=== PATIENT | female | born 1940 | race Caucasian/White ===

== ENCOUNTER → 2017-08-17 11:49 | Outpatient (CLI) | payer MEDICARE, SELFPAY ==
[2017-08-17 12:02] LABS: Microscopic, Urine URINE MICROSCOPIC (MICROSCOPIC)
[2017-08-17 12:53] LABS: Creatinine,Urine Random 171 mg/dL (20-320); Total Protein,Urine Random 101.2 mg/dL (0.0-11.9)
[2017-08-17 13:02] LABS: Appearance,Urine Clear (Clear); Color,Urine Yellow (Yellow)
[2017-08-17 13:03] LABS: Bilirubin,Urine Negative (Negative); Blood, Urine Trace (Negative); Glucose,Urine (UA) Negative (Negative); Ketones,Urine Negative (Negative); Leukocyte Esterase,Urine 1+ (Negative); Nitrate,Urine Negative (Negative); Protein,Urine 3+ (Negative); RBC,Urine Occasional #/hpf (0-3); Urobilinogen,Urine 0.2 EU/dl (0.2)
[2017-08-17 13:04] LABS: Bacteria,Urine 2+ /lpf
[2017-08-17 13:14] LABS: Albumin Level 3.5 gm/dL (3.4-5.0); Anion Gap 13.7 mEq/L (5-15); Blood Urea Nitrogen 30 mg/dL (7-18); Calcium 8.7 mg/dL (8.5-10.1); Carbon Dioxide 24 mmol/L (21.0-32.0); Chloride 108 mmol/L (98-107); Creatinine,Serum 1.17 mg/dL (0.55-1.02); Estimated Glomerular Filt Rate 45 ml/min (>60); GFR (African American) 55 ML/MIN (>60); Glucose 142 mg/dL (74-106); Phosphorous 3.7 mg/dL (2.4-4.9); Potassium 4.7 mmoL/L (3.5-5.1); Sodium 141 mmol/L (136-145)
== END ==
PROVIDERS: PCP Family Medicine Geriatric Medicine; Visit Provider Internal Medicine Nephrology
DX: N18.3 Chronic kidney disease, stage 3 (moderate) (principal); R82.90 Unspecified abnormal findings in urine
CPT/HCPCS: 36415; 80069; 81001; 82570; 84155; 87086; 87088; 87186

== ENCOUNTER → 2017-12-28 08:12 | Outpatient (CLI) | payer MEDICARE, SELFPAY ==
[2017-12-28 08:19] LABS: Microscopic, Urine URINE MICROSCOPIC (MICROSCOPIC)
[2017-12-28 08:45] LABS: Basophils # 0.1 K/mm3 (0-0.2); Eosinophils # 0.3 K/mm3 (0.0-0.4); Eosinophils % 3.5 % (0.1-12.0); Hematocrit 38.3 % (37.0-47.0); Hemoglobin 11.5 g/dL (12.2-16.2); Lymphocytes # 2.2 K/mm3 (0.7-4.5); Lymphocytes % 29.3 K/mm3 (10-50); Mean Corpuscular Hemoglobin 29.3 pg (27.0-31.2); Mean Corpuscular Volume 97.8 fl (81-99); Mean Platelet Volume 8.8 fl (7.4-10.4); Monocytes # 0.6 K/mm3 (0.1-1.0); Monocytes % 8.2 % (1.7-9.3); Neutrophils # 4.3 K/mm3 (1.8-7.8); Platelet Count 188 K/mm3 (142-424); Red Blood Count 3.91 M/mm3 (4.20-5.40); Red Cell Distribution Width 16.3 % (11.5-17.5); White Blood Count 7.5 K/mm3 (4.8-10.8)
[2017-12-28 08:48] LABS: Appearance,Urine SL CLOUDY (Clear); Bilirubin,Urine Negative (Negative); Blood, Urine Negative (Negative); Color,Urine YELLOW (Yellow); Glucose,Urine (UA) Negative (Negative); Ketones,Urine Negative (Negative); Leukocyte Esterase,Urine TRACE (Negative); Nitrate,Urine Negative (Negative); PH,Urine 5.5 (5.0-8.5); Protein,Urine 2+ (Negative); Specific Gravity, Urine 1.025 (1.005-1.030); Urobilinogen,Urine 0.2 EU/dl (0.2)
[2017-12-28 09:03] LABS: Hemoglobin A1C 6.8 % (0.0-7.0)
[2017-12-28 09:07] LABS: WBC,Urine Occasional #/hpf (0-3)
[2017-12-28 09:08] LABS: Bacteria,Urine Trace /lpf
[2017-12-28 09:22] LABS: Albumin Level 3.4 gm/dL (3.4-5.0); Anion Gap 15.4 mEq/L (5-15); Blood Urea Nitrogen 38 mg/dL (7-18); Calcium 9.2 mg/dL (8.5-10.1); Carbon Dioxide 24 mmol/L (21.0-32.0); Chloride 108 mmol/L (98-107); Creatinine,Serum 1.35 mg/dL (0.55-1.02); Estimated Glomerular Filt Rate 38 ml/min (>60); GFR (African American) 46 ML/MIN (>60); Glucose 178 mg/dL (74-106); Phosphorous 4.7 mg/dL (2.4-4.9); Potassium 4.4 mmoL/L (3.5-5.1); Sodium 143 mmol/L (136-145); Uric Acid 7.6 mg/dL (2.6-7.2)
[2017-12-28 10:29] LABS: Creatinine,Urine Random 186 mg/dL (20-320); Total Protein,Urine Random 78.2 mg/dL (0.0-11.9)
[2017-12-29 09:01] LABS: Vitamin D 25 Hydroxy 31.1 ng/mL (30.0-100.0)
[2017-12-30 19:22] LABS: Parathyroid Hormone Intact 43 pg/mL (15-65)
== END ==
PROVIDERS: Visit Provider Hospitalist
DX: N18.3 Chronic kidney disease, stage 3 (moderate) (principal); E11.9 Type 2 diabetes mellitus without complications
CPT/HCPCS: 36415; 80069; 81001; 82570; 82652; 83036; 83970; 84155; 84550; 85025

== ENCOUNTER → 2018-03-14 09:17 | Outpatient (CLI) | payer MEDICARE, SELFPAY ==
--- NOTE | 2018-03-14 09:26 | MM_ITS ---
MM Dig screening mamm BI w/CAD ORDERING PHYSICIAN : Helen Hammer MD PATIENT AGE: 77 years GENDER: Female COMPARISON: December 2016, 2015, July 2014 and 2012. October 2011 INDICATION: ITS.REASON: SCREENING no complaints noncontributory family history. . TECHNIQUE: Standard CC and MLO images were obtained. R2 CAD reviewed. FINDINGS: . Lower density breast with Generalized fatty replacement. Minimal residual fibroglandular elements anterior breast bilateral.. No dominant mass nor suspicious calcifications. Benign vascular calcifications. Scattered benign punctate calcifications bilaterally again evident. Mild asymmetry. Areas of fibroglandular elements at superior left breast similar to previous studies. No significant new areas of concern IMPRESSION: Stable bilateral mammogram. Bilateral follow-up one year recommended. BI-RADS Category: 1 Negative RECOMMENDED FOLLOW-UP: 1YR 1 YEAR FOLLOW-UP (A letter has been sent to the patient regarding results of the study.)
--- NOTE | 2018-03-14 09:27 | XR_ITS ---
XR DEXA axial skeleton HISTORY: ITS.REASON: POST MENOPAUSAL ORDERING PHYSICIAN: Helen Hammer MD PATIENT AGE: 77 years COMPARISON: 01/27/2017 FINDINGS: The BMD measured at the left femoral neck is 0.817 g/cm squared with a T score of -1.6 . This is considered Osteopenic according to the World Health Organization criteria. Fracture risk is Moderate. Treatment is advised. The L1 L4 density as a T score of 0.9. The lumbar spine density is unchanged. The hip density has increased by nearly 4% from the previous study. IMPRESSION: Osteopenia with moderate fracture risk. Treatment suggested. Recommend follow-up exam March 2020
--- NOTE | 2018-03-14 09:53 | CA_ITS ---
PROCEDURE: 2-D M-mode and color Doppler study INDICATIONS FOR THE TEST: Chest pain COPD Heart Murmur Tobacco Smoking Palpitations Fatigue Syncope Edema+ Hypertension+Diabetes Mellitus+ Rheumatic Fever SOB+TODD Obesity+Hyperlipidemia+ Family History HD Additional History CLAUDICATION PATIENT INFORMATION HEIGHT: 68 WEIGHT:229 GENDER: Female B/P:140/70 2-D/M-MODE INTERPRETATION: 2-D MEASUREMENTS OBSERVED VALUES IN CMS Right Ventricular Dimension (RVDd) 2.6 Interventricular Septum (Thickness)(IVsd) 1.3 Left Ventricular Internal Dimensions(LVIDd) 5.5 Left Ventricular Posterior Wall (Thickness)(LVPWd) 0.9 Aortic Root 3.3 Aortic Cusp Separation 1.4 Left Atrial Dimensions (LAD) 4.4 2D 1. Left atrium is mildly enlarged, left ventricle is normal size, mild concentric left ventricular hypertrophy, visually estimated ejection fraction 55% with no obvious regional wall motion abnormality. 2. The right atrium and right ventricle are normal size and contractility. 3. The aortic valve is thickened and calcified, with mild restriction the leaflet mobility. 4. The mitral and tricuspid valve leaflets are minimally thickened 5. The pulmonic valve is poorly visualized. 6. No significant pericardial effusion noted. DOPPLER INTERROGATION: 1. The maximum aortic out flow velocity recorded study 2.2 m/s, resulting in a mean gradient across valve of 12 mmHg, this represents mild aortic stenosis, there is no significant aortic insufficiency present. 2. The mitral inflow velocity within normal range, there is no mitral stenosis, there is mild mitral regurgitation. Grade 1 diastolic dysfunction seen with tissue Doppler evidence of raised left atrial pressure. 3. There is mild tricuspid regurgitation noted, tricuspid and jet velocity insufficient for calculation of the right ventricular systolic pressure, CONCLUSION 1. Mildly enlarged left atrium, normal left ventricular size, mild concentric left ventricular hypertrophy, visually estimated ejection fraction 55% with no obvious regional wall motion abnormality, grade 1 diastolic dysfunction seen with tissue Doppler evidence of raised left atrial pressure. 2. Thickened and calcified aortic valve with mean gradient across valve of 12 mmHg, this represents mild aortic stenosis, there is no significant aortic insufficiency present. 3. Mild mitral and tricuspid regurgitation 4. No significant pericardial effusion noted.
--- NOTE | 2018-03-14 09:57 | US_ITS ---
US Arterial Ankle Brachial Ind History: Claudication, diabetes, wrist pain, leg pain ORDERING PHYSICIAN: Helen Hammer MD PATIENT AGE: 77 years TECHNIQUE: Segmental pressures obtained of both right and left leg. These are compared to brachial blood pressure to yield index at each level sampled including summary HALLEY. The data sheets from the procedure are available in PACS FINDINGS Rest study only performed today No prior studies available for comparison. Blood pressures reported are in millimeters mercury. RIGHT LEG HALLEY = 1.1. RIGHT LEG TBI=.8 Brachial BP: 161 Thigh BP: 172 Calf BP: 172 Ankle PT: 171 Ankle DP : 164 Digit =126 LEFT LEG HALLEY = 1.1 LEFT LEG TBI= .9 Brachial BPD: 162 Thigh BP: 175 Calf BP: 177 Ankle PT:172 Ankle DP: 170 Digit = 145 Pulses and waveforms: Normal IMPRESSION: The ABIs as reported above are within normal limits. Waveforms and pulses are also unremarkable.
== END ==
PROVIDERS: PCP Emergency Medicine; Visit Provider Emergency Medicine
DX: Z12.31 Encounter for screening mammogram for malignant neoplasm of breast (principal); Z13.820 Encounter for screening for osteoporosis; Z78.0 Asymptomatic menopausal state; I73.9 Peripheral vascular disease, unspecified; R06.02 Shortness of breath
CPT/HCPCS: 77067; 77080; 93306; 93922

== ENCOUNTER → 2018-10-10 14:38 | Outpatient (POV) | payer MEDICARE, SELFPAY | PROVIDERS: Visit Provider Dermatology | DX: Z00.00 Encounter for general adult medical examination without abnormal findings (principal) ==

== ENCOUNTER → 2018-12-15 10:15 | Outpatient (CLI) | payer MEDICARE, SELFPAY ==
--- NOTE | 2018-12-15 10:24 | US_ITS ---
US thyroid HISTORY: ITS.REASON: THYROID NODULE ORDERING PHYSICIAN: Helen Santos MD PATIENT AGE: 78 years Comparison: None FINDINGS: The isthmus is normal at 3 mm. The right lobe measures 2.5 x 1 x 1.4 cm with some heterogeneous echogenicity. No discrete nodule is not identified in both transverse and longitudinal planes. There is a question of a nodule in the upper pole however, this may likely be related to heterogeneous echogenicity and is not well-defined. Left lobe is 2.5 x 0.8 x 1.4 cm also showing heterogeneous echogenicity. There is a 7 mm slightly hypoechoic nodule in the lower pole. IMPRESSION: Heterogeneous echogenicity of the thyroid gland with a 7 mm nodule in the lower pole on the left and other areas of faint nodularity but not well-defined. Suggest 6 month follow-up to confirm stability. Suspicion of malignancy is low
== END ==
PROVIDERS: PCP Emergency Medicine; Visit Provider Emergency Medicine
DX: E04.1 Nontoxic single thyroid nodule (principal)
CPT/HCPCS: 76536

== ENCOUNTER → 2019-01-26 08:38 | Outpatient (CLI) | payer MEDICARE, SELFPAY ==
--- NOTE | 2019-01-26 08:42 | CA_ITS ---
PROCEDURE: 2-D M-mode and color Doppler study INDICATIONS FOR THE TEST: Chest pain COPD Heart Murmur+ Tobacco Smoking Palpitations Fatigue Syncope Edema Hypertension+Diabetes Mellitus+ Rheumatic Fever SOB+TODD+Obesity+Hyperlipidemia+ Family History HD Additional History nausea PATIENT INFORMATION HEIGHT: 68 WEIGHT: 215 GENDER: Female B/P: 119/74 2-D/M-MODE INTERPRETATION: 2-D MEASUREMENTS OBSERVED VALUES IN CMS Right Ventricular Dimension (RVDd) 2.6 Interventricular Septum (Thickness)(IVsd) 1.0 Left Ventricular Internal Dimensions(LVIDd) 5.1 Left Ventricular Posterior Wall (Thickness)(LVPWd) 1.0 Aortic Root 2.7 Aortic Cusp Separation 2.0 Left Atrial Dimensions (LAD) 4.5 2D 1. Left atrium is mildly enlarged, left ventricle is normal size, mild concentric left ventricular hypertrophy, visually estimated ejection fraction 55% with no regional wall motion abnormality. 2. The right atrium and right ventricle are normal size and contractility. 3. The aortic valve is thickened and calcified with restriction the leaflet mobility. 4. The mitral and tricuspid valve leaflets are minimally thickened and calcified. 5. The pulmonic valve is poorly visualized. 6. No significant pericardial effusion noted. DOPPLER INTERROGATION: 1. The maximum aortic out flow velocity recorded study 2.3 m/s, resulting in a mean gradient across valve of 12 mmHg, valve area is 1.51 sq cm represents mild aortic stenosis. There is no aortic insufficiency 2. The mitral inflow velocities within normal range, there is no mitral stenosis, there is mild mitral regurgitation. Grade 1 diastolic dysfunction seen with tissue Doppler evidence of raised left atrial pressure. 3. Mild tricuspid regurgitation noted, tricuspid regurgitation jet velocity is inadequate for calculation of the right ventricular systolic pressure. Inferior vena cava is normal size with normal inspiratory collapse. CONCLUSION: 1. Mildly enlarged left atrium, normal left ventricular size, mild concentric left ventricular hypertrophy, visually estimated ejection fraction 55% with no regional wall motion abnormality, grade 1 diastolic dysfunction seen with tissue Doppler evidence of raised left atrial pressure. 2. Thickened and calcified aortic valve, mean gradient across valve of 12 mmHg, valve area 1.51 sq cm represents mild aortic stenosis, there is no aortic insufficiency. 3. Mild mitral and tricuspid regurgitation 4. No significant pericardial effusion noted.
--- NOTE | 2019-01-26 08:43 | US_ITS ---
US Arterial Lower Ext Rest Ordering Physician: Helen Santos MD Patient Age: 78 years: Female HISTORY: Diabetic. Hyperlipidemia hypertension . Bilateral claudication. Bilateral rest pain skin color changes both lungs Previous US Arterial Ankle Brachial Ind ORDERING PHYSICIAN: Helen Hammer MD PATIENT AGE: 77 years TECHNIQUE: Segmental pressures obtained of both right and left leg. These are compared to brachial blood pressure to yield index at each level sampled including summary HALLEY. The data sheets from the procedure are available in PACS FINDINGS Rest study only performed today No prior studies available for comparison. Blood pressures reported are in millimeters mercury. RIGHT LEG HALLEY = 1.1. RIGHT LEG TBI=. 0.5 Brachial BP: 138 Thigh BP: 132 with index 0.96 Calf BP: 132 with index 0.96 Ankle PT: 132 with index 0.96 Ankle DP : 1:30 with index 0.94 Digit =BP 74 with index 0.57 LEFT LEG HALLEY = 1.0 LEFT LEG TBI= 0.7 Brachial BPD: 134 Thigh BP: BP 134 with index 0.97 Calf BP: 146 with index 1.06 Ankle PT:BP 132 with index 0.96 Ankle DP: BP 125 with index 0.91 Digit = BP 90 with index 0.65 Pulses and waveforms: Normal IMPRESSION: ... . ABIs remain normal bilateral . Suggesting Good Blood flow to the ankles bilaterally as do the. Normal waveforms and pulses bilaterally . Only note Bilateral TBI's have decreased slightly since previous study of March 2018: RIGHT LEG HALLEY = 1.1. RIGHT LEG TBI=. 0.5 LEFT LEG HALLEY = 1.0 LEFT LEG TBI= 0.7
== END ==
PROVIDERS: PCP Emergency Medicine; Visit Provider Emergency Medicine
DX: R06.02 Shortness of breath (principal); R60.9 Edema, unspecified; I87.2 Venous insufficiency (chronic) (peripheral); R09.89 Other specified symptoms and signs involving the circulatory and respiratory systems
CPT/HCPCS: 93306; 93923

== ENCOUNTER → 2019-03-20 10:46 | Outpatient (CLI) | payer MEDICARE, SELFPAY ==
--- NOTE | 2019-03-20 10:48 | MM_ITS ---
PROCEDURE: MM DIG SCREENING MAMM BI W/CAD CLINICAL INDICATION: screening Routine screening. No hormones but no new complaints. Noncontributory family history. COMPARISON: [facility] DIGITAL MAMM-SCREEN BILATERAL from 11/26/2011 [facility] DIG MAMM-SCREEN VARGAS from 07/09/2013 [facility] DIG MAMM-SCREEN VARGAS from 07/19/2014 [facility] DIG MAMM-SCREEN VARGAS from 01/29/2016 [facility] DIG MAMM-SCREEN VARGAS W/CAD from 01/27/2017 [facility] MM Dig screening mamm BI w/CAD from 03/14/2018 TECHNIQUE: Standard CC and MLO images were obtained. R2 CAD reviewed. FINDINGS: Low-density breast bilaterally with generalized fatty replacement. Only minimal residual fibroglandular elements towards the anterior breast, retroareolar region bilaterally.. Similar pattern to previous studies with no dominant or new suspicious mass. No suspicious calcifications. But there are some tiny stable calcifications bilaterally with no significant change since 2017. Minimal vascular calcifications again seen bilaterally. IMPRESSION: Stable mammogram. No new areas of concern BI-RAD Category: 1 Negative FOLLOW-UP: 1YR 1 Year Follow-up (A letter has been sent to the patient regarding results of the study.) Dictated by: Kevyn Burnham MD 03/21/2019 11:27 Signed by: <Electronically signed by Kevyn Burnham MD in [facility]> 03/21/2019 11:27
== END ==
PROVIDERS: PCP Emergency Medicine; Visit Provider Emergency Medicine
DX: Z12.31 Encounter for screening mammogram for malignant neoplasm of breast (principal)
CPT/HCPCS: 77067

== ENCOUNTER → 2019-08-21 08:49 | Outpatient (CLI) | payer MEDICARE, SELFPAY ==
[2019-08-21 08:58] LABS: Microscopic, Urine URINE MICROSCOPIC (MICROSCOPIC)
[2019-08-21 09:49] LABS: Hemoglobin A1C 5.9 % (0.0-7.0)
[2019-08-21 10:27] LABS: Appearance,Urine CLEAR (Clear); Bilirubin,Urine Negative (Negative); Blood, Urine TRACE-L (Negative); Color,Urine YELLOW (Yellow); Glucose,Urine (UA) Negative (Negative); Ketones,Urine Negative (Negative); Leukocyte Esterase,Urine Negative (Negative); Nitrate,Urine Negative (Negative); Protein,Urine 2+ (Negative); Specific Gravity, Urine >= 1.030 (1.005-1.030); Urobilinogen,Urine 0.2 EU/dl (0.2)
[2019-08-21 10:52] LABS: Bacteria,Urine 2+ /lpf; RBC,Urine Occasional #/hpf (0-3)
[2019-08-21 11:28] LABS: Alanine Aminotransferase 21 U/L (12-78); Albumin Level 3.1 gm/dL (3.4-5.0); Albumin/Globulin Ratio 0.9 (1.1-1.8); Alkaline Phosphatase 44 U/L (46-116); Anion Gap 16.3 mEq/L (5-15); Aspartate Amino Transferase 32 U/L (15-37); Bilirubin,Total 0.6 mg/dL (0.2-1.0); Blood Urea Nitrogen 36 mg/dL (7-18); Calcium 9.3 mg/dL (8.5-10.1); Carbon Dioxide 24 mmol/L (21.0-32.0); Chloride 109 mmol/L (98-107); Chol/HDL Ratio 5.1 (1-3.5); Cholesterol 139 mg/dL (140-200); Creatinine,Serum 1.49 mg/dL (0.55-1.02); Estimated Glomerular Filt Rate 34 ml/min (>60); GFR (African American) 41 ML/MIN (>60); Globulin 3.3 gm/dl (1.3-3.2); Glucose 94 mg/dL (74-106); HDL Cholesterol 27 mg/dL (29-89); LDL Cholesterol 61 mg/dL (0-130); Potassium 4.3 mmoL/L (3.5-5.1); Sodium 145 mmol/L (136-145); T4 (Thyroxine) 12.8 ug/dl (4.7-13.3); Thyroid Stimulating Hormone 1.44 uIU/ml (0.358-3.740); Total Protein,Serum 6.4 gm/dL (6.4-8.2); Triglycerides 256 mg/dL (30-200); VLDL Cholesterol 51 mg/dL (0-40)
== END ==
PROVIDERS: Visit Provider Family Medicine
DX: E11.22 Type 2 diabetes mellitus with diabetic chronic kidney disease (principal); E03.9 Hypothyroidism, unspecified; E78.5 Hyperlipidemia, unspecified; I10 Essential (primary) hypertension; R82.90 Unspecified abnormal findings in urine
CPT/HCPCS: 36415; 80053; 80061; 81001; 83036; 84436; 84443; 87086; 87088; 87186

== ENCOUNTER → 2020-03-24 09:56 | Outpatient (CLI) | payer MEDICARE, SELFPAY ==
--- NOTE | 2020-03-24 09:58 | MM_ITS ---
PROCEDURE: MM DIG SCREENING MAMM BI W/CAD Digital Breast Tomosynthesis Included CLINICAL INDICATION: SCREENING There is no personal or family history of breast cancer. COMPARISON: MG [facility] DIG MAMM-SCREEN VARGAS W/CAD from 01/27/2017 [facility] MM Dig screening mamm BI w/CAD from 03/14/2018 [facility] MM DIG SCREENING MAMM BI W/CAD from 03/20/2019 TECHNIQUE: Standard CC and MLO images and 3D Tomosynthesis was obtained. R2 CAD reviewed. FINDINGS: The breasts are composed primarily of fat with minimal glandular elements in the subareolar regions bilaterally. There is a mole marker right breast. There are few scattered benign-appearing microcalcifications in each breast and there is mild arterial calcification in each breast. There is no suspicious lesion in either breast and no suspicious microcalcifications. There is a borderline size but normal appearing node left axilla. IMPRESSION: Fatty type breast parenchyma with no suspicious lesions seen BI-RAD Category: 2 Benign Finding(s) FOLLOW-UP: 1YR 1 Year Follow-up (A letter has been sent to the patient regarding results of the study.) Dictated by: Dr. Skinny Abraham MD 03/25/2020 08:31 Dr. Skinny Abraham MD in [place] 03/25/2020 08:31
--- NOTE | 2020-03-24 09:58 | XR_ITS ---
PROCEDURE: XR DEXA AXIAL SKELETON CLINICAL HISTORY: OSTEOPENIA COMPARISON: CR DEXAAX XR DEXA axial skeleton from 03/14/2018 FINDINGS: The right hip BMD is 0.592 with a t-score of -2.3. The left hip BMD is 0.728 with a t-score of -1.1. The lumbar spine BMD is 1.098 with a t-score of 0.5. Previously the lowest bone density was in the right femoral neck and had a T-score -1.6. IMPRESSION: This patient is considered osteopenic according to the World Health Organization criteria. Bone density is between 10 and 25 percent below young normal . Fracture risk is moderate. Treatment is advised. The patient's bone mineral density decreased compared to the previous exam. Based on these results of follow-up exam is recommended in 2 years Dictated by: Hector Peterson MD 03/26/2020 06:15 Hector Peterson MD in [place] 03/26/2020 06:15
== END ==
PROVIDERS: PCP Family Medicine; Visit Provider Family Medicine
DX: Z12.31 Encounter for screening mammogram for malignant neoplasm of breast (principal); M85.89 Other specified disorders of bone density and structure, multiple sites
CPT/HCPCS: 77063; 77067; 77080

== ENCOUNTER → 2020-05-28 08:16 | Outpatient (CLI) | payer MEDICARE, SELFPAY ==
[2020-05-28 09:01] LABS: Chloride 109 mmol/L (98-107); Potassium 4.3 mmoL/L (3.5-5.1); Sodium 143 mmol/L (136-145)
[2020-05-28 09:04] LABS: Anion Gap 14.3 mEq/L (5-15); Blood Urea Nitrogen 45 mg/dl (7-17); Carbon Dioxide 24 mmol/L (22.0-30.0); Estimated Glomerular Filt Rate 29 ml/min (>60); GFR (African American) 35 ML/MIN (>60); Glucose 91 mg/dl (74-100)
[2020-05-28 10:38] LABS: Hemoglobin A1C 5.9 % (4.0-6.0)
[2020-05-28 14:19] LABS: Thyroid Stimulating Hormone 0.04 uIU/mL (0.465-4.68)
== END ==
PROVIDERS: Visit Provider Family Medicine
DX: E11.22 Type 2 diabetes mellitus with diabetic chronic kidney disease (principal); E03.9 Hypothyroidism, unspecified; I10 Essential (primary) hypertension
CPT/HCPCS: 36415; 80048; 83036; 84443

== ENCOUNTER 2020-08-21 13:05 | Emergency (ER) | payer MEDICARE, SELFPAY ==
[2020-08-21 13:05] VITALS: BP 170/82; BP 179/91; PULSE 46; PULSE 47; RESP 18; RESP 20; TEMP 37.1; O2SAT 96; BMI 35.8
[2020-08-21 13:35] VITALS: BP 169/72; PULSE 56; RESP 18; O2SAT 96
--- NOTE | 2020-08-21 13:37 | CT_ITS ---
PROCEDURE: CT HEAD/BRAIN WO CON CLINICAL INDICATION: stroke protcol Right-sided weakness COMPARISON: No exams were available for comparison TECHNIQUE: Axial images obtained. All CT scans at the facility use one or more dose reduction, viz: automated exposure control, ma/kV adjustment per patient size (including targeted exams where dose is matched to indication, i.e. head), or iterative reconstruction technique. FINDINGS: Hyperdensity is present within the left lateral ventricle at the anterior horn body and posterior horn consistent with acute intraventricular hemorrhage. Blood is also present in the temporal horn of the left lateral ventricle. Also suspect subdural hematoma along the tentorium on the left anteriorly. There is no midline shift. There is atrophy with periventricular ischemic gliotic changes. There is opacification of the left maxillary sinus. No acute calvarial fracture. IMPRESSION: 1. Acute left-sided intraventricular hemorrhage within the left lateral ventricle also with a small amount of blood within the 3rd ventricle. 2. Small subdural hematoma along the tentorium on the left. 3. No midline shift. 4. Atrophy with periventricular ischemic gliotic change. 5. Dr. Manley notified of the above findings by telephone 08/21/2020 at 1:55 p.m. Dictated by: Hector Peterson MD 08/21/2020 14:03 Hector Peterson MD in [facility] 08/21/2020 14:03
--- NOTE | 2020-08-21 13:41 | XR_ITS ---
PROCEDURE: XR PELVIS 1-2V CLINICAL INDICATION: fall Posttraumatic pain COMPARISON: No exams were available for comparison TECHNIQUE: XR Pelvis AP View FINDINGS: No fracture or dislocation is evident. Mild osteoarthritic changes are at the hips and degenerative changes are present in the lower lumbar spine. No lytic or blastic change. IMPRESSION: No acute findings. Dictated by: Hector Peterson MD 08/21/2020 14:30 Hector Peterson MD in [place] 08/21/2020 14:30
--- NOTE | 2020-08-21 13:41 | XR_ITS ---
PROCEDURE: XR CHEST AP CLINICAL HISTORY: fall Posttraumatic pain COMPARISON: No exams were available for comparison FINDINGS: Cardiomegaly without failure. Minimal atelectatic changes in the lung bases. No acute bony abnormalities. IMPRESSION: Mild bibasilar atelectasis with cardiomegaly Dictated by: Hector Peterson MD 08/21/2020 14:30 Hector Peterson MD in [facility] 08/21/2020 14:30
--- NOTE | 2020-08-21 13:41 | CT_ITS ---
PROCEDURE: CT CERVICAL SPINE WO CON CLINICAL INDICATION: fall/pain Posttraumatic pain Neck injury with pain, contusion/abrasion or hematoma, cervical sprain/strain the COMPARISON: No exams were available for comparison TECHNIQUE: Axial images obtained with sagittal and coronal reformats. All CT scans at the facility use one or more dose reduction, viz: automated exposure control, ma/kV adjustment per patient size (including targeted exams where dose is matched to indication, i.e. head), or iterative reconstruction technique. Axial spiral CT scanning performed of the cervical spine beginning at the base of the skull and continuing to the upper T-spine. 3-D multiplanar reconstruction with 3-D manipulation of volumetric data set in image rendering was completed by the radiologist and/or technologist with the supervision of the radiologist on independent workstation. FINDINGS: There is multilevel cervical spondylosis. There is 3 mm anterolisthesis of C4 on C5. Degenerative disc disease is present at C4-C5 C5-C6 C6-C7 and C7-T1. Facet arthropathy is noted at multiple levels. There is foraminal narrowing on the left at C4-C5 from facet and uncovertebral hypertrophic change. Mild bilateral foraminal narrowing C5-C6 and C6-C7. Anterior osteophytes are present at C5-C6 and C6-C7. There is reversal of the lordosis at C4-C5. IMPRESSION: Reversal lordosis with multilevel cervical spondylosis. 3 mm anterolisthesis C4 on C5 which may be degenerative in nature. No acute fracture Dictated by: Hector Peterson MD 08/21/2020 14:06 Hector Peterson MD in [facility] 08/21/2020 14:06
--- NOTE | 2020-08-21 13:42 | PC.NURSE ---
Pt to rad.
[2020-08-21 13:54] LABS: Chloride 106 mmol/L (98-107); Potassium 4.3 mmoL/L (3.5-5.1); Sodium 143 mmol/L (136-145)
[2020-08-21 13:57] LABS: Alanine Aminotransferase 29 U/L (12-78); Albumin Level 4.4 g/dl (3.5-5.0); Albumin/Globulin Ratio 1.1 (1.1-1.8); Alkaline Phosphatase 67 U/L (38-126); Anion Gap 14.3 mEq/L (5-15); Aspartate Amino Transferase 57 U/L (14-36); Bilirubin,Total 1.2 mg/dl (0.2-1.3); Blood Urea Nitrogen 51 mg/dl (7-17); Carbon Dioxide 27 mmol/L (22.0-30.0); Creatinine Clearance Estimated 32 mL/min (50-200); Estimated Glomerular Filt Rate 21 ml/min (>60); GFR (African American) 25 ML/MIN (>60); Globulin 3.9 g/dL (1.3-3.2); Glucose 173 mg/dl (74-100); Total Protein,Serum 8.3 g/dl (6.3-8.2)
[2020-08-21 13:58] LABS: Basophils # 0.1 K/mm3 (0-0.2); Basophils % 0.5 % (0.1-2.0); Eosinophils # 0.1 K/mm3 (0.0-0.4); Eosinophils % 0.6 % (0.1-12.0); Hematocrit 48.8 % (37.0-47.0); Hemoglobin 15.7 g/dL (12.2-16.2); Lymphocytes # 1.9 K/mm3 (0.7-4.5); Lymphocytes % 14.9 % (10-50); Mean Corpuscular HGB Conc 32.3 g/dL (31.8-35.4); Mean Corpuscular Hemoglobin 32.5 pg (27.0-31.2); Mean Corpuscular Volume 100.6 fl (81-99); Mean Platelet Volume 9.4 fl (7.4-10.4); Monocytes # 0.8 K/mm3 (0.1-1.0); Monocytes % 5.9 % (1.7-9.3); Neutrophils # 10.1 K/mm3 (1.8-7.8); Neutrophils % 78.2 % (37.0-80.0); Platelet Count 252 K/mm3 (142-424); Red Blood Count 4.85 M/mm3 (4.20-5.40); Red Cell Distribution Width 16.2 % (11.5-17.5); White Blood Count 12.9 K/mm3 (4.8-10.8)
[2020-08-21 13:59] LABS: Calcium 13.4 mg/dl (8.4-10.2)
--- NOTE | 2020-08-21 13:59 | PC.NURSE ---
Calcium called to jaron 13.4
--- NOTE | 2020-08-21 14:01 | PC.NURSE ---
speaking with Dr Peterson and family at this time.
[2020-08-21 14:03] LABS: Lactic Acid 1.8 mmol/L (0.7-2.1)
--- NOTE | 2020-08-21 14:03 | PC.NURSE ---
calling [facility] at this time.
[2020-08-21 14:05] VITALS: BP 190/82; PULSE 57; RESP 20; O2SAT 94
--- NOTE | 2020-08-21 14:16 | [facility].EDGENADL ---
ED Disposition Clinical Impression: Brain bleed Disposition: Xfer Short-Term Hosp Condition on Discharge: Fair Instructions: Intracerebral Hemorrhage Referrals: Evaristo Lovell MD [Primary Care Provider] - Forms: Transfer Record - ED Time of Disposition: 14:25 - Critical Care Critical Care Time: No Attestation: On 08/21/20, the high probability of a clinically significant, sudden or life threatening deterioration of the following system(s) required my full and direct attention, intervention and personal management. The time I documented below is in addition to time spent performing reported procedures but includes the following listed in this critical care notation. Medical Decision Making - Medical Records Medical records reviewed: Yes: I reviewed the patient's medical records. MR Comment: This is a pleasant 80-year-old female here brought by her and family with complaint that she was feeling weak had some hallucination and had nausea and vomiting; fell 1 week ago and had symptoms of not feeling well nausea and vomiting subsequently she fell this morning again and had an episode of nausea and vomiting she denies any heart problems have a history of diabetes and is quite stable at this time. CT of the head shows the following hyperdensities present within the left lateral ventricle at the anterior horn body and posterior horn consistent with acute intraventricular hemorrhage. Blood is also present in the temporal horn of the left lateral ventricle. Also subsequent suspected subdural hematoma along the tentorium on the left anteriorly. There is no midline shift. There is atrophy with periventricular ischemic gliotic changes . To Dr. Rodriguez at [facility] and he has accepted patient advised no medications to be given at this time patient and her has have been informed of findings is confirmed to me that they have a living well not want to be kept on life support in case of any complications. There is opacification of the left maxillary sinus no acute calvarial fracture - [facility] Inquiry Pt receiving controlled substance: No Vital Signs: 08/21/20 13:05 Temperature 98.7 F Temperature Source Oral Pulse Rate [Left Radial] 46 L Respiratory Rate 20 Blood Pressure [Right Arm] 179/91 H Blood Pressure Mean [Right Arm] 120 Blood Pressure Source [Right Arm] Automatic Cuff Blood Pressure Position [Right Arm] Sitting 02 Sat by Pulse Oximetry 96 Oxygen Delivery Method Room Air - Lab Data Lab results reviewed: Yes: I reviewed the patient's lab results. Lab Results 08/21/20 13:20: Lactate 1.8 08/21/20 13:20: WBC 12.9 H, RBC 4.85, Hgb 15.7, Hct 48.8 H, MCV 100.6 H, MCH 32.5 H, MCHC 32.3, RDW 16.2, Plt Count 252, MPV 9.4, Neut % (Auto) 78.2, Lymph % (Auto) 14.9, [place] % (Auto) 5.9, Eos % (Auto) 0.6, Baso % (Auto) 0.5, Neut # (Auto) 10.1 H, Lymph # (Auto) 1.9, [place] # (Auto) 0.8, Eos # (Auto) 0.1, Baso # (Auto) 0.1 08/21/20 13:20: Sodium 143, Potassium 4.3, Chloride 106, Carbon Dioxide 27, Anion Gap 14.3, BUN 51 H, Creatinine 2.30 H, Estimated Creat Clear 32, Estimated GFR 21 L, Est GFR ( Amer) 25 L, Glucose 173 H, Calcium 13.4 H*, Total Bilirubin 1.2, AST 57 H, ALT 29, Alkaline Phosphatase 67, Total Protein 8.3 H, Albumin 4.4, Globulin 3.9 H, Albumin/Globulin Ratio 1.1 Result diagrams: 08/21/20 13:20 08/21/20 13:20 Orders (Tests/Meds): ORDERS Category Date Time Status XR chest AP Stat Exams 08/21/20 13:41 Taken XR pelvis 1-2V Stat Exams 08/21/20 13:41 Taken Blood Culture Stat Micro 08/21/20 13:20 Received General Adult HPI - General Chief complaint: Weakness Stated complaint: ams weakness Time Seen by Provider: 08/21/20 14:00 Mode of Arrival: Wheelchair Source of Information: Patient, Spouse Limitations: No Limitations Description of Symptoms (Recalled from ER Triage Doc. by RN): c/o weakness for one week, more week on the right side than the left
--- NOTE | 2020-08-21 14:19 | PC.NURSE ---
[place] [facility] accepted flight. [facility] will call back when they have lifted off.
[2020-08-21 14:30] VITALS: BP 172/76; PULSE 59; RESP 18; O2SAT 95
--- NOTE | 2020-08-21 14:34 | PC.NURSE ---
REPORT CALLED TO MARCELO AT ER. AWAITING ER AT THIS TIME
[2020-08-21 15:00] VITALS: BP 172/76; PULSE 59; RESP 18; TEMP 37.1; O2SAT 95
== END 2020-08-21 15:10 | disposition short-term general hospital (02) ==
PROVIDERS: Emergency Provider Emergency Medicine; PCP Family Medicine
DX: I61.9 Nontraumatic intracerebral hemorrhage, unspecified (principal); E11.9 Type 2 diabetes mellitus without complications; E78.5 Hyperlipidemia, unspecified; I10 Essential (primary) hypertension; Z88.2 Allergy status to sulfonamides; Z79.899 Other long term (current) drug therapy
CPT/HCPCS: 70450; 71045; 72125; 72170; 80053; 83605; 85025; 87040; 99284

== ENCOUNTER → 2021-02-13 11:31 | Outpatient (CLI) | payer MEDICARE, SELFPAY | PROVIDERS: PCP Family Medicine; Visit Provider Family Medicine | DX: R00.1 Bradycardia, unspecified (principal); I35.8 Other nonrheumatic aortic valve disorders; R42 Dizziness and giddiness; R55 Syncope and collapse | CPT/HCPCS: 93225; 93226 ==

== ENCOUNTER → 2021-03-02 10:55 | Outpatient (CLI) | payer MEDICARE, SELFPAY ==
--- NOTE | 2021-03-02 | CA_ITS ---
APPROVED REPORT EXAM: Comprehensive 2D, Doppler, and color-flow Echocardiogram Washer Cutter: Lilian Souza RT(R) Ht: 5 ft 8 in Wt: 222lbs BSA: 2.14 BP: 133/71 mmHg Indications: murmur, HTN, hyperlipidemia, DM, obesity, anemia, thyroid disease, glaucoma, chronic kidney disease, hx of 2D Dimensions LVOT 1.92 cm (M/F) 1.5-2.5 LA Volume 53.40 mL LA Volume Index 25.07 mL/m2 (M/F) 16-34 M-Mode Dimensions RVDd 3.14 cm (0.9-2.6) LA Diam 4.43 cm (1.9-4.0) LVDd 6.29 cm (3.5-5.7) Ao Diam 3.07 cm (2.0-3.7) LVDs 5.01 cm (3.5-5.7) IVSd 0.89 cm (0.6-1.1) PWd 0.85 cm (0.6-1.1) EF (Teich) 40.70% FS 20.30% EDV (Teich) 200.50 mL ESV (Teich) 118.80 mL LV Diastology E Decel Time 227.00 (160-240 msec) E/A Ratio 0.6 MED E' 5.50 (< 7 cm/sec) E'/MED E' Ratio 13.65 (>14) LAT E' 9.80 (<10 cm/sec) E/LAT E' Ratio 7.66 (>14) Aortic Valve LVOT Max 125.00 (70-110 cm/s) LVOT VTI 28.70 cm AoV Peak Cruz. 329.00 (50-130 cm/s) AO Peak GR. 43.60 mmHg AO Mean GR. 21.30 (<5 mmHg) AO VTI 69.16 (18-25 cm) ZION (VTI) 1.20 (2.5-4.5 cm2) Mitral Valve MV E Max Cruz. 75.00 (40-130 cm/s) MV A Velocity 118.00 (40-130 cm/s) E/A Ratio 0.64 MV Decel. Time 227.00 (160-240 ms) MV PHT 66.00 ms Left Ventricle Left atrium is mildly enlarged, left ventricle is normal size, mild concentric left ventricular hypertrophy, visually estimated ejection fraction 55% with no regional wall motion abnormality, grade 1 diastolic dysfunction seen without tissue Doppler evidence of raise left atrial pressure. Right Ventricle Right atrium and right ventricle are normal size and contractility. Aortic Valve Aortic valve is thickened and calcified, mean gradient across aortic stenosis, there is no significant aortic insufficiency. Mitral Valve Mitral valve is grossly normal, there is mild mitral regurgitation. Tricuspid Valve Tricuspid valve grossly normal, there is mild tricuspid regurgitation, tricuspid regurgitation jet velocity is inadequate for calculation of the right ventricular systolic pressure. Pulmonic Valve Pulmonic valve is poorly visualized. Great Vessels Aortic root is normal size. Pericardium No significant pericardial effusion noted. Conclusion 1. Mildly enlarged left atrium, normal left ventricular size, mild concentric left ventricular hypertrophy, visually estimated ejection fraction 55% with no regional wall motion abnormality, grade 1 diastolic dysfunction seen without tissue Doppler evidence of raise left atrial pressure. 2. Thickened and calcified aortic valve with moderate aortic stenosis, valve area is 1.34 cm???, there is no aortic insufficiency. 3. Mild mitral and tricuspid regurgitation. 4. No significant pericardial effusion noted. Electronically signed by : Dustin Neely, 03/02/2021 22:06:47
== END ==
PROVIDERS: PCP Family Medicine; Visit Provider Family Medicine
DX: R42 Dizziness and giddiness (principal); R55 Syncope and collapse; I35.8 Other nonrheumatic aortic valve disorders
CPT/HCPCS: 93306

== ENCOUNTER 2021-06-21 16:46 | Emergency (ER) | payer MEDICARE, SELFPAY ==
[2021-06-21 16:48] VITALS: BP 123/52; BP 81/41; PULSE 42; RESP 18; TEMP 36.6; O2SAT 98; BMI 28.7
[2021-06-21 17:10] VITALS: BMI 28.7
--- NOTE | 2021-06-21 17:11 | XR_ITS ---
PROCEDURE INFORMATION: Exam: XR Chest Exam date and time: 06/21/2021 5:11 PM Age: 81 years old Clinical indication: Shortness of breath and other: Weakness; Additional info: Generalized weakness TECHNIQUE: Imaging protocol: XR of the chest. Views: 2 views. COMPARISON: CR XR CHEST AP 08/21/2020 2:12 PM FINDINGS: Lungs: Unremarkable. No consolidation. Pleural spaces: Unremarkable. No pleural effusion. No pneumothorax. Heart/Mediastinum: Unremarkable. No cardiomegaly. Bones/joints: Unremarkable. IMPRESSION: No acute findings.
--- NOTE | 2021-06-21 17:11 | ECG_ITS ---
APPROVED REPORT Exam: Resting ECG HR:41 bpm ECG Measurements Heart Rate 41 AXES QRSd 76 QRS 32 QT 470 T 90 QTc 387 Conclusion Atrial fibrillation with slow ventricular response T wave abnormality, consider lateral ischemia or digitalis effect Abnormal ECG Electronically signed by : Lizandro Rick MD 06/23/2021 12:19:19
--- NOTE | 2021-06-21 17:11 | CT_ITS ---
PROCEDURE INFORMATION: Exam: CT Head Without Contrast Exam date and time: 06/21/2021 5:11 PM Age: 81 years old Clinical indication: Weakness, extremity; Bilateral; Additional info: Generalized weakness// history of pervious stroke TECHNIQUE: Imaging protocol: Computed tomography of the head without contrast. Radiation optimization: All CT scans at this facility use at least one of these dose optimization techniques: automated exposure control; mA and/or kV adjustment per patient size (includes targeted exams where dose is matched to clinical indication); or iterative reconstruction. COMPARISON: CT HEAD/BRAIN WO CON 08/21/2020 1:43 PM FINDINGS: Brain: Moderate white matter hypoattenuation is again seen most compatible with chronic small vessel ischemia. Cerebral ventricles: No ventriculomegaly. Previously seen blood is resolved. Paranasal sinuses: The left maxillary sinus remains opacified. Mastoid air cells: Visualized mastoid air cells are well aerated. Bones/joints: Unremarkable. No acute fracture. Soft tissues: Unremarkable. IMPRESSION: 1. No acute intracranial pathology. 2. Persistent moderate white matter disease most likely due to chronic small vessel ischemia.
[2021-06-21 18:07] LABS: Basophils # 0.1 K/mm3 (0-0.2); Eosinophils # 0.2 K/mm3 (0.0-0.4); Eosinophils % 1.7 % (0.1-12.0); Hematocrit 34.5 % (37.0-47.0); Hemoglobin 11.1 g/dL (12.2-16.2); Lymphocytes # 1.5 K/mm3 (0.7-4.5); Lymphocytes % 14.5 % (10-50); Mean Corpuscular HGB Conc 32.2 g/dL (31.8-35.4); Mean Corpuscular Hemoglobin 31.9 pg (27.0-31.2); Mean Corpuscular Volume 98.9 fl (81-99); Mean Platelet Volume 10.2 fl (7.4-10.4); Monocytes # 0.6 K/mm3 (0.1-1.0); Monocytes % 5.7 % (1.7-9.3); Neutrophils # 8.2 K/mm3 (1.8-7.8); Neutrophils % 77.1 % (37.0-80.0); Platelet Count 219 K/mm3 (142-424); Red Blood Count 3.49 M/mm3 (4.20-5.40); Red Cell Distribution Width 16.3 % (11.5-17.5); White Blood Count 10.6 K/mm3 (4.8-10.8)
[2021-06-21 18:11] LABS: Chloride 114 mmol/L (98-107); Sodium 142 mmol/L (136-145)
[2021-06-21 18:14] LABS: Blood Urea Nitrogen 48 mg/dl (7-17); Creatinine Clearance Estimated 34 mL/min (50-200); Estimated Glomerular Filt Rate 27 ml/min (>60); GFR (African American) 33 ML/MIN (>60)
[2021-06-21 18:15] LABS: Calcium 9.7 mg/dl (8.4-10.2); Carbon Dioxide 16 mmol/L (22.0-30.0); Glucose 85 mg/dl (74-100)
[2021-06-21 18:28] LABS: Troponin I < 0.01 ng/ml (0.00-0.034)
--- NOTE | 2021-06-21 18:35 | PC.NURSE ---
notified md of critical potassium 7.0
--- NOTE | 2021-06-21 19:12 | HMH.EDGENADL ---
ED Disposition Clinical Impression: Hypotensive episode, Hyperkalemia CKD (chronic kidney disease) Qualifiers: Chronic kidney disease stage: unspecified stage Qualified Code(s): N18.9 - Chronic kidney disease, unspecified UTI (urinary tract infection) Qualifiers: Urinary tract infection type: acute cystitis Hematuria presence: without hematuria Qualified Code(s): N30.00 - Acute cystitis without hematuria Disposition: Home, Self-Care Condition on Discharge: Good Additional Instructions: Do not take atenolol or lisinopril until further instructed. Continue your other medications as prescribed. See Dr. Delgado in his office tomorrow morning at [address] Coelho's office and set up an appointment for follow-up. Return to the emergency department if symptoms worsen. Prescriptions: Cefdinir [Omnicef 300mg Capsule] 300 mg PO BID #20 cap Transmission Status: Pending to [id number] Referrals: Lizandro Coelho MD [Primary Care Provider] - - Critical Care Critical Care Time: No Attestation: On 06/21/21, the high probability of a clinically significant, sudden or life threatening deterioration of the following system(s) required my full and direct attention, intervention and personal management. The time I documented below is in addition to time spent performing reported procedures but includes the following listed in this critical care notation. Medical Decision Making - Howard Inquiry Pt receiving controlled substance: No Vital Signs: 06/21/21 16:48 06/21/21 19:25 Temperature 97.9 F Temperature Source Oral Pulse Rate [Radial] 42 L Respiratory Rate 18 Blood Pressure 134/58 L Blood Pressure [Left Arm] 81/41 L Blood Pressure [Right Arm] 123/52 L Blood Pressure Mean [Left Arm] 54 Blood Pressure Mean [Right Arm] 75 Blood Pressure Position [Right Arm] Sitting 02 Sat by Pulse Oximetry 98 Oxygen Delivery Method Room Air - Lab Data Lab Results 06/21/21 17:52: WBC 10.6, RBC 3.49 L, Hgb 11.1 L, Hct 34.5 L, MCV 98.9, MCH 31.9 H, MCHC 32.2, RDW 16.3, Plt Count 219, MPV 10.2, Neut % (Auto) 77.1, Lymph % (Auto) 14.5, Hudspeth % (Auto) 5.7, Eos % (Auto) 1.7, Baso % (Auto) 1.0, Neut # (Auto) 8.2 H, Lymph # (Auto) 1.5, Hudspeth # (Auto) 0.6, Eos # (Auto) 0.2, Baso # (Auto) 0.1 06/21/21 17:52: Sodium 142, Potassium 6.0 H, Chloride 114 H, Carbon Dioxide 16 L, Anion Gap 18.0 H, BUN 48 H, Creatinine 1.80 H, Estimated Creat Clear 34, Estimated GFR 27 L, Est GFR ( Amer) 33 L, Glucose 85, Calcium 9.7, Troponin I < 0.01 06/21/21 19:05: Urine Color Yellow, Urine Appearance Sl cloudy, Urine pH 5.5, Ur Specific Henderson 1.020, Urine Protein 2+, Urine Glucose (UA) Negative, Urine Ketones Negative, Urine Blood Negative, Urine Nitrate Negative, Urine Bilirubin Negative, Urine Urobilinogen 0.2, Ur Leukocyte Esterase Trace, Urine WBC 10-20, Ur Squamous Epith Cells 5-10, Amorphous Sediment Trace 06/21/21 19:20: Potassium 5.5 H 06/21/21 19:30: Lactate 0.9 Result diagrams: 06/21/21 17:52 06/21/21 19:20 Orders (Tests/Meds): ORDERS Category Date Time Status Troponin I Q3H Lab 06/21/21 20:15 Ordered Troponin I Q3H Lab 06/21/21 23:15 Ordered Blood Culture Stat Micro 06/21/21 19:30 Received Urine Culture Stat Micro 06/21/21 19:05 Received - Radiology Data #1 Image(s): Chest Image Reviewed: Yes I have reviewed radiologist's interpretation PROCEDURE INFORMATION: Exam: XR Chest Exam date and time: 06/21/2021 5:11 PM Age: 81 years old Clinical indication: Shortness of breath and other: Weakness; Additional info: Generalized weakness TECHNIQUE: Imaging protocol: XR of the chest. Views: 2 views. COMPARISON: CR XR CHEST AP 08/21/2020 2:12 PM FINDINGS: Lungs: Unremarkable. No consolidation. Pleural spaces: Unremarkable. No pleural effusion. No pneumothorax. Heart/Mediastinum: Unremarkable. No cardiomegaly. Bones/joints: Unremarkable. IMPRESSION: No acute fi
[2021-06-21 19:25] VITALS: BP 134/58; BP 152/60
--- NOTE | 2021-06-21 19:26 | PC.NURSE ---
pt up to bathroom with assistance of one. pt unsteady on feet
[2021-06-21 19:37] LABS: Potassium 5.5 mmoL/L (3.5-5.1)
[2021-06-21 19:44] LABS: Microscopic, Urine URINE MICROSCOPIC (MICROSCOPIC)
[2021-06-21 19:46] LABS: Lactic Acid 0.9 mmol/L (0.7-2.1)
[2021-06-21 19:48] LABS: Appearance,Urine SL CLOUDY (Clear); Bilirubin,Urine Negative (Negative); Blood, Urine Negative (Negative); Color,Urine YELLOW (Yellow); Glucose,Urine (UA) Negative (Negative); Ketones,Urine Negative (Negative); Leukocyte Esterase,Urine TRACE (Negative); Nitrate,Urine Negative (Negative); PH,Urine 5.5 (5.0-8.5); Protein,Urine 2+ (Negative); Urobilinogen,Urine 0.2 EU/dl (0.2)
[2021-06-21 19:56] LABS: Amorphous Sediment,Urine Trace /lpf
--- NOTE | 2021-06-21 20:00 | PC.NURSE ---
speaking with dr sparrow on-call for dr sho resendiz.
--- NOTE | 2021-06-21 20:05 | PC.NURSE ---
PAGED DR MALCOLM
[2021-06-21 20:55] VITALS: BP 168/74; PULSE 78; RESP 16; TEMP 36.6; O2SAT 98
== END 2021-06-21 21:03 | disposition home or self-care (01) ==
PROVIDERS: Emergency Provider Emergency Medicine; PCP Family Medicine
DX: N30.00 Acute cystitis without hematuria (principal); N18.9 Chronic kidney disease, unspecified; I95.9 Hypotension, unspecified; E87.5 Hyperkalemia; E11.9 Type 2 diabetes mellitus without complications; I10 Essential (primary) hypertension; E78.5 Hyperlipidemia, unspecified; Z79.899 Other long term (current) drug therapy
CPT/HCPCS: 70450; 71046; 80048; 81001; 83605; 84132; 84484; 85025; 87040; 87086; 87186; 93005; 96365; 96366; 96367; 99283

== ENCOUNTER → 2021-06-30 09:01 | Outpatient (CLI) | payer MEDICARE, SELFPAY ==
[2021-06-30 09:30] LABS: Basophils # 0.1 K/mm3 (0-0.2); Basophils % 0.7 % (0.1-2.0); Eosinophils # 0.3 K/mm3 (0.0-0.4); Eosinophils % 3.1 % (0.1-12.0); Hematocrit 35.7 % (37.0-47.0); Hemoglobin 11.2 g/dL (12.2-16.2); Lymphocytes # 2.4 K/mm3 (0.7-4.5); Lymphocytes % 26.4 % (10-50); Mean Corpuscular HGB Conc 31.5 g/dL (31.8-35.4); Mean Corpuscular Hemoglobin 31.1 pg (27.0-31.2); Mean Corpuscular Volume 98.7 fl (81-99); Mean Platelet Volume 9.4 fl (7.4-10.4); Monocytes # 0.6 K/mm3 (0.1-1.0); Monocytes % 6.3 % (1.7-9.3); Neutrophils # 5.9 K/mm3 (1.8-7.8); Neutrophils % 63.5 % (37.0-80.0); Platelet Count 213 K/mm3 (142-424); Red Blood Count 3.62 M/mm3 (4.20-5.40); Red Cell Distribution Width 16.3 % (11.5-17.5); White Blood Count 9.3 K/mm3 (4.8-10.8)
[2021-06-30 10:12] LABS: Anion Gap 12.2 mEq/L (5-15); Blood Urea Nitrogen 40 mg/dl (7-17); Calcium 10.8 mg/dl (8.4-10.2); Carbon Dioxide 19 mmol/L (22.0-30.0); Chloride 113 mmol/L (98-107); Estimated Glomerular Filt Rate 26 ml/min (>60); GFR (African American) 31 ML/MIN (>60); Glucose 101 mg/dl (74-100); Potassium 5.2 mmoL/L (3.5-5.1); Sodium 139 mmol/L (136-145)
== END ==
PROVIDERS: Visit Provider Urology
DX: Z01.812 Encounter for preprocedural laboratory examination; Z20.822 Contact with and (suspected) exposure to COVID-19; R06.00 Dyspnea, unspecified; R42 Dizziness and giddiness; R55 Syncope and collapse; I35.0 Nonrheumatic aortic (valve) stenosis; R00.0 Tachycardia, unspecified; R00.1 Bradycardia, unspecified; E78.5 Hyperlipidemia, unspecified; G47.33 Obstructive sleep apnea (adult) (pediatric); R53.83 Other fatigue; R94.31 Abnormal electrocardiogram [ECG] [EKG]; Z86.73 Personal history of transient ischemic attack (TIA), and cerebral infarction without residual deficits
CPT/HCPCS: 36415; 80048; 85025; C9803; U0003; U0005

== ENCOUNTER 2021-07-02 08:48 | Day surgery (SDC) | payer MEDICARE, SELFPAY ==
[2021-07-02] VITALS (17 sets, daily range): BP systolic 112–169; BP diastolic 48–76; PULSE 65–83; RESP 14–18; TEMP 36.4–36.8; O2SAT 95–99; BMI 28.8
--- NOTE | 2021-07-02 07:10 | IR_ITS ---
APPROVED REPORT Patient Location: Outpatient PROCEDURES Selective coronary angiogram Drug-eluting stent deployment to the proximal and mid LAD in a contiguous manner INDICATION Coronary artery disease, Accelerated angina pectoris Informed consent was obtained prior to the procedure. COMPLICATIONS NONE Estimated Blood Loss: LESSTHAN 10 ML TECHNIQUE One percent lidocaine used to anesthetize the right anterior aspect of the wrist. The right radial artery was accessed via the Seldinger technique. A 6 Sami sheath was placed in the right radial artery. 2.5 mg of verapamil, 800 mcg of nitroglycerin, 1mg Lidocaine and 5000 U Heparin were given through the arterial sheath. The [employer] catheter was also used to perform selective coronary angiogram. At the end of the procedure therapeutic heparin was administered giving a therapeutic ACT and the guide catheter was left in the left main artery where a Choice PT extra-support wire was placed distally. A 2.5 x 15 mm resolute [place] stent was deployed at 20 ashley reducing the stenosis to 0%. The first stent would not extend into the target area and there was difficulty retrieving the stent therefore it was decided to deploy the stent in the area rather than take the risk of dislodging the stent from the balloon.. An additional 2.5 x 15 mm resolute [place] stent was then deployed distal to the first stent yet still overlapping it at 20 ashley further reducing the distal stenosis. KHADIJAH-3 flow was present before and after the procedure. At the end of the procedure the apparatus was removed the sheath was removed and hemostasis was achieved using TR banding patient was transferred to the postoperative care in stable condition ANGIOGRAPHIC RESULTS The left main artery Normal The left anterior descending artery Is proximally normal and then has a mid vessel calcified 70% stenosis The circumflex artery Nondominant normal The right coronary artery Dominant with proximal mid vessel and distal 20% stenoses with 20% stenoses in the posterior descending artery The PICHARDO ventriculogram reveals Not performed due to renal failure and known aortic stenosis The left ventricular end-diastolic pressure Not measured IMPRESSION Severe mid LAD disease as described above Successful stenting of proximal to mid LAD severe disease reduced to 0% with 2 drug-eluting stents in a contiguous manner PLAN 1. Dual antiplatelet therapy 2. Placed loop recorder due to tachybradycardia syndrome 3. No beta-blockers or ARB's at this time given documented bradycardia and patient's creatinine of 1.9 4. Cardiac rehabilitation 5. Avoidance of tobacco products Electronically signed by : David Delgado MD 07/02/2021 13:45:39
--- NOTE | 2021-07-02 13:28 | HMH.LOOP ---
[facility] Loop Recorder Date: 07/02/21 Time: 13:28 Procedure Performed:: Implantation of loop recorder Indication:: Paroxysmal atrial fibrillation Sick sinus syndrome with tachybradycardia syndrome Technique:: Patient was brought to the cardiac Integrated Specialist. After informed consent obtained, 1% lidocaine with epinephrine was used to anesthetize the site along the left anterior aspect of the chest near the sternal border. Using the preformed scalpel, an incision was made and using the supplied preloaded apparatus, the loop recorder was placed subcutaneously without difficulty. Following the deployment of the loop recorder interrogation of the device was performed to ensure appropriate voltage was being detected (0.43 mV). Once this was verified, Steri-Strips were placed over the incision and the patient was prepped to discharge home. Patient tolerated the procedure well with minimal discomfort. Impression:: Successful implantation of loop recorder Serial Number:: [employer] Lux-DX loop recorder Model number M301 Serial #[id number] Plan:: Routine postop care
--- NOTE | 2021-07-02 13:36 | SUR.OPER ---
LOOP RECORDER PROCEDURE AT BEDSIDE PER [facility]. TIME OUT AT 1320 AT BEDSIDE W/ ALL STAFF AND PT INVOLVED IN AGREEMENT. CHEST PREPPED W/ CHOLRAPREP TO L UPPER SIDE. PROCEDURE TOLERATED WELL PER PT. SITE DRESSED W/ STERI STRIPS, SKIN AFFIX, 4X4, AND TEGADERM.
--- NOTE | 2021-07-02 13:54 | PC.NURSE ---
Received report from DRE Sewell @ this time
[2021-07-02 15:02] LABS: CATHL Activated Clotting Time > 400 SEC (74-125)
[2021-07-03] VITALS: BP 167/75; PULSE 78; RESP 16; TEMP 36.6; O2SAT 97
[2021-07-03 04:00] VITALS: BP 161/78; PULSE 77; RESP 16; TEMP 36.8; O2SAT 98
--- NOTE | 2021-07-03 04:08 | PC.NURSE ---
Pt is A/O x4, rested well t/o shift. Pt voiced no c/o of pain. X1 assist to BSC. Dressing to right radial site is C/D/I. call pierce within reach.
[2021-07-03 04:48] VITALS: BMI 28.6
[2021-07-03 06:36] LABS: Basophils # 0.1 K/mm3 (0-0.2); Basophils % 0.6 % (0.1-2.0); Eosinophils # 0.3 K/mm3 (0.0-0.4); Eosinophils % 3.4 % (0.1-12.0); Hematocrit 30.8 % (37.0-47.0); Lymphocytes # 1.5 K/mm3 (0.7-4.5); Lymphocytes % 16.5 % (10-50); Mean Corpuscular HGB Conc 32.3 g/dL (31.8-35.4); Mean Corpuscular Hemoglobin 31.7 pg (27.0-31.2); Mean Platelet Volume 8.8 fl (7.4-10.4); Monocytes # 0.7 K/mm3 (0.1-1.0); Monocytes % 7.8 % (1.7-9.3); Neutrophils # 6.4 K/mm3 (1.8-7.8); Neutrophils % 71.7 % (37.0-80.0); Platelet Count 192 K/mm3 (142-424); Red Blood Count 3.14 M/mm3 (4.20-5.40); Red Cell Distribution Width 16.4 % (11.5-17.5); White Blood Count 8.9 K/mm3 (4.8-10.8)
[2021-07-03 07:08] LABS: Chloride 116 mmol/L (98-107); Potassium 5.4 mmoL/L (3.5-5.1); Sodium 141 mmol/L (136-145)
[2021-07-03 07:11] LABS: Anion Gap 15.4 mEq/L (5-15); Blood Urea Nitrogen 36 mg/dl (7-17); Carbon Dioxide 15 mmol/L (22.0-30.0); Creatinine Clearance Estimated 36 mL/min (50-200); Estimated Glomerular Filt Rate 29 ml/min (>60); GFR (African American) 35 ML/MIN (>60)
[2021-07-03 07:12] LABS: Calcium 9.2 mg/dl (8.4-10.2); Glucose 101 mg/dl (74-100)
[2021-07-03 08:00] VITALS: BP 153/59; PULSE 70; RESP 18; TEMP 37.3
--- NOTE | 2021-07-03 08:35 | HMH.PNCARD ---
Subjective Date: 07/03/21 Time: 08:00 Principal diagnosis: cad, tachybrady syndrome Interval history: This is a 81-year-old female who came into the hospital as an outpatient yesterday and underwent left cardiac catheterization with 2 stents placed. See cath report below. During the procedure the patient did have some episodes of tachybradycardia syndrome and had a loop recorder inserted. She does complain of some soreness at the loop recorder site this morning but no severe pain. She denies any chest pain or pressure. She denies any shortness of breath or edema. She denies any fever, chills, nausea, vomiting, diarrhea, PND or orthopnea. She states that she is feeling well and ready for discharge home. Her right radial site is not painful or tender to palpation. Exam Vital signs and Labs for Last 24 Hours: Temp Pulse Resp BP Pulse Ox 99.1 F 70 18 153/59 H 98 07/03/21 08:00 07/03/21 08:00 07/03/21 08:00 07/03/21 08:00 07/03/21 04:00 Laboratory Results - last 24 hr 07/02/21 13:34: Activated Clotting Time > 400 H* 07/03/21 05:21: WBC 8.9, RBC 3.14 L, Hgb 10.0 L, Hct 30.8 L, MCV 98.0, MCH 31.7 H, MCHC 32.3, RDW 16.4, Plt Count 192, MPV 8.8, Neut % (Auto) 71.7, Lymph % (Auto) 16.5, Tre[place]len % (Auto) 7.8, Eos % (Auto) 3.4, Baso % (Auto) 0.6, Neut # (Auto) 6.4, Lymph # (Auto) 1.5, [place]len # (Auto) 0.7, Eos # (Auto) 0.3, Baso # (Auto) 0.1 07/03/21 05:21: Sodium 141, Potassium 5.4 H, Chloride 116 H, Carbon Dioxide 15 L, Anion Gap 15.4 H, BUN 36 H, Creatinine 1.70 H, Estimated Creat Clear 36, Estimated GFR 29 L, Est GFR ( Amer) 35 L, Glucose 101 H, Calcium 9.2 I & O for Last 24 hours: Intake & Output 06/30/21 07/01/21 07/02/21 07/03/21 23:59 23:59 23:59 23:59 Intake Total 120 / 120 Balance 120 / 120 Weight 190 lb 189 lb Narrative: Telemetry strip is sinus rhythm. LHC shows: The left main artery Normal The left anterior descending artery Is proximally normal and then has a mid vessel calcified 70% stenosis The circumflex artery Nondominant normal The right coronary artery Dominant with proximal mid vessel and distal 20% stenoses with 20% stenoses in the posterior descending artery The PICHARDO ventriculogram reveals Not performed due to renal failure and known aortic stenosis The left ventricular end-diastolic pressure Not measured IMPRESSION Severe mid LAD disease as described above Successful stenting of proximal to mid LAD severe disease reduced to 0% with 2 drug-eluting stents in a contiguous manner PLAN 1. Dual antiplatelet therapy 2. Placed loop recorder due to tachybradycardia syndrome 3. No beta-blockers or ARB's at this time given documented bradycardia and patient's creatinine of 1.9 4. Cardiac rehabilitation 5. Avoidance of tobacco products - Constitutional no acute distress, average body habitus - *Routine HEENT Exam Head: Present: normocephalic, atraumatic Eye: Present: EOMI, PERRL ENT: Present: mucous membranes moist - *Routine Neck Exam Present: supple, full ROM, carotid bruit (Bilateral carotid bruit), normal carotid upstroke. Absent: JVD, lymphadenopathy - *Routine Respiratory Exam Present: CTA bilaterally - *Routine Cardiovascular Exam Present: RRR, Normal S1, Normal S2, murmur - *Routine Abdominal Exam Present: soft, normoactive bowel sounds. Absent: tenderness, distended - *Routine Extremities Exam Present: full ROM, pulses intact, normal capillary refill. Absent: cyanosis, clubbing, edema - *Routine Skin Exam Present: intact, warm. Absent: erythema, rash - *Routine Neurological Exam Present: alert, oriented X3, CN II-XII intact. Absent: sensory deficit, motor deficit Progress Note: A&P Assessment and Plan for All Diagnoses:: Plan: 1. The patient came into the hospital as an outpatient underwent left cardiac catheterization. The patient had 2 stents placed to the LAD. The patient tolerated the procedure well and will be on Brilinta and aspirin for dual
--- NOTE | 2021-07-03 09:17 | HMH.PHACLD ---
Dalilamaría elena Johnson has received discharge medication counseling on the following medications: ASPIRIN 81MG BRILINTA 90MG SIMVASTATIN 40MG PATIENT IS UNABLE TO TAKE BETA TAMI/ACEI AT THIS TIME PER CARDIOLOGY. PATIENT HAD NO QUESTIONS OR CONCERNS AT THIS TIME. -SANTIAGO WHITE, PHARMD
--- NOTE | 2021-07-03 10:19 | PC.NURSE ---
seed laboratory assistant discharge instructions given to pt by this RN. Pt had no questions or concerns. PIV taken out and pt wheeled out by nursing staff.
== END 2021-07-03 09:45 | disposition home or self-care (01) ==
LOC: CATHLAB 08:50 → 2ND 13:39
PROVIDERS: PCP Family Medicine; Visit Provider Internal Medicine
DX: I49.5 Sick sinus syndrome; I48.0 Paroxysmal atrial fibrillation; I47.1 Supraventricular tachycardia; I35.0 Nonrheumatic aortic (valve) stenosis; E78.5 Hyperlipidemia, unspecified; G47.33 Obstructive sleep apnea (adult) (pediatric); R42 Dizziness and giddiness; R53.83 Other fatigue; R55 Syncope and collapse; R94.31 Abnormal electrocardiogram [ECG] [EKG]; Z86.73 Personal history of transient ischemic attack (TIA), and cerebral infarction without residual deficits; I25.118 Atherosclerotic heart disease of native coronary artery with other forms of angina pectoris; E11.9 Type 2 diabetes mellitus without complications; Z79.84 Long term (current) use of oral hypoglycemic drugs
CPT/HCPCS: 33285; 36415; 80048; 85025; 85347; 92928; 99152; 99153; C1725; C1769; C1876; C9600; J1644; Q9967

== ENCOUNTER → 2021-07-07 10:06 | Outpatient (CLI) | payer MEDICARE, SELFPAY ==
--- NOTE | 2021-07-07 | CA_ITS ---
APPROVED REPORT Medical Appointment Scheduler: CT Laterality: Bilateral Indications: DIZZINESS Doppler Spectral Velocity Analysis ECA (R) 150.50/ cm/s ECA (L) 127.20/ cm/s dICA (R) 143.30/28.90 cm/s dICA (L) 102.50/18.70 cm/s Emerald (R) 120.50/26.80 cm/s Emerald (L) 77.80/12.70 cm/s pICA (R) 178.60/33.10 cm/s pICA (L) 107.00/28.40 cm/s dCCA (R) 69.00/13.90 cm/s dCCA (L) 74.20/16.40 cm/s pCCA (R) 111.00/16.50 cm/s pCCA (L) 101.60/15.00 cm/s Vert (R) 53.00/ cm/s Vert (L) 43.10/ cm/s ICA/CCA 2.60 ICA/CCA 1.90 Findings Duplex evaluation demonstrates stenosis of the right proximal internal carotid artery in the range of 50-69% with PSV =140 cm/sec, EDV <100 cm/sec, and IC/CC Ratio <4.0. Duplex evaluation demonstrates stenosis of the left proximal internal carotid artery in the range of 20-49% with PSV <140 cm/sec, EDV <100 cm/sec, and IC/CC Ratio <4.0. Duplex evaluation demonstrates antegrade flow of the bilateral Vertebral Arteries. Conclusion Duplex evaluation demonstrates stenosis of the right proximal internal carotid artery in the range of 50-69% with PSV =140 cm/sec, EDV <100 cm/sec, and IC/CC Ratio <4.0. Duplex evaluation demonstrates stenosis of the left proximal internal carotid artery in the range of 20-49% with PSV <140 cm/sec, EDV <100 cm/sec, and IC/CC Ratio <4.0. Duplex evaluation demonstrates antegrade flow of the bilateral Vertebral Arteries. Electronically signed by : Hector Peterson MD 07/07/2021 16:39:05
== END ==
PROVIDERS: PCP Family Medicine; Visit Provider Internal Medicine
DX: R42 Dizziness and giddiness (principal)
CPT/HCPCS: 93880

== ENCOUNTER → 2021-07-08 07:51 | Outpatient (CLI) | payer MEDICARE, SELFPAY ==
[2021-07-08 08:11] LABS: Basophils # 0.1 K/mm3 (0-0.2); Basophils % 0.8 % (0.1-2.0); Eosinophils # 0.3 K/mm3 (0.0-0.4); Eosinophils % 3.6 % (0.1-12.0); Hematocrit 32.3 % (37.0-47.0); Hemoglobin 10.6 g/dL (12.2-16.2); Lymphocytes # 2.2 K/mm3 (0.7-4.5); Lymphocytes % 26.6 % (10-50); Mean Corpuscular HGB Conc 32.8 g/dL (31.8-35.4); Mean Corpuscular Hemoglobin 31.6 pg (27.0-31.2); Mean Corpuscular Volume 96.4 fl (81-99); Mean Platelet Volume 9.1 fl (7.4-10.4); Monocytes # 0.7 K/mm3 (0.1-1.0); Monocytes % 8.1 % (1.7-9.3); Neutrophils # 4.9 K/mm3 (1.8-7.8); Neutrophils % 60.9 % (37.0-80.0); Platelet Count 221 K/mm3 (142-424); Red Blood Count 3.35 M/mm3 (4.20-5.40); Red Cell Distribution Width 16.3 % (11.5-17.5); White Blood Count 8.1 K/mm3 (4.8-10.8)
[2021-07-08 08:59] LABS: Anion Gap 15.7 mEq/L (5-15); Blood Urea Nitrogen 38 mg/dl (7-17); Calcium 9.9 mg/dl (8.4-10.2); Carbon Dioxide 19 mmol/L (22.0-30.0); Chloride 109 mmol/L (98-107); Estimated Glomerular Filt Rate 24 ml/min (>60); GFR (African American) 29 ML/MIN (>60); Glucose 128 mg/dl (74-100); Potassium 4.7 mmoL/L (3.5-5.1); Sodium 139 mmol/L (136-145)
== END ==
PROVIDERS: Visit Provider Internal Medicine
DX: I10 Essential (primary) hypertension (principal)
CPT/HCPCS: 36415; 80048; 85025

== ENCOUNTER → 2021-07-22 13:52 | Outpatient (CLI) | payer MEDICARE, SELFPAY ==
[2021-07-22 15:00] LABS: Chloride 110 mmol/L (98-107); Sodium 143 mmol/L (136-145)
[2021-07-22 15:01] LABS: Potassium 4.9 mmoL/L (3.5-5.1)
[2021-07-22 15:04] LABS: Anion Gap 20.9 mEq/L (5-15); Blood Urea Nitrogen 38 mg/dl (7-17); Calcium 10.1 mg/dl (8.4-10.2); Carbon Dioxide 17 mmol/L (22.0-30.0); Estimated Glomerular Filt Rate 22 ml/min (>60); GFR (African American) 26 ML/MIN (>60); Glucose 133 mg/dl (74-100)
[2021-07-22 15:23] LABS: Triiodothryronine (T3) Uptake 26 % (23.5-40.5)
[2021-07-22 15:24] LABS: Free Thyroxine Index 3.2 ug/dL (5.93-13.13); T4 (Thyroxine) 12.2 ug/dl (5.53-11.0)
[2021-07-22 15:37] LABS: Thyroid Stimulating Hormone 3.43 uIU/mL (0.465-4.68)
== END ==
PROVIDERS: Visit Provider Internal Medicine
DX: E03.9 Hypothyroidism, unspecified (principal); N18.9 Chronic kidney disease, unspecified
CPT/HCPCS: 36415; 80048; 84436; 84443; 84479

== ENCOUNTER → 2021-08-05 12:28 | Outpatient (CLI) | payer MEDICARE, SELFPAY | PROVIDERS: Visit Provider Internal Medicine | DX: Z01.812 Encounter for preprocedural laboratory examination (principal); Z11.52 Encounter for screening for COVID-19; I49.5 Sick sinus syndrome | CPT/HCPCS: C9803; U0003; U0005 ==

== ENCOUNTER 2021-08-07 08:38 | Day surgery (SDC) | payer MEDICARE, SELFPAY ==
[2021-08-07] VITALS (10 sets, daily range): BP systolic 101–159; BP diastolic 60–91; PULSE 61–77; RESP 18; TEMP 36.3–36.7; O2SAT 96–98; BMI 28.7
--- NOTE | 2021-08-07 | IR_ITS ---
APPROVED REPORT Patient Location: Outpatient Machine Shop Repair Technician: MARGOTH Sung RT (R) PROCEDURES 1. Pocket formation for Permanent Pacemaker Placement. 2. Placement of an atrial sensing and pacing coil into the right atrial appendage. 3. Placement of a ventricular sensing and pacing coil in the right ventricular apex. 4. Permanent Pacemaker Placement. 5. Loop recorder device extraction. INDICATION Symptomatic Bradycardia Informed consent was obtained prior to the procedure. COMPLICATIONS NONE Estimated Blood Loss: LESS THAN 10 ML TECHNIQUE 1% Lidocaine with epinephrine used to anesthetized the left anterior aspect of the chest. Scalpel was used to make the initial cutaneous incision while electrocautery was used to dissect down tinto the fascia. The fascia was lifted off the pectoralis muscle and digitally manipulated creating a pocket for the pacemaker. The patient was then placed in Trendelenburg position and the subclavian vein was accessed twice via the Selinger technique, there are two wires in the vein. A 6 Macedonian sheath was placed under fluoroscopic guidance into the subclavian vein over one of the wires while keeping the other wire in place within the subclavian vein. The dilator was removed from the sheath. Using fluoroscopic guidance, the ventricular lead was placed into the right ventricular apex, screwed and secured into place. Electronic interrogation proved acceptable thresholds and voltage within the lead. Using 3-0 silk, the ventricular lead was then secured into place. Lead was secured to the facia using the 3-0 silk. Following this, the sheath was pealed away. An additional 6 Macedonian fresh sheath and dilator was placed over the existing wire. Using fluoroscopic guidance, the atrial lead was the placed into the right atrial appendage and screwed and secured in place. Electrical interrogation demonstrated acceptable thresholds and voltage number. The atrial lead was then secured into place using 3-0 silk. 1 gram of Ancef was used to flush the pocket. Following the pacemaker generator being secured to the fascia and in place, Monocryl was used to close the subcutaneous layers while jake were used to close the cutaneous layer. A pressure dressing was placed and the patient was transferred to the postop holding area in stable condition for postoperative care. INTERROGATION Generator Model number: Venus ConceptBERTHA RENE DR, L311 Generator Serial number: [id number] Atrial lead model number: INGEVITY+, 45CM, 7840 Atrial lead serial number: [id number] P-wave: 3.5mV Impedence: 1.0V@0.4ms Threshold: 712 ohms Right Ventricular lead model number: LARSEVITY+ 52CM, 7841 Right Ventricular lead serial number: [id number] R-wave: 20.0mV Impedence: 0.5V@0.4ms Threshold: 750 ohms Pacing Parameters: Mode: DDDR RYTHMIQ: AAIR with VVI Backup Base/Max Track: 60/130 ppm No diaphragmatic stimulation at 10 volts. IMPRESSION 1. Successful Pocket formation for Permanent Pacemaker Placement. 2. Successful Placement of an atrial sensing and pacing coil into the right atrial appendage. 3. Successful Placement of a ventricular sensing and pacing coil in the right ventricular apex. 4. Successful Permanent Pacemaker Placement. 5. Successful Loop recorder device extraction. PLAN 1. Post Op Wound Care. Follow up office visit. Electronically signed by : David Delgado MD 08/07/2021 14:33:01
[2021-08-07 09:26] LABS: Basophils # 0.1 K/mm3 (0-0.2); Basophils % 0.7 % (0.1-2.0); Eosinophils # 0.3 K/mm3 (0.0-0.4); Hematocrit 36.1 % (37.0-47.0); Hemoglobin 10.8 g/dL (12.2-16.2); Lymphocytes # 2.1 K/mm3 (0.7-4.5); Lymphocytes % 20.4 % (10-50); Mean Corpuscular Volume 103.5 fl (81-99); Mean Platelet Volume 8.7 fl (7.4-10.4); Monocytes # 0.7 K/mm3 (0.1-1.0); Monocytes % 6.9 % (1.7-9.3); Platelet Count 239 K/mm3 (142-424); Red Blood Count 3.48 M/mm3 (4.20-5.40); Red Cell Distribution Width 17.4 % (11.5-17.5); White Blood Count 10.1 K/mm3 (4.8-10.8)
[2021-08-07 09:34] LABS: Blood Urea Nitrogen 34 mg/dl (7-17); Calcium 9.7 mg/dl (8.4-10.2); Carbon Dioxide 17 mmol/L (22.0-30.0); Chloride 116 mmol/L (98-107); Creatinine Clearance Estimated 36 mL/min (50-200); Estimated Glomerular Filt Rate 29 ml/min (>60); GFR (African American) 35 ML/MIN (>60); Glucose 79 mg/dl (74-100); Sodium 146 mmol/L (136-145)
--- NOTE | 2021-08-07 12:10 | XR_ITS ---
FINAL REPORT CLINICAL HISTORY: . pacemaker placement FINDINGS: A portable view of the chest was obtained. There is a left-sided transvenous pacemaker present. Cardiac and mediastinal silhouettes are within normal limits. The lung volumes are low. There is bibasilar atelectasis. There is no pleural effusion or pneumothorax. IMPRESSION: Low lung volumes. Bibasilar atelectasis. Reviewed, Interpreted and Dictated by iLsa Fuentes MD Transcribed by Fannie Morgan Authenticated by Lisa Fuentes MD on 08/07/2021 12:34:[address] [facility]
--- NOTE | 2021-08-07 13:00 | P.PN_ITS ---
[facility] Anesthesia Checklist - Patient Identification Patient Identification: Arm Band, Verbal (Name & ) - Structural Data Admitted From: Home Planned Operative Procedure/s: Pacemaker placement Consent for Planned Operative Procedure(s) Verified: Yes Verified Documents: Surgical Consent - Airway Assessment C-Spine Mobility Assessed: Yes TMJ Mobility Assessed: Yes Dentition: Dentures-good fit - Neurological Assessment Level of Consciousness: Awake, Appropriate - Anesthesia Plan Anesthesia Risk discussed: Yes ASA Class: III Anesthesia Type: MAC [facility] History Medical History: Reports:: Hyperlipidemia, Hypertension Denies:: Cancer, Diabetes Mellitus Type 1, Diabetes Mellitus Type 2, Internal Pacemaker, MRSA, Seizures *Have you ever received a pneumonia vaccine?: Yes *Have you received a flu vaccine this season?: Yes Other Medical History: Reports: Anemia, Glaucoma, Thyroid Disease Anesthesia experience/problems:: none Other Surgeries: Yes: No Previous Surgery, Cardiac Catheterization, Colonoscopy, Coronary Stent. No: Pacemaker Amputation: No Fractures: No - *Social History Last grade of school completed: Advanced degree Smoking Status: Never smoker Alcohol Intake: never Substance Use Type: denies use *Occupational Status:: retired Housing: house Household Members: spouse *Travel in the last 8 weeks: None Family Hx:: Cancer
== END 2021-08-07 14:00 | disposition home or self-care (01) ==
LOC: CATHLAB 08:40
PROVIDERS: PCP Family Medicine; Visit Provider Internal Medicine
DX: I49.5 Sick sinus syndrome (principal); I25.118 Atherosclerotic heart disease of native coronary artery with other forms of angina pectoris; I65.23 Occlusion and stenosis of bilateral carotid arteries; E03.9 Hypothyroidism, unspecified; I35.0 Nonrheumatic aortic (valve) stenosis; I10 Essential (primary) hypertension; E11.9 Type 2 diabetes mellitus without complications; Z79.84 Long term (current) use of oral hypoglycemic drugs; Z79.899 Other long term (current) drug therapy
CPT/HCPCS: 33208; 71045; 80048; 85025; C1785; C1898

== ENCOUNTER → 2021-08-19 10:00 | Outpatient (CLI) | payer MEDICARE, SELFPAY ==
[2021-08-19 10:05] LABS: Microscopic, Urine URINE MICROSCOPIC (MICROSCOPIC)
[2021-08-19 10:42] LABS: Basophils # 0.1 K/mm3 (0-0.2); Basophils % 0.8 % (0.1-2.0); Eosinophils # 0.3 K/mm3 (0.0-0.4); Eosinophils % 2.9 % (0.1-12.0); Hematocrit 36.2 % (37.0-47.0); Hemoglobin 11.5 g/dL (12.2-16.2); Lymphocytes # 2.1 K/mm3 (0.7-4.5); Lymphocytes % 20.5 % (10-50); Mean Corpuscular HGB Conc 31.7 g/dL (31.8-35.4); Mean Corpuscular Hemoglobin 32.1 pg (27.0-31.2); Mean Corpuscular Volume 101.2 fl (81-99); Mean Platelet Volume 8.5 fl (7.4-10.4); Monocytes # 0.6 K/mm3 (0.1-1.0); Monocytes % 5.4 % (1.7-9.3); Neutrophils # 7.3 K/mm3 (1.8-7.8); Neutrophils % 70.4 % (37.0-80.0); Platelet Count 266 K/mm3 (142-424); Red Blood Count 3.58 M/mm3 (4.20-5.40); Red Cell Distribution Width 17.1 % (11.5-17.5); White Blood Count 10.4 K/mm3 (4.8-10.8)
[2021-08-19 10:59] LABS: Appearance,Urine CLEAR (Clear); Blood, Urine Negative (Negative); Color,Urine YELLOW (Yellow); Glucose,Urine (UA) Negative (Negative); Ketones,Urine Negative (Negative); Leukocyte Esterase,Urine TRACE (Negative); Nitrate,Urine Negative (Negative); PH,Urine 5.5 (5.0-8.5); Protein,Urine 2+ (Negative); Specific Gravity, Urine 1.025 (1.005-1.030); Urobilinogen,Urine 0.2 EU/dl (0.2)
[2021-08-19 11:08] LABS: Bilirubin,Urine 1+ (Negative)
[2021-08-19 11:19] LABS: RBC,Urine Occasional #/hpf (0-3)
[2021-08-19 11:25] LABS: Creatinine,Urine Random 156 mg/dL (Not Estab.)
[2021-08-19 12:33] LABS: Albumin Level 4.4 g/dl (3.5-5.0); Anion Gap 16.8 mEq/L (5-15); Blood Urea Nitrogen 34 mg/dl (7-17); Carbon Dioxide 16 mmol/L (22.0-30.0); Chloride 112 mmol/L (98-107); Estimated Glomerular Filt Rate 29 ml/min (>60); GFR (African American) 35 ML/MIN (>60); Glucose 145 mg/dl (74-100); Potassium 4.8 mmoL/L (3.5-5.1); Sodium 140 mmol/L (136-145); Uric Acid 4.9 mg/dl (2.5-6.2)
[2021-08-19 12:48] LABS: Intact Parathyroid Hormone 54.1 pg/mL (7.5-53.5)
[2021-08-19 14:49] LABS: Microalbumin/Creatinine Ratio 1618.3
[2021-08-19 15:02] LABS: 25-OH Vitamin D, Total 56.6 ng/mL (30-100)
== END ==
PROVIDERS: PCP Family Medicine; Visit Provider Internal Medicine Nephrology
DX: I12.9 Hypertensive chronic kidney disease with stage 1 through stage 4 chronic kidney disease, or unspecified chronic kidney disease (principal); N18.4 Chronic kidney disease, stage 4 (severe); E55.9 Vitamin D deficiency, unspecified; E11.9 Type 2 diabetes mellitus without complications; E78.5 Hyperlipidemia, unspecified; E87.5 Hyperkalemia; M10.9 Gout, unspecified; R80.9 Proteinuria, unspecified; Z79.84 Long term (current) use of oral hypoglycemic drugs
CPT/HCPCS: 36415; 80069; 81001; 82043; 82306; 82570; 83970; 84550; 85025

== ENCOUNTER → 2021-09-21 10:42 | Outpatient (CLI) | payer MEDICARE, SELFPAY ==
[2021-09-21 12:06] LABS: Anion Gap 18.1 mEq/L (5-15); Blood Urea Nitrogen 42 mg/dl (7-17); Calcium 9.2 mg/dl (8.4-10.2); Carbon Dioxide 18 mmol/L (22.0-30.0); Chloride 109 mmol/L (98-107); Estimated Glomerular Filt Rate 27 ml/min (>60); GFR (African American) 33 ML/MIN (>60); Glucose 80 mg/dl (74-100); Potassium 4.1 mmoL/L (3.5-5.1); Sodium 141 mmol/L (136-145)
[2021-09-21 13:27] LABS: Basophils # 0.1 K/mm3 (0-0.2); Basophils % 0.6 % (0.1-2.0); Eosinophils # 0.1 K/mm3 (0.0-0.4); Eosinophils % 1.1 % (0.1-12.0); Hematocrit 34.3 % (37.0-47.0); Hemoglobin 10.9 g/dL (12.2-16.2); Lymphocytes # 1.1 K/mm3 (0.7-4.5); Mean Corpuscular HGB Conc 31.6 g/dL (31.8-35.4); Mean Corpuscular Hemoglobin 31.1 pg (27.0-31.2); Mean Corpuscular Volume 98.2 fl (81-99); Mean Platelet Volume 8.7 fl (7.4-10.4); Monocytes # 0.6 K/mm3 (0.1-1.0); Monocytes % 6.9 % (1.7-9.3); Neutrophils # 7.2 K/mm3 (1.8-7.8); Neutrophils % 79.4 % (37.0-80.0); Platelet Count 266 K/mm3 (142-424); Red Blood Count 3.49 M/mm3 (4.20-5.40); Red Cell Distribution Width 15.7 % (11.5-17.5)
== END ==
PROVIDERS: PCP Internal Medicine; Visit Provider Internal Medicine Nephrology
DX: E78.2 Mixed hyperlipidemia (principal); I35.0 Nonrheumatic aortic (valve) stenosis; I65.23 Occlusion and stenosis of bilateral carotid arteries; R06.00 Dyspnea, unspecified; R42 Dizziness and giddiness; Z95.818 Presence of other cardiac implants and grafts; Z01.812 Encounter for preprocedural laboratory examination; Z11.52 Encounter for screening for COVID-19; I15.0 Renovascular hypertension
CPT/HCPCS: 36415; 80048; 85025; C9803; U0003; U0005

== ENCOUNTER → 2021-11-24 10:49 | Outpatient (CLI) | payer MEDICARE, SELFPAY ==
--- NOTE | 2021-11-24 | CA_ITS ---
FINAL REPORT CLINICAL HISTORY: Aortic stenosis, New HTN post pacemaker. FINDINGS: Aorta velocity: 119 cm/sec Right kidney: 11.0 cm. No evidence of hydronephrosis or mass. Right intrarenal RI: 0.75 Right renal artery velocity: 193 cm/sec. Right RAR (Renal artery-Aortic Ratio): 1.6 Left Kidney: 12.0 cm. No evidence of hydronephrosis or mass. Left intrarenal RI: 0.83 Left renal artery velocity: 245 cm/sec. Left RAR (Renal Artery-Aortic Ratio): 2.1 IMPRESSION: There is likely stenosis of less than 60%, left greater than right. CTA could better quantify. Reviewed, Interpreted and Dictated by Shaquille Tian MD Transcribed by Bony Scott Authenticated by Shaquille Tian MD on 11/24/2021 04:44:[address] [facility]
== END ==
PROVIDERS: PCP Internal Medicine Adolescent Medicine; Visit Provider Internal Medicine Adolescent Medicine
DX: I10 Essential (primary) hypertension (principal)
CPT/HCPCS: 93976

== ENCOUNTER → 2022-03-02 15:16 | Outpatient (CLI) | payer MEDICARE, SELFPAY ==
[2022-03-02 17:37] LABS: Hemoglobin A1C 5.9 % (4.0-6.0)
== END ==
PROVIDERS: PCP Internal Medicine Adolescent Medicine; Visit Provider Internal Medicine Adolescent Medicine
DX: E11.22 Type 2 diabetes mellitus with diabetic chronic kidney disease (principal); N18.9 Chronic kidney disease, unspecified
CPT/HCPCS: 36415; 83036

== ENCOUNTER → 2022-04-12 10:20 | Outpatient (CLI) | payer MEDICARE, SELFPAY ==
[2022-04-12 10:49] LABS: Microscopic, Urine URINE MICROSCOPIC (MICROSCOPIC)
[2022-04-12 11:02] LABS: Appearance,Urine SL CLOUDY (Clear); Bilirubin,Urine Negative (Negative); Blood, Urine TRACE-I (Negative); Color,Urine YELLOW (Yellow); Glucose,Urine (UA) Negative (Negative); Ketones,Urine Negative (Negative); Leukocyte Esterase,Urine 3+ (Negative); Nitrate,Urine Negative (Negative); PH,Urine 5.5 (5.0-8.5); Protein,Urine 2+ (Negative); Urobilinogen,Urine 0.2 EU/dl (0.2)
[2022-04-12 11:05] LABS: Basophils # 0.1 K/mm3 (0-0.2); Basophils % 0.7 % (0.1-2.0); Eosinophils # 0.4 K/mm3 (0.0-0.4); Eosinophils % 2.9 % (0.1-12.0); Hematocrit 37.6 % (37.0-47.0); Hemoglobin 11.9 g/dL (12.2-16.2); Lymphocytes # 2.1 K/mm3 (0.7-4.5); Lymphocytes % 16.3 % (10-50); Mean Corpuscular HGB Conc 31.7 g/dL (31.8-35.4); Mean Corpuscular Hemoglobin 29.4 pg (27.0-31.2); Mean Corpuscular Volume 92.7 fl (81-99); Mean Platelet Volume 9.5 fl (7.4-10.4); Monocytes % 7.5 % (1.7-9.3); Neutrophils # 9.2 K/mm3 (1.8-7.8); Neutrophils % 72.6 % (37.0-80.0); Platelet Count 281 K/mm3 (142-424); Red Blood Count 4.05 M/mm3 (4.20-5.40); Red Cell Distribution Width 14.7 % (11.5-17.5); White Blood Count 12.7 K/mm3 (4.8-10.8)
[2022-04-12 11:09] LABS: Creatinine,Urine Random 117 mg/dL (Not Estab.)
[2022-04-12 11:13] LABS: Bacteria,Urine 2+ /lpf
[2022-04-12 11:31] LABS: Chloride 105 mmol/L (98-107); Potassium 4.3 mmoL/L (3.5-5.1); Sodium 141 mmol/L (136-145)
[2022-04-12 11:32] LABS: Albumin Level 4.5 g/dl (3.5-5.0)
[2022-04-12 11:32] LABS: Alanine Aminotransferase 16 U/L (12-78); Albumin Level 4.5 g/dl (3.5-5.0); Alkaline Phosphatase 107 U/L (38-126); Aspartate Amino Transferase 27 U/L (14-36); Bilirubin,Indirect 0.3 mg/dL (0.0-0.9); Bilirubin,Total 0.3 mg/dl (0.2-1.3); Bilirubin,Unconjugated 0.3 mg/dL (0.0-1.1); Chol/HDL Ratio 4.3 (1-3.5); Cholesterol 155 mg/dl (140-200); HDL Cholesterol 36 mg/dl (40-60); Total Protein,Serum 7.7 g/dl (6.3-8.2); Triglycerides 312 mg/dl (30-150); VLDL Cholesterol 62 mg/dL (0-40)
[2022-04-12 11:34] LABS: Anion Gap 20.3 mEq/L (5-15); Carbon Dioxide 20 mmol/L (22.0-30.0); Estimated Glomerular Filt Rate 20 ml/min (>60); GFR (African American) 25 ML/MIN (>60); Phosphorous 4.7 mg/dl (2.5-4.5)
[2022-04-12 11:35] LABS: Calcium 9.3 mg/dl (8.4-10.2); Glucose 144 mg/dl (74-100)
[2022-04-12 11:44] LABS: Direct LDL Cholesterol 35.71 mg/dL (100-129)
[2022-04-12 11:49] LABS: Triiodothryronine (T3) Uptake 31 % (23.5-40.5)
[2022-04-12 11:50] LABS: Free Thyroxine Index 3.8 ug/dL (5.93-13.13); T4 (Thyroxine) 12.3 ug/dl (5.53-11.0)
[2022-04-12 12:04] LABS: Thyroid Stimulating Hormone 1.76 uIU/mL (0.465-4.68)
[2022-04-12 13:35] LABS: Blood Urea Nitrogen 83 mg/dl (7-17)
== END ==
PROVIDERS: PCP Internal Medicine Nephrology; Visit Provider Physician Assistant
DX: I10 Essential (primary) hypertension (principal); I61.9 Nontraumatic intracerebral hemorrhage, unspecified; E78.5 Hyperlipidemia, unspecified; N28.9 Disorder of kidney and ureter, unspecified
CPT/HCPCS: 36415; 80061; 80069; 80076; 81001; 82570; 84155; 84436; 84443; 84479; 85025; 87086; 87088; 87186

== ENCOUNTER → 2022-04-27 12:58 | Outpatient (CLI) | payer MEDICARE, SELFPAY ==
--- NOTE | 2022-04-27 13:00 | CA_ITS ---
FINAL REPORT TECHNIQUE: Color Doppler, duplex Doppler and mcmahon scale sonography of the bilateral neck arterial vasculature was performed. Velocities were measured in the carotid arteries. Stenosis evaluation based on the validated velocity criteria. CLINICAL HISTORY: bilateral carotid bruits,JAMEEL,CVA,HTN FINDINGS: The peak systolic velocity of the right common carotid artery is 96 cm/s. The peak systolic velocity of the right internal carotid artery is 151 cm/s and end diastolic velocity 29 cm/s. The ICA/CCA ratio is 2.0. A mild amount of plaque is present. The right external carotid artery is patent. The right vertebral artery is patent with antegrade flow. The peak systolic velocity of the left common carotid artery is 79 cm/s. The peak systolic velocity of the left internal carotid artery is 85 cm/s and end diastolic velocity 19 cm/s. The ICA/CCA ratio is 1.2. A mild amount of plaque is present. The left external carotid artery is patent.The left vertebral artery is patent with antegrade flow. IMPRESSION: Less than 50% bilateral carotid stenosis. Bilateral patent vertebral arteries with antegrade flow. If indicated, CTA or MRA could further evaluate. Reviewed, Interpreted and Dictated by Kary Berry MD Transcribed by Fannie Morgan Authenticated and [facility]
--- NOTE | 2022-04-27 13:00 | CA_ITS ---
APPROVED REPORT EXAM: Comprehensive 2D, Doppler, and color-flow Echocardiogram Claims Clerk: Ale Woods, JOSE MANUEL, RVS Ht: 5 ft 8 in Wt: 175lbs BSA: 1.93 BP: 137/54 mmHg Indications: , CAD, HTN, TODD, Fatigue, Bradycardia 2D Dimensions IVSd 1.33 cm LVEF (Visual) 74.40 % PWd 1.05 cm LA Volume 82.40 mL LVDd 4.63 cm LA Volume Index 42.70 mL/m2 (M/F) 16-34 LVDs 2.63 cm Aortic Root 3.24 cm Left Atrium 3.49 cm LVOT 2.04 cm (M/F) 1.5-2.5 M-Mode Dimensions RVDd 2.54 cm (0.9-2.6) LA Diam 4.10 cm (1.9-4.0) LVDd 5.24 cm (3.5-5.7) Ao Diam 3.41 cm (2.0-3.7) LVDs 3.00 cm (3.5-5.7) IVSd 1.25 cm (0.6-1.1) PWd 1.02 cm (0.6-1.1) EF (Teich) 73.40% EPSs 0.53 cm FS 42.70% EDV (Teich) 131.80 mL TAPSE 2.04 (<1.7) ESV (Teich) 35.00 mL LV Diastology E Decel Time 323.00 (160-240 msec) E/A Ratio 0.71 MED E' 5.70 (< 7 cm/sec) MED A' 9.50 cm/s E'/MED E' Ratio 14.07 (>14) LAT E' 7.00 (<10 cm/sec) LAT A' 11.80 cm/s E/LAT E' Ratio 11.46 (>14) Aortic Valve LVOT Max 108.00 (70-110 cm/s) LVOT VTI 28.70 cm AoV Peak Cruz. 317.00 (50-130 cm/s) AI PHT 518.00 ms AO Peak GR. 40.20 mmHg AO Mean GR. 26.00 (<5 mmHg) AO VTI 86.90 (18-25 cm) ZION (VTI) 1.08 (2.5-4.5 cm2) Mitral Valve MV A Velocity 113.00 (40-130 cm/s) E/A Ratio 0.71 MV Decel. Time 323.00 (160-240 ms) MV Mean Gr. 1.80 (<2mmHg) MV PHT 97.00 ms Pulmonary Valve PV Peak Velocity 102.00 (50-150 cm/s) VT End VMAX 164.00 cm/s Tricuspid Valve TR P. Velocity 260.00 cm/s RAP Estimate 10.00 mmHg RVSP 37.00 mmHg Left Ventricle Left atrium is mildly enlarged, left ventricle is normal size mild concentric left ventricular hypertrophy, estimated ejection fraction 55% with no regional wall motion abnormality, grade 1 diastolic dysfunction seen without tissue Doppler evidence of raise left atrial pressure. Right Ventricle Right atrium and right ventricle are normal size and contractility. Aortic Valve The aortic valve is thickened and calcified with restriction in the leaflet mobility, the mean gradient across aortic valve is 27 mmHg, valve area is 1.2 cm represents moderate aortic stenosis, there is mild aortic insufficiency. Mitral Valve Mitral inflow velocities within normal range, there is no mitral stenosis, there is mild mitral regurgitation. Tricuspid Valve Tricuspid valve grossly normal, there is mild tricuspid regurgitation, calculated right ventricular systolic pressure is 37 mmHg. Pulmonic Valve Pulmonic valve is poorly visualized. Great Vessels Aortic root is normal size. Inferior vena cava is normal size with normal inspiratory collapse. Pericardium No significant pericardial effusion noted. Conclusion 1. Mildly enlarged left atrium, normal left ventricular size, mild concentric left ventricular hypertrophy, estimated ejection fraction 55% with no regional wall motion abnormality, grade 1 diastolic dysfunction seen without tissue Doppler evidence of reduced left atrial pressure. 2. Thickened and calcified aortic valve mean gradient across aortic valve is 27 mmHg, valve area is 1.2 cm??? represents moderate aortic stenosis, there is mild aortic insufficiency. 3. Mild mitral and tricuspid regurgitation, calculated right ventricular systolic pressure is 37 mmHg. 4. No significant pericardial effusion noted. 5. Inferio
== END ==
PROVIDERS: PCP Internal Medicine Nephrology; Visit Provider Physician Assistant
DX: I35.0 Nonrheumatic aortic (valve) stenosis; I65.23 Occlusion and stenosis of bilateral carotid arteries
CPT/HCPCS: 93306; 93880

== ENCOUNTER → 2022-06-14 08:52 | Outpatient (CLI) | payer MEDICARE, SELFPAY ==
[2022-06-14 09:01] LABS: Microscopic, Urine URINE MICROSCOPIC (MICROSCOPIC)
[2022-06-14 09:57] LABS: Appearance,Urine CLOUDY (Clear); Bilirubin,Urine Negative (Negative); Blood, Urine Negative (Negative); Color,Urine YELLOW (Yellow); Glucose,Urine (UA) Negative (Negative); Ketones,Urine Negative (Negative); Leukocyte Esterase,Urine 2+ (Negative); Nitrate,Urine Negative (Negative); PH,Urine 5.5 (5.0-8.5); Protein,Urine 2+ (Negative); Specific Gravity, Urine 1.025 (1.005-1.030); Urobilinogen,Urine 0.2 EU/dl (0.2)
[2022-06-14 10:10] LABS: Creatinine,Urine Random 119 mg/dL (Not Estab.); Hemoglobin A1C 5.7 % (4.0-6.0)
[2022-06-14 10:11] LABS: Bacteria,Urine 2+ /lpf; RBC,Urine Occasional #/hpf (0-3); WBC,Urine 20-50 #/hpf (0-3)
[2022-06-14 10:41] LABS: Albumin Level 4.4 g/dl (3.5-5.0); Anion Gap 20.1 mEq/L (5-15); Blood Urea Nitrogen 68 mg/dl (7-17); Calcium 10.2 mg/dl (8.4-10.2); Carbon Dioxide 21 mmol/L (22.0-30.0); Chloride 105 mmol/L (98-107); Creatine Kinase 47 U/L (30-135); Estimated Glomerular Filt Rate 20 ml/min (>60); GFR (African American) 25 ML/MIN (>60); Glucose 108 mg/dl (74-100); Phosphorous 5.8 mg/dl (2.5-4.5); Potassium 4.1 mmoL/L (3.5-5.1); Sodium 142 mmol/L (136-145)
[2022-06-14 10:52] LABS: Intact Parathyroid Hormone 119.9 pg/mL (7.5-53.5)
[2022-06-21 10:10] LABS: 1,25 Dihydroxy Vitamin D <10 pg/mL (.); 1,25-Dihydroxy, Vitamin D-2 <10 pg/mL (.); 1,25-Dihydroxy, Vitamin D-3 <10 pg/mL (.)
[2022-07-03 23:46] LABS: Antinuclear Antibodies, IFA Positive
== END ==
PROVIDERS: PCP Nurse Practitioner Family; Visit Provider Internal Medicine Nephrology
DX: E11.9 Type 2 diabetes mellitus without complications (principal); N17.9 Acute kidney failure, unspecified; N18.9 Chronic kidney disease, unspecified; Z79.84 Long term (current) use of oral hypoglycemic drugs; E55.9 Vitamin D deficiency, unspecified
CPT/HCPCS: 36415; 80069; 81001; 82550; 82570; 82652; 83036; 83970; 84155; 86038; 87086

== ENCOUNTER → 2022-09-01 09:25 | Outpatient (CLI) | payer MEDICARE, SELFPAY ==
[2022-09-01 09:38] LABS: Microscopic, Urine URINE MICROSCOPIC (MICROSCOPIC)
[2022-09-01 10:08] LABS: Appearance,Urine CLEAR (Clear); Bilirubin,Urine Negative (Negative); Blood, Urine Negative (Negative); Color,Urine YELLOW (Yellow); Glucose,Urine (UA) Negative (Negative); Ketones,Urine Negative (Negative); Leukocyte Esterase,Urine 2+ (Negative); Nitrate,Urine Negative (Negative); Protein,Urine 2+ (Negative); Urobilinogen,Urine 0.2 EU/dl (0.2)
[2022-09-01 10:25] LABS: Creatinine,Urine Random 115 mg/dL (Not Estab.)
[2022-09-01 10:41] LABS: Albumin Level 4.3 g/dl (3.5-5.0); Anion Gap 12.2 mEq/L (5-15); Blood Urea Nitrogen 58 mg/dl (7-17); Calcium 9.4 mg/dl (8.4-10.2); Carbon Dioxide 23 mmol/L (22.0-30.0); Chloride 110 mmol/L (98-107); Creatine Kinase 37 U/L (30-135); Estimated Glomerular Filt Rate 24 ml/min (>60); GFR (African American) 29 ML/MIN (>60); Glucose 126 mg/dl (74-100); Phosphorous 4.5 mg/dl (2.5-4.5); Potassium 4.2 mmoL/L (3.5-5.1); Sodium 141 mmol/L (136-145)
[2022-09-01 10:42] LABS: Bacteria,Urine Trace /lpf; Squamous Epithelial Cell,Urine Occasional #/hpf (0-5)
[2022-09-01 10:57] LABS: 25-OH Vitamin D, Total 38.6 ng/mL (30-100)
== END ==
PROVIDERS: Visit Provider Internal Medicine Nephrology
DX: N17.9 Acute kidney failure, unspecified (principal); N18.9 Chronic kidney disease, unspecified; E55.9 Vitamin D deficiency, unspecified; B96.89 Other specified bacterial agents as the cause of diseases classified elsewhere; R82.90 Unspecified abnormal findings in urine
CPT/HCPCS: 36415; 80069; 81001; 82306; 82550; 82570; 83970; 84155; 87086; 87088; 87186

== ENCOUNTER → 2022-11-22 09:21 | Outpatient (CLI) | payer MEDICARE, SELFPAY ==
[2022-11-22 09:42] LABS: Microscopic, Urine URINE MICROSCOPIC (MICROSCOPIC)
[2022-11-22 10:35] LABS: Appearance,Urine CLEAR (Clear); Bilirubin,Urine Negative (Negative); Blood, Urine TRACE-I (Negative); Color,Urine YELLOW (Yellow); Glucose,Urine (UA) Negative (Negative); Ketones,Urine Negative (Negative); Leukocyte Esterase,Urine 2+ (Negative); Nitrate,Urine Negative (Negative); Protein,Urine 2+ (Negative); Urobilinogen,Urine 0.2 EU/dl (0.2)
[2022-11-22 10:40] LABS: Bacteria,Urine Trace /lpf; RBC,Urine Occasional #/hpf (0-3)
[2022-11-22 11:11] LABS: Chloride 109 mmol/L (98-107); Potassium 4.4 mmoL/L (3.5-5.1); Sodium 142 mmol/L (136-145)
[2022-11-22 11:14] LABS: Anion Gap 13.4 mEq/L (5-15); Blood Urea Nitrogen 60 mg/dl (7-17); Carbon Dioxide 24 mmol/L (22.0-30.0); Estimated Glomerular Filt Rate 20 ml/min (>60); GFR (African American) 25 ML/MIN (>60); Phosphorous 4.4 mg/dl (2.5-4.5)
[2022-11-22 11:15] LABS: Calcium 9.7 mg/dl (8.4-10.2); Glucose 137 mg/dl (74-100)
== END ==
PROVIDERS: Visit Provider Internal Medicine Nephrology
DX: N17.9 Acute kidney failure, unspecified (principal); N18.9 Chronic kidney disease, unspecified; R82.90 Unspecified abnormal findings in urine
CPT/HCPCS: 36415; 80069; 81001; 84155; 87086

== ENCOUNTER → 2023-01-11 13:15 | Outpatient (CLI) | payer MEDICARE, SELFPAY | PROVIDERS: PCP Family Medicine; Visit Provider Internal Medicine | DX: E78.2 Mixed hyperlipidemia (principal); G47.33 Obstructive sleep apnea (adult) (pediatric); I10 Essential (primary) hypertension; I25.118 Atherosclerotic heart disease of native coronary artery with other forms of angina pectoris; I35.0 Nonrheumatic aortic (valve) stenosis; I49.5 Sick sinus syndrome; I65.23 Occlusion and stenosis of bilateral carotid arteries; R06.00 Dyspnea, unspecified; R53.83 Other fatigue; R60.9 Edema, unspecified; Z95.0 Presence of cardiac pacemaker | CPT/HCPCS: 93306 ==

== ENCOUNTER → 2023-02-09 09:12 | Outpatient (CLI) | payer MEDICARE, SELFPAY ==
[2023-02-09 09:25] LABS: Microscopic, Urine URINE MICROSCOPIC (MICROSCOPIC)
[2023-02-09 09:51] LABS: Basophils # 0.1 K/mm3 (0-0.2); Basophils % 0.6 % (0.1-2.0); Eosinophils # 0.4 K/mm3 (0.0-0.4); Eosinophils % 3.5 % (0.1-12.0); Hematocrit 34.4 % (37.0-47.0); Hemoglobin 10.9 g/dL (12.2-16.2); Lymphocytes # 2.3 K/mm3 (0.7-4.5); Lymphocytes % 22.9 % (10-50); Mean Corpuscular HGB Conc 31.6 g/dL (31.8-35.4); Mean Corpuscular Hemoglobin 26.7 pg (27.0-31.2); Mean Corpuscular Volume 84.3 fl (81-99); Mean Platelet Volume 8.3 fl (7.4-10.4); Monocytes # 0.8 K/mm3 (0.1-1.0); Monocytes % 7.7 % (1.7-9.3); Neutrophils # 6.7 K/mm3 (1.8-7.8); Neutrophils % 65.3 % (37.0-80.0); Platelet Count 234 K/mm3 (142-424); Red Blood Count 4.08 M/mm3 (4.20-5.40); Red Cell Distribution Width 14.8 % (11.5-17.5); White Blood Count 10.2 K/mm3 (4.8-10.8)
[2023-02-09 09:55] LABS: Appearance,Urine SL CLOUDY (Clear); Bilirubin,Urine Negative (Negative); Blood, Urine Negative (Negative); Color,Urine YELLOW (Yellow); Glucose,Urine (UA) Negative (Negative); Ketones,Urine Negative (Negative); Leukocyte Esterase,Urine 2+ (Negative); Nitrate,Urine Negative (Negative); PH,Urine 5.5 (5.0-8.5); Protein,Urine 1+ (Negative); Urobilinogen,Urine 0.2 EU/dl (0.2)
[2023-02-09 09:59] LABS: Alanine Aminotransferase 19 U/L (12-78); Albumin Level 4.2 g/dl (3.5-5.0); Alkaline Phosphatase 114 U/L (38-126); Anion Gap 15.4 mEq/L (5-15); Aspartate Amino Transferase 27 U/L (14-36); Bilirubin,Indirect 0.3 mg/dL (0.0-0.9); Bilirubin,Total 0.3 mg/dl (0.2-1.3); Bilirubin,Unconjugated 0.4 mg/dL (0.0-1.1); Blood Urea Nitrogen 62 mg/dl (7-17); Calcium 9.6 mg/dl (8.4-10.2); Carbon Dioxide 20 mmol/L (22.0-30.0); Chloride 111 mmol/L (98-107); Chol/HDL Ratio 3.3 (1-3.5); Cholesterol 133 mg/dl (140-200); Estimated Glomerular Filt Rate 24 ml/min (>60); GFR (African American) 29 ML/MIN (>60); Glucose 153 mg/dl (74-100); HDL Cholesterol 40 mg/dl (40-60); Potassium 4.4 mmoL/L (3.5-5.1); Sodium 142 mmol/L (136-145); Total Protein,Serum 7.1 g/dl (6.3-8.2); Triglycerides 305 mg/dl (30-150); VLDL Cholesterol 61 mg/dL (0-40)
[2023-02-09 10:01] LABS: Albumin Level 4.3 g/dl (3.5-5.0); Anion Gap 14.3 mEq/L (5-15); Blood Urea Nitrogen 62 mg/dl (7-17); Calcium 9.6 mg/dl (8.4-10.2); Carbon Dioxide 21 mmol/L (22.0-30.0); Chloride 111 mmol/L (98-107); Estimated Glomerular Filt Rate 24 ml/min (>60); GFR (African American) 29 ML/MIN (>60); Glucose 150 mg/dl (74-100); Phosphorous 4.6 mg/dl (2.5-4.5); Potassium 4.3 mmoL/L (3.5-5.1); Sodium 142 mmol/L (136-145); Uric Acid 9.8 mg/dl (2.5-6.2)
[2023-02-09 10:03] LABS: Hemoglobin A1C 6.2 % (4.0-6.0)
[2023-02-09 10:04] LABS: Creatinine,Urine Random 125 mg/dL (Not Estab.)
[2023-02-09 10:05] LABS: Bacteria,Urine 1+ /lpf
[2023-02-09 10:10] LABS: Direct LDL Cholesterol 41.26 mg/dL (100-129)
[2023-02-09 10:17] LABS: Free T4 (Free Thyroxine) 1.32 ng/dl (0.78-2.19)
[2023-02-09 10:30] LABS: Thyroid Stimulating Hormone 1.52 uIU/mL (0.465-4.68)
[2023-02-09 11:05] LABS: Vitamin B12 974 pg/mL (239-931)
[2023-02-09 11:11] LABS: Folate > 20.00 ng/mL
[2023-02-17 22:22] LABS: 1,25 Dihydroxy Vitamin D <10 pg/mL (.); 1,25-Dihydroxy, Vitamin D-2 <10 pg/mL (.); 1,25-Dihydroxy, Vitamin D-3 <10 pg/mL (.)
== END ==
PROVIDERS: Hospitalist; Nurse Practitioner; PCP Family Medicine; Visit Provider Family Medicine
DX: R06.00 Dyspnea, unspecified; I25.118 Atherosclerotic heart disease of native coronary artery with other forms of angina pectoris; I35.0 Nonrheumatic aortic (valve) stenosis; I49.5 Sick sinus syndrome; I10 Essential (primary) hypertension; E78.2 Mixed hyperlipidemia; E55.9 Vitamin D deficiency, unspecified; E11.22 Type 2 diabetes mellitus with diabetic chronic kidney disease; N18.4 Chronic kidney disease, stage 4 (severe); M10.9 Gout, unspecified; R60.9 Edema, unspecified; Z79.84 Long term (current) use of oral hypoglycemic drugs
CPT/HCPCS: 36415; 80048; 80061; 80069; 80076; 81001; 82570; 82607; 82652; 82746; 83036; 84155; 84439; 84443; 84550; 85025; 87086

== ENCOUNTER 2023-12-09 09:07 | Outpatient (CLI) | payer MEDICARE, SELFPAY ==
[2023-12-09 09:43] LABS: Basophils # 0.1 K/mm3 (0-0.2); Eosinophils # 0.4 K/mm3 (0.0-0.4); Hematocrit 33.2 % (37.0-47.0); Hemoglobin 10.1 g/dL (12.2-16.2); Lymphocytes # 2.6 K/mm3 (0.7-4.5); Lymphocytes % 26.8 % (10-50); Mean Corpuscular HGB Conc 30.3 g/dL (31.8-35.4); Mean Corpuscular Hemoglobin 28.5 pg (27.0-31.2); Mean Platelet Volume 8.4 fl (7.4-10.4); Monocytes # 0.7 K/mm3 (0.1-1.0); Monocytes % 6.9 % (1.7-9.3); Neutrophils # 5.9 K/mm3 (1.8-7.8); Neutrophils % 61.3 % (37.0-80.0); Platelet Count 265 K/mm3 (142-424); Red Blood Count 3.53 M/mm3 (4.20-5.40); Red Cell Distribution Width 18.9 % (11.5-17.5); White Blood Count 9.6 K/mm3 (4.8-10.8)
[2023-12-09 10:29] LABS: Creatinine,Urine Random 132 mg/dL (Not Estab.)
[2023-12-09 10:50] LABS: Hemoglobin A1C 6.8 % (4.0-6.0)
[2023-12-09 11:04] LABS: Alanine Aminotransferase 17 U/L (12-78); Albumin Level 4.1 g/dl (3.5-5.0); Albumin/Globulin Ratio 1.4 (1.1-1.8); Alkaline Phosphatase 139 U/L (38-126); Aspartate Amino Transferase 29 U/L (14-36); Bilirubin,Total 0.4 mg/dl (0.2-1.3); Blood Urea Nitrogen 71 mg/dl (7-17); Calcium 9.7 mg/dl (8.4-10.2); Carbon Dioxide 21 mmol/L (22.0-30.0); Chloride 108 mmol/L (98-107); Chol/HDL Ratio 3.1 (1-3.5); Cholesterol 127 mg/dl (140-200); Estimated Glomerular Filt Rate 18 ml/min (>60); GFR (African American) 22 ML/MIN (>60); Glucose 157 mg/dl (74-100); HDL Cholesterol 41 mg/dl (40-60); Sodium 142 mmol/L (136-145); Total Protein,Serum 7.1 g/dl (6.3-8.2); Triglycerides 235 mg/dl (30-150); Uric Acid 5.2 mg/dl (2.5-6.2); VLDL Cholesterol 47 mg/dL (0-40)
[2023-12-09 11:17] LABS: Anion Gap 17.2 mEq/L (5-15)
[2023-12-09 11:33] LABS: Thyroid Stimulating Hormone 4.29 uIU/mL (0.465-4.68)
[2023-12-09 12:22] LABS: Direct LDL Cholesterol 43.66 mg/dL (100-129)
[2023-12-09 12:23] LABS: Potassium 4.2 mmoL/L (3.5-5.1)
[2023-12-09 12:44] LABS: Microalbumin/Creatinine Ratio 367.2
== END 2023-12-09 23:59 | disposition home or self-care (01) ==
LOC: LAB 09:09
PROVIDERS: PCP Family Medicine; Visit Provider Family Medicine
DX: E11.22 Type 2 diabetes mellitus with diabetic chronic kidney disease (principal); N18.4 Chronic kidney disease, stage 4 (severe); E78.5 Hyperlipidemia, unspecified; I10 Essential (primary) hypertension; E79.0 Hyperuricemia without signs of inflammatory arthritis and tophaceous disease; E03.9 Hypothyroidism, unspecified
CPT/HCPCS: 36415; 80053; 80061; 82043; 82570; 83036; 84443; 84550; 85025

== ENCOUNTER 2024-04-18 09:31 | Outpatient (CLI) | payer MEDICARE, SELFPAY ==
--- NOTE | 2024-04-18 | CA_ITS ---
APPROVED REPORT Exam: Pharmacologic Technologist: Martha Oliver, Ht: 5 ft 8 in Wt: 191 lbs BSA: 2.00 m2 HR: 60 bpm BP: 192/73 mmHg Rhythm: NSR Indications: Dyspnea, CAD Medical History Medications: Levothyroxine,,,,, Aspirin,,,,, Losartan,,,,, Allopurinol,,,,, Atorvastatin,,,,, Farxiga,,,,, Vit D3,,,,, Januvia,,,,, BisOPROLOL,,,,, Vit B12,,,,, INdapamide,,,,, Furosemide,,,,, Cardiac Risk Factors: HTN, Hyperlipidemia, Diabetes (non-insulin) Stress Test Details Test: LEXISCAN HR Resting HR: 61 bpm Max Heart Rate (APMHR): 139 bpm Max HR Achieved: 82 bpm Target HR (85% APMHR): 118 bpm % of APMHR: 59 Recovery HR: 68 bpm BP Resting BP: 192.0/73.0 mmHg Max BP: 192.0/73.0 mmHg Recovery BP: 184.0/73.0 mmHg ECG Resting ECG: NSR Stress ECG: No significant ST changes Arrhythmia: None Clinical Exercise duration: 04:00 min Highest Stage Achieved: Exercise capacity: 1.0 METs Stress ECG Conclusion Pt did not take BP meds today. Clonidine .5mg PO given. Pt stated will take medicine tonight and monitor her BP. During lexiscan pt experinced SOA and nausea. No CP noted. No arrhythmias noted. No significant ST changes. Conclusion: Unremarkable lexiscan stress. Myoview images reported separately. Test Summary REST . . . . . . . Sitting REST . . . . . . . Sitting REST 06:01 . . 61 . 192/ 73 . . Stage 1 01:00 . . 80 . . . . Stage 2 01:00 . . 71 . 173/ 69 . . Stage 3 01:00 . . 67 . . . . Stage 4 01:00 . . 66 . 174/ 70 . Stop exercise at 04:00 RECOVERY 01:00 . . 69 . . . . RECOVERY 02:00 . . 65 . 184/ 73 . . RECOVERY 03:00 . . 67 . 184/ 73 . . RECOVERY 04:00 . . 68 . . . RECOVERY 05:00 . . 66 . . . RECOVERY 05:20 . . 77 . . . Electronically signed by : Christianne Vargas MD 04/19/2024 13:29:00
--- NOTE | 2024-04-18 09:52 | CA_ITS ---
FINAL REPORT TECHNIQUE: Ultrasound images of the deep venous system were obtained from the left groin to the calf veins. CLINICAL HISTORY: edema, CAD, HTN, HLD, SOB. FINDINGS: The deep venous system is normally compressible. Normal flow is identified. IMPRESSION: No evidence of left lower extremity DVT. Reviewed, Interpreted and Dictated by Shaquille Tian MD Transcribed by Clover James Authenticated and [facility]
--- NOTE | 2024-04-18 09:52 | CA_ITS ---
APPROVED REPORT EXAM: Comprehensive 2D, Doppler, and color-flow Echocardiogram Decorator Consultant: Ale Woods, JOSE MANUEL, RVS Ht: 5 ft 8 in Wt: 190lbs BSA: 2.00 BP: 164/62 mmHg Indications: , II, SOB, CAD, Pacer, CVA, FADI, HTN, Edema, HLD 2D Dimensions IVSd 1.07 cm F: 0.6-1.0 LVEF (Visual) 50.20 % PWd 0.99 cm F: 0.6 - 1.0 LA Volume 103.90 mL LVDd 5.58 cm F: 3.9 - 5.3 LA Volume Index 51.95 mL/m2 (M/F) 16-34 LVDs 4.14 cm F: 2.2 - 3.5 Left Atrium 4.04 cm F: 2.7 - 3.8 M-Mode Dimensions RVDd 1.86 cm (0.9-2.6) LA Diam 4.61 cm (1.9-4.0) LVDd 5.57 cm (3.5-5.7) LVDs 3.83 cm (3.5-5.7) IVSd 1.18 cm (0.6-1.1) PWd 1.25 cm (0.6-1.1) EF (Teich) 58.40% EPSs 0.65 cm FS 31.20% EDV (Teich) 151.80 mL TAPSE 2.29 (<1.7) ESV (Teich) 63.10 mL LV Diastology E Decel Time 257 (160-240 msec) E/A Ratio 0.59 MED A' 10.40 cm/s LAT A' 10.90 cm/s Aortic Valve ZION Index 0.44 cm2/m2 AoV Peak Cruz. 300.0 (50-130 cm/s) AI PHT 644.00 ms AO Peak GR. 36.00 mmHg AO Mean GR. 21.30 (<5 mmHg) AO VTI 78.3 (18-25 cm) ZION (VTI) 0.91 (2.5-4.5 cm2) Mitral Valve MV A Velocity 111.0 (40-130 cm/s) E/A Ratio 0.59 MV Mean Gr. 1.60 (<2mmHg) Pulmonary Valve PV Peak Velocity 132.0 (50-150 cm/s) NH End VMAX 149.0 cm/s Tricuspid Valve TR P. Velocity 278.00 cm/s RAP Estimate 10.00 mmHg RVSP 40.80 mmHg Left Ventricle The left ventricle is normal size. The left ventricular systolic function is normal. The left ventricular ejection fraction is within the normal range. There is increased LV wall thickness. There is normal LV segmental wall motion. Diastolic function is indeterminate. LVEF is 55%. Right Ventricle The right ventricle is normal size. The right ventricular systolic function is normal. Atria Left atrium is moderately dilated. The right atrium size is normal. There is no Doppler evidence of interatrial shunt. Aortic Valve Aortic valve is mildly thickened. Moderate aortic stenosis is present. ZION by continuity equation and 2D planimetry is 1.1 cm2.. Mean AV gradient 23 mmHg. Max AV gradient 35 mmHg. Peak velocity 3.0 m/s. DI=0.28. Mild aortic regurgitation. Mitral Valve The mitral valve is mildly thickened. No evidence of mitral valve stenosis. Mild mitral regurgitation. Tricuspid Valve The tricuspid valve leaflets are thin and pliable. Moderate tricuspid regurgitation. RVSP is 30-35 mmHg. Pulmonic Valve The pulmonary valve is normal in structure. Trace pulmonic regurgitation. Great Vessels The aortic root is normal in size. The ascending aorta is normal in size. IVC is normal in size and collapses >50% with inspiration. Pericardium There is no pericardial effusion. Other Information Study Quality: Fair Conclusion Normal biventricular systolic function. Moderate LA dilation. Moderate (ZION by continuity equation and 2D planimetry is 1.1 cm2.. Mean AV gradient 23 mmHg. Max AV gradient 35 mmHg. Peak velocity 3.0 m/s. DI=0.28). Moderate TR. Mild MR, mild AI. RVSP is 30-35 mmHg. In the setting of moderate that is approaching severe severity, serial TTE evaluations are recommended. Clinical correlation is suggested. Electronically signed by : Christianne Vargas MD 04/21/2024 00:15:58
[2024-04-18 10:10] LABS: Basophils % 0.3 % (0.1-2.0); Eosinophils # 0.4 K/mm3 (0.0-0.4); Eosinophils % 3.6 % (0.1-12.0); Hematocrit 32.4 % (37.0-47.0); Hemoglobin 9.7 g/dL (12.2-16.2); Lymphocytes # 2.2 K/mm3 (0.7-4.5); Lymphocytes % 22.7 % (10-50); Mean Corpuscular Hemoglobin 28.4 pg (27.0-31.2); Mean Corpuscular Volume 94.6 fl (81-99); Mean Platelet Volume 8.1 fl (7.4-10.4); Monocytes # 0.7 K/mm3 (0.1-1.0); Neutrophils # 6.5 K/mm3 (1.8-7.8); Neutrophils % 66.3 % (37.0-80.0); Platelet Count 225 K/mm3 (142-424); Red Blood Count 3.43 M/mm3 (4.20-5.40); Red Cell Distribution Width 18.4 % (11.5-17.5); White Blood Count 9.9 K/mm3 (4.8-10.8)
[2024-04-18 10:29] LABS: Albumin Level 4.2 g/dl (3.5-5.0); Chloride 110 mmol/L (98-107); Potassium 3.9 mmoL/L (3.5-5.1); Sodium 140 mmol/L (136-145)
[2024-04-18 10:31] LABS: Alanine Aminotransferase 15 U/L (12-78); Anion Gap 12.9 mEq/L (5-15); Aspartate Amino Transferase 23 U/L (14-36); Bilirubin,Unconjugated 0.2 mg/dL (0.0-1.1); Blood Urea Nitrogen 64 mg/dl (7-17); Carbon Dioxide 21 mmol/L (22.0-30.0); Estimated Glomerular Filt Rate 16 ml/min (>60); GFR (African American) 20 ML/MIN (>60); Total Protein,Serum 6.9 g/dl (6.3-8.2)
[2024-04-18 10:32] LABS: Alkaline Phosphatase 123 U/L (38-126); Bilirubin,Direct 0.3 mg/dl (0.0-0.4); Bilirubin,Indirect 0.3 mg/dL (0.0-0.9); Bilirubin,Total 0.6 mg/dl (0.2-1.3); Calcium 9.4 mg/dl (8.4-10.2); Chol/HDL Ratio 4.3 (1-3.5); Cholesterol 145 mg/dl (140-200); Glucose 126 mg/dl (74-100); HDL Cholesterol 34 mg/dl (40-60); Magnesium 1.8 mg/dl (1.6-2.3); Triglycerides 271 mg/dl (30-150); VLDL Cholesterol 54 mg/dL (0-40)
[2024-04-18 10:40] LABS: NT Pro Brain Natriuretic Pep. 797 pg/mL (0-450)
[2024-04-18 10:48] LABS: Free T4 (Free Thyroxine) 1.23 ng/dl (0.78-2.19)
[2024-04-18 11:02] LABS: Thyroid Stimulating Hormone 3.08 uIU/mL (0.465-4.68)
--- NOTE | 2024-04-18 11:02 | NM_ITS ---
APPROVED REPORT Exam: Nuclear Stress Test Indication: SOB, Syncope, Fatigue, HTN, DM, High cholesterol, Family history Patient Location: Outpatient Stress Tech: Martha AYERS Tech:Rose Brown, ARRT, RT (R)(N) Ht: 5 ft 8 in Wt: 190 lbs Bra Size: C HR: 61 bpm BP: 192/73 mmHg BSA: 2.00 m2 Rhythm: NSR TID: 1.11 BMI: 28.8 History: SOB, Syncope, Fatigue, HTN, DM, High cholesterol, Family history Procedure: Patient received 0.4 mg of intravenous Lexiscan, resting heart rate 61 bpm, resting blood pressure 192/73 mmHg, with Lexiscan maximum heart rate achieved was 82 bpm which is % of the maximum predicted heart rate and blood pressure was 192/73 mmHg. With Lexiscan, patient denied any complaint of chest pain. Cardiac Stress and Resting SPECT Images: Cardiac Stress and Resting SPECT images were obtained using technetium 99m Myoview 31.8 mCi stress and 10.68 mCi at rest. Resting and stress imaging in supine and prone positions demonstrate no evidence of fixed or reversible perfusion defects. Gated imaging demonstrates normal global and regional LV systolic function. LVEF is calculated at 64%. Conclusion: No evidence of fixed or reversible perfusion defects. Gated imaging demonstrates normal global and regional LV systolic function. LVEF is calculated at 64%. Electronically signed by : Christianne Vargas MD 04/19/2024 13:38:06
[2024-04-18 11:27] LABS: Hemoglobin A1C 6.3 % (4.0-6.0)
[2024-04-18] MEDS: SODIUM CHLORIDE 0.9% 10ML SYR (RAD ONLY) 10 ML IV ×2 (13:04)
[2024-04-18] MEDS: ISOTOPE MYOVIEW (PER STUDY) 1 DOSE IV (13:04)
[2024-04-18] MEDS: REGADENOSON 0.4MG/5ML SYRINGE 0.4 MG IV (13:04)
== END 2024-04-18 23:59 | disposition home or self-care (01) ==
LOC: RT 09:33
PROVIDERS: PCP Family Medicine; Visit Provider Internal Medicine
DX: Z95.0 Presence of cardiac pacemaker (principal); N18.9 Chronic kidney disease, unspecified; I13.0 Hypertensive heart and chronic kidney disease with heart failure and stage 1 through stage 4 chronic kidney disease, or unspecified chronic kidney disease; I65.23 Occlusion and stenosis of bilateral carotid arteries; R06.00 Dyspnea, unspecified; E78.2 Mixed hyperlipidemia; G47.33 Obstructive sleep apnea (adult) (pediatric); I25.118 Atherosclerotic heart disease of native coronary artery with other forms of angina pectoris; R53.83 Other fatigue; R42 Dizziness and giddiness; R60.0 Localized edema; E11.22 Type 2 diabetes mellitus with diabetic chronic kidney disease; I50.9 Heart failure, unspecified; I34.0 Nonrheumatic mitral (valve) insufficiency; I07.1 Rheumatic tricuspid insufficiency
CPT/HCPCS: 36415; 78452; 80048; 80061; 80076; 83036; 83735; 83880; 84439; 84443; 85025; 93017; 93018; 93306; 93971; A9502; J2785

== ENCOUNTER 2024-05-08 14:25 | Outpatient (CLI) | payer MEDICARE, SELFPAY ==
[2024-05-08 15:26] LABS: Chloride 105 mmol/L (98-107); Potassium 3.6 mmoL/L (3.5-5.1); Sodium 140 mmol/L (136-145)
[2024-05-08 15:29] LABS: Anion Gap 18.6 mEq/L (5-15); Calcium 9.9 mg/dl (8.4-10.2); Carbon Dioxide 20 mmol/L (22.0-30.0); Estimated Glomerular Filt Rate 12 ml/min (>60); GFR (African American) 15 ML/MIN (>60); Glucose 165 mg/dl (74-100); Iron 40 ug/dL (37-170)
[2024-05-08 15:32] LABS: Blood Urea Nitrogen 91 mg/dl (7-17)
[2024-05-08 15:39] LABS: Total Iron Binding Capacity 376 ug/dL (265-497)
== END 2024-05-08 23:59 | disposition home or self-care (01) ==
LOC: LAB 14:26
PROVIDERS: PCP Family Medicine; Visit Provider Internal Medicine
DX: E13.9 Other specified diabetes mellitus without complications (principal); Z95.0 Presence of cardiac pacemaker; R60.9 Edema, unspecified; I35.0 Nonrheumatic aortic (valve) stenosis; N18.9 Chronic kidney disease, unspecified; I10 Essential (primary) hypertension; I65.23 Occlusion and stenosis of bilateral carotid arteries; I25.118 Atherosclerotic heart disease of native coronary artery with other forms of angina pectoris; R06.00 Dyspnea, unspecified; E78.2 Mixed hyperlipidemia; G47.33 Obstructive sleep apnea (adult) (pediatric); R53.83 Other fatigue; R42 Dizziness and giddiness; K21.9 Gastro-esophageal reflux disease without esophagitis
CPT/HCPCS: 36415; 80048; 83540; 83550

== ENCOUNTER 2024-05-29 14:15 | Outpatient (CLI) | payer MEDICARE, SELFPAY ==
[2024-05-29 15:21] LABS: Anion Gap 21.6 mEq/L (5-15); Blood Urea Nitrogen 49 mg/dl (7-17); Calcium 9.7 mg/dl (8.4-10.2); Carbon Dioxide 19 mmol/L (22.0-30.0); Chloride 108 mmol/L (98-107); Estimated Glomerular Filt Rate 17 ml/min (>60); GFR (African American) 20 ML/MIN (>60); Glucose 106 mg/dl (74-100); Potassium 4.6 mmoL/L (3.5-5.1); Sodium 144 mmol/L (136-145)
[2024-05-29 16:07] LABS: Creatinine,Urine Random 113 mg/dL (Not Estab.)
[2024-05-29 16:46] LABS: Hemoglobin A1C 5.8 % (4.0-6.0)
[2024-05-29 17:05] LABS: Microalbumin > 1140.000 mg/L (0-16.7); Microalbumin/Creatinine Ratio 1008.8
[2024-05-29 17:14] LABS: Ferritin 8.47 ng/ml (11.1-264)
== END 2024-05-29 23:59 | disposition home or self-care (01) ==
LOC: LAB 14:16
PROVIDERS: PCP Family Medicine; Visit Provider Internal Medicine
DX: E13.9 Other specified diabetes mellitus without complications (principal); Z95.0 Presence of cardiac pacemaker; R60.9 Edema, unspecified; I35.0 Nonrheumatic aortic (valve) stenosis; K21.9 Gastro-esophageal reflux disease without esophagitis
CPT/HCPCS: 36415; 80048; 82043; 82570; 82728; 83036; 84156

== ENCOUNTER 2024-10-03 08:36 | Outpatient (CLI) | payer MEDICARE, SELFPAY ==
[2024-10-03 09:48] LABS: Alanine Aminotransferase 17 U/L (12-78); Albumin Level 3.7 g/dl (3.5-5.0); Albumin/Globulin Ratio 1.4 (1.1-1.8); Alkaline Phosphatase 108 U/L (38-126); Anion Gap 14.5 mEq/L (5-15); Aspartate Amino Transferase 25 U/L (14-36); Bilirubin,Total 0.3 mg/dl (0.2-1.3); Blood Urea Nitrogen 35 mg/dl (7-17); Calcium 9.4 mg/dl (8.4-10.2); Carbon Dioxide 17 mmol/L (22.0-30.0); Chloride 113 mmol/L (98-107); Cholesterol 122 mg/dl (140-200); Estimated Glomerular Filt Rate 18 ml/min (>60); GFR (African American) 21 ML/MIN (>60); Globulin 2.6 g/dL (1.3-3.2); Glucose 148 mg/dl (74-100); HDL Cholesterol 41 mg/dl (40-60); Potassium 4.5 mmoL/L (3.5-5.1); Sodium 140 mmol/L (136-145); Total Protein,Serum 6.3 g/dl (6.3-8.2); Triglycerides 219 mg/dl (30-150); Uric Acid 4.9 mg/dl (2.5-6.2); VLDL Cholesterol 44 mg/dL (0-40)
[2024-10-03 11:25] LABS: Hemoglobin A1C 5.3 % (4.0-6.0)
[2024-10-12 18:10] LABS: 1,25 Dihydroxy Vitamin D 19 pg/mL (.); 1,25-Dihydroxy, Vitamin D-2 <10 pg/mL (.); 1,25-Dihydroxy, Vitamin D-3 15 pg/mL (.)
== END 2024-10-03 23:59 | disposition home or self-care (01) ==
LOC: LAB 08:38
PROVIDERS: PCP Family Medicine; Visit Provider Family Medicine
DX: E78.5 Hyperlipidemia, unspecified (principal); I10 Essential (primary) hypertension; E55.9 Vitamin D deficiency, unspecified; E79.0 Hyperuricemia without signs of inflammatory arthritis and tophaceous disease; E11.22 Type 2 diabetes mellitus with diabetic chronic kidney disease; E03.9 Hypothyroidism, unspecified; Z87.891 Personal history of nicotine dependence; N18.9 Chronic kidney disease, unspecified
CPT/HCPCS: 36415; 80053; 80061; 82652; 83036; 84443; 84550

== ENCOUNTER 2024-10-13 11:29 | Emergency (ER) | payer MEDICARE, SELFPAY ==
[2024-10-13] VITALS (13 sets, daily range): BP systolic 130–213; BP diastolic 74–110; PULSE 75–92; RESP 11–22; TEMP 36.7–36.9; O2SAT 96–100; BMI 25.1
--- NOTE | 2024-10-13 12:18 | CT_ITS ---
PROCEDURE INFORMATION: Exam: CT Head Without Contrast Exam date and time: 10/13/2024 1:50 PM Age: 84 years old Clinical indication: Other: Expressive aphasia, R weakness TECHNIQUE: Imaging protocol: Computed tomography of the head without contrast. Radiation optimization: All CT scans at this facility use at least one of these dose optimization techniques: automated exposure control; mA and/or kV adjustment per patient size (includes targeted exams where dose is matched to clinical indication); or iterative reconstruction. COMPARISON: CT HEAD/BRAIN WO CON 06/21/2021 5:20 PM FINDINGS: Brain: There is a heterogeneous left holo hemispheric subdural hematoma measuring 3.1 cm. Hypodense appearance is most consistent with subacute age with scattered foci of recent hemorrhage. Locoregional mass effect flattens the adjacent sulci. There is a 1.7 cm [id number] midline structure shift. There is medial ization of the left ankle structures without chip herniation. Cerebral ventricles: The lateral ventricular body is partially effaced. Paranasal sinuses: Visualized sinuses are unremarkable. No fluid levels. Mastoid air cells: Visualized mastoid air cells are well aerated. Bones: No calvarial fracture. Soft tissues: Unremarkable. IMPRESSION: Subacute and acute left holohemispheric subdural hematoma. There is 1.7 cm rightward subfalcine herniation and medialization of the left ankle structures. THIS REPORT CONTAINS FINDINGS THAT MAY BE CRITICAL TO PATIENT CARE. The findings were verbally communicated via telephone conference at 2:59 PM EDT on 10/13/2024 with Jolly Bradley The findings were acknowledged and understood.
--- NOTE | 2024-10-13 12:18 | CT_ITS ---
PROCEDURE INFORMATION: Exam: CTA Head With Contrast, Arteriography Exam date and time: 10/13/2024 2:04 PM Age: 84 years old Clinical indication: Other: Expressive aphasia, R weakness TECHNIQUE: Imaging protocol: Computed tomographic angiography of the head with contrast. Exam focused on the arteries. 3D rendering (Not supervised by radiologist): MIP and/or 3D reconstructed images were created by the technologist. Radiation optimization: All CT scans at this facility use at least one of these dose optimization techniques: automated exposure control; mA and/or kV adjustment per patient size (includes targeted exams where dose is matched to clinical indication); or iterative reconstruction. Contrast material: ISO 370; Contrast volume: 80 ml; Contrast route: INTRAVENOUS (IV); COMPARISON: CT HEAD/BRAIN WO CON 10/13/2024 1:50 PM FINDINGS: ANTERIOR CIRCULATION: Right internal carotid artery: Intracranial segment is patent with no significant stenosis. No aneurysm. Right middle cerebral artery: No occlusion or significant stenosis. No aneurysm. Right anterior cerebral artery: No occlusion or significant stenosis. No aneurysm. Left internal carotid artery: Intracranial segment is patent with no significant stenosis. No aneurysm. Left middle cerebral artery: No occlusion or significant stenosis. No aneurysm. Left anterior cerebral artery: No occlusion or significant stenosis. No aneurysm. POSTERIOR CIRCULATION: Right vertebral artery: No occlusion or significant stenosis. No aneurysm. Left vertebral artery: No occlusion or significant stenosis. No aneurysm. Basilar artery: No occlusion or significant stenosis. No aneurysm. Right posterior cerebral artery: No occlusion or significant stenosis. No aneurysm. Left posterior cerebral artery: No occlusion or significant stenosis. No aneurysm. Brain: There is a heterogeneous left holo hemispheric subdural hematoma measuring 3.1 cm. Hypodense appearance is most consistent with subacute age with scattered foci of recent hemorrhage. Locoregional mass effect flattens the adjacent sulci. There is a 1.7 cm awuy-fz-ajpig midline structure shift. There is medial ization of the left ankle structures without chip herniation. Cerebral ventricles: The lateral ventricular body is partially effaced. Bones/joints: See Brain finding. Soft tissues: Unremarkable. IMPRESSION: 1. There is a acute/subacute left holo hemispheric subdural hematoma. 2. There is a 1.7 cm ytmy-pf-filtt midline structure shift. There is medialization of the left ankle structures without chip herniation. 3. No large vessel occlusion
--- NOTE | 2024-10-13 12:18 | CT_ITS ---
PROCEDURE INFORMATION: Exam: CT Lumbar Spine Without Contrast Exam date and time: 10/13/2024 2:01 PM Age: 84 years old Clinical indication: Other: Expressive aphasia, R weakness, frequent falls TECHNIQUE: Imaging protocol: Computed tomography of the lumbar spine without contrast. Radiation optimization: All CT scans at this facility use at least one of these dose optimization techniques: automated exposure control; mA and/or kV adjustment per patient size (includes targeted exams where dose is matched to clinical indication); or iterative reconstruction. COMPARISON: CT ABDOMEN PELVIS WO CON 10/13/2024 1:58 PM FINDINGS: Bones/joints: There are 5 [id number] lumbar type vertebral bodies. Dextroscoliosis in the lumbar spine with apex at L3 and reactive degenerative disc disease and bulky disc osteophytes on the right at L1-L2 and on the left at L3-L4. There is also grade 1 left lateral listhesis at L1-L2, also likely degenerative. No evidence of acute fracture or malalignment. Soft tissues: Unremarkable. IMPRESSION: 1. No evidence of acute osseous abnormality in the lumbar spine. 2. Dextroscoliosis and multi-level degenerative changes, as above.
--- NOTE | 2024-10-13 12:18 | CT_ITS ---
PROCEDURE INFORMATION: Exam: CT Cervical Spine Without Contrast Exam date and time: 10/13/2024 1:52 PM Age: 84 years old Clinical indication: Other: Expressive aphasia, R weakness; Additional info: Expressive aphasia, R weakness, frequent falls TECHNIQUE: Imaging protocol: Computed tomography of the cervical spine without contrast. Radiation optimization: All CT scans at this facility use at least one of these dose optimization techniques: automated exposure control; mA and/or kV adjustment per patient size (includes targeted exams where dose is matched to clinical indication); or iterative reconstruction. COMPARISON: CT CERVICAL SPINE WO CON 08/21/2020 1:43 PM FINDINGS: Bones: Congenital non-fusion of the posterior arch of C1. Grade 1 anterolisthesis of C4 without associated fracture and presumably degenerative related. Vertebral alignment is otherwise maintained. There is preservation of vertebral body heights. Facet joints are aligned. Odontoid process is intact. Atlantoaxial interval maintained. No acute fracture. Uncovertebral and facet arthropathy result in varying degrees of neural foraminal narrowing at multiple levels. Paranasal sinuses: Scattered mucosal thickening throughout the paranasal sinuses. Lungs: Lung apices are normal. Soft tissues: Prevertebral and paravertebral soft tissues are maintained IMPRESSION: 1. No acute fracture. No traumatic subluxation. 2. Degenerative anterolisthesis of C4 over C5
--- NOTE | 2024-10-13 12:18 | CT_ITS ---
PROCEDURE INFORMATION: Exam: CTA Neck With Contrast Exam date and time: 10/13/2024 2:04 PM Age: 84 years old Clinical indication: Other: Expressive aphasia, R weakness TECHNIQUE: Imaging protocol: Computed tomographic angiography of the neck with contrast. Exam focused on the cervical segments of the vasculature. 3D rendering (Not supervised by radiologist): MIP and/or 3D reconstructed images were created by the technologist. Radiation optimization: All CT scans at this facility use at least one of these dose optimization techniques: automated exposure control; mA and/or kV adjustment per patient size (includes targeted exams where dose is matched to clinical indication); or iterative reconstruction. Contrast material: ISO 370; Contrast volume: 80 ml; Contrast route: INTRAVENOUS (IV); COMPARISON: CT CERVICAL SPINE WO CON 10/13/2024 1:52 PM FINDINGS: Right common carotid artery: No stenosis. No dissection or occlusion. Right internal carotid artery: Moderate atherosclerotic changes contribute to 50-69% stenosis per NASCET criteria at the origin of right internal carotid artery. Right external carotid artery: No occlusion or stenosis of the origin. Left common carotid artery: No stenosis. No dissection or occlusion. Left internal carotid artery: Advanced atherosclerotic changes contribute to 80 % stenosis per NASCET criteria at the origin of left internal carotid artery. Left external carotid artery: No occlusion or stenosis of the origin. Right vertebral artery: No stenosis. No dissection or occlusion. Left vertebral artery: No stenosis. No dissection or occlusion. Soft tissues: Normal. No significant soft tissue swelling. Bones/joints: No acute fracture. IMPRESSION: 1. Moderate atherosclerotic changes contribute to 50-69% stenosis per NASCET criteria at the origin of right internal carotid artery. 2. Advanced atherosclerotic changes contribute to 80 % stenosis per NASCET criteria at the origin of left internal carotid artery. REFERENCES: NASCET CRITERIA. The degree of stenosis in the cervical segment of the internal carotid artery is based on NASCET criteria. Normal is no stenosis. Mild is less than 50% stenosis. Moderate is 50-69% stenosis. Severe is 70% to 99% stenosis. Total occlusion is no detectable patent lumen.
--- NOTE | 2024-10-13 12:18 | CT_ITS ---
PROCEDURE INFORMATION: Exam: CT Chest Without Contrast; Diagnostic Exam date and time: 10/13/2024 1:58 PM Age: 84 years old Clinical indication: Other: Frequent falls, L chest ttp TECHNIQUE: Imaging protocol: Diagnostic computed tomography of the chest without contrast. Radiation optimization: All CT scans at this facility use at least one of these dose optimization techniques: automated exposure control; mA and/or kV adjustment per patient size (includes targeted exams where dose is matched to clinical indication); or iterative reconstruction. COMPARISON: CT CHEST WO CON 10/13/2024 1:58 PM FINDINGS: Tubes, catheters and devices: AICD in place with leads in appropriate position. Lungs: No evidence of pulmonary contusion. No pulmonary edema. Pleural spaces: No pleural effusion. No pneumothorax. Heart: Heart is upper limits of normal in size. No pericardial effusion. Aortic valve leaflet calcifications. Coronary arteries: Three-vessel calcific coronary artery disease. Lymph nodes: Unremarkable. Vasculature: Unremarkable as visualized. Bones/joints: No evidence of acute osseous abnormality. Soft tissues: Unremarkable. IMPRESSION: 1. No acute findings in the chest. 2. Aortic valve leaflet calcifications. 3. Three-vessel calcific coronary artery disease.
--- NOTE | 2024-10-13 12:18 | CT_ITS ---
PROCEDURE INFORMATION: Exam: CT Thoracic Spine Without Contrast Exam date and time: 10/13/2024 1:55 PM Age: 84 years old Clinical indication: Other: Expressive aphasia, R weakness, frequent falls TECHNIQUE: Imaging protocol: Computed tomography of the thoracic spine without contrast. Radiation optimization: All CT scans at this facility use at least one of these dose optimization techniques: automated exposure control; mA and/or kV adjustment per patient size (includes targeted exams where dose is matched to clinical indication); or iterative reconstruction. COMPARISON: CT CERVICAL SPINE WO CON 10/13/2024 1:52 PM FINDINGS: Bones/joints: No evidence of acute fracture or malalignment. Soft tissues: Unremarkable. Kidneys and ureters: A 1.8 cm lesion is seen in the upper pole of the right kidney that is inconsistent with a simple renal cyst. IMPRESSION: 1. No evidence of acute osseous abnormality in the thoracic spine. 2. Incompletely characterized1.8 cm right renal lesion, indeterminate for malignancy. Please see comments below for current guidelines. COMMENTS: Current ACR guidelines recommend non-emergent MRI or CT tailored to renal mass protocol without and with contrast. MRI is preferred for masses under 1.5 cm. (Reference: Sebastien) REFERENCES: Sebastien VIZCAINO, Management of the Incidental Renal Mass on CT: A White Paper of the ACR Incidental Findings Committee, JACR 2018.
--- NOTE | 2024-10-13 12:21 | CT_ITS ---
PROCEDURE INFORMATION: Exam: CT Abdomen And Pelvis Without Contrast Exam date and time: 10/13/2024 1:58 PM Age: 84 years old Clinical indication: Other: Frequent falls, [place] on ckd TECHNIQUE: Imaging protocol: Computed tomography of the abdomen and pelvis without contrast. Radiation optimization: All CT scans at this facility use at least one of these dose optimization techniques: automated exposure control; mA and/or kV adjustment per patient size (includes targeted exams where dose is matched to clinical indication); or iterative reconstruction. COMPARISON: CT THORACIC SPINE WO CON 10/13/2024 1:55 PM FINDINGS: Limitations: Lack of intravenous contrast material limits sensitivity in detection and/or characterization of intra-abdominal pathology. Liver: Nodular cirrhotic liver. Punctate calcific body at the harmeet hepatis in the region of the cystic duct, indeterminate whether representing a stone in the cystic duct or an atherosclerotic calcification in the hepatic artery. Gallbladder and biliary ducts: Gallbladder contains gallstones. No gallbladder wall thickening or pericholecystic fluid. No intra- or extra-hepatic biliary ductal dilatation. Pancreas: Unremarkable. Spleen: Unremarkable. Adrenal glands: Unremarkable. Kidneys and ureters: Severely atrophic right kidney with a 1.8 cm lesion in the upper pole inconsistent with a simple renal cyst. No hydronephrosis. Stomach and bowel: Colonic diverticulosis without evidence of acute diverticulitis. Appendix: No evidence of appendicitis. Intraperitoneal space: No free fluid. No pneumoperitoneum. Vasculature: Moderate amount of calcific arterial atherosclerosis throughout the aorta. No abdominal aortic aneurysm. Lymph nodes: Unremarkable. Urinary bladder: Unremarkable. Reproductive: Unremarkable. Bones/joints: No evidence of acute osseous abnormality. Soft tissues: Unremarkable. IMPRESSION: 1. No acute findings in the abdomen or pelvis. No hydronephrosis. 2. Cirrhosis. 3. Cholelithiasis without evidence of acute cholecystitis. 4. Punctate calcific body at the harmeet hepatis in the region of the cystic duct, indeterminate whether representing a stone in the cystic duct or an atherosclerotic calcification in the hepatic artery. Please correlate with patient's symptoms and/or physical exam. 5. Colonic diverticulosis without evidence of acute diverticulitis. 6. Incompletely characterized1.8 cm right renal lesion, indeterminate for malignancy. Please see comments below for current guidelines. COMMENTS: Current ACR guidelines recommend non-emergent MRI or CT tailored to renal mass protocol without and with contrast. MRI is preferred for masses under 1.5 cm. (Reference: [place]) REFERENCES: Sebastien VIZCAINO, Management of the Incidental Renal Mass on CT: A White Paper of the ACR Incidental Findings Committee, JACR 2018.
[2024-10-13 12:25] LABS: Microscopic, Urine URINE MICROSCOPIC (MICROSCOPIC)
--- NOTE | 2024-10-13 12:29 | ECG_ITS ---
APPROVED REPORT Exam: Resting ECG HR:78 bpm ECG Measurements Heart Rate 78 AXES QRSd 88 QRS 13 QT 388 T 30 QTc 422 Conclusion Sinus rhythm with a ventricular rate of 78 bpm. Some motion artifact in V5. No STEMI. Electronically signed by : DILIA SCHERER, 10/13/2024 15:48:47
[2024-10-13 12:34] LABS: Basophils # 0.1 K/mm3 (0-0.2); Basophils % 0.9 % (0.1-2.0); Eosinophils # 0.8 K/mm3 (0.0-0.4); Hematocrit 31.7 % (37.0-47.0); Hemoglobin 9.9 g/dL (12.2-16.2); Lymphocytes # 2.2 K/mm3 (0.7-4.5); Lymphocytes % 22.4 % (10-50); Mean Corpuscular HGB Conc 31.2 g/dL (31.8-35.4); Mean Corpuscular Hemoglobin 27.3 pg (27.0-31.2); Mean Corpuscular Volume 87.6 fl (81-99); Mean Platelet Volume 10.5 fl (7.4-10.4); Monocytes # 0.7 K/mm3 (0.1-1.0); Monocytes % 7.5 % (1.7-9.3); Neutrophils # 5.9 K/mm3 (1.8-7.8); Neutrophils % 60.7 % (37.0-80.0); Platelet Count 292 K/mm3 (142-424); Red Blood Count 3.62 M/mm3 (4.20-5.40); Red Cell Distribution Width 19.1 % (11.5-17.5); White Blood Count 9.6 K/mm3 (4.8-10.8)
[2024-10-13 12:51] LABS: Appearance,Urine Clear (Clear); Color,Urine Yellow (Yellow); Specific Gravity, Urine >= 1.030 (1.005-1.030)
[2024-10-13 12:52] LABS: Bilirubin,Urine Negative (Negative); Blood, Urine 1+ (Negative); Glucose,Urine (UA) Trace (Negative); Ketones,Urine Negative (Negative); Leukocyte Esterase,Urine Negative (Negative); Nitrate,Urine Negative (Negative); Protein,Urine 3+ (Negative); RBC,Urine Occasional #/hpf (0-3); Urobilinogen,Urine 0.2 EU/dl (0.2)
[2024-10-13 12:53] LABS: Amorphous Sediment,Urine Trace /lpf; Bacteria,Urine 1+ /lpf
[2024-10-13 13:00] LABS: Albumin Level 4.4 g/dl (3.5-5.0); Chloride 114 mmol/L (98-107); Potassium 3.5 mmoL/L (3.5-5.1); Sodium 141 mmol/L (136-145)
[2024-10-13 13:03] LABS: Alanine Aminotransferase 18 U/L (12-78); Albumin/Globulin Ratio 1.3 (1.1-1.8); Alkaline Phosphatase 105 U/L (38-126); Anion Gap 13.5 mEq/L (5-15); Aspartate Amino Transferase 31 U/L (14-36); Bilirubin,Total 0.6 mg/dl (0.2-1.3); Blood Urea Nitrogen 33 mg/dl (7-17); Carbon Dioxide 17 mmol/L (22.0-30.0); Creatinine Clearance Estimated 23 mL/min (50-200); Estimated Glomerular Filt Rate 20 ml/min (>60); GFR (African American) 25 ML/MIN (>60); Globulin 3.3 g/dL (1.3-3.2); HIV Combo NEGATIVE (Negative); Phosphorous 3.8 mg/dl (2.5-4.5); Total Protein,Serum 7.7 g/dl (6.3-8.2)
--- NOTE | 2024-10-13 13:09 | ED_ITS ---
Discharge Plan Disposition Patient Disposition: Xfer Short-Term Hosp Condition: Fair Prescriptions Prescriptions: No Action levothyroxine 75 mcg tablet 75 mcg PO DAILY Januvia 50 mg tablet 50 mg PO DAILY bisoprolol fumarate 5 mg tablet 5 mg PO DAILY Qty: 30 5RF (DME) OneTouch Ultra Test Strip See Rx Instructions .ROUTE .MEDSUPPLY Qty: 10 Patient Comments: USE 1 STRIP TO CHECK GLUCOSE THREE TIMES DAILY Rx Instructions: As directed nifedipine 60 mg tablet extended release 90 mg PO BID cyanocobalamin (vitamin B-12) 1,000 mcg capsule 1,000 mcg PO DAILY allopurinol 100 mg tablet 100 mg PO DAILY Farxiga 10 mg tablet 10 mg PO DAILY cholecalciferol (vitamin D3) 25 mcg (1,000 unit) capsule 2,000 unit PO DAILY furosemide 40 mg tablet 60 mg PO .M, Th Qty: 45 5RF losartan 50 mg tablet 75 mg PO DAILY 90 Days Qty: 135 3RF atorvastatin 40 MG tablet 40 mg PO DAILY aspirin 81 MG tablet,delayed release (DR/EC) 81 mg PO DAILY Referrals Follow up/Referrals: Evaristo Lovell MD [Primary Care Provider] - See instructions Clinical Impressions Clinical Impression: Acute subdural hematoma, CKD (chronic kidney disease), Brain herniation, Expressive aphasia, Right sided weakness, Frequent falls Print Language Print Language: Lithuanian Discharge ED Provider: Jolly Bradley General Adult HPI General Chief complaint: Neuro Symptoms/Deficit Stated complaint: ao 3, cognitive decline, headache Time Seen by Provider: 10/13/24 11:45 Mode of Arrival: Wheelchair Source of Information: Relative Description of Symptoms (Recalled from ER Triage Doc. by RN): pt presents to ED with family for general decline in health. daughters at bedside report pt has been having decline for the past month. pt has had 6 fall in the past week but did not get checked out for those. pt takes 81mg ASA. pt slow to respond with questions but does answer appropriately. at bedside report that pt has become total care. History of Present Illness HPI narrative: This patient is an 84-year-old female with a history of type 2 diabetes, prior CVA, CKD, hypertension, hyperlipidemia, FADI, aortic stenosis, and SVT status post pacemaker placement presenting to the emergency department for evaluation with concern for decline. According to the patient's family, 1 month ago she was previously functional, able to cook on her own, and able to get around the house on her own, however she has had a progressive decline since then. They state that a month ago it initially started out with them thinking that she had the flu/upper respiratory infection. She was treated at home with [id number] medications, but she has continued to decline. She was having trouble getting around, then had a fall about a week ago and has been able to get around at all since then. She has had multiple falls since then. She denies any significant injury from the fall, but she is continue to complain of headache. Her at home has been taking total care of her. For the last several days, she is also had new word finding difficulty, and she notes that she is having more trouble than usual using her right side. She also has complained of headache for 1 month. Family is concerned because she has a history of brain bleed in the past. Patient corroborates history and denies any physical concerns or complaints aside from headache. Related Data Home Medications ?Medication ?Instructions ?Recorded ?Confirmed levothyroxine 75 mcg tablet 75 mcg PO DAILY THYROID 07/10/20 05/29/24 aspirin 81 mg tablet,delayed 81 mg PO DAILY DAPT 07/02/21 05/29/24 release atorvastatin 40 mg tablet 40 mg PO DAILY Cholesterol 08/07/21 05/29/24 cyanocobalamin (vitamin B-12) 1,000 mcg PO DAILY 04/12/22 05/29/24 1,000 mcg capsule nifedipine 60 mg tablet,extended 90 mg PO BID BLOOD PRESSURE 04/12/22 05/29/24 release allopurinol 100 mg tablet 100 mg PO DAILY 04/18/23 05/29/24 cholecalciferol (vitamin D3) 25 2,000 unit PO DAILY 04/18/23 05/29/24 mcg (1,000 unit) capsule dapagliflozin propanediol 10 mg 10 mg PO DAILY 04/18/23 05/29/24 tablet (Farxiga) sitagliptin phosphate 50 mg tablet 50 mg PO DAILY 04/09/24 05/29/24 (Januvia) blood sugar diagnostic (OneTouch #10 ea 05/08/24 05/29/24 Ultra Test strips) Previous Rx's ?Medication ?Instructions ?Recorded bisoprolol fumarate 5 mg tablet 5 mg PO DAILY #30 tabs 04/09/24 furosemide 40 mg tablet 60 mg (1.5 x 40 mg) PO .M, Th #45 05/29/24 tabs losartan 50 mg tablet 75 mg (1.5 x 50 mg) PO DAILY 90 05/29/24 days #135 tabs Allergies Allergy/AdvReac Type Severity Reaction Status Date / Time Sulfa (Sulfonamide Allergy Mild Verified 05/29/24 13:06 Antibiotics) [facility] Disclaimer: The information contained in this section may have been updated after the patient was seen, as this information can be updated by other users. Medical History HTN (hypertension) CAD (coronary artery disease) Near syncope Dyspnea HLD (hyperlipidemia) FADI (obstructive sleep apnea) Fatigue Dizziness Recent cerebrovascular accident (CVA) Moderate aortic stenosis SVT (supraventricular tachycardia) Tachycardia Bradycardia Abnormal Holter monitor finding Surgical History Presence of cardiac pacemaker Social History Smoking Status: Former smoker second hand exposure: No alcohol intake: never substance use type: denies use current occupational status: retired Travel in the last 8 weeks: Inside the [place] household members: spouse housing: house current occupational exposures/hazards: No caffeine: Yes Have you lived/traveled outside [place] in past 30 days?: No Contact w/someone who lives/traveled outside US past 30 days?: No Exposure to someone with infectious disease in past 14 days?: No Do you have a fever (greater than 100.4 F or 38 C)?: No Have you tested positive for COVID-19: No Exposed to someone with COVID-19 in past 14 days?: No Do you have a sore throat?: No Do you have a cough?: No Do you have any weakness?: No Do you have any diarrhea?: No Are you experiencing any unusual bleeding?: No Do you have any muscle aches/pain?: No Do you have any abdominal pain?: No Are you experiencing loss of taste or smell?: No Other Medical History Have you received the Flu Vaccine for this season: Yes Have you received the Pneumonia Vaccine: Yes ROS Obtained: Yes All systems reviewed & no additional complaints except as documented Physical Exam General General appearance: alert and in no apparent distress Head Head exam: atraumatic and normocephalic Eye Eye exam: Present normal appearance, PERRL and EOMI ENT ENT exam: Present normal exam, normal oropharynx, mucous membranes moist and normal external ear exam Neck Neck exam: Present normal inspection, full ROM and trachea midline; Absent tenderness Chest Chest inspection: Present normal inspection and symmetric chest wall rise; Absent tenderness Respiratory Respiratory exam: Present normal lung sounds bilaterally; Absent respiratory distress, wheezes, stridor or accessory muscle use Cardiovascular Cardiovascular exam: Present regular rate and normal rhythm Abdominal Exam Abdominal exam: Present soft; Absent distention, tenderness or guarding Extremities Exam Extremities exam: Present full ROM, normal capillary refill and edema (R lower leg edema (prior ankle surgery)); Absent tenderness Back Exam Back exam: Present normal inspection and full ROM; Absent tenderness Neurological Exam Neurological exam: Present alert, oriented X3 and other (Generally weak, right side is worse than the left. Word finding difficulty. NIHSS 3) Psychiatric Psychiatric exam: Present normal affect and normal mood Skin Skin exam: Present warm and dry Medical Decision Making Medical Records Medical records reviewed: Yes I reviewed the patient's medical records. Screening: Per USPSTF and CDC recommendations, given the prevalence of disease in our region, it is our hospital?s policy to screen for HIV and viral Hepatitis for all patients aged 18 and over and those with ongoing risk factors. [place] Inquiry Pt receiving controlled substance: No Vital Signs: 10/13/24 11:51 10/13/24 12:59 10/13/24 13:00 Temperature 98.4 F Temperature Source Oral Pulse Rate 80 75 Pulse Rate [Left Radial] 81 Respiratory Rate 19 13 Blood Pressure 180/82 H 190/86 H Blood Pressure [Right Arm] 130/110 H Blood Pressure Mean [Right Arm] 116 02 Sat by Pulse Oximetry 99 96 98 Oxygen Delivery Method Room Air Room Air 10/13/24 14:31 Temperature Temperature Source Pulse Rate 77 Pulse Rate [Left Radial] Respiratory Rate 16 Blood Pressure 199/74 H Blood Pressure [Right Arm] Blood Pressure Mean [Right Arm] 02 Sat by Pulse Oximetry 97 Oxygen Delivery Method Room Air Lab Data Lab results reviewed: Yes I reviewed the patient's lab results. Lab Results 10/13/24 11:43: WBC 9.6, RBC 3.62 L, Hgb 9.9 L, Hct 31.7 L, MCV 87.6, MCH 27.3, MCHC 31.2 L, RDW 19.1 H, Plt Count 292, MPV 10.5 H, Neut % (Auto) 60.7, Lymph % (Auto) 22.4, [place] % (Auto) 7.5, Eos % (Auto) 8.0, Baso % (Auto) 0.9, Neut # (Auto) 5.9, Lymph # (Auto) 2.2, [place] # (Auto) 0.7, Eos # (Auto) 0.8 H, Baso # (Auto) 0.1, Sodium 141, Potassium 3.5, Chloride 114 H, Carbon Dioxide 17 L, Anion Gap 13.5, BUN 33 H, Creatinine 2.30 H, Estimated Creat Clear 23, Estimated GFR 20 L, Est GFR ( Amer) 25 L, Glucose 132 H, Calcium 10.1, Phosphorus 3.8, Magnesium 1.9, Total Bilirubin 0.6, AST 31, ALT 18, Alkaline Phosphatase 105, Total Creatine Kinase 48, Troponin I 0.03, NT-Pro-B Natriuret Pep 2750 H, Total Protein 7.7, Albumin 4.4, Globulin 3.3 H, Albumin/Globulin Ratio 1.3, TSH 3.59, Thyroxine (T4) 13.6 H, HCV Ab KASI w/Rflx PCR Qn Negative, HIV Ag/Ab Combo Qual Negative 10/13/24 11:53: Urine Color Yellow, Urine Appearance Clear, Urine pH 5.0, Ur Specific [place] >= 1.030, Urine Protein 3+ A, Urine Glucose (UA) Trace, Urine Ketones Negative, Urine Blood 1+ A, Urine Nitrate Negative, Urine Bilirubin Negative, Urine Urobilinogen 0.2, Ur Leukocyte Esterase Negative, Urine RBC Occasional, Urine WBC 3-5, Ur Squamous Epith Cells 3-5, Amorphous Sediment Trace, Urine Bacteria 1+ 10/13/24 11:43 10/13/24 11:43 Orders (Tests/Meds): ED MEDICATIONS Discontinued Medications Generic Name Dose Route Start Last Admin Trade Name Freq PRN Reason Stop Dose Admin Hydralazine HCl 20 mg 10/13/24 15:03 10/13/24 15:07 Hydralazine 20mg/Ml Vial IV 10/13/24 15:04 20 mg ONCE ONE Administration Iopamidol 80 ml 10/13/24 13:55 10/13/24 13:56 Iopamidol-370 (76%);100ml Bottle IV 10/13/24 13:56 80 ml ONCE ONE Administration Sodium Chloride 500 ml 10/13/24 13:09 10/13/24 13:11 Sodium Chloride 0.9% 500ml Bag IV 10/13/24 13:10 500 ml ONCE ONE Administration Sodium Chloride 50 ml 10/13/24 13:55 10/13/24 13:56 0.9 % Sodium Chloride 50 Ml Vial IV 10/13/24 13:56 50 ml ONCE ONE Administration Sodium Chloride 10 ml 10/13/24 13:55 10/13/24 13:56 Sodium Chloride 0.9% 10ml Syr (Rad Only) IV 10/13/24 13:56 10 ml ONCE ONE Administration ORDERS Category Date Time Status CT abdomen pelvis wo con Stat Cat Scan 10/13/24 12:[address] angio head Stat Cat Scan 10/13/24 12:[address] angio neck Stat Cat Scan 10/13/24 12:[address] cervical spine wo con Stat Cat Scan 10/13/24 12:[address] chest wo con Stat Cat Scan 10/13/24 12:[address] head/brain wo con Stat Cat Scan 10/13/24 12:[address] lumbar spine wo con Stat Cat Scan 10/13/24 12:[address] thoracic spine wo con Stat Cat Scan 10/13/24 12:18 Completed BNP [NT Pro Brain Natriuretic Pep.] Stat Lab 10/13/24 11:43 Completed CK [Creatine Kinase] Stat Lab 10/13/24 11:43 Completed Complete Blood Count Auto Diff Stat Lab 10/13/24 11:43 Completed Comprehensive Metabolic Panel Stat Lab 10/13/24 11:43 Completed HIV Combo Stat Lab 10/13/24 11:43 Completed Hepatitis C Ab Qual. W/ RFX Stat Lab 10/13/24 11:43 Completed MAG [Magnesium] Stat Lab 10/13/24 11:43 Completed PHOS [Phosphorous] Stat Lab 10/13/24 11:43 Completed T4 (Thyroxine) Stat Lab 10/13/24 11:43 Completed TSH [Thyroid Stimulating Hormone] Stat Lab 10/13/24 11:43 Completed Trop I [Troponin I] Stat Lab 10/13/24 11:43 Completed Troponin I Q3H Lab 10/13/24 15:30 Ordered Troponin I Q3H Lab 10/13/24 18:30 Ordered UA [Urinalysis and Microscopic] Stat Lab 10/13/24 11:53 Completed ECG Data Tracing #1: I reviewed this ECG and interpreted as documented below: Sinus rhythm with a ventricular rate of [address] changes concerning for STEMI. Motion artifact in V5 degrades study. Normal intervals. ECG initial impression date: 10/13/24 ECG initial impression time: 12:30 Medical Decision Narrative: In summary, this patient is a 84-year-old female presenting to the Emergency Department for evaluation of headaches, word finding difficulty, general weakness with right side being worse than the left, frequent falls, and functional decline over the last month. Differential diagnoses considered include but are not limited to CVA, intracranial hemorrhage, intracranial mass, traumatic injury from fall, CAIT, rhabdomyolysis, electrolyte derangements. Ruling out the most morbid conditions drove assessment. It should be noted patient's history includes CAD, prior CVA, hypertension, hyperlipidemia, diabetes, CAD which likely are not at goal therapy. This complicates all aspects of care by increasing patient's risk for morbidity. I reviewed patient's past medical records and noted prior cardiology evaluations, last 1 being May 2024. On exam, the patient has word finding difficulty, which is new over the last several days to weeks, right-sided weakness with right lower extremity edema that has developed as well. She has a prior surgery to the right ankle and family attributes some of the swelling to that. She has some left chest tenderness in the setting of frequent falls. Workup included broad lab evaluation to evaluate for infectious, metabolic, cardiac issues as well as CT head, CT angiogram head and neck for stroke eval, CT C/T/L/chest/abdomen/pelvis without contrast for trauma workup. Family was agreeable for IV contrast for angiograms of the head and neck given her history of stroke as well as headaches. They did not want contrast for the rest of the scans given her baseline CKD. Patient was given a 500 cc bolus of IV fluids for the purpose of IV contrast in the setting of CKD. I independently interpreted CT scan of the head without contrast prior to the radiologist read and noted very large subdural hematoma with midline shift. Please see their read for final interpretation. Labs were obtained that demonstrated stable chronic anemia with a hemoglobin of 9.9, otherwise CBC is reassuring. Chemistry demonstrates kidney function is around her baseline with a creatinine of 2.3. BNP is elevated at 2750 without recent for comparison. Urine demonstrates some hematuria but is not overtly concerning for infection. On reassessment, the patient is lying in bed in no acute distress. She has had gradual increasing blood pressure in the setting of presumed traumatic subdural hematoma with subfalcine herniation. Once I knew of the brain bleed, I then ordered IV hydralazine for improvement of blood pressure with goal less than 180 given presumed traumatic nature of the subdural hematoma. Patient took her aspirin yesterday, has not yet had her home medications today. I considered reversal of the aspirin, however it would take a while before I could get blood products here so I determined that it would be best to not delay transport to facility with higher level of care with neurosurgery. I did call and discussed the case with Dr. Gutierrez of the transfer center at [facility] excepted the patient to transfer to their ER for subdural hematoma. Reason for transfer is neurosurgery, because we do not have the specialty here. Family was updated with regards to plan of care. The remainder of her trauma CT scans, which are without contrast, are pending. EMS transport was arranged, as flight crew declined given weather. Patient was transferred as soon as possible for higher level of care. Critical Care Critical Care Time Critical Care Time: Yes Attestation: On 10/13/24, the high probability of a clinically significant, sudden or life threatening deterioration of the following system(s) required my full and direct attention, intervention and personal management. The time I documented below is in addition to time spent performing reported procedures but includes the following listed in this critical care notation. Total Time Total Critical Care Time: 40
[2024-10-13 13:10] LABS: Hepatitis C Ab Qual. W/ RFX NEGATIVE (Negative)
[2024-10-13] MEDS: SODIUM CHLORIDE 0.9% 500ML BAG 500 ML IV (13:11)
[2024-10-13 13:12] LABS: NT Pro Brain Natriuretic Pep. 2750 pg/mL (0-450)
[2024-10-13 13:14] LABS: Troponin I 0.03 ng/ml (0.00-0.034)
[2024-10-13 13:19] LABS: T4 (Thyroxine) 13.6 ug/dl (5.53-11.0)
--- NOTE | 2024-10-13 13:25 | HMH.ITSTN ---
per Dr. Bradley we are okay to proceed with contrast with a low GFR. Family expressed concern for possible contrast allergy & Dr. Bradley spoke with them & everyone has agreed to proceed with contrast.
[2024-10-13 13:33] LABS: Thyroid Stimulating Hormone 3.59 uIU/mL (0.465-4.68)
[2024-10-13 13:47] LABS: Calcium 10.1 mg/dl (8.4-10.2); Glucose 132 mg/dl (74-100); Magnesium 1.9 mg/dl (1.6-2.3)
[2024-10-13 13:48] LABS: Creatine Kinase 48 U/L (30-135)
[2024-10-13] MEDS: IOPAMIDOL-370 (76%);100ML BOTTLE 80 ML IV (13:56)
[2024-10-13] MEDS: SODIUM CHLORIDE 0.9% 10ML SYR (RAD ONLY) 10 ML IV (13:56)
[2024-10-13] MEDS: 0.9 % SODIUM CHLORIDE 50 ML VIAL IV (13:56)
--- NOTE | 2024-10-13 14:13 | PC.NURSE ---
pt arrived back to room from ct
--- NOTE | 2024-10-13 14:57 | PC.NURSE ---
jasmyn calling to speak to at this time
--- NOTE | 2024-10-13 15:01 | PC.NURSE ---
CALLING [facility] TO TRANFER PT PER FOR SUBDURAL HEMATOMA WAITING JUVENILE COUNSELOR BACK FROM [facility]
--- NOTE | 2024-10-13 15:01 | PC.NURSE ---
I spoke with [facility] about possible transfer for the pt. [facility] that [facility] a 22 min. ETA if they accept. They will check status and get back with us.
[2024-10-13] MEDS: HYDRALAZINE 20MG/ML VIAL 20 MG IV (15:07)
--- NOTE | 2024-10-13 15:13 | PC.NURSE ---
[facility] declined flight
[2024-10-13] MEDS: NICARDIPINE HCL 25 MG in 0.9 % SODIUM CHLORIDE 240 ML 50 MG IV (15:23)
== END 2024-10-13 16:02 | disposition short-term general hospital (02) ==
PROVIDERS: Emergency Provider Emergency Medicine; PCP Family Medicine
DX: S06.5XAA Traumatic subdural hemorrhage with loss of consciousness status unknown, initial encounter (principal); G93.5 Compression of brain; R47.01 Aphasia; N18.9 Chronic kidney disease, unspecified; R51.9 Headache, unspecified; R41.81 Age-related cognitive decline; G81.91 Hemiplegia, unspecified affecting right dominant side; R29.6 Repeated falls; R53.1 Weakness
CPT/HCPCS: 70450; 70496; 70498; 71250; 72125; 72128; 72131; 74176; 80053; 81001; 82550; 83735; 83880; 84100; 84436; 84443; 84484; 85025; 86803; 87389; 93005; 96365; 96366; 96374; 99291; J0360; J2404; Q9967

== ENCOUNTER 2024-12-10 15:46 | Inpatient (IN) | payer MEDICARE, SELFPAY ==
--- NOTE | 2024-12-10 16:13 | P.HP_ITS ---
History of Present Illness *Admission Date: 12/10/24 *Reason for visit:: chest congestion and mental status changes *History of present illness: Ms. Johnson is an 84-year-old female with a history of hypertension, type 2 diabetes mellitus, chronic kidney disease stage IV, sleep apnea on CPAP, gout, edema, valvular heart disease, history of intracranial hemorrhage on 08/2020. And status post PPM for sick sinus syndrome, CVA, and hypertension. Who presented to [facility] for a visit after experiencing 1 and 1/2 weeks of decline with congestive cough despite using DuoNebs and inhalers, and altered mental status, and leg edema,. Also to note she suffered a subdural hematoma on 10/14/2024 and had a mini craniotomy with evacuation of the hematoma at and then was at [place] for several weeks. At this time she also had a pneumonia. Cognitive function improved and she was doing well at home until a week and a half ago. Cognitive function again declined. She presented with her and daughter who provide/assist with all of her care. Her daughter keeps a chart. Blood sugars, blood pressure and heart rate and noted to be good. With physical exam during this office visit she was noted to have a very congested cough with a noisy chest consisting of wheezing and crackles. Blood pressure was 130/70 with a heart rate of 78 and O2 sats of 98%. CBC showed a white blood cell count of 7700 with a hemoglobin of 9.2 and hematocrit of 29.2. Heart sounds revealed a prominent high-pitched aortic murmur. Also noted was 3+ leg edema. Thus she was admitted with diastolic congestive heart failure, pneumonia, for further evaluation and treatment. Currently patient is taking Bumex 2 mg daily, valsartan 160 mg nightly, Januvia 25 mg nightly, nifedipine 60 mg twice daily, hydralazine 50 mg 2 times a day, Farxiga 10 mg daily, clonidine 0.3 mg 2 times daily, divalproex 500 mg twice daily for seizures, allopurinol 100 mg daily, thyroid medicine 100 mg micrograms daily, carvedilol 12.5 mg twice daily and atorvastatin 40 mg nightly. This is from the recent list brought in by her daughter today. [facility] Disclaimer: The information contained in this section may have been updated after the patient was seen, as this information can be updated by other users. Medical History CKD (chronic kidney disease) HTN (hypertension) CAD (coronary artery disease) Near syncope Dyspnea HLD (hyperlipidemia) FADI (obstructive sleep apnea) Fatigue Dizziness Recent cerebrovascular accident (CVA) Moderate aortic stenosis SVT (supraventricular tachycardia) Tachycardia Bradycardia Abnormal Holter monitor finding Surgical History History of craniotomy H/O shoulder surgery H/O heart artery stent Presence of cardiac pacemaker Family History Brother Cancer Father No problems noted. Brother Cancer Social History (Updated 12/10/24 @ 17:37 by Rossy Fitzpatrick RN) Smoking Status: Former smoker second hand exposure: No alcohol intake: never substance use type: denies use current occupational status: retired Travel in the last 8 weeks?: Inside the [place] household members: spouse housing: house current occupational exposures/hazards: No caffeine: Yes Have you lived/traveled outside US in past 30 days?: No Contact w/someone who lives/traveled outside US past 30 days?: No Exposure to someone with infectious disease in past 14 days?: No Do you have a fever (greater than 100.4 F or 38 C)?: No Have you tested positive for COVID-19?: No Exposed to someone with COVID-19 in past 14 days?: No Do you have a sore throat?: No Do you have a cough?: No Do you have any weakness?: No Do you have any diarrhea?: No Are you experiencing any unusual bleeding?: No Do you have any muscle aches/pain?: No Do you have any abdominal pain?: No Are you experiencing loss of taste or smell?: No Other Medical History Have you received the Flu Vaccine for this season: Yes Have you received the Pneumonia Vaccine: Yes Review of Systems Constitutional Constitutional: Reports difficulty sleeping (Due to cough), Reports fatigue, Denies fever(s) and Reports weakness Eyes Eyes: Denies change in vision ENT Ears, Nose, Mouth, and Throat: Denies otalgia, Reports nasal congestion and Denies sore throat *Cardiovascular Cardiovascular: Reports dyspnea, Reports irregular heart rhythm, Reports leg edema and Reports rapid heart rate *Respiratory Respiratory: Reports chest congestion, Reports cough, Reports dyspnea, Reports excessive phlegm production, Denies hemoptysis, Reports pain on inspiration, Reports pain with cough and Reports wheezing *Gastrointestinal Gastrointestinal: Denies change in stool character, Reports dyspepsia, Denies melena, Denies nausea and Denies vomiting Comments: No appetite *Genitourinary Genitourinary: Denies difficulty voiding *Musculoskeletal Musculoskeletal: Reports abnormal gait (Unsteady gait) and Reports muscle weakness (Has had difficulty with walking in the last 1 and half weeks) *Neurologic Neurologic: Reports abnormal gait (Unsteady gait) and Reports weakness Endocrine Endocrine: Reports fatigue Allergic/Immunologic Allergic/Immunologic: Reports wheezing Meds Home Medications and Allergies Home Medications ?Medication ?Instructions ?Recorded ?Confirmed ?Type levothyroxine 75 mcg tablet 75 mcg PO DAILY THYROID 07/10/20 12/10/24 History atorvastatin 40 mg tablet 40 mg PO DAILY Cholesterol 08/07/21 12/10/24 History nifedipine 60 mg tablet,extended 90 mg PO BID BLOOD PRESSURE 04/12/22 05/29/24 History release allopurinol 100 mg tablet 100 mg PO DAILY 04/18/23 12/10/24 History cholecalciferol (vitamin D3) 25 2,000 unit PO DAILY 04/18/23 12/10/24 History mcg (1,000 unit) capsule dapagliflozin propanediol 10 mg 10 mg PO DAILY 04/18/23 12/10/24 History tablet (Farxiga) sitagliptin phosphate 50 mg tablet 50 mg PO DAILY 04/09/24 05/29/24 History (Beatrice) [facility]/08/24 05/29/24 History Ultra Test strips) losartan 50 mg tablet 75 mg (1.5 x 50 mg) PO DAILY 90 05/29/24 05/29/24 Rx days #135 tabs bumetanide 2 mg tablet 2 mg PO DAILY 12/10/24 12/10/24 History hydralazine 50 mg tablet 50 mg PO BID 12/10/24 12/10/24 History valsartan 160 mg tablet 160 mg PO DAILY 12/10/24 12/10/24 History New Prescriptions to Start Prescriptions: Allergies Allergy/AdvReac Type Severity Reaction Status Date / Time Sulfa (Sulfonamide Allergy Mild Verified 05/29/24 13:06 Antibiotics) Exam Constitutional Constitutional: mild distress *Routine HEENT Exam Head: Present normocephalic and atraumatic Eye: Present PERRL; Absent conjunctival icterus, scleral injection or conjunctivae pink ENT: Present mucous membranes moist, oropharynx clear and TM's clear bilaterally *Routine Neck Exam Neck: Present supple; Absent carotid bruit, lymphadenopathy or thyromegaly *Routine Respiratory Exam Respiratory: Present rhonchi, wheezes and crackles *Routine Cardiovascular Exam Cardiovascular: Present RRR and Normal S2 *Routine Abdominal Exam Abdominal: Present soft and normoactive bowel sounds; Absent tenderness or distended *Routine Rectal Exam Rectal:: deferred *Routine Genitalia Exam Genitalia:: deferred *Routine Extremities Exam Extremities: Present edema (Has support stockings on); Absent calf tenderness *Routine Neurological Exam Neurological: Present alert and oriented X3 Assessment and Plan *Assessment and plan (1) Pneumonia: Status: Acute Category: Medical Code(s): J18.9 - Pneumonia, unspecified organism (2) Diastolic congestive heart failure: Status: Acute Category: Medical Code(s): I50.30 - Unspecified diastolic (congestive) heart failure (3) Valvular heart disease: Status: Acute Category: Medical Code(s): I38 - Endocarditis, valve unspecified (4) CKD (chronic kidney disease): Status: Acute Category: Medical Code(s): N18.9 - Chronic kidney disease, unspecified (5) Diabetes mellitus: Status: Acute Qualifiers: Diabetes mellitus complication status: without complication 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: 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 insulin use status Diabetes mellitus type: other specified (including JOSY) Qualified Code(s): E13.9 - Other specified diabetes mellitus without complications Category: Medical Code(s): E11.9 - Type 2 diabetes mellitus without complications (6) Presence of cardiac pacemaker: Status: Acute Category: Surgical Code(s): Z95.0 - Presence of cardiac pacemaker (7) Moderate aortic stenosis: Status: Acute Category: Medical Code(s): I35.0 - Nonrheumatic aortic (valve) stenosis (8) HLD (hyperlipidemia): Status: Chronic Qualifiers: Hyperlipidemia type: mixed hyperlipidemia Qualified Code(s): E78.2 - Mixed hyperlipidemia Category: Medical Code(s): E78.5 - Hyperlipidemia, unspecified (9) FADI (obstructive sleep apnea): Status: Chronic Category: Medical Code(s): G47.33 - Obstructive sleep apnea (adult) (pediatric) Plan Echocardiogram, CTA of the lungs, pulmonary and cardiology consults, diuresis and will start with 40 of Lasix tonight IV and continue with Bumex 2 mg daily, pneumonia care with DuoNebs, Rocephin, and Zithromax. Some of home meds ordered as per orders.
[2024-12-10 16:19] VITALS: BMI 25.7
--- NOTE | 2024-12-10 16:45 | XR_ITS ---
PROCEDURE INFORMATION: Exam: XR Chest Exam date and time: 12/10/2024 6:53 PM Age: 84 years old Clinical indication: Cough and shortness of breath; Additional info: Pneumonia; Chf TECHNIQUE: Imaging protocol: Radiologic exam of the chest. Views: 2 views. COMPARISON: CT CHEST WO CON 10/13/2024 1:58 PM FINDINGS: Tubes, catheters and devices: A 2 lead internal cardiac device implanted at the left chest with leads extending to the right heart. Lungs: Right middle lobe and right lung base airspace opacities favoring pneumonia in the setting of infection. Pleural spaces: Unremarkable. No pleural effusion. No pneumothorax. Heart/Mediastinum: Unremarkable. No cardiomegaly. Bones/joints: Unremarkable. IMPRESSION: Right middle lobe and right lung base airspace opacities favoring pneumonia in the setting of infection. Recommend continued follow-up imaging to document resolution after treatment.
--- NOTE | 2024-12-10 16:49 | ECG_ITS ---
APPROVED REPORT Exam: Resting ECG HR:68 bpm ECG Measurements Heart Rate 68 AXES QRSd 85 QRS 6 QT 394 T -12 QTc 411 Conclusion ATRIAL FIBRILLATION NONSPECIFIC ST & T-WAVE ABNORMALITY ABNORMAL RHYTHM ECG UNCONFIRMED REPORT Electronically signed by : Lizandro Rick MD 12/12/2024 07:32:39
--- NOTE | 2024-12-10 16:52 | CA_ITS ---
APPROVED REPORT EXAM: Comprehensive 2D, Doppler, and color-flow Echocardiogram Stone Gluer: Lilian Souza RT(R) Ht: 5 ft 8 in Wt: 169lbs BSA: 1.90 BP: 134/76 mmHg Indications: CHF, edema, HTN, SOB, hyperlipidemia, mod , pacemaker, hx CVA, FADI 2D Dimensions IVSd 1.20 cm F: 0.6-1.0 LVEF (Umaña's) 48.50 % F: 54 - 74 PWd 0.98 cm F: 0.6 - 1.0 LV Volume 136.80 mL F: 46 - 106 LVDd 4.23 cm F: 3.9 - 5.3 LV Volume Index 72.0 mL/m2 F: 29 - 61 LA Volume 31.30 mL LA Volume Index 16.47 mL/m2 (M/F) 16-34 EF AP4 56.90 % EF AP2 42.0 % EF BP 48.5 % GL Strain -15.0 % M-Mode Dimensions RVDd 2.83 cm (0.9-2.6) LA Diam 4.90 cm (1.9-4.0) LVDd 3.98 cm (3.5-5.7) LVDs 3.40 cm (3.5-5.7) IVSd 0.91 cm (0.6-1.1) PWd 0.96 cm (0.6-1.1) EF (Teich) 31.50% FS 14.60% EDV (Teich) 69.20 mL TAPSE 2.21 (<1.7) ESV (Teich) 47.40 mL LV Diastology E Decel Time 180 (160-240 msec) E/A Ratio 0.6 Aortic Valve ZION Index 0.56 cm2/m2 AoV Peak Cruz. 346.0 (50-130 cm/s) AI PHT 534.00 ms AO Peak GR. 47.80 mmHg AO Mean GR. 23.60 (<5 mmHg) AO VTI 83.8 (18-25 cm) ZION (VTI) 1.10 (2.5-4.5 cm2) Mitral Valve MV E Max Cruz. 89.0 (40-130 cm/s) MV A Velocity 140.0 (40-130 cm/s) E/A Ratio 0.63 MV PHT 53.0 ms Tricuspid Valve TR P. Velocity 341.00 cm/s Left Ventricle The left ventricle is normal size. The left ventricular systolic function is normal. The left ventricular ejection fraction is within the normal range. There is increased overall thickness. There is normal LV segmental wall motion. Grade 2 diastolic dysfunction is present. LVEF is 55%. Right Ventricle The right ventricle is mildly dilated. The right ventricular systolic function is normal. Atria Left atrium is moderately dilated. Right atrium is mildly dilated. There is no Doppler evidence of interatrial shunt. Aortic Valve Aortic valve is moderately thickened. Moderate aortic stenosis is present. ZION by continuity equation is 1.1 cm2. Peak velocity is 3.4 m/s. Mean AV gradient is 23 mmHg. Max AV gradient is 47 mmHg. Mild aortic regurgitation. Mitral Valve The mitral valve is mildly thickened. Mild mitral regurgitation. Tricuspid Valve Tricuspid valve is grossly normal in structure and function. Moderate tricuspid regurgitation. RVSP is 35-40 mmHg. Pulmonic Valve The pulmonary valve is normal in structure. Trace pulmonic regurgitation. Great Vessels The aortic root is normal in size. IVC is normal in size and collapses >50% with inspiration. Pericardium There is no pericardial effusion. Other Information Study Quality: Fair Conclusion Normal biventricular systolic function. Grade 2 diastolic dysfunction (ZION by continuity equation is 1.1 cm2. Peak velocity is 3.4 m/s. Mean AV gradient is 23 mmHg. Max AV gradient is 47 mmHg). Biatrial dilation. Moderate . Mild AI. Moderate TR. Mild MR. Elevated RVSP 35-40 mmHg. Compared to prior study from 04/18/2024, the aortic valve area (ZION) and overall severity is unchanged. Electronically signed by : Christianne Vargas MD 12/11/2024 23:18:43
--- NOTE | 2024-12-10 17:27 | PC.NURSE ---
Pt is a poor historian on home medications. Pt states that most of her medications were recently changed and she doesn't know which ones were. She states that her daught er has a list of her meds.
--- NOTE | 2024-12-10 17:32 | HMH.ITSTN ---
Spoke to DRE Casiano about patients labs for CT. Waiting for labs at this time.
[2024-12-10 17:34] LABS: Basophils # 0.1 K/mm3 (0-0.2); Basophils % 0.9 % (0.1-2.0); Eosinophils # 0.8 Kmm3 (0.0-0.4); Eosinophils % 11.6 % (0.1-12.0); Hematocrit 30.1 % (37.0-47.0); Hemoglobin 9.3 g/dL (12.2-16.2); Immature Granulocytes # 0.03 10^3uL; Immature Granulocytes % 0.5 %; Lymphocytes # 2.5 K/mm3 (0.7-4.5); Lymphocytes % 37.1 % (10-50); Mean Corpuscular HGB Conc 30.9 g/dL (31.8-35.4); Mean Corpuscular Hemoglobin 29.6 pg (27.0-31.2); Mean Corpuscular Volume 95.9 fl (81-99); Mean Platelet Volume 10.1 fl (7.4-10.4); Monocytes # 0.6 K/mm3 (0.1-1.0); Monocytes % 9.2 % (1.7-9.3); Neutrophils # 2.7 K/mm3 (1.8-7.8); Neutrophils % 40.7 % (37.0-80.0); Nucleated Red Blood Cells # 0 10^3/uL; Nucleated Red Blood Cells % 0 %; Platelet Count 141 K/mm3 (142-424); Red Blood Count 3.14 M/mm3 (4.20-5.40); Red Cell Distribution Width-SD 67.5 fL; White Blood Count 6.7 K/mm3 (4.8-10.8)
[2024-12-10 17:43] LABS: Albumin Level 3.2 g/dl (3.5-5.0); Chloride 115 mmol/L (98-107); Potassium 3.5 mmoL/L (3.5-5.1); Sodium 143 mmol/L (136-145)
[2024-12-10] MEDS: FUROSEMIDE 40MG/4ML VIAL 40 MG IV (17:44)
[2024-12-10] MEDS: IRBESARTAN 150MG TAB 150 MG PO (17:44)
[2024-12-10 17:46] LABS: Alanine Aminotransferase 11 U/L (12-78); Albumin/Globulin Ratio 0.9 (1.1-1.8); Alkaline Phosphatase 73 U/L (38-126); Anion Gap 8.5 mEq/L (5-15); Aspartate Amino Transferase 27 U/L (14-36); Bilirubin,Total 0.2 mg/dl (0.2-1.3); Blood Urea Nitrogen 26 mg/dl (7-17); Calcium 9.2 mg/dl (8.4-10.2); Carbon Dioxide 23 mmol/L (22.0-30.0); Creatinine Clearance Estimated 24 mL/min (50-200); Estimated Glomerular Filt Rate 21 ml/min (>60); GFR (African American) 26 ML/MIN (>60); Globulin 3.4 g/dL (1.3-3.2); Glucose 95 mg/dl (74-100); Total Protein,Serum 6.6 g/dl (6.3-8.2)
[2024-12-10] MEDS: AZITHROMYCIN 500 MG in 0.9 % SODIUM CHLORIDE 250 ML 250 MG IV (17:46)
[2024-12-10 17:47] LABS: Lactic Acid 0.7 mmol/L (0.7-2.1)
[2024-12-10 17:50] LABS: MANUAL DIFFERENTIAL MANUAL DIFFERENTIAL (MANUAL DIFF)
[2024-12-10] MEDS: CEFTRIAXONE 1 GM 1 GM in 0.9 % SODIUM CHLORIDE 50 ML IV (17:54)
[2024-12-10 17:58] LABS: Troponin I 0.02 ng/ml (0.00-0.034)
[2024-12-10] MEDS: IPRATROPIUM/ALBUTEROL 3 ML NEB IH ×2 (18:38→23:25)
[2024-12-10] MEDS: SODIUM CHLORIDE 3% 15ML NEB 3 ML IH (18:38)
[2024-12-10 18:39] VITALS: PULSE 74; PULSE 76; RESP 20
[2024-12-10 18:47] LABS: Coronavirus 19, PCR Not Detected (NotDetected); Influenza A, PCR Not Detected (NotDetected); Influenza B, PCR Not Detected (NotDetected)
--- NOTE | 2024-12-10 18:50 | PC.NURSE ---
dr bhatt v/o to re-time CT scan (PE protocol) r/t GFR
[2024-12-10 20:00] VITALS: BP 168/68; PULSE 68; RESP 16; TEMP 37; O2SAT 95
[2024-12-10 20:09] LABS: Total Cells Counted 100
[2024-12-10 20:10] LABS: Anisocytosis 2+; Eosinophils % 6 % (0-3); Hypochromasia 1+; Lymphocytes % 50 % (10-50); Monocytes % 6 % (2-9); Neutrophils % 38 % (42-76); Platelet Estimate Normal
[2024-12-10] MEDS: cloNIDine 0.1MG TABLET 0.3 MG PO (21:18)
[2024-12-10] MEDS: PANTOPRAZOLE 40MG TABLET 40 MG PO (21:18)
[2024-12-10] MEDS: HYDRALAZINE HCL 25MG TABLET 25 MG PO (21:18)
[2024-12-10] MEDS: CARVEDILOL 12.5MG TABLET 12.5 MG PO (21:19)
[2024-12-10] MEDS: DIVALPROEX 500MG (Delayed-Release) TABLET 500 MG PO (21:22)
[2024-12-10 23:25] VITALS: PULSE 76; PULSE 79
[2024-12-11] VITALS (10 sets, daily range): BP systolic 179–204; BP diastolic 60–77; PULSE 60–75; RESP 16–22; TEMP 36.7–37.1; O2SAT 91–95; BMI 25.2
--- NOTE | 2024-12-11 04:05 | PC.NURSE ---
Pt. admitted 12/[address] Dietz for pneumonia. Pt. is alert and orientated x 4. Pt. is on room air. wears CPAP at night. Pt. has her home machine here,. Pt resting in bed, no c/o's IV antibiotics given. Pt. up to bathroom with use of a walker and assist x 1. Pt. does get more SOB with exertion. Pt. congested and has a cough. Pt. states that she is having a hard time trying to cough up secretions. Lung sounds with crackles. Pt. sleeping well. Personal items and call pierce in reach.
[2024-12-11] MEDS: IPRATROPIUM/ALBUTEROL 3 ML NEB IH ×3 (06:10→20:03)
[2024-12-11 06:22] LABS: POC Glucose,Bedside 87 (70-110)
--- NOTE | 2024-12-11 07:42 | CT_ITS ---
PROCEDURE INFORMATION: Exam: CT Chest Without Contrast; Diagnostic Exam date and time: 12/11/2024 9:03 AM Age: 84 years old Clinical indication: Cardiovascular condition or disease; Congestive heart failure (chf); Cause unknown; Type unknown; Additional info: Chf, respiratory failure TECHNIQUE: Imaging protocol: Diagnostic computed tomography of the chest without contrast. Radiation optimization: All CT scans at this facility use at least one of these dose optimization techniques: automated exposure control; mA and/or kV adjustment per patient size (includes targeted exams where dose is matched to clinical indication); or iterative reconstruction. COMPARISON: CT CHEST WO CON 10/13/2024 1:58 PM FINDINGS: Lungs: Calcification of the tracheobronchial tree. Dense consolidation in the right lung base. Fluid in the right lower bronchus Pleural spaces: Unremarkable. No pneumothorax. No pleural effusion. Heart: Cardiomegaly. Coronary arteries: Coronary artery calcification. Lymph nodes: Unremarkable. No enlarged lymph nodes. Vasculature: Unremarkable. No aortic aneurysm. Bones/joints: Unremarkable. No acute fracture. Soft tissues: Unremarkable. IMPRESSION: Fluid in the right lower lobe bronchus. Dense consolidation in the right lower lobe.
--- NOTE | 2024-12-11 08:01 | HMH.PHAINT1 ---
Pharmacy Intervention Comments: HOME MEDICATION LIST VERIFIED USING LIST FROM OUTPATIENT PHARMACY AND MD OFFICE
--- NOTE | 2024-12-11 08:29 | PC.NURSE ---
TECH NOTE; NURSE NOTIFIED OF BLOOD PRESSURE FOR 0800 VITAL SIGNS Rickey AMAYA, SRNA
--- NOTE | 2024-12-11 08:30 | EXP.PN ---
Subjective *Date: 12/11/24 *Time: 09:11 Interval history: Patient states she slept very little last night. She has felt short of breath. She denies chest pain. She continues with frequent mostly nonproductive cough. She did diurese well according to patient. Unable to do CT scan due to elevated GFR; blood pressure has been elevated. Exam Data for Last 24 hours Vital signs and Labs for Last 24 Hours: Temp Pulse Resp BP Pulse Ox O2 Del Method O2 Flow Rate 98.3 F 74 18 187/74 H 94 L Nasal Cannula 1 12/11/24 08:00 12/11/24 08:00 12/11/24 08:00 12/11/24 08:00 12/11/24 08:00 12/11/24 08:03 12/11/24 08:03 Laboratory Results - last 24 hr 12/10/24 17:22: WBC 6.7, RBC 3.14 L, Hgb 9.3 L, Hct 30.1 L, MCV 95.9, MCH 29.6, MCHC 30.9 L, RDW 19.0 H, Plt Count 141 L, MPV 10.1, Neut % (Auto) 40.7, Lymph % (Auto) 37.1, Prentiss % (Auto) 9.2, Eos % (Auto) 11.6, Baso % (Auto) 0.9, Neut # (Auto) 2.7, Lymph # (Auto) 2.5, Prentiss # (Auto) 0.6, Eos # (Auto) 0.8 H, Baso # (Auto) 0.1, Total Counted 100, Neutrophils % (Manual) 38 L, Lymphocytes % (Manual) 50, Monocytes % (Manual) 6, Eosinophils % (Manual) 6 H, Platelet Estimate Normal, RBC Morphology Not Reportable, Hypochromasia 1+, Anisocytosis 2+, Sodium 143, Potassium 3.5, Chloride 115 H, Carbon Dioxide 23, Anion Gap 8.5, BUN 26 H, Creatinine 2.20 H, Estimated Creat Clear 24, Estimated GFR 21 L, Est GFR ( Amer) 26 L, Glucose 95, Lactate 0.7, Calcium 9.2, Total Bilirubin 0.2, AST 27, ALT 11 L, Alkaline Phosphatase 73, Troponin I 0.02, Total Protein 6.6, Albumin 3.2 L, Globulin 3.4 H, Albumin/Globulin Ratio 0.9 L 12/10/24 18:19: SARS-CoV-2 (PCR) Not detected, Influenza A Untype (PCR) Not detected, Influenza Type B (PCR) Not detected 12/11/24 06:13: POC Glucose 87 I & O for Last 24 hours: Intake & Output 12/08/24 12/09/24 12/10/24 12/11/24 11:59 11:59 11:59 11:59 Intake Total 740 / 740 Output Total Balance 739 / 739 Weight 166 lb 2 oz Constitutional Constitutional: mild distress Comments: Shortness of breath noted with speaking. *Routine Respiratory Exam Respiratory: Present rhonchi, wheezes and crackles Comments: Noisy chest with some wheezing but better than previously in the office *Routine Cardiovascular Exam Cardiovascular: Present RRR *Routine Abdominal Exam Abdominal: Present soft and normoactive bowel sounds *Routine Extremities Exam Extremities: Present edema *Routine Neurological Exam Neurological: Present alert and oriented X3 Routine Psychiatric Exam Psychiatric: Present anxious Assessment and Plan *Assessment and plan (1) Pneumonia: Status: Acute Category: Medical Code(s): J18.9 - Pneumonia, unspecified organism (2) Diastolic congestive heart failure: Status: Acute Category: Medical Code(s): I50.30 - Unspecified diastolic (congestive) heart failure (3) Valvular heart disease: Status: Acute Category: Medical Code(s): I38 - Endocarditis, valve unspecified (4) CKD (chronic kidney disease): Status: Acute Category: Medical Code(s): N18.9 - Chronic kidney disease, unspecified (5) Diabetes mellitus: Status: Acute Qualifiers: Diabetes mellitus complication status: without complication 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: 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 insulin use status Diabetes mellitus type: other specified (including JOSY) Qualified Code(s): E13.9 - Other specified diabetes mellitus without complications Category: Medical Code(s): E11.9 - Type 2 diabetes mellitus without complications (6) Presence of cardiac pacemaker: Status: Acute Category: Surgical Code(s): Z95.0 - Presence of cardiac pacemaker (7) Moderate aortic stenosis: Status: Acute Category: Medical Code(s): I35.0 - Nonrheumatic aortic (valve) stenosis (8) HLD (hyperlipidemia): Status: Chronic Qualifiers: Hyperlipidemia type: mixed hyperlipidemia Qualified Code(s): E78.2 - Mixed hyperlipidemia Category: Medical Code(s): E78.5 - Hyperlipidemia, unspecified (9) FADI (obstructive sleep apnea): Status: Chronic Category: Medical Code(s): G47.33 - Obstructive sleep apnea (adult) (pediatric) Plan Echocardiogram results pending; noncontrast CTA of the lungs, pulmonary and cardiology consults today, pneumonia care with DuoNebs, Rocephin, and Zithromax.
[2024-12-11] MEDS: DIVALPROEX 500MG (Delayed-Release) TABLET 500 MG PO ×2 (08:31→21:33)
[2024-12-11] MEDS: LEVOTHYROXINE 100MCG (0.1MG) TAB 100 MCG PO (08:31)
[2024-12-11] MEDS: cloNIDine 0.1MG TABLET 0.3 MG PO ×2 (08:31→17:13)
[2024-12-11] MEDS: IRBESARTAN 150MG TAB 150 MG PO (08:32)
[2024-12-11] MEDS: BUMETANIDE 1 MG TABLET 2 MG PO ×2 (08:32→15:18)
[2024-12-11] MEDS: CARVEDILOL 12.5MG TABLET 12.5 MG PO ×2 (08:32→17:14)
[2024-12-11] MEDS: ENOXAPARIN 30MG/0.3ML SYRINGE 30 MG SUBCUT (08:32)
[2024-12-11] MEDS: HYDRALAZINE HCL 25MG TABLET 50 MG PO ×2 (08:32→17:13)
[2024-12-11] MEDS: FERROUS SULFATE 325MG TABLET 325 MG PO (10:18)
[2024-12-11] MEDS: guaiFENesin 600 MG TAB.ER.12H PO ×2 (10:18→21:33)
--- NOTE | 2024-12-11 11:14 | HMH.PTEV ---
Physical Therapy Evaluation Rehab PT IP Evaluation Start: 12/11/24 08:34 Freq: ONCE Status: Active Protocol: Document 12/11/24 09:30 PHOJOSEPHINE (Rec: 12/11/24 11:14 PHORNE [id number]) Subjective/History History History Ms. Johnson is an 84-year-old female with a history of hypertension, type 2 diabetes mellitus, chronic kidney disease stage IV, sleep apnea on CPAP, gout, edema, valvular heart disease, history of intracranial hemorrhage on 2020. And status post PPM for sick sinus syndrome, CVA, and hypertension. Pt was admitted with diastolic congestive heart failure, pneumonia, for further evaluation and treatment. Patient currently lives at home with her and is independent with ADLs and mobility using a RW. Pt states that she has a ramp to enter her home and sees PT/OT home health. Subjective Subjective Patient presents in bed, and is alert and oriented x4. Pt is willing to participate in therapy with PT/OT this morning. She states that she is strong enough for sit/stand transfers and ambulation, but her breathing and endurance is her main concern. Pt returned to bed with call light in reach. [facility] How much help from another person do you currently need... Turning from your back to your side None while in a flat bed without using bedrails? Moving from lying on back to sitting on None the side of a flat bed without using bedrails? Moving to and from a bed to a chair ( None including a wheelchair)? Standing up from a chair using your arms None ? (e.g., wheelchair, bedside chair) Walking in hospital room? None Climbing 3-5 steps with a railing? None Mobility Score 24 Mobility Level [facility] Mobility Calculator Mobility 8 Walk 250 feet or more Rehab PT IP Eval Objective Appearance Patient Behavior Appropriate,Cooperative Patient Orientation Person,Place,Time Difficulty following instructions none Speech Pattern Clear,Appropriate Ambulation Patient Able to Ambulate Yes Ambulation Observation IP General Gait Pattern Observation Wide Based Gait Ambulation Distance (feet) 20 Ambulation Assistive Device Rolling Walker Ambulation Ability Contact Guard/Hand Hold Balance Ability to Arise Able, uses arms to help Sitting Balance Steady, safe Standing Balance Steady, wide stance Dynamic Sitting Balance Ability Normal Dynamic Standing Balance Ability Normal Transfers Bed Transfer Ability Independent Sit to Stand Bed Transfer Ability Supervision/Stand by Rehab PT IP prob,goals,plan Problems Date of Evaluation: 12/11/24 PT IP Problems Bed Mobility,Transfers,Gait, Balance,Safety Rehab Potential Rehab Potential Good Equipment Needs Assistive Devices Rolling / Wheeled Walker Plan PT Intervention Plan Bed Mobility,Transfers,Gait, Balance,Therapeutic Exercise PT Plan Frequency Daily Duration LOS Discharge Goals Bed Transfer Ability Independent Sit to Stand Chair Transfer Ability Independent Ambulation Assistive Device Rolling Walker Ambulation Distance (feet) 50 Discharge Plan PT Discharge Plan Patient is currently most appropriate to return home once medically stable for d/c. Recommend home health therapy to further increase cardiovascular endurance and strength. Skilled acute therapy is currently indicated to improve cardiovascular endurance and LE strength to return to OF with all ADLs, transfers, and mobility. Eval Complexity Eval Charge Codes 55960 - High Complexity PHYSICIAN CERTIFICATION: I certify the specified therapy services for Dalila Johnson are required, authorized, and reviewed every 30 days.
--- NOTE | 2024-12-11 11:20 | HMH.OTEV ---
OT Inpatient Evaluation Rehab OT IP Evaluation Start: 12/11/24 08:34 Freq: ONCE Status: Active Protocol: Document 12/11/24 11:14 [facility] (Rec: 12/11/24 11:20 [facility] [id number]) Rehab OT IP Assessment Subjective History Pt oriented x 3 on arrival. Pt agreeable to engage in therapy evaluation. Pt admitted on 12/10/24 due to CHF and chest congestion. History and physical: Ms. Johnson is an 84-year-old female with a history of hypertension, type 2 diabetes mellitus, chronic kidney disease stage IV, sleep apnea on CPAP, gout, edema, valvular heart disease, history of intracranial hemorrhage on 2020. And status post PPM for sick sinus syndrome, CVA, and hypertension. Who presented to [facility] for a visit after experiencing 1 and 1/2 weeks of decline with congestive cough despite using DuoNebs and inhalers, and altered mental status, and leg edema,. Also to note she suffered a subdural hematoma on 10/14/2024 and had a mini craniotomy with evacuation of the hematoma at and then was at [place] for several weeks. At this time she also had a pneumonia. Cognitive function improved and she was doing well at home until a week and a half ago. Cognitive function again declined. She presented with her and daughter who provide/assist with all of her care. Her daughter keeps a chart. Blood sugars, blood pressure and heart rate and noted to be good. Subjective Prior to being in the hospital , pt lived with her . Pt claims she is normally independent with all ADLs ( feeding, bathing, dressing). Family and friends did assist with heavier house hold tasks. Pt claims she was able to cook small meals independently . Pt did use a rolling walker during functional transfers. She has o2 at home, but does not wear it all the time. Objective Patient Orientation Person,Place,Birthday Right Upper Extremity Gross ROM WFL Left Upper Extremity Gross ROM WFL Bed Mobility bed mobility-scooting,bed mobility - supine/sit Assist Level Contact Guard/Hand Hold Transfer Training Sit/Stand Transfer Assist Level Contact Guard/Hand Hold Lower Body Dressing Ability Moderate Assistance Rehab OT IP prob,goals,plan Problems Date of Evaluation: 12/11/24 OT IP Problems Bed Mobility,Transfers,Balance ,Self care,Safety Rehab Potential Rehab Potential Good Equipment Needs Assistive Devices Rolling / Wheeled Walker Plan OT intervention Plan Bed Mobility,Transfers,Balance ,Self care,Safety,Therapeutic Exercise OT Plan Frequency Daily Duration LOS Discharge Goals Bed Mobility Ability Standby Assistance Sit to Stand Chair Transfer Ability Supervision/Stand by Chair Transfer Ability Supervision/Stand by Chair Transfer Technique Sit to/from Ambulatory Chair Transfer Assistive Devices Rolling Walker Feeding Ability Assist with Tray Set Up Lower Body Dressing Ability Minimal Assistance Upper Body Dressing Ability Standby Assistance Bathing Ability Minimal Assistance Performing Toilet Hygiene Ability Minimal Assistance Overall Commode/Toilet Transfer Ability Standby Assistance Commode/Toilet Transfer Technique Sit to/from Ambulatory Discharge Plan OT Discharge Plan Pt will continue to be seen for OT services while at [facility]. Pt can return home with her once she is medically stable per physician. Therapist does recommend OT HH evaluation once she returns home for continued skilled therapy services in order to return to [facility]. Eval Complexity Eval Charge Codes 25072 - Moderate Complexity PHYSICIAN CERTIFICATION: I certify the specified therapy services for Dalila Johnson are required, authorized, and reviewed every 30 days.
[2024-12-11 11:45] LABS: POC Glucose,Bedside 114 (70-110)
--- NOTE | 2024-12-11 11:58 | PC.NURSE ---
TECH NOTE; NOTIFIED NURSE OF BLOOD PRESSURE FOR 1200 VITAL SIGNS Rickey AMAYA, SRNA
[2024-12-11] MEDS: ACETYLCYSTEINE 20% 4ML VIAL 2 ML IH ×2 (12:01→20:02)
[2024-12-11] MEDS: SODIUM CHLORIDE 3% 15ML NEB 3 ML IH ×2 (12:01→20:02)
--- NOTE | 2024-12-11 12:35 | P.CONCA_ITS ---
History of Present Illness History of Present Illness Consult date: 12/11/24 Requesting physician: Clover Licea Chief complaint: SOA, edmea, ams History of present illness: 84-year-old white female established patient of our office who has not been seen since May 2020 for. She has a history of drug-eluting stents 2020, CVA 2020 which was an intracranial hemorrhage. She also has history of permanent pacemaker implant for sick sinus syndrome, moderate to severe aortic stenosis and mild MR as well as CKD 4, diabetes, hypothyroidism. Patient had subdural hematoma on October 14 with craniotomy evacuation. Upon discharge from she went to [place] and developed pneumonia. Patient presented to her PCP complaining of 1-1/2 weeks of weakness congestion cough altered mental status edema. She had a loud murmur and crackles on exam so she was admitted to the hospital with presumed HFpEF and pneumonia. Home medication list includes valsartan, Farxiga, Coreg, Bumex. Workup here shows right middle lobe and right lower lobe opacities consistent with pneumonia, creatinine 2.2, troponin normal, proBNP 5290. She does have a pronounced holosystolic murmur loudest in aortic region with radiation to bilateral carotids. Repeat 2D echo here is pending. CT chest here is pending. Patient states she feels she never fully recovered from pneumonia in September and that her symptoms have been lingering until the past couple of weeks when they have worsened. She is afebrile, normal white blood cell count, she is on O2 at 1 L/min [facility] Disclaimer: The information contained in this section may have been updated after the patient was seen, as this information can be updated by other users. Medical History CKD (chronic kidney disease) HTN (hypertension) CAD (coronary artery disease) Near syncope Dyspnea HLD (hyperlipidemia) FADI (obstructive sleep apnea) Fatigue Dizziness Recent cerebrovascular accident (CVA) Moderate aortic stenosis SVT (supraventricular tachycardia) Tachycardia Bradycardia Abnormal Holter monitor finding Surgical History History of craniotomy H/O shoulder surgery H/O heart artery stent Presence of cardiac pacemaker Family History Brother Cancer Father No problems noted. Brother Cancer Social History Smoking Status: Former smoker second hand exposure: No alcohol intake: never substance use type: denies use current occupational status: retired Travel in the last 8 weeks?: Inside the [place] household members: spouse housing: house current occupational exposures/hazards: No caffeine: Yes Have you lived/traveled outside [place] in past 30 days?: No Contact w/someone who lives/traveled outside [place] past 30 days?: No Exposure to someone with infectious disease in past 14 days?: No Do you have a fever (greater than 100.4 F or 38 C)?: No Have you tested positive for COVID-19?: No Exposed to someone with COVID-19 in past 14 days?: No Do you have a sore throat?: No Do you have a cough?: No Do you have any weakness?: No Do you have any diarrhea?: No Are you experiencing any unusual bleeding?: No Do you have any muscle aches/pain?: No Do you have any abdominal pain?: No Are you experiencing loss of taste or smell?: No Review of Systems Constitutional Constitutional: Reports fatigue and Reports weakness Eyes Eyes: Denies loss of vision ENT Ears, Nose, Mouth, and Throat: Denies hearing loss *Cardiovascular Cardiovascular: Denies chest pain and Reports dyspnea *Respiratory Respiratory: Reports cough and Reports dyspnea *Gastrointestinal Gastrointestinal: Denies change in stool character, Denies nausea and Denies vomiting *Musculoskeletal Musculoskeletal: Reports abnormal gait (Unsteady gait) Integumentary/Breasts Skin/Breast: Denies changing lesions *Neurologic Neurologic: Reports abnormal gait (Unsteady gait), Denies loss of vision and Reports weakness Endocrine Endocrine: Reports fatigue Exam Data for Last 24 hours Vital signs and Labs for Last 24 Hours: Temp Pulse Resp BP Pulse Ox O2 Del Method O2 Flow Rate 98.1 F 70 22 188/72 H 94 L Nasal Cannula 1 12/11/24 11:57 12/11/24 11:57 12/11/24 11:57 12/11/24 11:57 12/11/24 11:57 12/11/24 11:57 12/11/24 11:57 Laboratory Results - last 24 hr 12/10/24 17:22: WBC 6.7, RBC 3.14 L, Hgb 9.3 L, Hct 30.1 L, MCV 95.9, MCH 29.6, MCHC 30.9 L, RDW 19.0 H, Plt Count 141 L, MPV 10.1, Neut % (Auto) 40.7, Lymph % (Auto) 37.1, Caroline % (Auto) 9.2, Eos % (Auto) 11.6, Baso % (Auto) 0.9, Neut # (Auto) 2.7, Lymph # (Auto) 2.5, Caroline # (Auto) 0.6, Eos # (Auto) 0.8 H, Baso # (Auto) 0.1, Total Counted 100, Neutrophils % (Manual) 38 L, Lymphocytes % (Manual) 50, Monocytes % (Manual) 6, Eosinophils % (Manual) 6 H, Platelet Estimate Normal, RBC Morphology Not Reportable, Hypochromasia 1+, Anisocytosis 2+, Sodium 143, Potassium 3.5, Chloride 115 H, Carbon Dioxide 23, Anion Gap 8.5, BUN 26 H, Creatinine 2.20 H, Estimated Creat Clear 24, Estimated GFR 21 L, Est GFR ( Amer) 26 L, Glucose 95, Lactate 0.7, Calcium 9.2, Total Bilirubin 0.2, AST 27, ALT 11 L, Alkaline Phosphatase 73, Troponin I 0.02, Total Protein 6.6, Albumin 3.2 L, Globulin 3.4 H, Albumin/Globulin Ratio 0.9 L 12/10/24 18:19: SARS-CoV-2 (PCR) Not detected, Influenza A Untype (PCR) Not detected, Influenza Type B (PCR) Not detected 12/11/24 06:13: POC Glucose 87 12/11/24 11:38: POC Glucose 114 H I & O for Last 24 hours: Intake & Output 12/08/24 12/09/24 12/10/24 12/11/24 23:59 23:59 23:59 23:59 Intake Total 200 / 500 540 / 540 Output Total 0 / 0 Balance 200 / 500 539 / 539 Weight 169 lb 4 oz 166 lb 2 oz Constitutional Constitutional: no acute distress and cooperative *Routine HEENT Exam Eye: Present PERRL *Routine Respiratory Exam Respiratory: Present wheezes, crackles and diminished air movement; Absent accessory muscle use *Routine Cardiovascular Exam Cardiovascular: Present RRR, Normal S1, Normal S2 and murmur (4/6 holosystolic murmur in aortic region with radiation to bilateral carotids); Absent gallop or rubs *Routine Abdominal Exam Abdominal: Present soft; Absent tenderness *Routine Extremities Exam Extremities: Present pulses intact; Absent cyanosis or edema *Routine Skin Exam Skin: Present intact; Absent erythema or wounds *Routine Neurological Exam Neurological: Present alert and oriented X3 Routine Psychiatric Exam Psychiatric: Present cooperative Meds Home Medications and Allergies Home Medications ?Medication ?Instructions ?Recorded ?Confirmed ?Type atorvastatin 40 mg tablet 40 mg PO DAILY 08/07/21 12/10/24 History nifedipine 60 mg tablet,extended 60 mg PO BID 04/12/22 12/10/24 History release allopurinol 100 mg tablet 100 mg PO HS 04/18/23 12/10/24 History cholecalciferol (vitamin D3) 25 2,000 unit PO HS 04/18/23 12/10/24 History mcg (1,000 unit) capsule dapagliflozin propanediol 10 mg 10 mg PO DAILY 04/18/23 12/10/24 History tablet (Farxiga) blood sugar diagnostic (OneTouch #10 ea 05/08/24 12/10/24 History Ultra Test strips) bumetanide 2 mg tablet 2 mg PO DAILY 12/10/24 12/10/24 History carvedilol 12.5 mg tablet 12.5 mg PO BID 12/10/24 12/10/24 History clonidine HCl 0.3 mg tablet 0.3 mg PO TID 12/10/24 12/11/24 History divalproex 500 mg tablet,delayed 500 mg PO BID 12/10/24 12/10/24 History release hydralazine 50 mg tablet 50 mg PO BID 12/10/24 12/10/24 History valsartan 160 mg tablet 160 mg PO HS 12/10/24 12/10/24 History levothyroxine 100 mcg tablet 100 mcg PO DAILY 12/11/24 12/11/24 History (Synthroid) potassium chloride 20 mEq 20 meq PO DAILY 12/11/24 12/11/24 History tablet,extended release(part/cryst) (Klor-Con M) sitagliptin phosphate 25 mg tablet 25 mg PO HS 12/11/24 12/11/24 History (Januvia) New Prescriptions to Start Prescriptions: Allergies Allergy/AdvReac Type Severity Reaction Status Date / Time Sulfa (Sulfonamide Allergy Mild Verified 05/29/24 13:06 Antibiotics) Assessment and Plan *Assessment and plan (1) Pneumonia: Status: Acute Category: Medical Code(s): J18.9 - Pneumonia, unspecified organism (2) Valvular heart disease: Status: Acute Category: Medical Code(s): I38 - Endocarditis, valve unspecified (3) (HFpEF) heart failure with preserved ejection fraction: Status: Acute Category: Medical Code(s): I50.30 - Unspecified diastolic (congestive) heart failure Plan Acute on Chronic HFpEF - TODD, ProBNP 5k and known mod-severe - increase Bumex 2mg from qd to bid - repeat ECHO to eval Healthcare Acquired PNA, RML/RLL - developed PNA following craniotomy while in SNF in September and has not recovered fully per pt history - defer management to primary provider CAD s/p BHASKAR 2020 - pt has hx of intracranial hemorrhage 2020, subdural hemorrhage with craniotomy 09/2024 - presumed traumatic due to multiple falls, will repeat head CT before consider initiation of ASA - CCS = 0 - ECHO pending Htn, Accelerated - 180s here - Cont home dose Coreg 12.5, Irbesartan 125, Clonidine 0.3 TID, Hydralazine 50mg BID - Add Nifedipine 60 and Aldactone 25mg daily Hx Intracranial Bleed 2020 - details unknown at this time Hx of Traumatic Subdural Hematoma s/p Craniotomy 09/2024 - pt had AMS at PCP this week - repeat head CT here for comparison
--- NOTE | 2024-12-11 12:48 | CT_ITS ---
PROCEDURE INFORMATION: Exam: CT Head Without Contrast Exam date and time: 12/11/2024 1:52 PM Age: 84 years old Clinical indication: Altered mental status/memory loss; Prior surgery; Surgery date: 1-6 months; Surgery type: Craniotomy; Additional info: Weakness, AMS, recent subdural hemaomta w/cranioto TECHNIQUE: Imaging protocol: Computed tomography of the head without contrast. Radiation optimization: All CT scans at this facility use at least one of these dose optimization techniques: automated exposure control; mA and/or kV adjustment per patient size (includes targeted exams where dose is matched to clinical indication); or iterative reconstruction. COMPARISON: CT CERVICAL SPINE WO CON 10/13/2024 1:52 PM FINDINGS: Brain: Moderate chronic microvascular ischemic changes are noted in the periventricular areas. Moderate diffuse cerebral atrophy is seen. Cerebral ventricles: No ventriculomegaly. Paranasal sinuses: Complete opacification of the maxillary sinuses on both sides. Mild mucosal thickening in sphenoid and ethmoid air cells. Mastoid air cells: No acute findings. Bones: Postsurgical changes of craniotomy in the left parietal bone. Soft tissues: Unremarkable. Vasculature: Vertebral artery calcifications are seen. IMPRESSION: 1. No acute findings. 2. Moderate chronic microvascular ischemic changes with moderate diffuse cerebral atrophy. 3. Complete opacification of the maxillary sinuses on both sides. Mild mucosal thickening in sphenoid and ethmoid air cells. 4. Postsurgical changes of craniotomy in the left parietal bone.
[2024-12-11] MEDS: SPIRONOLACTONE 25MG TABLET 25 MG PO (13:46)
[2024-12-11] MEDS: NIFEdipine XL 30MG TABLET 60 MG PO (13:46)
--- NOTE | 2024-12-11 13:49 | SW/DCPLANNER ---
[facility] Vicky Isaacs
--- NOTE | 2024-12-11 13:49 | EXP.PULM.CON ---
History of Present Illness History of present illness: Ms. Johnson is a 84-year-old female around [id number] smoking last month greater than 40 years ago, hypertension, CKD, diabetes mellitus, pace maker for sick sinus syndrome, sleep apnea presented to the ER with worsening respiratory distress and pulmonary was called for further evaluation and management. She also had a prior history of intracranial hemorrhage in 2020 and subdural hematoma in 2024. Patient admits continued nonresolving cough with scant productive phlegm for the last [address] [facility] Disclaimer: The information contained in this section may have been updated after the patient was seen, as this information can be updated by other users. Medical History (Updated 12/11/24 @ 13:54 by Sergio Crocker MD) Acute respiratory failure with hypoxemia Lesion of bronchus CKD (chronic kidney disease) HTN (hypertension) CAD (coronary artery disease) Near syncope Dyspnea HLD (hyperlipidemia) FADI (obstructive sleep apnea) Fatigue Dizziness Recent cerebrovascular accident (CVA) Moderate aortic stenosis SVT (supraventricular tachycardia) Tachycardia Bradycardia Abnormal Holter monitor finding Surgical History History of craniotomy H/O shoulder surgery H/O heart artery stent Presence of cardiac pacemaker Family History Brother Cancer Father No problems noted. Brother Cancer Social History Smoking Status: Former smoker second hand exposure: No alcohol intake: never substance use type: denies use current occupational status: retired Travel in the last 8 weeks?: Inside the [place] household members: spouse housing: house current occupational exposures/hazards: No caffeine: Yes Have you lived/traveled outside US in past 30 days?: No Contact w/someone who lives/traveled outside US past 30 days?: No Exposure to someone with infectious disease in past 14 days?: No Do you have a fever (greater than 100.4 F or 38 C)?: No Have you tested positive for COVID-19?: No Exposed to someone with COVID-19 in past 14 days?: No Do you have a sore throat?: No Do you have a cough?: No Do you have any weakness?: No Do you have any diarrhea?: No Are you experiencing any unusual bleeding?: No Do you have any muscle aches/pain?: No Do you have any abdominal pain?: No Are you experiencing loss of taste or smell?: No Review of Systems Constitutional Constitutional: Reports fatigue and Reports weakness Eyes Eyes: Denies itchy eyes and Denies loss of vision ENT Ears, Nose, Mouth, and Throat: Denies epistaxis, Denies facial pain, Denies lip swelling and Denies throat swelling *Cardiovascular Cardiovascular: Reports dyspnea and Reports dyspnea on exertion *Respiratory Respiratory: Reports change in phlegm color, Reports chest congestion, Reports cough, Reports dyspnea, Reports dyspnea on exertion, Reports excessive phlegm production, Denies hemoptysis, Denies pain on inspiration and Denies pain with cough *Gastrointestinal Gastrointestinal: Denies abdominal pain, Denies belching and Denies cramping *Musculoskeletal Musculoskeletal: Reports abnormal gait (Unsteady gait) *Neurologic Neurologic: Reports abnormal gait (Unsteady gait), Denies loss of vision and Reports weakness Psychiatric Psychiatric: Denies homicidal ideation and Denies suicidal ideation Endocrine Endocrine: Reports fatigue and Denies heat intolerance Hematologic/Lymphatic Hematologic/Lymphatic: Denies easy bleeding and Denies lymphadenopathy Allergic/Immunologic Allergic/Immunologic: Denies itchy eyes, Denies lip swelling and Denies throat swelling Pulmonology Exam Inpatient Vital signs and Labs for Last 24 Hours: Temp Pulse Resp BP Pulse Ox O2 Del Method O2 Flow Rate 98.1 F 70 22 188/72 H 94 L Nasal Cannula 1 12/11/24 11:57 12/11/24 11:57 12/11/24 11:57 12/11/24 11:57 12/11/24 11:57 12/11/24 11:57 12/11/24 11:57 Laboratory Results - last 24 hr 12/10/24 17:22: WBC 6.7, RBC 3.14 L, Hgb 9.3 L, Hct 30.1 L, MCV 95.9, MCH 29.6, MCHC 30.9 L, RDW 19.0 H, Plt Count 141 L, MPV 10.1, Neut % (Auto) 40.7, Lymph % (Auto) 37.1, [place] % (Auto) 9.2, Eos % (Auto) 11.6, Baso % (Auto) 0.9, Neut # (Auto) 2.7, Lymph # (Auto) 2.5, [place] # (Auto) 0.6, Eos # (Auto) 0.8 H, Baso # (Auto) 0.1, Total Counted 100, Neutrophils % (Manual) 38 L, Lymphocytes % (Manual) 50, Monocytes % (Manual) 6, Eosinophils % (Manual) 6 H, Platelet Estimate Normal, RBC Morphology Not Reportable, Hypochromasia 1+, Anisocytosis 2+, Sodium 143, Potassium 3.5, Chloride 115 H, Carbon Dioxide 23, Anion Gap 8.5, BUN 26 H, Creatinine 2.20 H, Estimated Creat Clear 24, Estimated GFR 21 L, Est GFR ( Amer) 26 L, Glucose 95, Lactate 0.7, Calcium 9.2, Total Bilirubin 0.2, AST 27, ALT 11 L, Alkaline Phosphatase 73, Troponin I 0.02, Total Protein 6.6, Albumin 3.2 L, Globulin 3.4 H, Albumin/Globulin Ratio 0.9 L 12/10/24 18:19: SARS-CoV-2 (PCR) Not detected, Influenza A Untype (PCR) Not detected, Influenza Type B (PCR) Not detected 12/11/24 06:13: POC Glucose 87 12/11/24 11:38: POC Glucose 114 H I & O for Labs for Last 24 Hours: Intake & Output 12/08/24 12/09/24 12/10/24 12/11/24 23:59 23:59 23:59 23:59 Intake Total 200 / 500 540 / 540 Output Total 0 / 0 1 / 1 Balance 200 / 500 539 / 539 Weight 169 lb 4 oz 166 lb 2 oz Constitutional: Present moderate distress Head: Present normocephalic and atraumatic ENT: Present normal exam, normal oropharynx and mucous membranes moist Neck: Present normal inspection and full ROM Respiratory: Present rhonchi, diminished air movement and able to speak in complete sentences Cardiac: Present S1/S2, Tachycardia and radial pulses present GI: Present soft and distention; Absent tenderness or guarding Rectal (female): Present deferred (female): Present deferred Skin: Present intact; Absent cyanosis or jaundice Neuro: Present alert, awake and oriented x 3 Extremities: Present normal inspection; Absent clubbing or cyanosis Psychiatric: Present normal affect and cooperative Meds Home Medications and Allergies Home Medications ?Medication ?Instructions ?Recorded ?Confirmed ?Type atorvastatin 40 mg tablet 40 mg PO DAILY 08/07/21 12/10/24 History nifedipine 60 mg tablet,extended 60 mg PO BID 04/12/22 12/10/24 History release allopurinol 100 mg tablet 100 mg PO HS 04/18/23 12/10/24 History cholecalciferol (vitamin D3) 25 2,000 unit PO HS 04/18/23 12/10/24 History mcg (1,000 unit) capsule dapagliflozin propanediol 10 mg 10 mg PO DAILY 04/18/23 12/10/24 History tablet (Farxiga) blood sugar diagnostic (OneTouch #10 ea 05/08/24 12/10/24 History Ultra Test strips) bumetanide 2 mg tablet 2 mg PO DAILY 12/10/24 12/10/24 History carvedilol 12.5 mg tablet 12.5 mg PO BID 12/10/24 12/10/24 History clonidine HCl 0.3 mg tablet 0.3 mg PO TID 12/10/24 12/11/24 History divalproex 500 mg tablet,delayed 500 mg PO BID 12/10/24 12/10/24 History release hydralazine 50 mg tablet 50 mg PO BID 12/10/24 12/10/24 History valsartan 160 mg tablet 160 mg PO HS 12/10/24 12/10/24 History levothyroxine 100 mcg tablet 100 mcg PO DAILY 12/11/24 12/11/24 History (Synthroid) potassium chloride 20 mEq 20 meq PO DAILY 12/11/24 12/11/24 History tablet,extended release(part/cryst) (Klor-Con M) sitagliptin phosphate 25 mg tablet 25 mg PO HS 12/11/24 12/11/24 History (Januvia) New Prescriptions to Start Prescriptions: Allergies Allergy/AdvReac Type Severity Reaction Status Date / Time Sulfa (Sulfonamide Allergy Mild Verified 05/29/24 13:06 Antibiotics) Results Laboratory Findings 12/10/24 17:22 12/10/24 17:22 Abnormal lab findings: Abnormal Labs 12/10/24 12/11/24 17:22 11:38 RBC 3.14 L Hgb 9.3 L Hct 30.1 L MCHC 30.9 L RDW 19.0 H Plt Count 141 L Eos # (Auto) 0.8 H Neutrophils % (Manual) 38 L Eosinophils % (Manual) 6 H Chloride 115 H BUN 26 H Creatinine 2.20 H Estimated GFR 21 L Est GFR ( Amer) 26 L POC Glucose 114 H ALT 11 L Albumin 3.2 L Globulin 3.4 H Albumin/Globulin Ratio 0.9 L Assessment and Plan *Assessment and plan (1) Pneumonia: Status: Acute Category: Medical Code(s): J18.9 - Pneumonia, unspecified organism (2) Lesion of bronchus: Status: Acute Category: Medical Code(s): J98.09 - Other diseases of bronchus, not elsewhere classified (3) Acute respiratory failure with hypoxemia: Status: Acute Category: Medical Code(s): J96.01 - Acute respiratory failure with hypoxia Plan Ms. Johnson is a 84-year-old female around [id number] smoking last month greater than 40 years ago, hypertension, CKD, diabetes mellitus, pace maker for sick sinus syndrome, sleep apnea presented to the ER with worsening respiratory distress and pulmonary was called for further evaluation and management. She also had a prior history of intracranial hemorrhage in 2020 and subdural hematoma in 2024. Patient admits continued nonresolving cough with scant productive phlegm for the last [address] scan on this admission concerning right lower lobe endobronchial lesion with pinhole opening at the concerning for endobronchial mass/mucous plugging. Her CT scan from September did not show any such lesions which makes it mucous plugging more likely than endobronchial mass however cannot completely ruled out. This is less likely to be fluid in the right lower lobe bronchus. She also had left lower lobe consolidative changes likely concerning for postobstructive pneumonia. Plan: Continue oxygen supplementation to maintain O2 saturation goal of 90% and above Continue ceftriaxone and azithromycin pending blood and sputum culture results DuoNebs, normal saline and Mucomyst 3 times daily scheduled along with chest percussion therapy 3 times daily Scheduled for bronchoscopy airway examination transbronchial biopsy N.p.o. midnight Anesthesia consult next
[2024-12-11] MEDS: CEFTRIAXONE 1 GM 1 GM in 0.9 % SODIUM CHLORIDE 50 ML IV (16:35)
--- NOTE | 2024-12-11 16:42 | PC.NURSE ---
Pt currently resting in bed. Has slept intermittently this shift. Has ambulated from bed to BR with walker. Has tolerated well. She has c/o soa and cough at times this shift. She is on 1L O2 NC for comfort. Has CPAP for HS. IV ABX infusing at this time. Family at bedside. Call light within reach.
--- NOTE | 2024-12-11 16:59 | PC.NURSE ---
TECH NOTE; NOTIFIED NURSE OF BLOOD PRESSURE FOR 1600 VITAL SIGNS Rickey AMAYA, SRNA
[2024-12-11] MEDS: AZITHROMYCIN 500 MG in 0.9 % SODIUM CHLORIDE 250 ML 250 MG IV (17:05)
--- NOTE | 2024-12-11 17:15 | PC.NURSE ---
Vianney Licea notified that BP was elevated. Per Gina Licea, give HS dose of Carvedilol, Hydralazine and clonidine early.
[2024-12-11 17:38] LABS: POC Glucose,Bedside 110 (70-110)
[2024-12-11] MEDS: PANTOPRAZOLE 40MG TABLET 40 MG PO (21:33)
[2024-12-11] MEDS: ATORVASTATIN 40MG TABLET 40 MG PO (21:33)
[2024-12-11] MEDS: ALLOPURINOL 100MG TABLET 100 MG PO (21:33)
[2024-12-11 22:16] LABS: POC Glucose,Bedside 113 (70-110)
[2024-12-12] VITALS (23 sets, daily range): BP systolic 130–192; BP diastolic 51–88; PULSE 60–90; RESP 16–20; TEMP 36.4–36.9; O2SAT 88–98; BMI 25.2
[2024-12-12] MEDS: IPRATROPIUM/ALBUTEROL 3 ML NEB IH ×3 (06:11→20:44)
[2024-12-12] MEDS: ACETYLCYSTEINE 20% 4ML VIAL 2 ML IH ×2 (06:11→20:44)
[2024-12-12] MEDS: SODIUM CHLORIDE 3% 15ML NEB 3 ML IH ×2 (06:12→20:44)
--- NOTE | 2024-12-12 06:43 | PC.NURSE ---
Pt. is alert and orientated x 4. Pt. is on 1 liter oxygen per NC during the day and has her home CPAP machine for night time use. Pt. hs slept off and on this shift. She has been up to the bathroom to void 4-5 times. She uses her walker and is assist x 1 to bathroom. Pt. very short of breath with exertion. Pt. has Pneumonia. Lung sounds coarse , has had inspiatory/expiratory wheezes. Pt. getting IV antibiotics and Neb TX's. Pt. getting an Bronch this AM. Pt. NPO after midnight. Personal items and call pierce in reach.
[2024-12-12 06:44] LABS: POC Glucose,Bedside 90 (70-110)
--- NOTE | 2024-12-12 08:15 | EXP.ACUTE.PN ---
Subjective *Date: 12/12/24 *Time: 08:23 Interval history: Patient is feeling a little better this am. She is able to cough up sputum. She denies any pain. She slept off and on last night. Medical Exam Vital signs and Labs for Last 24 Hours: Vital Signs Temp Pulse Pulse Resp BP Pulse Ox O2 Del Method 12/12/24 08:00 97.6 F 73 18 170/82 H 95 Nasal Cannula 12/12/24 06:48 Nasal Cannula 12/12/24 06:16 77 12/12/24 06:11 95 Nasal Cannula 12/12/24 06:11 76 12/12/24 06:11 73 12/12/24 05:00 Room Air 12/12/24 04:00 98.5 F 75 18 168/69 H 90 L Nasal Cannula 12/12/24 04:00 60 12/12/24 03:00 CPAP 12/12/24 01:00 CPAP 12/12/24 00:00 70 12/12/24 00:00 98.0 F 69 18 156/69 H 93 L CPAP 12/11/24 23:00 CPAP 12/11/24 20:06 73 12/11/24 20:06 75 12/11/24 20:06 92 L Nasal Cannula 12/11/24 20:00 70 12/11/24 20:00 Nasal Cannula 12/11/24 20:00 98.1 F 70 16 179/76 H 93 L Nasal Cannula 12/11/24 18:46 Nasal Cannula 12/11/24 16:42 Nasal Cannula 12/11/24 16:00 70 12/11/24 16:00 98.7 F 70 18 204/77 H 95 Nasal Cannula 12/11/24 15:00 Nasal Cannula 12/11/24 13:00 Nasal Cannula 12/11/24 12:00 70 12/11/24 11:57 98.1 F 70 22 188/72 H 94 L Nasal Cannula 12/11/24 10:47 Nasal Cannula 12/11/24 09:00 Nasal Cannula O2 Flow Rate 12/12/24 08:00 1 12/12/24 06:48 1 12/12/24 06:16 12/12/24 06:11 2 12/12/24 06:11 12/12/24 06:11 12/12/24 05:00 12/12/24 04:00 1 12/12/24 04:00 12/12/24 03:00 12/12/24 01:00 12/12/24 00:00 12/12/24 00:00 12/11/24 23:00 12/11/24 20:06 12/11/24 20:06 12/11/24 20:06 1 12/11/24 20:00 12/11/24 20:00 1 12/11/24 20:00 1 12/11/24 18:46 1 12/11/24 16:42 1 12/11/24 16:00 12/11/24 16:00 0.5 12/11/24 15:00 2 12/11/24 13:00 2 12/11/24 12:00 12/11/24 11:57 1 12/11/24 10:47 2 12/11/24 09:00 1 Intake and Output 12/11/24 12/12/24 12/12/24 19:59 03:59 11:59 Intake Total 480 / 720 240 / 720 Output Total 0 / 0 0 / 0 0 / 0 Balance 480 / 720 240 / 720 0 / 720 Intake: Intake, Oral Amount 480 / 720 240 / 720 Output: Output, Urine Amount 0 / 0 0 / 0 0 / 0 Other: Number of Unmeasured Voids 1 1 1 Number of Bowel Movements 1 Laboratory Results - last 24 hr 12/11/24 11:38: POC Glucose 114 H 12/11/24 16:41: POC Glucose 110 12/11/24 22:08: POC Glucose 113 H 12/12/24 06:37: POC Glucose 90 I & O for Labs for Last 24 Hours: Intake & Output 12/09/24 12/10/24 12/11/24 12/12/24 11:59 11:59 11:59 11:59 Intake Total 740 / 740 720 / 720 Output Total 1 / 1 0 / 0 Balance 739 / 739 720 / 720 Weight 166 lb 2 oz Constitutional: Present no acute distress Respiratory: Present rales and wheezes Cardiac: Present Reg Rate and Rhythm GI: Present soft; Absent distention or tenderness Extremities: Absent edema Skin: Present intact Neuro: Present alert, awake and oriented x 3 Assessment and Plan *Assessment and plan (1) Pneumonia: Status: Acute Category: Medical Code(s): J18.9 - Pneumonia, unspecified organism (2) Diastolic congestive heart failure: Status: Acute Category: Medical Code(s): I50.30 - Unspecified diastolic (congestive) heart failure (3) Valvular heart disease: Status: Acute Category: Medical Code(s): I38 - Endocarditis, valve unspecified (4) CKD (chronic kidney disease): Status: Acute Category: Medical Code(s): N18.9 - Chronic kidney disease, unspecified (5) Diabetes mellitus: Status: Acute Qualifiers: Diabetes mellitus complication status: without complication Diabetes mellitus fci 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 Diabetes mellitus type: other specified (including JOSY) Qualified Code(s): E13.9 - Other specified diabetes mellitus without complications Category: Medical Code(s): E11.9 - Type 2 diabetes mellitus without complications (6) Presence of cardiac pacemaker: Status: Acute Category: Surgical Code(s): Z95.0 - Presence of cardiac pacemaker (7) Moderate aortic stenosis: Status: Acute Category: Medical Code(s): I35.0 - Nonrheumatic aortic (valve) stenosis (8) HLD (hyperlipidemia): Status: Chronic Qualifiers: Hyperlipidemia type: mixed hyperlipidemia Qualified Code(s): E78.2 - Mixed hyperlipidemia Category: Medical Code(s): E78.5 - Hyperlipidemia, unspecified (9) FADI (obstructive sleep apnea): Status: Chronic Category: Medical Code(s): G47.33 - Obstructive sleep apnea (adult) (pediatric) (10) Lesion of bronchus: Status: Acute Category: Medical Code(s): J98.09 - Other diseases of bronchus, not elsewhere classified (11) Acute respiratory failure with hypoxemia: Status: Acute Category: Medical Code(s): J96.01 - Acute respiratory failure with hypoxia Plan Will continue antibiotics and nebs. Scheduled for bronchoscopy this am. Cardiology and pulmonology to follow.
[2024-12-12] MEDS: IRBESARTAN 150MG TAB 150 MG PO (08:49)
[2024-12-12] MEDS: DIVALPROEX 500MG (Delayed-Release) TABLET 500 MG PO ×2 (08:50→20:17)
[2024-12-12] MEDS: FERROUS SULFATE 325MG TABLET 325 MG PO (08:50)
[2024-12-12] MEDS: HYDRALAZINE HCL 25MG TABLET 50 MG PO ×2 (08:50→20:16)
[2024-12-12] MEDS: SPIRONOLACTONE 25MG TABLET 25 MG PO (08:50)
[2024-12-12] MEDS: BUMETANIDE 1 MG TABLET 2 MG PO ×2 (08:50→15:38)
[2024-12-12] MEDS: LEVOTHYROXINE 100MCG (0.1MG) TAB 100 MCG PO (08:50)
[2024-12-12] MEDS: NIFEdipine XL 30MG TABLET 60 MG PO (08:51)
[2024-12-12] MEDS: cloNIDine 0.1MG TABLET 0.3 MG PO ×2 (08:51→20:17)
[2024-12-12] MEDS: CARVEDILOL 12.5MG TABLET 12.5 MG PO ×2 (08:51→20:17)
[2024-12-12] MEDS: guaiFENesin 600 MG TAB.ER.12H PO ×2 (08:51→20:17)
--- NOTE | 2024-12-12 09:43 | EXP.ANES.CKL ---
[facility] Disclaimer: The information contained in this section may have been updated after the patient was seen, as this information can be updated by other users. Medical History (Updated 12/11/24 @ 13:54 by Sergio Crocker MD) Acute respiratory failure with hypoxemia Lesion of bronchus CKD (chronic kidney disease) HTN (hypertension) CAD (coronary artery disease) Near syncope Dyspnea HLD (hyperlipidemia) FADI (obstructive sleep apnea) Fatigue Dizziness Recent cerebrovascular accident (CVA) Moderate aortic stenosis SVT (supraventricular tachycardia) Tachycardia Bradycardia Abnormal Holter monitor finding Surgical History History of craniotomy H/O shoulder surgery H/O heart artery stent Presence of cardiac pacemaker Family History Brother Cancer Father No problems noted. Brother Cancer Social History Smoking Status: Former smoker second hand exposure: No alcohol intake: never substance use type: denies use current occupational status: retired Travel in the last 8 weeks?: Inside the [place] household members: spouse housing: house current occupational exposures/hazards: No caffeine: Yes Have you lived/traveled outside [place] in past 30 days?: No Contact w/someone who lives/traveled outside [place] past 30 days?: No Exposure to someone with infectious disease in past 14 days?: No Do you have a fever (greater than 100.4 F or 38 C)?: No Have you tested positive for COVID-19?: No Exposed to someone with COVID-19 in past 14 days?: No Do you have a sore throat?: No Do you have a cough?: No Do you have any weakness?: No Do you have any diarrhea?: No Are you experiencing any unusual bleeding?: No Do you have any muscle aches/pain?: No Do you have any abdominal pain?: No Are you experiencing loss of taste or smell?: No [facility] Anesthesia Checklist Patient Identification Patient Identification: Verbal (Name & ) Structural Data Admitted From: Inpatient Planned Operative Procedure/s: bronchoscopy NPO Status Verified Time NPO: 00:00 Airway Assessment Mallampati Score:: Class II C-Spine Mobility Assessed: Yes TMJ Mobility Assessed: Yes Dentition: Good Dentition Neurological Assessment Level of Consciousness: Awake, Alert and Appropriate Anesthesia Plan Anesthesia Risk discussed: Yes Anesthesia Plan: Verified ASA Class: III Anesthesia Type: General
--- NOTE | 2024-12-12 09:49 | P.PN_ITS ---
Subjective *Date: 12/12/24 *Time: 14:39 Interval history: No acute respiratory vents overnight. Pulmonology Exam Inpatient Vital signs and Labs for Last 24 Hours: Temp Pulse Resp BP Pulse Ox O2 Del Method O2 Flow Rate 97.6 F 73 18 170/82 H 95 Nasal Cannula 1 12/12/24 09:02 12/12/24 09:02 12/12/24 09:02 12/12/24 09:02 12/12/24 09:02 12/12/24 09:02 12/12/24 09:02 Laboratory Results - last 24 hr 12/11/24 11:38: POC Glucose 114 H 12/11/24 16:41: POC Glucose 110 12/11/24 22:08: POC Glucose 113 H 12/12/24 06:37: POC Glucose 90 Temp Pulse Resp BP Pulse Ox O2 Del Method O2 Flow Rate 98.1 F 70 22 188/72 H 94 L Nasal Cannula 1 12/11/24 11:57 12/11/24 11:57 12/11/24 11:57 12/11/24 11:57 12/11/24 11:57 12/11/24 11:57 12/11/24 11:57 Laboratory Results - last 24 hr 12/10/24 17:22: WBC 6.7, RBC 3.14 L, Hgb 9.3 L, Hct 30.1 L, MCV 95.9, MCH 29.6, MCHC 30.9 L, RDW 19.0 H, Plt Count 141 L, MPV 10.1, Neut % (Auto) 40.7, Lymph % (Auto) 37.1, [place] % (Auto) 9.2, Eos % (Auto) 11.6, Baso % (Auto) 0.9, Neut # (Auto) 2.7, Lymph # (Auto) 2.5, [place] # (Auto) 0.6, Eos # (Auto) 0.8 H, Baso # (Auto) 0.1, Total Counted 100, Neutrophils % (Manual) 38 L, Lymphocytes % (Manual) 50, Monocytes % (Manual) 6, Eosinophils % (Manual) 6 H, Platelet Estimate Normal, RBC Morphology Not Reportable, Hypochromasia 1+, Anisocytosis 2+, Sodium 143, Potassium 3.5, Chloride 115 H, Carbon Dioxide 23, Anion Gap 8.5, BUN 26 H, Creatinine 2.20 H, Estimated Creat Clear 24, Estimated GFR 21 L, Est GFR ( Amer) 26 L, Glucose 95, Lactate 0.7, Calcium 9.2, Total Bilirubin 0.2, AST 27, ALT 11 L, Alkaline Phosphatase 73, Troponin I 0.02, Total Protein 6.6, Albumin 3.2 L, Globulin 3.4 H, Albumin/Globulin Ratio 0.9 L 12/10/24 18:19: SARS-CoV-2 (PCR) Not detected, Influenza A Untype (PCR) Not detected, Influenza Type B (PCR) Not detected 12/11/24 06:13: POC Glucose 87 12/11/24 11:38: POC Glucose 114 H I & O for Labs for Last 24 Hours: Intake & Output 12/09/24 12/10/24 12/11/24 12/12/24 23:59 23:59 23:59 23:59 Intake Total 200 / 500 1020 / 1260 240 / 240 Output Total 0 / 0 1 / 1 0 / 0 Balance 200 / 500 1019 / 1259 240 / 240 Weight 169 lb 4 oz 166 lb 2 oz Intake & Output 12/08/24 12/09/24 12/10/24 12/11/24 23:59 23:59 23:59 23:59 Intake Total 200 / 500 540 / 540 Output Total 0 / 0 1 / 1 Balance 200 / 500 539 / 539 Weight 169 lb 4 oz 166 lb 2 oz Constitutional: Present moderate distress Head: Present normocephalic and atraumatic ENT: Present normal exam, normal oropharynx and mucous membranes moist Neck: Present normal inspection and full ROM Respiratory: Present rhonchi, diminished air movement and able to speak in complete sentences Cardiac: Present S1/S2, Tachycardia and radial pulses present GI: Present soft and distention; Absent tenderness or guarding Rectal (female): Present deferred (female): Present deferred Skin: Present intact; Absent cyanosis or jaundice Neuro: Present alert, awake and oriented x 3 Extremities: Present normal inspection; Absent clubbing or cyanosis Psychiatric: Present normal affect and cooperative Assessment and Plan *Assessment and plan (1) Pneumonia: Status: Acute Category: Medical Code(s): J18.9 - Pneumonia, unspecified organism (2) Lesion of bronchus: Status: Acute Category: Medical Code(s): J98.09 - Other diseases of bronchus, not elsewhere classified (3) Acute respiratory failure with hypoxemia: Status: Acute Category: Medical Code(s): J96.01 - Acute respiratory failure with hypoxia Plan Ms. Johnson is a 84-year-old female around [id number] smoking last month greater than 40 years ago, hypertension, CKD, diabetes mellitus, pace maker for sick sinus syndrome, sleep apnea presented to the ER with worsening respiratory distress and pulmonary was called for further evaluation and management. She also had a prior history of intracranial hemorrhage in 2020 and subdural hematoma in 2024. Patient admits continued nonresolving cough with scant productive phlegm for the last [address] scan on this admission concerning right lower lobe endobronchial lesion with pinhole opening at the concerning for endobronchial mass/mucous plugging. Her CT scan from September did not show any such lesions which makes it mucous plugging more likely than endobronchial mass however cannot completely ruled out. This is less likely to be fluid in the right lower lobe bronchus. She also had left lower lobe consolidative changes likely concerning for postobstructive pneumonia. Interval update: No acute respiratory events overnight. CT head no acute findings. Complete opacification of maxillary sinuses concerning for chronic sinusitis. Continue to receive antibiotics. Plan: Continue oxygen supplementation to maintain O2 saturation goal of 90% and above Continue ceftriaxone and azithromycin pending blood and sputum culture results DuoNebs, normal saline and Mucomyst 3 times daily scheduled along with chest percussion therapy 3 times daily Scheduled for bronchoscopy airway examination transbronchial biopsy
[2024-12-12 11:33] LABS: POC Glucose,Bedside 92 (70-110)
--- NOTE | 2024-12-12 13:08 | XR_ITS ---
FINAL REPORT CLINICAL HISTORY: bronch in OR 0.7 fl 8.52 mGy FINDINGS: FLUOROSCOPY LESS THAN 1 HOUR HISTORY: Fluoroscopy guidance. FINDINGS: Fluoroscopic guidance was provided for bronchoscopy in the OR. A single spot film was obtained. A total of 0.7 minutes of fluoroscopy time were used. DAP: 8.52 mGy IMPRESSION: As above. Reviewed, Interpreted and Dictated by Shaquille Tian MD Transcribed by Kylah Mcfarland Authenticated and [facility]
--- NOTE | 2024-12-12 13:19 | EXP.ANES.I ---
[facility] Anesthesia Record Part I Anesthesia Record I Intake, IV Amount: 800 Hydration: Adequate Estimated blood loss (mL): 0 Urine output (mL): 0 Blood Products used (#): none Blood Pressure: 184/72 SaO2: 90 Pulse Rate: 73 Airway Patency: Patent Respiratory Rate: 16 Temperature: 98 F Patient is:: Drowsy, Nasal O2 and Stable Stable to PACU at:: 13:15
--- NOTE | 2024-12-12 13:20 | XR_ITS ---
FINAL REPORT CLINICAL HISTORY: Post Bronchoscopy COMPARISON: 08/07/2021 FINDINGS: The heart size is mildly enlarged. A pacemaker is present. The lungs are underinflated. The mediastinum is normal. Atelectasis in the right perihilar region is new from the previous exam. There are no pleural effusions. There is no pneumothorax. There is no osseous abnormality. IMPRESSION: No pneumothorax post bronchoscopy. Reviewed, Interpreted and Dictated by Shaquille Tian MD Transcribed by Kylah Mcfarland Authenticated and [facility][1]
--- NOTE | 2024-12-12 14:01 | SUR.PHASEI ---
1345- detailed report called to iraj birmingham on med surg floor. 1348- pt left in room in the care of iraj birmingham. Vss, bed in lowest position and locked. Family at bs.
--- NOTE | 2024-12-12 14:02 | SUR.PHASEI ---
1318- RT at bs for duoneb treatment. 1320- Rad at bs for chest xray
[2024-12-12] MEDS: AZITHROMYCIN 250MG TABLET 500 MG PO (14:09)
--- NOTE | 2024-12-12 15:49 | EXP.BRONCH.N ---
Procedure: Date: 12/12/24 Patient Date of :: 1940 Procedure Performed:: Bronchoscopy with airway examination, bronchoalveolar lavage, transbronchial and endobronchial lung biopsy: Indications:: Recurrent pneumonia Performing Provider:: Sergio Crocker MD Referring Provider:: Dr. Dietz Sedation:: General anesthesia Procedure:: Bronchoscopy with airway examination, bronchoalveolar lavage, transbronchial and endobronchial lung biopsy: A clean therapeutic bronchoscopy was advanced through the ET tube and airways were examined up to subsegmental bronchi. Copious amounts of thick mucoid secretions were noted in the right lower lobe and left lower lobe bronchi which were suctioned. No evidence of active bleeding/old blood clots noted. Diffuse airway inflammation noted. Bronchoalveolar lavage was performed in the RIGHT LOWER LOBE with instillation of 60 cc normal saline with return of 20 cc back. BAL fluid was sent for cell count and differential along with bacterial fungal and AFB stain and cultures. Transbronchial biopsy was performed in the RIGHT LOWER LOBE with a total of 7 biopsies performed, 5 biopsy specimens were sent in formalin for cytopathologic examination. The other 2 biopsy samples, were sent one each in two separate normal saline specimen cups for bacterial fungal and AFB stain cultures. Special request was also made for the pathologist to evaluate for AFB and fungal organisms on the cytopathologic examination. Endobronchial biopsies were also performed of the right lower lobe bronchi given diffuse airway edema, 3 endobronchial biopsies were performed and sent in formalin for cytopathologic examination. Patient tolerated the procedure with no immediate acute complications. We will follow the patient in pulmonary clinic in 7 to 10 days. Findings:: Please see the procedure note Recommendations:: Postoperative bronchoscopy instructions Please see the progress note from today for further recommendation Complications:: No acute immediate complications Estimated blood obtained (mL): 5
[2024-12-12] MEDS: CEFTRIAXONE 1 GM 1 GM in 0.9 % SODIUM CHLORIDE 50 ML IV (16:20)
--- NOTE | 2024-12-12 18:21 | PC.NURSE ---
Pt is A&Ox4. Vitals signs have remained at baseline. Pt tolerating 1L NC at this time. Pt uses a CPAP at night. NSR on tele. IV abx infused per SEP. Pt is s/p bronchoscopy today. No complaints of SOA or pain voiced at this time. Up with assistance to the bathroom with walker. No further needs voiced at this time. Family at bedside. Call light within reach.
[2024-12-12] MEDS: ATORVASTATIN 40MG TABLET 40 MG PO (20:17)
[2024-12-12] MEDS: ALLOPURINOL 100MG TABLET 100 MG PO (20:17)
[2024-12-12] MEDS: PANTOPRAZOLE 40MG TABLET 40 MG PO (20:17)
[2024-12-12 20:57] LABS: POC Glucose,Bedside 305 (70-110)
[2024-12-12 20:57] LABS: POC Glucose,Bedside 179 (70-110)
[2024-12-13] VITALS (8 sets, daily range): BP systolic 151–182; BP diastolic 58–87; PULSE 60–79; RESP 16–25; TEMP 36.6–36.7; O2SAT 88–98; BMI 25.2; BMI 24.0
--- NOTE | 2024-12-13 05:37 | PC.NURSE ---
v/s, ox4. No acute events to report. Plan of care ongoing.
[2024-12-13] MEDS: ACETYLCYSTEINE 20% 4ML VIAL 2 ML IH (06:23)
[2024-12-13] MEDS: IPRATROPIUM/ALBUTEROL 3 ML NEB IH (06:23)
[2024-12-13] MEDS: SODIUM CHLORIDE 3% 15ML NEB 3 ML IH (06:24)
[2024-12-13] MEDS: LEVOTHYROXINE 100MCG (0.1MG) TAB 100 MCG PO (06:47)
--- NOTE | 2024-12-13 08:18 | EXP.ACUTE.PN ---
Subjective *Date: 12/13/24 *Time: 08:18 Interval history: Patient is feeling better today. She had a bronchoscopy with airway examination, bronchoalveolar lavage, and transbronchial and endobronchial lung biopsy. She tolerated this well and states her SOA has improved today. She was able to eat and she slept better. She has some pain in the right side of her chest when she takes a breath. Medical Exam Vital signs and Labs for Last 24 Hours: Vital Signs Temp Pulse Pulse Resp BP BP Pulse Ox 12/13/24 07:42 97.8 F 64 16 151/64 H 90 L 12/13/24 06:37 75 12/13/24 06:37 75 25 H 12/13/24 06:37 78 12/13/24 06:09 12/13/24 05:00 12/13/24 04:00 60 12/13/24 04:00 98.1 F 65 16 159/62 H 93 L 12/13/24 03:00 12/13/24 01:00 12/13/24 00:00 60 12/12/24 23:57 97.6 F 61 16 130/51 L 96 12/12/24 23:00 12/12/24 21:00 12/12/24 20:46 84 12/12/24 20:46 83 12/12/24 20:46 91 L 12/12/24 20:46 85 20 12/12/24 20:00 12/12/24 20:00 90 12/12/24 19:58 98.3 F 80 17 147/65 H 92 L 12/12/24 18:47 12/12/24 17:00 12/12/24 16:00 70 12/12/24 15:30 66 16 187/76 H 98 12/12/24 15:00 69 16 172/73 H 94 L 12/12/24 15:00 12/12/24 14:30 70 16 178/71 H 94 L 12/12/24 14:15 71 16 178/66 H 93 L 12/12/24 14:00 73 18 177/76 H 94 L 12/12/24 13:45 77 16 183/71 H 91 L 12/12/24 13:45 98.0 F 79 16 182/87 H 98 12/12/24 13:35 98.0 F 77 16 192/88 H 98 12/12/24 13:25 98.0 F 78 16 188/87 H 95 12/12/24 13:22 75 12/12/24 13:22 75 12/12/24 13:21 98 F 73 16 184/72 H 12/12/24 13:15 98.0 F 73 16 184/72 H 88 L 12/12/24 11:52 98.2 F 73 16 176/72 H 92 L 12/12/24 11:00 12/12/24 09:02 97.6 F 73 18 170/82 H 95 12/12/24 09:00 O2 Del Method O2 Flow Rate 12/13/24 07:42 Nasal Cannula 1 12/13/24 06:37 12/13/24 06:37 12/13/24 06:37 12/13/24 06:09 Room Air 12/13/24 05:00 Room Air 12/13/24 04:00 12/13/24 04:00 Room Air 12/13/24 03:00 Nasal Cannula 1 12/13/24 01:00 Nasal Cannula 1 12/13/24 00:00 12/12/24 23:57 Room Air 12/12/24 23:00 Nasal Cannula 1 12/12/24 21:00 Nasal Cannula 12/12/24 20:46 12/12/24 20:46 12/12/24 20:46 Nasal Cannula 1 12/12/24 20:46 12/12/24 20:00 Nasal Cannula 1 12/12/24 20:00 12/12/24 19:58 Nasal Cannula 1 12/12/24 18:47 Nasal Cannula 1 12/12/24 17:00 Nasal Cannula 2 12/12/24 16:00 12/12/24 15:30 Nasal Cannula 2 12/12/24 15:00 Nasal Cannula 3 12/12/24 15:00 Nasal Cannula 3 12/12/24 14:30 Nasal Cannula 3 12/12/24 14:15 Nasal Cannula 3 12/12/24 14:00 Nasal Cannula 3 12/12/24 13:45 Nasal Cannula 3 12/12/24 13:45 Nasal Cannula 5 12/12/24 13:35 Nasal Cannula 5 12/12/24 13:25 Nasal Cannula 5 12/12/24 13:22 12/12/24 13:22 12/12/24 13:21 12/12/24 13:15 Nasal Cannula 5 12/12/24 11:52 Nasal Cannula 1 12/12/24 11:00 Nasal Cannula 1 12/12/24 09:02 Nasal Cannula 1 12/12/24 09:00 Nasal Cannula 1 Intake and Output 12/12/24 12/13/24 12/13/24 19:59 03:59 11:59 Intake Total 800 / 920 120 / 920 Output Total 0 / 0 0 / 0 0 / 0 Balance 800 / 920 120 / 920 0 / 920 Intake: Intake, Oral Amount 120 / 120 Intake, Total IV Amount 800 / 800 Output: Output, Urine Amount 0 / 0 0 / 0 0 / 0 Other: Number of Unmeasured Voids 1 1 1 Number of Bowel Movements 1 Weight 166 lb 1.893 oz 167 lb Patient Weight 12/13/24 11:59 Weight 167 lb Laboratory Results - last 24 hr 12/12/24 11:25: POC Glucose 92 12/12/24 20:44: POC Glucose 305 H* 12/12/24 20:46: POC Glucose 179 H I & O for Labs for Last 24 Hours: Intake & Output 12/10/24 12/11/24 12/12/24 12/13/24 11:59 11:59 11:59 11:59 Intake Total 740 / 740 720 / 720 920 / 920 Output Total 1 / 1 0 / 0 0 / 0 Balance 739 / 739 720 / 720 920 / 920 Weight 166 lb 2 oz 167 lb Microbiology Reports for the Last 24 Hours: Microbiology 12/12/24 12:45 Transbronchial Biopsy - Biopsy Gram Stain - Final 12/12/24 12:45 Bronchial Washings - Bronchial Gram Stain - Final 12/12/24 12:45 Transbronchial Biopsy - Biopsy - Final Not Reportable 12/12/24 12:45 Transbronchial Biopsy - Biopsy - Final Not Reportable 12/12/24 12:45 Transbronchial Biopsy - Biopsy - Final Not Reportable 12/12/24 12:45 Transbronchial Biopsy - Biopsy - Final Not Reportable 12/12/24 12:45 Transbronchial Biopsy - Biopsy - Final Not Reportable 12/12/24 12:45 Transbronchial Biopsy - Biopsy - Final Not Reportable 12/12/24 12:45 Transbronchial Biopsy - Biopsy - Final Not Reportable 12/12/24 12:45 Transbronchial Biopsy - Biopsy AFB Susceptibility Moxifloxacin - Final Not Reportable 12/12/24 12:45 Transbronchial Biopsy - Biopsy - Final Not Reportable 12/12/24 12:45 Transbronchial Biopsy - Biopsy - Final Not Reportable 12/12/24 12:45 Transbronchial Biopsy - Biopsy - Final Not Reportable 12/12/24 12:45 Transbronchial Biopsy - Biopsy Microbiology Comment - Final Not Reportable Constitutional: Present no acute distress Respiratory: Present rales and wheezes Cardiac: Present Reg Rate and Rhythm GI: Present soft; Absent distention or tenderness Extremities: Absent edema Skin: Present intact Neuro: Present alert, awake and oriented x 3 Assessment and Plan *Assessment and plan (1) Pneumonia: Status: Acute Category: Medical Code(s): J18.9 - Pneumonia, unspecified organism (2) Diastolic congestive heart failure: Status: Acute Category: Medical Code(s): I50.30 - Unspecified diastolic (congestive) heart failure (3) Valvular heart disease: Status: Acute Category: Medical Code(s): I38 - Endocarditis, valve unspecified (4) CKD (chronic kidney disease): Status: Acute Category: Medical Code(s): N18.9 - Chronic kidney disease, unspecified (5) Diabetes mellitus: Status: Acute Qualifiers: Diabetes mellitus type: other specified (including JOSY) Diabetes mellitus long chain quiller tender insulin use: unspecified long chain quiller tender insulin use status Diabetes mellitus complication status: without complication Qualified Code(s): E13.9 - Other specified diabetes mellitus without complications Category: Medical Code(s): E11.9 - Type 2 diabetes mellitus without complications (6) Presence of cardiac pacemaker: Status: Acute Category: Surgical Code(s): Z95.0 - Presence of cardiac pacemaker (7) Moderate aortic stenosis: Status: Acute Category: Medical Code(s): I35.0 - Nonrheumatic aortic (valve) stenosis (8) HLD (hyperlipidemia): Status: Chronic Qualifiers: Hyperlipidemia type: mixed hyperlipidemia Qualified Code(s): E78.2 - Mixed hyperlipidemia Category: Medical Code(s): E78.5 - Hyperlipidemia, unspecified (9) FADI (obstructive sleep apnea): Status: Chronic Category: Medical Code(s): G47.33 - Obstructive sleep apnea (adult) (pediatric) (10) Lesion of bronchus: Status: Acute Category: Medical Code(s): J98.09 - Other diseases of bronchus, not elsewhere classified (11) Acute respiratory failure with hypoxemia: Status: Acute Category: Medical Code(s): J96.01 - Acute respiratory failure with hypoxia Plan Will continue antibiotics and nebs. Patient is improving. Pulomonology to follow and will discuss further care with Dr. Dietz.
--- NOTE | 2024-12-13 08:54 | EXP.PHA.PN ---
Subjective *Date: 12/13/24 *Time: 08:54 Medical Exam Vital signs and Labs for Last 24 Hours: Vital Signs Temp Pulse Pulse Resp BP BP Pulse Ox 12/13/24 07:42 97.8 F 64 16 151/64 H 90 L 12/13/24 06:37 75 12/13/24 06:37 75 25 H 12/13/24 06:37 78 12/13/24 06:09 12/13/24 05:00 12/13/24 04:00 60 12/13/24 04:00 98.1 F 65 16 159/62 H 93 L 12/13/24 03:00 12/13/24 01:00 12/13/24 00:00 60 12/12/24 23:57 97.6 F 61 16 130/51 L 96 12/12/24 23:00 12/12/24 21:00 12/12/24 20:46 84 12/12/24 20:46 83 12/12/24 20:46 91 L 12/12/24 20:46 85 20 12/12/24 20:00 12/12/24 20:00 90 12/12/24 19:58 98.3 F 80 17 147/65 H 92 L 12/12/24 18:47 12/12/24 17:00 12/12/24 16:00 70 12/12/24 15:30 66 16 187/76 H 98 12/12/24 15:00 69 16 172/73 H 94 L 12/12/24 15:00 12/12/24 14:30 70 16 178/71 H 94 L 12/12/24 14:15 71 16 178/66 H 93 L 12/12/24 14:00 73 18 177/76 H 94 L 12/12/24 13:45 77 16 183/71 H 91 L 12/12/24 13:45 98.0 F 79 16 182/87 H 98 12/12/24 13:35 98.0 F 77 16 192/88 H 98 12/12/24 13:25 98.0 F 78 16 188/87 H 95 12/12/24 13:22 75 12/12/24 13:22 75 12/12/24 13:21 98 F 73 16 184/72 H 12/12/24 13:15 98.0 F 73 16 184/72 H 88 L 12/12/24 11:52 98.2 F 73 16 176/72 H 92 L 12/12/24 11:00 12/12/24 09:02 97.6 F 73 18 170/82 H 95 12/12/24 09:00 O2 Del Method O2 Flow Rate 12/13/24 07:42 Nasal Cannula 1 12/13/24 06:37 12/13/24 06:37 12/13/24 06:37 12/13/24 06:09 Room Air 12/13/24 05:00 Room Air 12/13/24 04:00 12/13/24 04:00 Room Air 12/13/24 03:00 Nasal Cannula 1 12/13/24 01:00 Nasal Cannula 1 12/13/24 00:00 12/12/24 23:57 Room Air 12/12/24 23:00 Nasal Cannula 1 12/12/24 21:00 Nasal Cannula 12/12/24 20:46 12/12/24 20:46 12/12/24 20:46 Nasal Cannula 1 12/12/24 20:46 12/12/24 20:00 Nasal Cannula 1 12/12/24 20:00 12/12/24 19:58 Nasal Cannula 1 12/12/24 18:47 Nasal Cannula 1 12/12/24 17:00 Nasal Cannula 2 12/12/24 16:00 12/12/24 15:30 Nasal Cannula 2 12/12/24 15:00 Nasal Cannula 3 12/12/24 15:00 Nasal Cannula 3 12/12/24 14:30 Nasal Cannula 3 12/12/24 14:15 Nasal Cannula 3 12/12/24 14:00 Nasal Cannula 3 12/12/24 13:45 Nasal Cannula 3 12/12/24 13:45 Nasal Cannula 5 12/12/24 13:35 Nasal Cannula 5 12/12/24 13:25 Nasal Cannula 5 12/12/24 13:22 12/12/24 13:22 12/12/24 13:21 12/12/24 13:15 Nasal Cannula 5 12/12/24 11:52 Nasal Cannula 1 12/12/24 11:00 Nasal Cannula 1 12/12/24 09:02 Nasal Cannula 1 12/12/24 09:00 Nasal Cannula 1 Intake and Output 12/12/24 12/13/24 12/13/24 23:59 07:59 15:59 Intake Total 120 / 120 Output Total 0 / 0 0 / 0 Balance 0 / 1160 120 / 120 Intake: Intake, Oral Amount 120 / 120 Output: Output, Urine Amount 0 / 0 0 / 0 Other: Number of Unmeasured Voids 1 1 Number of Bowel Movements 1 Weight 75.75 kg Patient Weight 12/13/24 23:59 Weight 75.75 kg Laboratory Results - last 24 hr 12/12/24 11:25: POC Glucose 92 12/12/24 20:44: POC Glucose 305 H* 12/12/24 20:46: POC Glucose 179 H I & O for Labs for Last 24 Hours: Intake & Output 12/10/24 12/11/24 12/12/24 12/13/24 23:59 23:59 23:59 23:59 Intake Total 200 / 500 1020 / 1260 1040 / 1160 120 / 120 Output Total 0 / 0 1 / 1 0 / 0 0 / 0 Balance 200 / 500 1019 / 1259 1040 / 1160 120 / 120 Weight 76.771 kg 75.353 kg 75.35 kg 75.75 kg Microbiology Reports for the Last 24 Hours: Microbiology 12/12/24 12:45 Transbronchial Biopsy - Biopsy Gram Stain - Final 12/12/24 12:45 Bronchial Washings - Bronchial Gram Stain - Final 12/12/24 12:45 Transbronchial Biopsy - Biopsy - Final Not Reportable 12/12/24 12:45 Transbronchial Biopsy - Biopsy - Final Not Reportable 12/12/24 12:45 Transbronchial Biopsy - Biopsy - Final Not Reportable 12/12/24 12:45 Transbronchial Biopsy - Biopsy - Final Not Reportable 12/12/24 12:45 Transbronchial Biopsy - Biopsy - Final Not Reportable 12/12/24 12:45 Transbronchial Biopsy - Biopsy - Final Not Reportable 12/12/24 12:45 Transbronchial Biopsy - Biopsy - Final Not Reportable 12/12/24 12:45 Transbronchial Biopsy - Biopsy AFB Susceptibility Moxifloxacin - Final Not Reportable 12/12/24 12:45 Transbronchial Biopsy - Biopsy - Final Not Reportable 12/12/24 12:45 Transbronchial Biopsy - Biopsy - Final Not Reportable 12/12/24 12:45 Transbronchial Biopsy - Biopsy - Final Not Reportable 12/12/24 12:45 Transbronchial Biopsy - Biopsy Microbiology Comment - Final Not Reportable The patient's infection will respond to the chosen ABx?: Yes (BRONCHIAL WASHINGS/BIOPSY PENDING) Is the patient receiving the right drug, dose, and route?: Yes Could a more targeted ABx be ordered?: No How long ABx needed (days)?: 7
[2024-12-13] MEDS: guaiFENesin 600 MG TAB.ER.12H PO (09:20)
[2024-12-13] MEDS: IRBESARTAN 150MG TAB 150 MG PO (09:20)
[2024-12-13] MEDS: DIVALPROEX 500MG (Delayed-Release) TABLET 500 MG PO (09:21)
[2024-12-13] MEDS: FERROUS SULFATE 325MG TABLET 325 MG PO (09:21)
[2024-12-13] MEDS: ENOXAPARIN 30MG/0.3ML SYRINGE 30 MG SUBCUT (09:21)
[2024-12-13] MEDS: BUMETANIDE 1 MG TABLET 2 MG PO (09:21)
[2024-12-13] MEDS: SPIRONOLACTONE 25MG TABLET 25 MG PO (09:21)
[2024-12-13] MEDS: NIFEdipine XL 30MG TABLET 60 MG PO (09:22)
[2024-12-13] MEDS: cloNIDine 0.1MG TABLET 0.3 MG PO (09:22)
[2024-12-13] MEDS: HYDRALAZINE HCL 25MG TABLET 50 MG PO (09:22)
[2024-12-13] MEDS: CARVEDILOL 12.5MG TABLET 12.5 MG PO (09:23)
--- NOTE | 2024-12-13 09:36 | P.PN_ITS ---
Subjective *Date: 12/13/24 *Time: 11:32 Interval history: No acute respiratory vents overnight. Patient admits improving respiratory symptoms Pulmonology Exam Inpatient Vital signs and Labs for Last 24 Hours: Temp Pulse Resp BP Pulse Ox O2 Del Method O2 Flow Rate 97.8 F 70 16 151/64 H 90 L Nasal Cannula 1 12/13/24 07:42 12/13/24 08:00 12/13/24 07:42 12/13/24 07:42 12/13/24 07:42 12/13/24 07:42 12/13/24 07:42 Laboratory Results - last 24 hr 12/12/24 11:25: POC Glucose 92 12/12/24 20:44: POC Glucose 305 H* 12/12/24 20:46: POC Glucose 179 H Temp Pulse Resp BP Pulse Ox O2 Del Method O2 Flow Rate 98.1 F 70 22 188/72 H 94 L Nasal Cannula 1 12/11/24 11:57 12/11/24 11:57 12/11/24 11:57 12/11/24 11:57 12/11/24 11:57 12/11/24 11:57 12/11/24 11:57 Laboratory Results - last 24 hr 12/10/24 17:22: WBC 6.7, RBC 3.14 L, Hgb 9.3 L, Hct 30.1 L, MCV 95.9, MCH 29.6, MCHC 30.9 L, RDW 19.0 H, Plt Count 141 L, MPV 10.1, Neut % (Auto) 40.7, Lymph % (Auto) 37.1, [place] % (Auto) 9.2, Eos % (Auto) 11.6, Baso % (Auto) 0.9, Neut # (Auto) 2.7, Lymph # (Auto) 2.5, [place] # (Auto) 0.6, Eos # (Auto) 0.8 H, Baso # (Auto) 0.1, Total Counted 100, Neutrophils % (Manual) 38 L, Lymphocytes % (Manual) 50, Monocytes % (Manual) 6, Eosinophils % (Manual) 6 H, Platelet Estimate Normal, RBC Morphology Not Reportable, Hypochromasia 1+, Anisocytosis 2+, Sodium 143, Potassium 3.5, Chloride 115 H, Carbon Dioxide 23, Anion Gap 8.5, BUN 26 H, Creatinine 2.20 H, Estimated Creat Clear 24, Estimated GFR 21 L, Est GFR ( Amer) 26 L, Glucose 95, Lactate 0.7, Calcium 9.2, Total Bilirubin 0.2, AST 27, ALT 11 L, Alkaline Phosphatase 73, Troponin I 0.02, Total Protein 6.6, Albumin 3.2 L, Globulin 3.4 H, Albumin/Globulin Ratio 0.9 L 12/10/24 18:19: SARS-CoV-2 (PCR) Not detected, Influenza A Untype (PCR) Not detected, Influenza Type B (PCR) Not detected 12/11/24 06:13: POC Glucose 87 12/11/24 11:38: POC Glucose 114 H I & O for Labs for Last 24 Hours: Intake & Output 12/10/24 12/11/24 12/12/24 12/13/24 23:59 23:59 23:59 23:59 Intake Total 200 / 500 1020 / 1260 1040 / 1160 390 / 390 Output Total 0 / 0 1 / 1 0 / 0 0 / 0 Balance 200 / 500 1019 / 1259 1040 / 1160 390 / 390 Weight 169 lb 4 oz 166 lb 2 oz 166 lb 1.893 oz 167 lb Intake & Output 12/08/24 12/09/24 12/10/24 12/11/24 23:59 23:59 23:59 23:59 Intake Total 200 / 500 540 / 540 Output Total 0 / 0 1 / 1 Balance 200 / 500 539 / 539 Weight 169 lb 4 oz 166 lb 2 oz Microbiology Reports for the Last 24 Hours: Microbiology 12/12/24 12:45 Transbronchial Biopsy - Biopsy Gram Stain - Final 12/12/24 12:45 Bronchial Washings - Bronchial Gram Stain - Final 12/12/24 12:45 Transbronchial Biopsy - Biopsy - Final Not Reportable 12/12/24 12:45 Transbronchial Biopsy - Biopsy - Final Not Reportable 12/12/24 12:45 Transbronchial Biopsy - Biopsy - Final Not Reportable 12/12/24 12:45 Transbronchial Biopsy - Biopsy - Final Not Reportable 12/12/24 12:45 Transbronchial Biopsy - Biopsy - Final Not Reportable 12/12/24 12:45 Transbronchial Biopsy - Biopsy - Final Not Reportable 12/12/24 12:45 Transbronchial Biopsy - Biopsy - Final Not Reportable 12/12/24 12:45 Transbronchial Biopsy - Biopsy AFB Susceptibility Moxifloxacin - Final Not Reportable 12/12/24 12:45 Transbronchial Biopsy - Biopsy - Final Not Reportable 12/12/24 12:45 Transbronchial Biopsy - Biopsy - Final Not Reportable 12/12/24 12:45 Transbronchial Biopsy - Biopsy - Final Not Reportable 12/12/24 12:45 Transbronchial Biopsy - Biopsy Microbiology Comment - Final Not Reportable Constitutional: Present moderate distress Head: Present normocephalic and atraumatic ENT: Present normal exam, normal oropharynx and mucous membranes moist Neck: Present normal inspection and full ROM Respiratory: Present rhonchi, diminished air movement and able to speak in complete sentences Cardiac: Present S1/S2, Tachycardia and radial pulses present GI: Present soft and distention; Absent tenderness or guarding Rectal (female): Present deferred (female): Present deferred Skin: Present intact; Absent cyanosis or jaundice Neuro: Present alert, awake and oriented x 3 Extremities: Present normal inspection; Absent clubbing or cyanosis Psychiatric: Present normal affect and cooperative Assessment and Plan *Assessment and plan (1) Pneumonia: Status: Acute Category: Medical Code(s): J18.9 - Pneumonia, unspecified organism (2) Lesion of bronchus: Status: Acute Category: Medical Code(s): J98.09 - Other diseases of bronchus, not elsewhere classified (3) Acute respiratory failure with hypoxemia: Status: Acute Category: Medical Code(s): J96.01 - Acute respiratory failure with hypoxia Plan Ms. Johnson is a 84-year-old female around [id number] smoking last month greater than 40 years ago, hypertension, CKD, diabetes mellitus, pace maker for sick sinus syndrome, sleep apnea presented to the ER with worsening respiratory distress and pulmonary was called for further evaluation and management. She also had a prior history of intracranial hemorrhage in 2020 and subdural hematoma in 2024. Patient admits continued nonresolving cough with scant productive phlegm for the last [address] scan on this admission concerning right lower lobe endobronchial lesion with pinhole opening at the concerning for endobronchial mass/mucous plugging. Her CT scan from September did not show any such lesions which makes it mucous plugging more likely than endobronchial mass however cannot completely ruled out. This is less likely to be fluid in the right lower lobe bronchus. She also had left lower lobe consolidative changes likely concerning for postobstructive pneumonia. Interval update: No acute respiratory events overnight. Status post bronchoscopy. Continue to receive ceftriaxone azithromycin. Improving oxygen requirements. Patient admits improving respiratory symptoms. Plan: Continue oxygen supplementation as needed to maintain O2 saturation goal of 90% and above Continue ceftriaxone and azithromycin pending BAL and TB BX culture result, antibiotics can be weaned to cefdinir upon discharge at 300 mg twice daily to complete a total of 7-day course Continue DuoNebs 3 times daily along with flutter valve 3 times a day upon discharge Will follow the patient in pulmonary clinic 1 to 2 weeks post discharge Thank you for involving pulmonary in this patient care. Patient can be discharged from pulmonary standpoint with above recommendations. Will follow in pulmonary clinic 1 to 2 weeks post discharge
[2024-12-13 10:21] LABS: POC Glucose,Bedside 95 (70-110)
[2024-12-13 11:27] LABS: POC Glucose,Bedside 142 (70-110)
[2024-12-13 12:16] LABS: Basophils # 0.1 K/mm3 (0-0.2); Basophils % 0.6 % (0.1-2.0); Eosinophils # 0.2 Kmm3 (0.0-0.4); Eosinophils % 2.2 % (0.1-12.0); Hematocrit 28.6 % (37.0-47.0); Hemoglobin 8.8 g/dL (12.2-16.2); Immature Granulocytes # 0.03 10^3uL; Immature Granulocytes % 0.4 %; Lymphocytes # 2.5 K/mm3 (0.7-4.5); Lymphocytes % 32.2 % (10-50); Mean Corpuscular HGB Conc 30.8 g/dL (31.8-35.4); Mean Corpuscular Volume 97.6 fl (81-99); Mean Platelet Volume 10.4 fl (7.4-10.4); Monocytes # 0.7 K/mm3 (0.1-1.0); Monocytes % 8.5 % (1.7-9.3); Neutrophils # 4.4 K/mm3 (1.8-7.8); Neutrophils % 56.1 % (37.0-80.0); Nucleated Red Blood Cells # 0 10^3/uL; Nucleated Red Blood Cells % 0 %; Platelet Count 157 K/mm3 (142-424); Red Blood Count 2.93 M/mm3 (4.20-5.40); Red Cell Distribution Width 18.6 % (11.5-17.5); Red Cell Distribution Width-SD 66.6 fL; White Blood Count 7.9 K/mm3 (4.8-10.8)
[2024-12-13 12:21] LABS: Chloride 113 mmol/L (98-107); Sodium 141 mmol/L (136-145)
[2024-12-13 12:22] LABS: Potassium 3.5 mmoL/L (3.5-5.1)
[2024-12-13 12:24] LABS: Blood Urea Nitrogen 29 mg/dl (7-17); Creatinine Clearance Estimated 20 mL/min (50-200); Estimated Glomerular Filt Rate 18 ml/min (>60); GFR (African American) 22 ML/MIN (>60)
[2024-12-13 12:25] LABS: Anion Gap 5.5 mEq/L (5-15); Calcium 8.6 mg/dl (8.4-10.2); Carbon Dioxide 26 mmol/L (22.0-30.0); Glucose 112 mg/dl (74-100)
--- NOTE | 2024-12-13 13:40 | P.PNANES_ITS ---
[facility] Anesthesia Record Part II Anesthesia Record Part II Discharge Time: 13:45 Destination: Medical Surgical Department PACU nurse assessment reviewed?: Yes Patient Condition:: Good Anesthesia Complications:: None Swallowing reflex intact?: Yes Airway Patency: Patent Cyanosis?: No Blood Pressure: 182/87 SaO2: 98 Respiratory Rate: 16 Pulse Rate: 79 Temperature: 98 F Mental Status: Alert & Oriented Pain level:: 0 Nausea and/or vomitting:: None Intake, IV Amount: 0 Hydration: Adequate
[2024-12-13] MEDS: AZITHROMYCIN 250MG TABLET 500 MG PO (14:41)
--- NOTE | 2024-12-14 10:38 | SW/DCPLANNER ---
Spoke with patient's on the phone. Patient's stated that she is doing okay. Patient's stated that he is aware of her upcoming appointments and that he called the ice house supervisor and they are going to call him back with a time. Patient's stated that he has no concerns or questions at this time. Vicky Isaacs
--- NOTE | 2024-12-16 23:45 | EXP.DC.SUM ---
General Admission date:: 12/10/24 Discharge date: 12/13/24 HPI HPI HPI: Ms. Johnson is an 84-year-old female with a history of hypertension, type 2 diabetes mellitus, chronic kidney disease stage IV, sleep apnea on CPAP, gout, edema, valvular heart disease, history of intracranial hemorrhage on 08/2020. And status post PPM for sick sinus syndrome, CVA, and hypertension. Who presented to [facility] for a visit after experiencing 1 and 1/2 weeks of decline with congestive cough despite using DuoNebs and inhalers, and altered mental status, and leg edema,. Also to note she suffered a subdural hematoma on 10/14/2024 and had a mini craniotomy with evacuation of the hematoma at and then was at [place] for several weeks. At this time she also had a pneumonia. Cognitive function improved and she was doing well at home until a week and a half ago. Cognitive function again declined. She presented with her and daughter who provide/assist with all of her care. Her daughter keeps a chart. Blood sugars, blood pressure and heart rate and noted to be good. With physical exam during this office visit she was noted to have a very congested cough with a noisy chest consisting of wheezing and crackles. Blood pressure was 130/70 with a heart rate of 78 and O2 sats of 98%. CBC showed a white blood cell count of 7700 with a hemoglobin of 9.2 and hematocrit of 29.2. Heart sounds revealed a prominent high-pitched aortic murmur. Also noted was 3+ leg edema. Thus she was admitted with diastolic congestive heart failure, pneumonia, for further evaluation and treatment. Currently patient is taking Bumex 2 mg daily, valsartan 160 mg nightly, Januvia 25 mg nightly, nifedipine 60 mg twice daily, hydralazine 50 mg 2 times a day, Farxiga 10 mg daily, clonidine 0.3 mg 2 times daily, divalproex 500 mg twice daily for seizures, allopurinol 100 mg daily, thyroid medicine 100 mg micrograms daily, carvedilol 12.5 mg twice daily and atorvastatin 40 mg nightly. This is from the recent list brought in by her daughter today. Hospital Course Hospital Course Hospital Course: The patient was admitted and an echo, CTA of the chest, and pulmonary and cardiology consults were all ordered. She was started on 40 mg of IV Lasix for diuresis and continued on Bumex 2 mg daily. Pneumonia protocol was ordered with DuoNebs, Rocephin, and Zithromax. Her chest x-ray showed a small right pleural effusion and a right middle lobe infiltrate. She was started on chest physiotherapy and guaifenesin. She was seen by cardiology and they increased her Bumex from 2 mg daily to twice a day and added nifedipine 60 mg and spironolactone 25 mg daily. She was seen by pulmonology who felt her CT scan was concerning for a right lower lobe endobronchial lesion with pinhole opening concerning for endobronchial mass/mucous plugging. He wanted her continued on oxygen as well as antibiotics. He wanted her to have DuoNebs and Mucomyst 3 times daily along with chest percussion therapy. He scheduled her for a bronchoscopy with transbronchial biopsy. The patient was feeling a little bit better by 12/12/2024. She was finally able to cough up some sputum. She was taken to the OR on 12/12/2024 and had a bronchoscopy with airway examination, bronchialveolar lavage, and a transbronchial and endobronchial lung biopsy. Copious amounts of thick mucoid secretions were noted in the right lower lobe and left lower lobe bronchi which were suctioned. By 12/13/2024, the patient was feeling better and had less shortness of breath. She did have some pain in the right side of her chest post procedure. She was seen by pulmonology again and it was felt she was stable to be discharged home with DuoNebs, a flutter valve 3 times daily, and home oxygen. She will also be continued on cefdinir 300 mg twice daily for 1 week and will follow-up with Dr. Lovell and pulmonology. Exam Data for Last 24 hours Vital signs and Labs for Last 24 Hours: Temp Pulse Resp BP Pulse Ox O2 Del Method O2 Flow Rate 97.9 F 64 16 156/58 H 88 L Nasal Cannula 1 12/13/24 11:39 12/13/24 11:39 12/13/24 13:41 12/13/24 11:39 12/13/24 12:34 12/13/24 13:00 12/13/24 13:00 I & O for Last 24 hours: Intake & Output 12/14/24 12/15/24 12/16/2425 11:59 11:59 11:59 11:59 Intake Total 240 / 240 Balance 240 / 240 Microbiology Reports for the Last 24 Hours: Microbiology 12/12/24 12:45 Transbronchial Biopsy - Biopsy Gram Stain - Final 12/12/24 12:45 Transbronchial Biopsy - Biopsy Surgical Biopsy Culture - Preliminary NO GROWTH AFTER 4 DAYS Narrative: Exam Constitutional Constitutional: mild distress *Routine HEENT Exam Head: Present normocephalic and atraumatic Eye: Present PERRL; Absent conjunctival icterus, scleral injection or conjunctivae pink ENT: Present mucous membranes moist, oropharynx clear and TM's clear bilaterally *Routine Neck Exam Neck: Present supple; Absent carotid bruit, lymphadenopathy or thyromegaly *Routine Respiratory Exam Respiratory: Present rhonchi, wheezes and crackles *Routine Cardiovascular Exam Cardiovascular: Present RRR and Normal S2 *Routine Abdominal Exam Abdominal: Present soft and normoactive bowel sounds; Absent tenderness or distended *Routine Rectal Exam Rectal:: deferred *Routine Genitalia Exam Genitalia:: deferred *Routine Extremities Exam Extremities: Present edema (Has support stockings on); Absent calf tenderness *Routine Neurological Exam Neurological: Present alert and oriented X3 Results Data Completed and Pending Labs on day of discharge: Preliminary micro results at discharge 12/12/24 12:45 Surgical Biopsy Culture - Preliminary Transbronchial Biopsy - Biopsy NO GROWTH AFTER 4 DAYS DS: Diagnosis Discharge Diagnosis (1) Pneumonia: Status: Acute Code(s): J18.9 - Pneumonia, unspecified organism (2) Lesion of bronchus: Status: Acute Code(s): J98.09 - Other diseases of bronchus, not elsewhere classified (3) Acute respiratory failure with hypoxemia: Status: Acute Code(s): J96.01 - Acute respiratory failure with hypoxia Meds Home Medications and Allergies Home Medications ?Medication ?Instructions ?Recorded ?Confirmed ?Type atorvastatin 40 mg tablet 40 mg PO DAILY 08/07/21 12/10/24 History nifedipine 60 mg tablet,extended 60 mg PO BID 04/12/22 12/10/24 History release allopurinol 100 mg tablet 100 mg PO HS 04/18/23 12/10/24 History cholecalciferol (vitamin D3) 25 2,000 unit PO HS 04/18/23 12/10/24 History mcg (1,000 unit) capsule dapagliflozin propanediol 10 mg 10 mg PO DAILY 04/18/23 12/10/24 History tablet (Farxiga) blood sugar diagnostic (OneTouch #10 ea 05/08/24 12/10/24 History Ultra Test strips) carvedilol 12.5 mg tablet 12.5 mg PO BID 12/10/24 12/10/24 History clonidine HCl 0.3 mg tablet 0.3 mg PO TID 12/10/24 12/11/24 History divalproex 500 mg tablet,delayed 500 mg PO BID 12/10/24 12/10/24 History release hydralazine 50 mg tablet 50 mg PO BID 12/10/24 12/10/24 History valsartan 160 mg tablet 160 mg PO HS 12/10/24 12/10/24 History levothyroxine 100 mcg tablet 100 mcg PO DAILY 12/11/24 12/11/24 History (Synthroid) potassium chloride 20 mEq 20 meq PO DAILY 12/11/24 12/11/24 History tablet,extended release(part/cryst) (Klor-Con M) sitagliptin phosphate 25 mg tablet 25 mg PO HS 12/11/24 12/11/24 History (Januvia) bumetanide 2 mg tablet 2 mg PO BID #60 tabs 12/13/24 12/10/24 Rx cefdinir 300 mg capsule 300 mg PO BID #14 caps 12/13/24 Rx ferrous sulfate 325 mg (65 mg 325 mg PO DAILY #90 tabs 12/13/24 Rx iron) tablet guaifenesin 600 mg tablet, 600 mg PO BID #60 tabs 12/13/24 Rx extended release 12 hr (Mucinex) ipratropium 0.5 mg-albuterol 3 mg 3 ml inhalation TIDRT #90 mL 12/13/24 Rx (2.5 mg base)/3 mL nebulization soln spironolactone 25 mg tablet 25 mg PO DAILY #30 tabs 12/13/24 Rx New Prescriptions to Start Prescriptions: cefdinir Kary Dietz ferrous sulfate Kary Dietz guaifenesin [Mucinex] Kary Dietz ipratropium-albuterol Kary Dietz spironolactone Kary Dietz Allergies Allergy/AdvReac Type Severity Reaction Status Date / Time Sulfa (Sulfonamide Allergy Mild Verified 05/29/24 13:06 Antibiotics) Discharge Plan Disposition Patient Disposition: Home Health Service Condition: Fair Discharge Order Discharge Orders: Discharge Order (Routine); Ordered 12/13/24 Ordered By: Kary Dietz Follow up Plan Follow up with: Robby Figueroa MD [Staff Physician] - 12/25/24 10:30 am Sergio Crocker MD [Physician] - 12/24/24 (Please call office for appointment) Prescriptions/Medication Reconciliation: New guaifenesin [Mucinex] 600 mg Tablet Extended Release 12hr 600 mg PO BID Qty: 60 2RF ferrous sulfate 325 mg (65 mg iron) Tablet 325 mg PO DAILY Qty: 90 2RF ipratropium-albuterol 0.5 mg-3 mg(2.5 mg base)/3 mL Solution For Nebulization 3 ml inhalation TIDRT Qty: 90 2RF spironolactone 25 mg Tablet 25 mg PO DAILY Qty: 30 2RF cefdinir 300 mg capsule 300 mg PO BID Qty: 14 1RF Continued nifedipine 60 mg tablet extended release 60 mg PO BID allopurinol 100 mg tablet 100 mg PO HS Farxiga 10 mg tablet 10 mg PO DAILY cholecalciferol (vitamin D3) 25 mcg (1,000 unit) capsule 2,000 unit PO HS atorvastatin 40 MG tablet 40 mg PO DAILY hydralazine 50 mg tablet 50 mg PO BID valsartan 160 mg tablet 160 mg PO HS carvedilol 12.5 mg tablet 12.5 mg PO BID clonidine HCl 0.3 mg tablet 0.3 mg PO TID divalproex 500 mg tablet,delayed release (DR/EC) 500 mg PO BID levothyroxine [Synthroid] 100 mcg tablet 100 mcg PO DAILY potassium chloride [Klor-Con M20] 20 mEq tablet,ER particles/crystals 20 meq PO DAILY Januvia 25 mg tablet 25 mg PO HS Changed bumetanide 2 mg tablet 2 mg PO BID Qty: 60 2RF No Action (DME) OneTouch Ultra Test Strip See Rx Instructions .ROUTE .MEDSUPPLY Qty: 10 Patient Comments: USE 1 STRIP TO CHECK GLUCOSE THREE TIMES DAILY Rx Instructions: As directed Problem Reconciliation Problems Reviewed?: Yes Patient Discharge Instructions ACTIVITY: Limited activity Patient Instructions: DI for Pneumonia -- Adult, DI for Respiratory Failure, Stop Light Pneumonia, Tips for Adding Protein - Diet, Stop Light Heart Failure Print Language: Slovak Providers Primary Care Provider: Kary Dietz Admit Provider: Kary Dietz Attending Provider: Kary Dietz
== END 2024-12-13 14:58 | disposition home health service (06) | DRG 166 ==
PROVIDERS: Internal Medicine Pulmonary Disease; Nurse Practitioner Family; Admitting Provider Family Medicine; PCP Family Medicine; Visit Provider Family Medicine
PROC: 0B9F8ZX Drainage of Right Lower Lung Lobe, Via Natural or Artificial Opening Endoscopic, Diagnostic (ICD-10-PCS; principal; 2024-12-12 12:00)
DX: J18.9 Pneumonia, unspecified organism (principal); I50.33 Acute on chronic diastolic (congestive) heart failure; J96.01 Acute respiratory failure with hypoxia; I13.0 Hypertensive heart and chronic kidney disease with heart failure and stage 1 through stage 4 chronic kidney disease, or unspecified chronic kidney disease; N18.4 Chronic kidney disease, stage 4 (severe); J90 Pleural effusion, not elsewhere classified; E11.22 Type 2 diabetes mellitus with diabetic chronic kidney disease; I25.10 Atherosclerotic heart disease of native coronary artery without angina pectoris; I35.0 Nonrheumatic aortic (valve) stenosis; K30 Functional dyspepsia; G47.33 Obstructive sleep apnea (adult) (pediatric); Z95.0 Presence of cardiac pacemaker; Z87.891 Personal history of nicotine dependence; Z88.2 Allergy status to sulfonamides; Z86.79 Personal history of other diseases of the circulatory system; Z95.5 Presence of coronary angioplasty implant and graft; Z87.39 Personal history of other diseases of the musculoskeletal system and connective tissue; Z80.9 Family history of malignant neoplasm, unspecified; Z79.890 Hormone replacement therapy; Z79.899 Other long term (current) drug therapy
CPT/HCPCS: 36415; 70450; 71045; 71046; 71250; 80048; 80053; 82962; 83605; 84484; 85007; 85025; 87070; 87102; 87116; 87186; 87205; 87206; 87636; 88112; 88305; 88312; 89051; 93005; 93306; 94640; 94668; 94761; 97116; 97163; 97166; 97530; 97535; J0456; J0696; J1100; J1650; J1938; J2405; J3010; J7050

== ENCOUNTER 2024-12-20 12:34 | Outpatient (CLI) | payer MEDICARE, SELFPAY ==
--- NOTE | 2024-12-20 12:37 | XR_ITS ---
FINAL REPORT CLINICAL HISTORY: SOB COMPARISON: 12/12/2024 FINDINGS: No acute pulmonary density is evident. There is a small right pleural effusion. The mediastinum has a normal appearance. The cardiac silhouette is unremarkable. Left-sided pacemaker is identified. IMPRESSION: Small right pleural effusion. Reviewed, Interpreted and Dictated by Kary Berry MD Transcribed by Clover James Authenticated and [facility]
== END 2024-12-20 23:59 | disposition home or self-care (01) ==
LOC: RAD 12:35
PROVIDERS: PCP Family Medicine; Visit Provider Internal Medicine Pulmonary Disease
DX: J90 Pleural effusion, not elsewhere classified (principal)
CPT/HCPCS: 71046

== ENCOUNTER 2024-12-28 13:58 | Outpatient (CLI) | payer MEDICARE, SELFPAY ==
--- OUTSIDE RECORDS SUMMARY | 2024-12-24 05:44 | XMS_ITS | Continuity of Care Document ---
Author Organization [facility] Phone Care Team Providers Care Reed [employer]airer Name Role Phone JONEL BROWN Unavailable JONEL BROWN Primary Attending [phone] DECLINED, PCP Primary Care Unavailable JONEL BROWN Admitting [phone] RESULTS Patient: NEL HARDY Date of : 1940 7 LABORATORY RESULTS ORDER 100: CBC AUTO W DIFF ( LOINC: 27125-9) ORDER DATE: December 20, 2024 2:23:00 PM UTC Specimen Source: Whole Blood Specimen Type: Whole blood s ample PERFORMING LAB: [address] [id number] Result Comment: Final Result Date: December 20, 2024 2:36:00 PM UTC (TECH: MRB) LOINC TEST FLAG RESULT REFERENCE RANGE UPDA VENU BY 6690-2 Leukocytes [#/volume] in Blood by Automated count N 8.4 10^3/uL 4.5 10^3/uL - 11.5 10^3/uL December 20, 2024 2:36:00 PM UTC (TECH: MRB) 789-8 Erythrocytes [#/volume] in Blood by Automated count L 3.06 10^6/uL 4.25 10^6/uL - 5.57 10^6/uL December 20, 2024 2:36:00 PM UTC (TECH: MRB) 718-7 Hemoglobin [Mass/volume] in Blood L 9.3 g/dL 12.0 g/dL - 15.7 g/dL December 20, 2024 2:36:00 PM UTC (TECH: MRB) 49525-5 Hematocrit [Volume Fraction] of Blood L 29.2 % 36.0 % - 47.0 % December 20, 2024 2:36:00 PM UTC (TECH: MRB) 787-2 Erythrocyte mean corpuscular volume [Entitic volume] by Automated count H 95.4 fl 80 fl - 95 fl December 20, 2024 2:36:00 PM UTC (TECH: MRB) 16578-5 Erythrocyte mean corpuscular hemoglobin [Entitic mass] in Blood from [place] by Automated count N 30.4 pg 27.0 pg - 34.0 pg December 20, 2024 2:36:00 PM UTC (TECH: MRB) 86063-2 Erythrocyte mean corpuscular hemoglobin concentration [Mass/volume] in Blood from [place] by Automated count L 31.8 g/dL 32.0 g/dL - 36.0 g/dL December 20, 2024 2:36:00 PM UTC (TECH: MRB) 51637-6 Platelets [#/volume] in Blood N 170 10^3/uL 150 10^3/uL - 450 10^3/uL December 20, 2024 2:36:00 PM UTC (TECH: MRB) 99832-1 Erythrocyte distribution width [Ratio] H 18.0 % 12.3 % - 15.1 % December 20, 2024 2:36:00 PM UTC (TECH: MRB) 62097-6 Platelet mean volume [Entitic volume] in Blood by Automated count H 11.0 fl 7.4 fl - 10.4 fl December 20, 2024 2:36:00 PM UTC (TECH: MRB) 76733-6 Granulocytes/100 leukocytes in Blood by Automated count N 56.3 % 40 % - 75 % December 20, 2024 2:36:00 PM UTC (TECH: MRB) 736-9 Lymphocytes/100 leukocytes in Blood by Automated count N 22.8 % 15 % - 57 % December 20, 2024 2:36:00 PM UTC (TECH: MRB) 5905-5 Monocytes/100 leukocytes in Blood by Automated count N 9.2 % 4.0 % - 12.0 % December 20, 2024 2:36:00 PM UTC (TECH: MRB) 713-8 Eosinophils/100 leukocytes in Blood by Automated count H 11.0 % 0.0 % - 4.0 % December 20, 2024 2:36:00 PM UTC (TECH: MRB) 706-2 Basophils/100 leukocytes in Blood by Automated count N 0.6 % 0.0 % - 1.0 % December 20, 2024 2:36:00 PM UTC (TECH: MRB) 21961-5 Immature granulocytes [#/volume] in Blood N 0.1 % 0.0 % - 0.8 % December 20, 2024 2:36:00 PM UTC (TECH: MRB) 31396-6 Granulocytes [#/volume] in Blood by Automated count N 4.70 10^3/uL December 20, 2024 2:36:00 PM UTC (TECH: MRB) 731-0 Lymphocytes [#/volume] in Blood by Automated count N 1.91 10^3/uL December 20, 2024 2:36:00 PM UTC (TECH: MRB) 742-7 Monocytes [#/volume] in Blood by Automated count N 0.77 10^3/uL December 20, 2024 2:36:00 PM UTC (TECH: MRB) 711-2 Eosinophils [#/volume] in Blood by Automated count N 0.92 10^3/uL December 20, 2024 2:36:00 PM UTC (TECH: MRB) 704-7 Basophils [#/volume] in Blood by Automated count N 0.05 10^3/uL December 20, 2024 2:36:00 PM UTC (TECH: MRB) 89641-1 Immature granulocytes [#/volume] in Blood N 0.01 10^3/uL December 20, 2024 2:36:00 PM UTC (TECH: MRB) 19989-6 Manual differential performed [Presence] in Blood N NO December 20, 2024 2:36:00 PM UTC (TECH: MRB) ORDER 200: COMP METABOLIC PA IVY (LOINC: 87843-0) ORDER DATE: December 20, 2024 2:23:00 PM UTC Specimen Source: Serum/Plasm a Specimen Type: Acellular blo od (serum or plasma) specimen PERFORMING LAB: [address] [id number] Result Comment: Final Result Date: December 20, 2024 2:54:00 PM UTC (TECH: LT) LOINC TEST FLAG RESULT REFERENCE RANGE UPDA VENU BY 2951-2 Sodium [Moles/volume ] in Serum or Plasma N 141 mmol/L 136 mmol/L - 145 mmol/L December 20, 2024 2:54:00 PM UTC (TECH: LT) 2823-3 Potassium [Moles/vol ume] in Serum or Plasma L 3.3 mmol/L 3.5 mmol/L - 5.1 mmol/L December 20, 2024 2:54:00 PM UTC (TECH: LT) 2075-0 Chloride [Moles/volu me] in Serum or Plasma H 108 mmol/L 98 mmol/L - 107 mmol/L December 20, 2024 2:54:00 PM UTC (TECH: LT) 2027-9 Carbon dioxide, tota l [Moles/volume] in Serum or Plasma N 26 mmol/L 21 mmol/L - 32 mmol/L December 20, 2024 2:54:00 PM UTC (TECH: LT) 55313-0 Anion gap 3 in Serum or Plasma N 7.0 December 20, 2024 2:54:00 PM UTC (TECH: LT) 2345-7 Glucose [Mass/volume ] in Serum or Plasma N 97 mg/dL 70 mg/dL - 110 mg/dL December 20, 2024 2:54:00 PM UTC (TECH: LT) 3094-0 Urea nitrogen [Mass/volume] in Serum or Plasma H 37 mg/dL 7 mg/dL - 18 mg/dL December 20, 2024 2:54:00 PM UTC (TECH: LT) 2160-0 Creatinine [Mass/vol ume] in Serum or Plasma H 2.3 mg/dL 0.6 mg/dL - 1.0 mg/dL December 20, 2024 2:54:00 PM UTC (TECH: LT) 3097-3 Urea nitrogen/Creati nine [Mass Ratio] in Serum or Plasma N 16.1 9 - December 20, 2024 2:54:00 PM UTC (TECH: LT) 85230-8 Glomerular filtratio n rate/1.73 sq M.predicted by Creatinine-based formula (MDRD) L 21 mL/min >60 December 20, 2024 2:54:00 PM UTC (TECH: LT) 97595-6 Osmolality of Serum or Plasma by calculated by sum of electrolytes H 302 mosm/kg 275 mosm/kg - 301 mosm/kg December 20, 2024 2:54:00 PM [place] (TECH: LT) 2885-2 Protein [Mass/volume ] in Serum or Plasma N 6.7 g/dL 6.4 g/dL - 8.2 g/dL December 20, 2024 2:54:[address] [facility] (TECH: LT) 1751-7 Albumin [Mass/volume ] in Serum or Plasma L 2.2 g/dL 3.4 g/dL - 5.0 g/dL December 20, 2024 2:54:[address] [facility] (TECH: LT) 49543-6 Calcium [Mass/volume ] in Serum or Plasma N 9.3 mg/dL 8.5 mg/dL - 10.1 mg/dL December 20, 2024 2:54:[address] [facility] (TECH: LT) 04475-7 Calcium [Mass/volume ] corrected for total protein in Serum or Plasma H 10.7 mg/dL 8.5 mg/dL - 1 0.1 mg/dL December 20, 2024 2:54:[address] [facility] (TECH: LT) 1975-2 Bilirubin.total [Mass/volume] in Serum or Plasma L 0.3 mg/dL 0.4 mg/dL - 1.5 mg/dL December 20, 2024 2:54:[address] [facility] (TECH: LT) 1920-8 Aspartate aminotrans ferase [Enzymatic activity/volume] in Serum or Plasma N 27 U/L 15 U/L - 37 U/L December 20, 2024 2:54:[address] [facility] (TECH: LT) 1742-6 Alanine aminotransfe rase [Enzymatic activity/volume] in Serum or Plasma L 8 U/L 12 U/L - 78 U/L December 20, 2024 2:54:[address] [facility] (TECH: LT) 6768-6 Alkaline phosphatase [Enzymatic activity/volume] in Serum or Plasma N 69 U/L 53 U/L - 141 U/L December 20, 2024 2:54:[address] [facility] (TECH: LT) LABORATORY NARRATIVE RESULTS Information is not available RADIOLOGY RESULTS Information is not available PATHOLOGY NARRATIVE RESULTS Information is not available MICROBIOLOGY RESULTS No Micro Labs/Results Exist for Patient BLOOD ADMIN RESULTS Information is not available MEDICATIONS HOME MEDICATIONS Status RXNORM NDC Medication Dose Route Frequency Dates Comments Reported By Updated By Drug Treatment Unknown DISCHARGE MEDICATIONS Status RXNORM NDC Medication Dose Route Frequency Dates Comments Physician Updated By No Discharge Medication Info rmation Available INPATIENT MEDICATIONS Status RXNORM NDC Medication Dose Route Frequency Rat e Quantity Dates Comments Physician Updated By No Inpatient Medication Info rmation Available SOCIAL HISTORY SOCIAL HISTORY SNOMED-CT Social History Element Description Effective Dates Offered Cessation Comment UpdatedBy [id number] Smoking Status Unknown If Ever Smoked SOCIAL HISTORY - Gender Sex: Female SOCIAL HISTORY - Status : status i nformation is not available Intention in Next Year: intention information is not available SOCIAL HISTORY - Sexual Behavior Sexual Orientation Gender Identity SNOMED-CT Description SNO MED -CT Description Activity Level No of Partners Partner Type UpdatedBy Information is not available HEALTH CONCERNS Problems Concern Status Health Concern problem infor mation not available. Smoking Status Status Years Used Consumed packs p er day Health Concern smoking histo ry information not available. Family History Concern Status Health Concern family histor y information not available. ENCOUNTERS ENCOUNTER INFORMATION Reason for Visit I12.9 Admission December 20, 2024 2:22:[address] [id number] Discharge December 20, 2024 5:38:[address] [facility] DISC HARGED TO HOME OR SELF CARE ENCOUNTER DIAGNOSES Notes information is not dalia ilable. Code System Diagnosis Onset Date Diagnosis information is not available. ABSTRACT DIAGNOSES Code System Diagnosis Updated By I12.9 ICD10 HYPERTENSIVE CHR ONIC KIDNEY DISEASE WITH STAGE 1 THROUGH STAGE 4 CHRONIC KIDNEY DISEASE, OR UNSPECIFIED CHRONIC KIDNEY DISEASE [id number] on December 24, 2024 9:43:[address] [facility] N18.9 ICD10 CHRONIC KIDNEY DISEASE, UNSP ECIFIED [id number] on December 24, 2024 9:43:[address] [facility] I12.9 ICD10 HYPERTENSIVE CHR ONIC KIDNEY DISEASE WITH STAGE 1 THROUGH STAGE 4 CHRONIC KIDNEY DISEASE, OR UNSPECIFIED CHRONIC KIDNEY DISEASE [id number] on December 24, 2024 9:43:[address] [facility] N18.9 ICD10 CHRONIC KIDNEY DISEASE, UNSP ECIFIED [id number] on December 24, 2024 9:43:[address] [facility] CARE TEAM Care [employer] Repairer Role JONEL BROWN Referring JONEL BROWN Primary Attending PCP DECLINED Primary Care JONEL BROWN Admitting CARE TEAM CARE media center specialist Role on Team Status Start Date End Date Update d By DECLINED PCP PCP normal December 20, 2024 5:20:24 PM UTC December 20, 2024 5:38:00 PM UTC [id number] on December 20, 2024 5:20:24 PM UTC STEPHANIE NEELY Referring normal December 20, 2024 5:20:24 PM UTC December 20, 2024 5:38:00 PM UTC [id number] on December 20, 2024 5:20:24 PM UTC STEPHANIE NEELY Attending normal December 20, 2024 5:20:24 PM UTC December 20, 2024 5:38:00 PM UTC [id number] on December 20, 2024 5:20:24 PM UTC STEPHANIE NEELY Admitting normal December 20, 2024 5:20:24 PM UTC December 20, 2024 5:38:00 PM UTC [id number] on December 20, 2024 5:20:24 PM UTC STEPHANIE CAICEDO MD PCP normal December 20, 2024 2:22:26 PM UTC December 20, 2024 5:20:24 PM UTC [id number] on December 20, 2024 5:20:24 PM UTC
[2024-12-28 14:50] LABS: Chloride 107 mmol/L (98-107); Potassium 4.8 mmoL/L (3.5-5.1); Sodium 139 mmol/L (136-145)
[2024-12-28 14:53] LABS: Anion Gap 9.8 mEq/L (5-15); Blood Urea Nitrogen 41 mg/dl (7-17); Calcium 9.7 mg/dl (8.4-10.2); Carbon Dioxide 27 mmol/L (22.0-30.0); Estimated Glomerular Filt Rate 19 ml/min (>60); GFR (African American) 23 ML/MIN (>60); Glucose 119 mg/dl (74-100)
[2024-12-28 17:21] LABS: Basophils # 0.1 K/mm3 (0-0.2); Basophils % 0.7 % (0.1-2.0); Eosinophils # 0.7 Kmm3 (0.0-0.4); Hemoglobin 9.6 g/dL (12.2-16.2); Immature Granulocytes # 0.03 10^3uL; Immature Granulocytes % 0.4 %; Lymphocytes # 2.8 K/mm3 (0.7-4.5); Lymphocytes % 34.3 % (10-50); Mean Corpuscular Hemoglobin 30.7 pg (27.0-31.2); Mean Corpuscular Volume 95.8 fl (81-99); Mean Platelet Volume 11.4 fl (7.4-10.4); Monocytes # 0.7 K/mm3 (0.1-1.0); Monocytes % 8.3 % (1.7-9.3); Neutrophils # 3.9 K/mm3 (1.8-7.8); Neutrophils % 47.3 % (37.0-80.0); Nucleated Red Blood Cells # 0 10^3/uL; Nucleated Red Blood Cells % 0 %; Platelet Count 171 K/mm3 (142-424); Red Blood Count 3.13 M/mm3 (4.20-5.40); Red Cell Distribution Width 17.3 % (11.5-17.5); Red Cell Distribution Width-SD 61.4 fL; White Blood Count 8.2 K/mm3 (4.8-10.8)
[2024-12-28 17:47] LABS: Chloride 108 mmol/L (98-107)
[2024-12-28 17:48] LABS: Albumin Level 3.1 g/dl (3.5-5.0); Potassium 4.8 mmoL/L (3.5-5.1); Sodium 138 mmol/L (136-145)
[2024-12-28 17:50] LABS: Blood Urea Nitrogen 39 mg/dl (7-17); Estimated Glomerular Filt Rate 18 ml/min (>60); GFR (African American) 22 ML/MIN (>60)
[2024-12-28 17:51] LABS: Anion Gap 6.8 mEq/L (5-15); Calcium 9.7 mg/dl (8.4-10.2); Carbon Dioxide 28 mmol/L (22.0-30.0); Glucose 118 mg/dl (74-100); Iron 77 ug/dL (37-170); Phosphorous 3.8 mg/dl (2.5-4.5)
[2024-12-28 18:00] LABS: Total Iron Binding Capacity 251 ug/dL (265-497)
[2024-12-28 18:26] LABS: Ferritin 42.1 ng/ml (11.1-264)
== END 2024-12-28 23:59 | disposition home or self-care (01) ==
LOC: LAB 13:59
PROVIDERS: Student in an Organized Health Care Education/Training Program; PCP Family Medicine; Visit Provider Family Medicine
DX: I12.9 Hypertensive chronic kidney disease with stage 1 through stage 4 chronic kidney disease, or unspecified chronic kidney disease (principal); N18.4 Chronic kidney disease, stage 4 (severe); D63.1 Anemia in chronic kidney disease; E78.5 Hyperlipidemia, unspecified
CPT/HCPCS: 36415; 80048; 80069; 82728; 83540; 83550; 85025

== ENCOUNTER 2025-01-04 07:50 | Outpatient (CLI) | payer MEDICARE, SELFPAY ==
[2025-01-04 08:40] VITALS: PULSE 60
[2025-01-04] MEDS: ALBUTEROL 0.083% 2.5 MG/3 ML NEB IH (08:40)
--- NOTE | 2025-01-04 09:00 | FL_ITS ---
FINAL REPORT CLINICAL HISTORY: diaphragmatic weakness ft 15sec ft 10.77 mgy FINDINGS: SNIFF TEST HISTORY: Shortness of breath. FINDINGS: A sniff test was performed. No paradoxical movement was noted with either diaphragm. There was symmetric excursion of each diaphragm. IMPRESSION: Unremarkable sniff test Fluoroscopy time: 15 seconds Radiation exposure in Reference air Kerma: 110.77 mGy Films reviewed , interpreted and dictated by Dr. Lisa Fuentes. Transcribed by Rolando Villegas PA-C. Reviewed, Interpreted and Dictated by Lisa Fuentes MD Transcribed by KE Vazquez Authenticated and [facility]
== END 2025-01-04 23:59 | disposition home or self-care (01) ==
PROVIDERS: PCP Family Medicine; Visit Provider Internal Medicine Pulmonary Disease
DX: J44.9 Chronic obstructive pulmonary disease, unspecified (principal); J98.6 Disorders of diaphragm
CPT/HCPCS: 76000; 94010; 94640

== ENCOUNTER 2025-01-23 10:37 | Outpatient (CLI) | payer MEDICARE, SELFPAY ==
--- OUTSIDE RECORDS SUMMARY | 2024-11-28 14:00 | XMS_ITS | Encounter Summary ---
Author Organization [facility] Address 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, [address] [place] [address] Phone: tel: fax: Referral ID Status Reason Start Date Expiration Date V isits Requested Visits Authorized [id number] Closed Specialty Services Required 11/02/2024 05/04/2026 1 1 Encounter Details Date Type Department Care Team (Latest Contact Info) Description 11/28/2024 2:00 PM EDT Office Visit [facility] Nephrology, Bone & Mineral Metabolism [address], [address] [place] [address] Vasquez Beal MD [address] [place] [address] Hypertensive chronic kidney disease with stage 1 through stage 4 chronic kidney disease, or unspecified chronic kidney disease (Primary Dx); Bilateral renal artery stenosis (CMS/HCC); Resistant hypertension; 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 disease; Chronic kidney disease-mineral and bone disorder (CKD-MBD); Vitamin D deficiency; Other hyperlipidemia Social History Tobacco Use Types Packs/Day Years Used Date Smoking Tobacco: Former Passive Smoke Exposure: Past Smokeless Tobacco: Never Tobacco Cessation:Counseling Given: Not Answered Humiliation, Afraid, Rape, and Kick questionnair e Answer Date Recorded Within the last year, have y ou been afraid of your partner or ex-partner? No 10/17/2024 Within the last year, have y ou been humiliated or emotionally abused in other ways by your partner or ex-partner? No Within the last year, have y ou been kicked, hit, slapped, or otherwise physically hurt by your partner or ex-partner? No 10/17/2024 Within the last year, have y ou been raped or forced to have any kind of sexual activity by your partner or ex-partner? No 10/17/2024 Hunger Vital Sign Answer Date Recorded Within the past 12 months, y ou worried that your food would run out before you got the money to buy more. Never true 10/18/19 25 Within the past 12 months, t he food you bought just didn't last and you didn't have money to get more. Never true 10/17/2024 PRAPARE - Transportation Answer Date Re corded In the past 12 months, has l ack of transportation kept you from medical appointments or from getting medications? No 09/29 In the past 12 months, has l ack of transportation kept you from meetings, work, or from getting things needed for daily living? No 10/17/2024 Housing Stability Vital Sign Answer Julien e Recorded In the last 12 months, was t here a time when you were not able to pay the mortgage or rent on time? No 10/17/2024 Number of Times Moved in the Last Year Not on fi le 10/17/2024 At any time in the past 12 m [facility], were you homeless or living in a correction (including now)? No 10/17/2024 Utilities Answer Date Recorded In the past 12 months has th e electric, gas, oil, or water company threatened to shut off services in your home? No 10/17/2024 Comments No Sex and Gender Information Value Date Recorded Sex Assigned at Not on file Legal Sex Female 8:29 PM EDT Gender Identity Not on file Sexual Orientation Not on file documented as of this encounter Last Filed Vital Signs Vital Sign Reading Time Taken Comments Blood Pressure 119/76 11/28/2024 2:03 PM EDT Pulse 59 11/28/2024 2:03 PM EDT Temperature 36.5 C (97.7 F) 11/28/2024 2:03 PM EDT Respiratory Rate - - Oxygen Saturation 96% 11/28/2024 2:0 3 PM EDT Inhaled Oxygen Concentration - - Weight 78 kg (172 lb) 11/28/2024 2:03 PM EDT pt had already sat down and it is difficult for her to get up and down Height 172.7 cm (5' 8 ) 11/28/2024 2:03 PM EDT Body Mass Index 26.15 11/28/2024 2:03 PM EDT documented in this encounter Miscellaneous Notes * Patient Instructions - Vasquez Beal MD - 11/28/2024 2:00 PM EDT Medication changes today: Stop Valsartan 80mg 3 tablets daily and replace with Valsartan 160mg 1 tablet daily Change allopurinol to 100mg daily 1 tablet daily STOP Furosemide Start Bumetanide 2mg daily Continue Farxiga 10mg daily * Progress Notes - Vasquez Beal MD - 11/28/2024 2:00 PM EDT Nephrology Outpatient Clinic New Consult Visit Patient: Dalila Johnson Primary Care Provider: Evaristo Lovell MD Referring Provider: Evaristo Lovell MD Reason for consult: Discharge follow up CAIT on CKD 4 HPI/Subjective Dalila Johnson is a 84 y.o. female with a PMH of HTN, CKD4, Renal Artery Stenosis, SAH, Vit D deficiency, Gout, who presents for follow up after hospitalization in October 2024. She presented to through the ER on 10/13/2024 for 1 month of functional decline. She was found tohave right sided weakness and a CT head showed subdural hematoma with midline shift. She was started on Keppra and had a left minicraniotomy for evacuation of the subdural hematoma. After surgery, patient had slurred speech and EEG showed continuous seizure activity so she was started on Valproic acid. During hospitalization her blood pressure regimen was changed and nephrology was consulted for CAIT on ckd. She presents today to establish with Nephrology for CKD care. She has no urinary symptoms, but does have significant lower extremity swelling despite taking 60mg furosemide daily. She wears compression stockings. Her blood pressure is up and down, but better controlled at home on current regimen. No headaches, no dizziness today. She does have some mild shortness of breath that has slowly improved since hospital discharge. Daughter and accompanied her to today's visit. They are from [place] and would like to follow up at [facility]. ROS Review of Systems Constitutional: Negative. HENT: Negative. Eyes: Negative. Respiratory: Positive for shortness of breath. Cardiovascular: Positive for leg swelling. Gastrointestinal: Negative. Endocrine: Negative. Genitourinary: Negative. Musculoskeletal: Negative. Skin: Negative. Allergic/Immunologic: Negative. Neurological: Negative. Hematological: Negative. Psychiatric/Behavioral: Negative. History: Medical History[1] Problem List[2] Surgical History[3] Family History[4] Social History Socioeconomic History Marital status: Spouse name: Not on file Number of children: Not on file Years of education: Not on file Highest education level: Not on file Occupational History Not on file Tobacco Use Smoking status: Former Passive exposure: Past Smokeless tobacco: Never Substance and Sexual Activity Alcohol use: Not on file Drug use: Not on file Sexual activity: Not on file Other Topics Concern Not on file Social History Narrative Not on file Social Drivers of Health Financial Resource Strain: Not on file Food Insecurity: No Food Insecurity (10/17/2024) Hunger Vital Sign Worried About Running Out of Food in the Last Year: Never true Ran Out of Food in the Last Year: Never true Transportation Needs: No Transportation Needs (10/17/2024) PRAPARE - Transportation Lack of Transportation (Medical): No Lack of Transportation (Non-Medical): No Physical Activity: Not on file Stress: Not on file Social Connections: Unknown (05/09/2023) Received from [facility] Family and Community Support Help with Day-to-Day Activities: Not on file Lonely or Isolated: Not on file Intimate Partner Violence: Not At Risk (10/17/2024) Humiliation, Afraid, Rape, and Kick questionnaire Fear of Current or Ex-Partner: No Emotionally Abused: No Physically Abused: No Sexually Abused: No Housing Stability: Unknown (10/17/2024) Housing Stability Vital Sign Unable to Pay for Housing in the Last Year: No Number of Times Moved in the Last Year: Not on file Homeless in the Last Year: No Allergies[5] Medications: Current Medications: Current Outpatient Medications Medication Instructions allopurinol (ZYLOPRIM) 200 mg, Daily atorvastatin (LIPITOR) 40 mg, Daily carvedilol (COREG) 12.5 mg, Oral, 2 times daily cholecalciferol (VITAMIN D-3) 1,000 Units, Daily cloNIDine (CATAPRES) 0.3 mg, Oral, Every 8 hours Cyanocobalamin 5,000 mcg, Daily dapagliflozin (FARXIGA) 10 mg, Daily divalproex (DEPAKOTE) 500 mg, Oral, 2 times daily, Do not crush, chew, or split. folic acid (FOLVITE) 0.4 mg, Oral, Daily furosemide (LASIX) 60 mg, Daily hydrALAZINE (APRESOLINE) 50 mg, Oral, 3 times daily ipratropium-albuterol (Duo-Neb) 0.5-2.5 mg/3 mL nebulizer solution 3 mL, Nebulization, Every 6 hours RT multivitamin (Theragran-M) tablet 1 tablet, Oral, Daily NIFEdipine CC (ADALAT CC) 60 mg, Oral, 2 times daily, Do not crush, chew, or split. phosphorus (K Phos Neutral) tablet 1 tablet, Oral, Daily SITagliptin (JANUVIA) 25 mg, Daily Synthroid 88 mcg, Daily before breakfast thiamine (VITAMIN B-1) 50 mg, Oral, Daily valsartan (DIOVAN) 240 mg, Oral, Daily Objective Visit Vitals BP 119/76 (BP Location: Left arm, Patient Position: Sitting, BP Cuff Size: Adult) Pulse 59 Temp 36.5 ??C (97.7 ??F) (Oral) Ht 1.727 m (5' 8 ) Wt 78 kg (172 lb) Comment: pt had already sat down and it is difficult for her to get up and down SpO2 96% BMI 26.15 kg/m?? OB Status Postmenopausal Smoking Status Former BSA 1.93 m?? Temp: [36.5 ??C (97.7 ??F)] 36.5 ??C (97.7 ??F) Heart Rate: [59] 59 BP: (119)/(76) 119/76 Physical Exam: Physical Exam Constitutional: Appearance: Normal appearance. She is normal weight. HENT: Head: Normocephalic. Nose: Nose normal. Mouth/Throat: Mouth: Mucous membranes are moist. Pharynx: Oropharynx is clear. Eyes: Conjunctiva/sclera: Conjunctivae normal. Pupils: Pupils are equal, round, and reactive to light. Cardiovascular: Rate and Rhythm: Normal rate. Pulses: Normal pulses. Pulmonary: Effort: Pulmonary effort is normal. Abdominal: General: Abdomen is flat. Bowel sounds are normal. Musculoskeletal: Cervical back: Normal range of motion. Right lower leg: Edema present. Left lower leg: Edema present. Skin: General: Skin is warm and dry. Capillary Refill: Capillary refill takes less than 2 seconds. Neurological: General: No focal deficit present. Mental Status: She is alert and oriented to person, place, and time. Mental status is at baseline. Psychiatric: Mood and Affect: Mood normal. Behavior: Behavior normal. Thought Content: Thought content normal. Judgment: Judgment normal. Laboratory: LAB RESULTS Renal Panel: Lab Results Component Value Date NA 141 11/01/2024 K 4.2 11/01/2024 CL 112 (H) 11/01/2024 CO2 17 (L) 11/01/2024 BUN 29 (H) 11/01/2024 CREATININE 1.69 (H) 11/01/2024 EGFR 30.0 11/01/2024 CA 10.1 08/26/2020 PHOS 3.1 11/01/2024 ALBUMIN 3.0 (L) 10/22/2024 CBC: Lab Results Component Value Date WBC 10.39 (H) 10/29/2024 RBC 2.83 (L) 10/29/2024 HGB 8.2 (L) 10/29/2024 HCT 26.5 (L) 10/29/2024 PLT 186 10/29/2024 MCV 94 10/29/2024 MCH 29.0 10/29/2024 MCHC 30.9 10/29/2024 RDW 19.4 (H) 10/29/2024 NRBC 0.0 10/29/2024 Iron studies: No results found for: FERRITIN , IRON , IRONSAT , TIBC Urine studies: No results found for: CAR , CAUR , CALCIUMUR , PHOSUR , [id number] , [id number] , CREATUR MBD: Lab Results Component Value Date CA 10.1 08/26/2020 CALCIUM 8.7 (L) 11/01/2024 PHOS 3.1 11/01/2024 MG 1.8 (L) 11/01/2024 VITAMIN D 25 No results found for: VITD25 VITAMIN D 1,25 No results found for: VITD32 Paraproteinemia Labs: No results found for: SPEP , KAPPALAMBDA Nutritional: No results found for: PREALBUMIN , VITD25 Endocrine profile: Lab Results Component Value Date TSH 2.47 10/13/2024 FREET4 1.5 10/13/2024 Imaging: Renal imaging from 10/30/2024 personally reviewed by me. Radiology reports below CLINICAL INDICATION: Malignant/ Resistant HTN TECHNIQUE: Non-invasive, real time duplex exam of the renal arterial circulation with Doppler ultrasonic waveform and spectral analysis was performed. COMPARISON: None. FINDINGS: Technically difficult and limited exam due to patient coughing and movement. Right: The kidney length measures approximately 8.45 cm, difficult to measure due to bowel gas. Thepeak renal artery velocities are 290 cm/s with a Renal/Aorta ratio of 2.6. Parenchymal blood flow pattern is abnormal with a resistive index range of 0.60-0.76. Venous spectral analysis demonstrates a spontaneous flow signal. Left: The kidney length measures 11.7 cm. The peak renal artery velocities are 282 cm/s with a Renal/Aorta ratio of 2.6. Parenchymal blood flow pattern is abnormal with a resistive index range of 0.88-0.93. Venous spectral analysis demonstrates a spontaneous flow signal. IMPRESSION: Right: Limited, abnormal study, renal artery stenosis identified but is not hemodynamically significant at the origin which is less than 60%. Unable to accurately measure the kidney. Left: Abnormal study, renal artery stenosis identified but is not hemodynamically significant at the origin which is less than 60%. Kidney size is within normal limits. Impression & Plan: Dalila Ditto is a 84 y.o. female with bilateral renal artery stenosis, CKD 4, HTN, HLD, CVA, Subdural hematoma s/p evacuation September 2024 who follows for CKD 4 #CKD Stage 4 Etiology: Renovascular hypertension Baseline serum creatinine: 1.6-2 Most recent Scr: 2.2 eGFR 21 mL/min Electrolytes, acid/base, volume status wnl Urine: +proteinuria, no blood Anatomy: Bialteral >60% renal artery stenosis on renal vascular ultrasound 10/30/24 Risk factor reduction to slow progression of kidney disease: -BP Control goal BP <130/80 -Lifestyle management: ---Maintain healthy weight: Body mass index is 26.15 kg/m??. Is acceptable ---Diet recommendations: Heart healthy and Low sodium <2g/day ---Daily exercise 20-30 minutes as tolerated -Avoid NSAIDs -TUNDE blockade: Valsartan 160 mg daily -SGLT2 inhibitor: Farxiga 10 mg daily #HTN in CKD #Bilateral renal artery stenosis -VAS imaging on 10/30/2024 -On ARB - valsartan 160 mg #Anemia in CKD -Noted hgb around 8, going to check iron studies before next visit and replace if TSAT <30% or Ferritin <200 #CKD Bone and Mineral Disease #Vitamin D deficiency -on cholecalciferol 1k daily #Hyperlipidemia in CKD #Hx of CVA -on atorvastatin #Gouty arthritis of right big toe -Currently asymptomatic on allopurinol 200 mg daily Recommendations and plan: -I personally reviewed Ms. Johnson's laboratory studies and notes from her hospital stay October 13-November 02 2024 and discussed the results with her and her family members. She has chronic kidney disease stage 4 likely due to longstanding renovascular hypertension. To slow progression of her CKD, I will maximize her ACEi/ARB and SGLT 2 inhibitor use. She is on Valsartan 160 mg daily and Farxiga 10 mg daily - I refilled these medications today -Anemia - will check iron studies before next visit. Ok to stop B12, folate, and thiamine when prescriptions run out to reduce pill burden. -Gout - decrease to allopurinol 100 mg daily to avoid adverse effects -Stop K-phos supplement -I refilled her antihypertensives nifedipine, carvedilol, clonidine, and hydralazine as well -Stop Furosemide, Start Bumetanide 2 mg daily RTC in 2 months at [facility] subspecialty clinic Vasquez Beal MD Division of Nephrology [facility] Counseling Documentation: The patient was counseled regarding COUNSELING TOPICS: diagnostic results, prognosis, risks and benefit of treatment options, risk factor reductions, instructions for management, patient and family education, medication changes, diagnostic impressions, Heart healthy diet, regular physical activity and weight control, Avoidance of NSAIDs and other nephrotoxins, 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 Education provided was verbal counseling.Additional time was spent in care coordination including medical record review. ENCOUNTER TIMING: I personally spent a total of 60 minutes on this encounter. This time includes face to face with patient, counseling and discussion, lab/result interpretation, coordination of follow-up care, document review. The total time of encounter was 60 minutes and greater than 50% of the visit was spent in c ounseling/coordination of care. . MDM: - was based on the following: History obtained from family Labs reviewed Urine studies: UA or urine lytes and urine creatinine, Metabolic profile: renal panelor CBC, and Imaging: renal ultrasound or duplex Dopplers of renal arteries Past imaging reviewed Old chart reviewed ORDERS PLACED THIS ENCOUNTER Orders Placed This Encounter Procedures Renal Function Panel, Plasma Standing Status: Future Expected Date: 01/27/2025 Expiration Date: 05/30/2026 Release to patient in [facility]: Immediate [1] CBC Standing Status: Future Expected Date: 01/27/2025 Expiration Date: 05/30/2026 [facility] [1] Iron & Total Iron Binding Capacity, Plasma (Includes Transferrin) Standing Status: Future Expected Date: 01/27/2025 Expiration Date: 05/30/2026 [facility] [1] Ferritin Standing Status: Future Expected Date: 01/27/2025 Expiration Date: 05/30/2026 [facility] [1] Urinalysis with reflex microscopic (Culture NOT Included) Standing Status: Future Expected Date: 01/27/2025 Expiration Date: 05/30/2026 Indicate type of workup:: Non-infectious Workup Release to patient in [facility]: Immediate [1] Protein, Random, Urine with Creatinine Standing Status: Future Expected Date: 01/27/2025 Expiration Date: 05/30/2026 [facility] [1] Problem List Items Addressed This Visit Resistant hypertension Relevant Medications valsartan (Diovan) 160 MG tablet bumetanide (Bumex) 2 MG tablet dapagliflozin (Farxiga) 10 MG tablet cholecalciferol (Vitamin D-3) 50 MCG (1999 UT) capsule allopurinol (Zyloprim) 100 MG tablet hydrALAZINE (Apresoline) 50 MG tablet carvedilol (Coreg) 12.5 MG tablet cloNIDine (Catapres) 0.3 MG tablet NIFEdipine CC (Adalat CC) 60 MG 24 hr tablet Chronic kidney disease-mineral and bone disorder (CKD-MBD) Relevant Medications valsartan (Diovan) 160 MG tablet bumetanide (Bumex) 2 MG tablet Hyperlipidemia 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 disease Relevant Medications valsartan (Diovan) 160 MG tablet bumetanide (Bumex) 2 MG tablet Other Relevant Orders Renal Function Panel, Plasma CBC Iron & Total Iron Binding Capacity, Plasma (Includes Transferrin) Ferritin Urinalysis with reflex microscopic (Culture NOT Included) Protein, Random, Urine with Creatinine Bilateral renal artery stenosis (CMS/HCC) Relevant Medications valsartan (Diovan) 160 MG tablet bumetanide (Bumex) 2 MG tablet dapagliflozin (Farxiga) 10 MG tablet cholecalciferol (Vitamin D-3) 50 MCG (1999 UT) capsule allopurinol (Zyloprim) 100 MG tablet hydrALAZINE (Apresoline) 50 MG tablet Hypertensive chronic kidney disease with stage 1 through stage 4 chronic kidney disease, or unspecified chronic kidney disease - Primary Relevant Medications valsartan (Diovan) 160 MG tablet bumetanide (Bumex) 2 MG tablet dapagliflozin (Farxiga) 10 MG tablet cholecalciferol (Vitamin D-3) 50 MCG (1999 UT) capsule allopurinol (Zyloprim) 100 MG tablet hydrALAZINE (Apresoline) 50 MG tablet cloNIDine (Catapres) 0.3 MG tablet NIFEdipine CC (Adalat CC) 60 MG 24 hr tablet Other Relevant Orders Renal Function Panel, Plasma CBC Iron & Total Iron Binding Capacity, Plasma (Includes Transferrin) Ferritin Urinalysis with reflex microscopic (Culture NOT Included) Protein, Random, Urine with Creatinine Vitamin D deficiency I confirm that I have addressed the patient's longitudinal multifaceted and complex health related active and chronic conditions that will require ongoing care with myself or someone on my team. [1] Past Medical History: Diagnosis Date Obstructive sleep apnea (adult) (pediatric) Obstructive sleep apnea Personal history of other diseases of the musculoskeletal system and connective tissue History of gout Personal history of other endocrine, nutritional and metabolic disease History of hyperlipidemia Personal history of other endocrine, nutritional and metabolic disease History of hypothyroidism Personal history of other endocrine, nutritional and metabolic disease History of type 2 diabetes mellitus [2] Patient Active Problem List Diagnosis Chronic kidney disease, stage III (moderate) (CMS/HCC) Resistant hypertension Renal osteodystrophy Subdural hematoma (CMS/HCC) Type 2 diabetes mellitus, without long-term current use of insulin (CMS/HCC) Hypothyroidism Hyperlipidemia Obstructive sleep apnea Hyperkalemia Constipation Expressive aphasia Acute kidney injury superimposed on CKD (CMS/HCC) Blood loss anemia Encephalopathy Cough Ileus (CMS/HCC) Nausea and vomiting Electrolyte disturbance Bilateral renal artery stenosis (CMS/HCC) [3] Past Surgical History: Procedure Laterality Date BRAIN SURGERY Subdural hematoma extraction pt reported [4] Family History Problem Relation Name Age of Onset Diabetes Son Kidney disease Son Kidney disease Other [5] Allergies Allergen Reactions Mika Inhibitors Unknown - Patient states they do not know rxn details Sulfa Drugs Unknown - Patient states they do not know rxn details Sulfacetamide Unknown - Patient states they do not know rxn details documented in this encounter Plan of Treatment Scheduled Orders Name Type Priority Associated Diagnoses Orde r Schedule Renal Function Panel, Plasma Lab Routine Hypertensive chronic kidney disease with stage 1 through stage 4 chronic kidney disease, or unspecified chronic kidney disease 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 disease Expected: 01/27/2025 (Approximate), Expires: 05/30/2026 CBC Lab Routine Hypertensive chronic kidney disease with stage 1 through stage 4 chronic kidney disease, or unspecified chronic kidney disease 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 disease Expected: 01/27/2025 (Approximate), Expires: 05/30/2026 Iron & Total Iron Binding Capacity, Plasma (Includes Transferrin) Lab Routine Hypertensive chronic kidney disease with stage 1 through stage 4 chronic kidney disease, or unspecified chronic kidney disease 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 disease Expected: 01/27/2025 (Approximate), Expires: 05/30/2026 Ferritin Lab Routine Hypertensive chronic kidney disease with stage 1 through stage 4 chronic kidney disease, or unspecified chronic kidney disease 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 disease Expected: 01/27/2025 (Approximate), Expires: 05/30/2026 Urinalysis with reflex microscopic (Culture NOT Included) Lab Routine Hypertensive chronic kidney disease with stage 1 through stage 4 chronic kidney disease, or unspecified chronic kidney disease 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 disease Expected: 01/27/2025 (Approximate), Expires: 05/30/2026 Protein, Random, Urine with Creatinine Lab Routine Hypertensive chronic kidney disease with stage 1 through stage 4 chronic kidney disease, or unspecified chronic kidney disease 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 disease Expected: 01/27/2025 (Approximate), Expires: 05/30/2026 documented as of this encounter Goals Goal Patient Goal Type Associated Problems Recent Progress Patient-Stated? Author Autogenerat ed Goal Care Plan Autogenerated Problem No Jermaine Alvarado documented as of this encounter Visit Diagnoses Diagnosis Hypertensive chronic kidney disease with stage 1 through stage 4 chronic kidney disease, or unspecified chronic kidney disease- Primary Bilateral renal artery stenosis (CMS/HCC) Atherosclerosis of renal artery Resistant hypertension 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 disease Chronic kidney disease-mineral and bone disorder (CKD-MBD) Vitamin D deficiency Other hyperlipidemia documented in this encounter Additional Health Concerns Active Problems Noted Date Diagnosed Date Autogenerated Problem 10/15/2024 Assessment Noted Time A fall risk assessment has been complete d for the patient 11/28/2024 2:02 PM EDT A Body Mass Index follow-up plan has been documented for the patient 11/28/2024 2:40 PM EDT documented as of this encounter 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
--- OUTSIDE RECORDS SUMMARY | 2024-12-25 06:30 | XMS_ITS ---
Author Organization [facility] Address [address] [facility] [address] [place] [id number] Care Team Providers Care Glassware Maker Demonstrator Name Role Phone Gabbi Lovell Primary Care Provider Robby Figueroa Unavailable [phone] Allergies Allergen (clinical drug ingredient) Drug/Non Drug [...] 22 Performing Lab: Notes/Report: Test performed by [facility], [facility] [address] [place] [address] , [address], [place] [address] Joel Morillo MD, Senior Bioinformatics Scientist CLIA: [id number] Sodium 134 135-145 mmol/L Potassium 9.1 3.5-5.3 mmol/L ALERT VALUE Results were repeated and confirmed. No visual hemolysis present. Chloride 105 97-108 mmol/L CO2 25 22-32 mmol/L Glucose 123 65-99 mg/dL BUN 38 8-23 mg/dL Creatinine 2.14 0.50-1.00 mg/dL Calcium 9.3 8.6-10.4 mg/dL eGFR by Creatinine 22 >59 mL/min/1.73m2 P-Phosphorus Reviewed date:12/27/2024 08:22:17 AM Interpretation:Normal Performing Lab: Notes/Report: Test performed by [facility] [address] [place] [address] , [address], [place] [address] Joel Morillo MD, Senior Bioinformatics Scientist CLIA: [id number] Phosphorus 3.6 2.5-4.5 mg/dL REASON FOR VISIT [facility] F/U Medications Medication SIG (Take, Route, Frequency, Duration) Notes Start Date End Date Status S-Qkqk-Yguakxh 155-852-130 MG 1 tablet Orally once daily for 90 days Active Synthroid 100 MCG 1 tablet in the morning on an empty stomach Orally Once a day for 90 days Active MiraLax 17 GM/SCOOP 1 [...] 500 MG 1 tablet Orally Twice a day for 90 days Active Ipratropium-Albuterol 0.5-2.5 (3) MG/3ML 3 ml Inhalation qid for 90 days Active Folic Acid 400 MCG 1 tablet Orally Once a day for 90 days Active hydrALAZINE HCl 50 MG 1 tablet with food Orally Two times a day Active Atorvastatin Calcium 40 MG 1 tablet Orally Once a day Active Mucinex DM 30-600 MG 1 tablet as needed Orally every 12 hrs 11/15/2024 Active Allopurinol 100 MG 2 tablet Orally Once a day for 90 days Active cloNIDine HCl 0.3 MG [...] 12/25/2024 Encounters Encounter Location Date Provider Diagnosis [facility] [address] [facility] [address] [place] [address], [place] [id number] 12/25/2024 Robby Figueroa Community acquired pneumonia, unspecified laterality J18.9 ; [...] Clinically improved Debility Patient needs to res [facility] PT/OT Other Discharge summary [facility] available lab/diagnostic imaging results obtained and reviewed. Discharge medication list reconciled. Appropriate counseling provided. Moderate Complexity Next Appt Details Follow Up: [address] Pierce, Reason: Provider Name:Gabbi Hernandez, 03/21/2025 01:30:00 PM, [address] [facility] [address] [facility], [address], [place], [place], [id number], Progress Notes * Dalila JOHNSONDOB:1940 (84 yo F)Acc No.[id number]:12/25/2024 Progress Notes Patient: Dalila HAWK Provider: Angi Figueroa M.D. :1940 A ge:84 Y S ex:Female Date:12/25/2024 Address:[address] [place], [place] [phone] Pcp:Gabbi Lovell Subjective: * Chief Complaints: * 1 . [facility] F/U. * HPI: H PI: 84 year old female presents with c/o Here for follow up on:?12/10- [facility] h ospitalization. Pt admitted for pneumonia. Pt [...] Care Visit. Discharge from the following Facility: [facility] ,Discharge date: 12/13/2024 ,Date of phone contact [...] Hx of intracranial hemorrage 08/2020 - / [facility], SSS - s/p PPM - followed by [...] stic Procedure: [facility] 08[facility], Stroke - [facility] ER 08/21/2020, Low Blood Pressure - [facility] ER 06/21/2021, HEALTHCARE: CKD STAGE III; resistent [...] Vitro Three times a day , Taking D-Deed-Sdtgomu 155-852-130 MG Tablet 1 tablet Orally once [...] in a wheelchair, supplemental oxygen in use. Heart: R SR. Lungs: g ood air entry bilaterally, few coarse [...] add on, 1111F DSCHR MED/CURENT MED MERGE, 76747 CBC WITH AUTO DIFF, 04740 VENIPUNCT, ROUTINE*, G8950 PREHTN/HTN BP DOC INDCD F/U DOC, G8752 MOST RECENT SYSTOLIC BP < 140MM HG, G8754 MOST RECENT DIASTOLIC BP < 90MM HG * Follow Up: [address] Stan Tate Billing Information: * Visit Code: 79996 Office Visit, Est Pt., Level 4. * Procedure Codes: 11965 TRANS CARE MGMT 14 DAY DISCH. G2211 Complex e/m visit add on. 1111F DSCHR MED/CURENT MED MERGE. 88690 CBC WITH AUTO DIFF. 79977 VENIPUNCT, ROUTINE*. G8950 PREHTN/HTN BP DOC INDCD F/U DOC. G8752 MOST RECENT SYSTOLIC BP < 140MM HG. G8754 MOST RECENT DIASTOLIC BP < 90MM HG. * Electronic signature of Citlaly Figueroa MD on 01/23/2025 at 10:59 AM EDT Sign off status: Pending * Provider: Angi Figueroa M.D. Date: 0 12/25/2024 Generated for Kristy lima/Malachi/eTransmitting on: 0 01/23/2025 10:59 AM EDT History and Physical Notes * HPI (History of Present Illness) Category Sub-Category Detail Notes Category Not es HPI Here for follow up on: 12/10-2024 [facility] hospitalization. Pt admitted for pneumonia. Pt states [...] Care Visit. Discharge from the following Facility: [facility] ,Discharge date: 12/13/2024 ,Date of phone contact following discharge: 12/14/2024 Examination Category Sub-Category Detail Notes Category Not es General Examination Heart: RSR Lungs: good air entry bilat erally, few coarse breath sounds General Appearance: NAD, sitting in a wh eelchair, supplemental oxygen in use
--- OUTSIDE RECORDS SUMMARY | 2024-12-28 09:54 | XMS_ITS ---
Author Organization [facility] Address [address] [facility] [address] [place] [id number] Care Team Providers Care Medical Associate Name Role Phone Gabbi Lovell Primary Care Provider Robby Figueroa Unavailable [phone] Results Component Value Reference Range Notes H-BMP Reviewed date:12/28/2024 03:23:52 PM Interpretation: Performing Lab: Notes/Report: NA 139 136-145 mmol/L K 4.8 3.5-5.1 mmoL/L CL 107 98-107 mmol/L CO2 27 22.0-30.0 mmol/L GAP 9.8 5-15 mEq/L BUN 41 7-17 mg/dl CREATT 2.40 0.52-1.04 mg/dl GFRAA 23 >60 ML/MIN EGFR 19 >60 ml/min GLU 119 74-100 mg/dl CA 9.7 8.4-10.2 mg/dl Encounters Encounter Location Date Provider Diagnosis [facility] [address] [place] [id number] 12/28/2024 Robby Figueroa Hyperkalemia E87.5 Assessments Encounter Date Diagnosis (ICD Code) Assessment Notes Treatment Notes Treatment Clinical Notes Section Notes 12/28/2024 Hyperkalemia (ICD-10 - E87.5) Plan Of Treatment Next Appt Details Provider Name:Gabbi Hernandez, 03/21/2025 01:30:00 PM, [address], [address], [place], [id number], Progress Notes * Dalila JOHNSONDOB:1940 (84 yo F)Acc No.[id number]:12/28/2024 Patient: Dalila Gallo :1940 A ge:84 Y S ex:Female Address:[address] [place] [address] Subjective: * Chief Complaints: * * Medical History: * Surgical History: * Hospitalization/Major Diagno stic Procedure: * Medications: Objective: Assessment: * Assessment: 1. H yperkalemia - E87.5 (Primary) Plan: * Treatment: * Procedure Codes: * true * Date: Generated for Kristy lima/Malachi/Hazelitting on: 0 01/23/2025 11:00 AM EDT
--- OUTSIDE RECORDS SUMMARY | 2025-01-04 09:20 | XMS_ITS | Encounter Summary ---
Author Organization [facility] Address [address] [id number] Care Team Providers Care Licensed Physical Therapist Name Role Phone Evaristo Lovell MD Primary Care Provider [phone] Reason for Referral * Consultation (Routine) - Authorized Specialty Diagnoses / Procedures Referred By Fabian curiel Referred To Contact Diagnoses Bilateral renal artery stenosis (CMS/HCC) Palomo Marie MD [address] [place] [address] Phone: tel: fax: Referral ID Status Reason Start Date Expiration Date V isits Requested Visits Authorized [id number] Authorized 01/04/2025 07/06/2026 1 1 * Consultation (Routine) - Authorized Specialty Diagnoses / Procedures Referred By Fabian curiel Referred To Contact Diagnoses Bilateral renal artery stenosis (CMS/HCC) Palomo Marie MD [address] [place] [address] Phone: tel: fax: Referral ID Status Reason Start Date Expiration Date V isits Requested Visits Authorized [id number] Authorized 01/04/2025 07/06/2026 1 1 Reason for Visit * Reason Comments Follow-up Pt is a 84 year old female that presents to the clinic on this date for a follow up. Encounter Details Date Type Department Care Team (Latest Contact Info) Description 01/04/2025 9:20 AM EDT Office Visit [facility] [address] [place] [address] Palomo Marie MD [address] [place] [address] Bilateral renal artery stenosis (CMS/HCC) (Primary Dx); Resistant hypertension; Hypertensive chronic kidney disease with stage 1 through stage 4 chronic kidney disease, or unspecified chronic kidney disease; 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 disease; Vitamin D deficiency; Chronic kidney disease-mineral and bone disorder (CKD-MBD); Other hyperlipidemia Social History Tobacco Use Types [...] any time in the past 12 m ont, were you homeless or living in a half-way (including now)? No 10/17/2024 Utilities Answer Date Recorded In the past 12 months has e electric, gas, oil, or water company [...] Sign Reading Time Taken Comments Blood Pressure 132/58 01/04/2025 9:39 AM EDT Pulse 59 01/04/2025 9:39 AM EDT Temperature - - Respiratory Rate 22 01/04/2025 9:39 AM EDT Oxygen Saturation 90% 01/04/2025 9:39 AM EDT 2 liters Inhaled Oxygen Concentration - - Weight 74.8 kg (164 lb 12.8 oz) 01/04/2025 9:39 AM EDT Height 170.2 cm (5' 7 ) 01/04/2025 9:39 AM EDT Body Mass Index 25.81 01/04/2025 9:39 AM EDT documented in this encounter Miscellaneous Notes * Addendum Note - Palomo Marie MD - 01/04/2025 9:20 AM EDTAddended by: PALOMO MARIE on: 01/04/2025 02:12 PM Modules accepted: Orders * Progress Notes - Palomo Marie MD - 01/04/2025 9:20 AM EDT Nephrology Outpatient Clinic New Consult Visit 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 female with a PMH of HTN, CKD4, Renal Artery Stenosis, SAH, Vit D deficiency, Gout, who presents for follow up after hospitalization in October 2024. She had a brain bleed since last visit. She was hospitalized then sent to [facility]. After returning home developed a pneumonia. She is now on oxygen. Her creatinine was as low as 1.7 in September 2024, but in November is now at 2.5. She had her bumex reduced to 1mg daily from BID in November due to CAIT. Creatinine remained stable. She has swelling in BLE up to mid bermudez. She gets short of breath with exertion is on 2L O2 via NC to maintain O2 sat >90% Daughter has been with her for past 3 weeks. ROS Review of Systems Constitutional: Negative. HENT: Negative. Eyes: Negative. Respiratory: Positive for shortness of breath. Cardiovascular: Positive for leg swelling. Gastrointestinal: Negative. Endocrine: Negative. Genitourinary: Negative. Musculoskeletal: Negative. Skin: Negative. Allergic/Immunologic: Negative. Neurological: Negative. Hematological: Negative. Psychiatric/Behavioral: Negative. History: Past Medical History[1] Problem List[2] Surgical History[3] Family [...] Connections: Unknown (05/09/2023) Received from [facility] Help with Day-to-Day [...] Current Outpatient Medications Medication Instructions allopurinol (ZYLOPRIM) 100 mg, Oral, Daily atorvastatin (LIPITOR) 40 mg, Daily bumetanide (BUMEX) 2 mg, Oral, Daily carvedilol (COREG) 12.5 mg, Oral, 2 times daily cholecalciferol (VITAMIN D-3) 2,000 Units, Oral, Daily cloNIDine (CATAPRES) 0.3 mg, Oral, Every 8 hours Cyanocobalamin 5,000 mcg, Daily dapagliflozin (FARXIGA) 10 mg, Oral, Daily divalproex (DEPAKOTE) 500 mg, Oral, 2 times daily, Do not crush, chew, or split. ferrous sulfate 325 mg, 3 times daily with meals guaiFENesin (MUCINEX) 1,200 mg, 2 times daily hydrALAZINE (APRESOLINE) 50 mg, Oral, 2 times daily ipratropium-albuterol (Duo-Neb) 0.5-2.5 mg/3 mL nebulizer solution 3 mL, Nebulization, Every 6 hours RT multivitamin (Theragran-M) tablet 1 tablet, Oral, Daily NIFEdipine CC (ADALAT CC) 60 mg, Oral, 2 times daily, Do not crush, chew, or split. SITagliptin (JANUVIA) 25 mg, Daily Synthroid 88 mcg, Daily before breakfast valsartan (DIOVAN) 160 mg, Oral, Daily Objective Visit Vitals BP 132/58 (BP Location: Right arm, Patient Position: Sitting, BP Cuff Size: Large adult) Pulse 59 Resp 22 Ht 1.702 m (5' 7 ) Wt 74.8 kg (164 lb 12.8 oz) SpO2 90% Comment: 2 liters BMI 25.81 kg/m?? OB Status Postmenopausal Smoking Status Former BSA 1.88 m?? Heart Rate: [59] 59 Resp: [22] 22 BP: (132)/(58) 132/58 Physical Exam: Physical Exam Constitutional: Appearance: Normal [...] , CAUR , CALCIUMUR , PHOSUR , [id number] , [id number] , CREATUR MBD: Lab Results Component Value [...] within normal limits. Impression & Plan: Dalila Johnson is a 84 y.o. 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 Is acceptable ---Diet recommendations: Heart healthy and Low sodium <2g/day ---Daily exercise 20-30 minutes as tolerated -Avoid NSAIDs -TUNDE blockade: Valsartan 160 mg daily -SGLT2 inhibitor: Farxiga 10 mg daily #HTN in CKD #Bilateral renal artery stenosis -VAS imaging on 10/30/2024 -On ARB - valsartan 160 mg #Anemia in CKD -Hgb improved form 8 to 9.6 -Tsat 30%, Ferritin in the 40s on oral iron - having constipation from oral iron so reducing dose from daily to M-W-F and take with water + lemon juice #CKD Bone and Mineral Disease #Vitamin D deficiency -on cholecalciferol 1k daily #Hyperlipidemia in CKD #Hx of CVA -on atorvastatin #Gouty arthritis of right big toe -Currently asymptomatic on allopurinol 200 mg daily #Constipation - 2/2 oral iron Recommendations and plan: - CAIT may be cardiorenal or over diuresis leading to ATN. Difficult to kno for certain, but today patient appears volume overloaded and is requiring O2 so she should continue her diuretics for now - Patient with dip in GFR from 30 to now 18-19 in November. She is stable for 2 weeks with repeat labs in November. I think the benefit of staying on Farxiga and Valsartan outweigh this drop in gfr so I will recommend she continue these for now. -She has developed significant constipation on Oral iron, so I recommended she change to 3x weekly iron MWF and to take mid-day with a glass of water + lemon juice. Her iron levels are too high to order IV iron, but I will repeat them at next visit and if TSAT <20% I will recommend IV iron -Hgb is 9.6, Will hold off on CHAPITO for now due to recent stroke and close to goal >10 Hgb -Avoid NSAIDs -Continue bumex 2mg daily - okay to take extra dose PRN for weight gain, worsening edema, or worsening SOA at home RTC in 3-4 months Palomo Marie MD Division of Nephrology [facility] Counseling Documentation: The patient was counseled regarding COUNSELING TOPICS: diagnostic results, prognosis, risks and benefit of treatment options, risk factor reductions, instructions for management, patient and family education, medication changes, diagnostic impressions, Heart healthy diet, regular physical activity and weight control, Avoidance of NSAIDs and other nephrotoxins, and system administration advisor nature of condition. Education provided was verbal counseling. Additional time was spent in care coordination including medical record review. MDM: - was based on the following: History obtained from family Labs reviewed Urine studies: UA or urine lytes and urine creatinine, Metabolic profile: renal panelor CBC, and Imaging: renal ultrasound or duplex Dopplers of renal arteries Past imaging reviewed Old chart reviewed ORDERS PLACED THIS ENCOUNTER Orders Placed This Encounter Procedures Albumin-creatinine ratio, urine, random Standing Status: Future Expected Date: 04/04/2025 Expiration Date: 07/08/2026 Release to patient in [facility]: Immediate Renal Function Panel, Plasma Standing Status: Future Expected Date: 04/04/2025 Expiration Date: 07/08/2026 [facility] CBC W/O Differential Standing Status: Future Expected Date: 04/04/2025 Expiration Date: 07/08/2026 [facility] Protein, Random, Urine with Creatinine Standing Status: Future Expected Date: 04/04/2025 Expiration Date: 07/08/2026 [facility]mediate Urinalysis with reflex microscopic (Culture NOT Included) Standing Status: Future Expected Date: 04/04/2025 Expiration Date: 07/08/2026 [facility]mediate Transferrin, Plasma Standing Status: Future Expected Date: 04/04/2025 Expiration Date: 07/08/2026 [facility] Immediate Ferritin, Serum Standing Status: Future Expected Date: 04/04/2025 Expiration Date: 07/08/2026 [facility]: Immediate Iron & Total Iron Binding Capacity, Plasma (Includes Transferrin) Standing Status: Future Expected Date: 04/04/2025 Expiration Date: 07/08/2026 Release to patient in [facility]: Immediate Follow Up Nephrology [facility] Standing Status: Future Expected Date: 04/06/2025 Expiration Date: 02/03/2026 Referral Priority: Routine Referral Type: Consultation Number of Visits Requested: 1 Problem List Items Addressed This Visit Resistant hypertension Relevant Orders Albumin-creatinine ratio, urine, random Renal Function Panel, Plasma CBC W/O Differential Protein, Random, Urine with Creatinine Urinalysis with reflex microscopic (Culture NOT Included) Transferrin, Plasma Ferritin, Serum Iron & Total Iron Binding Capacity, Plasma (Includes Transferrin) Chronic kidney disease-mineral and bone disorder (CKD-MBD) Relevant Medications ferrous sulfate 325 (65 Fe) MG EC tablet Hyperlipidemia 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 disease Relevant Medications ferrous sulfate 325 (65 Fe) MG EC tablet Other Relevant Orders Albumin-creatinine ratio, urine, random Renal Function Panel, Plasma CBC W/O Differential Protein, Random, Urine with Creatinine Urinalysis with reflex microscopic (Culture NOT Included) Transferrin, Plasma Ferritin, Serum Iron & Total Iron Binding Capacity, Plasma (Includes Transferrin) Bilateral renal artery stenosis (CMS/HCC) - Primary Relevant Orders Albumin-creatinine ratio, urine, random Renal Function Panel, Plasma CBC W/O Differential Protein, Random, Urine with Creatinine Urinalysis with reflex microscopic (Culture NOT Included) Transferrin, Plasma Ferritin, Serum Iron & Total Iron Binding Capacity, Plasma (Includes Transferrin) Follow Up Nephrology Hypertensive chronic kidney disease with stage 1 through stage 4 chronic kidney disease, or unspecified chronic kidney disease Relevant Medications ferrous sulfate 325 (65 Fe) MG EC tablet Other Relevant Orders Albumin-creatinine ratio, urine, random Renal Function Panel, Plasma CBC W/O Differential Protein, Random, Urine with Creatinine Urinalysis with reflex microscopic (Culture NOT Included) Transferrin, Plasma Ferritin, Serum Iron & Total Iron Binding Capacity, Plasma (Includes Transferrin) Vitamin D deficiency I confirm that I [...] disease, stage III (moderate) (CMS/HCC) 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) Subdural hematoma (CMS/HCC) Type 2 diabetes mellitus, without long-term current use of insulin (CMS/HCC) Hypothyroidism Hyperlipidemia Obstructive sleep apnea Hyperkalemia Constipation Expressive aphasia Acute kidney injury superimposed on CKD (CMS/HCC) 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 disease Encephalopathy Cough Ileus (CMS/HCC) Nausea and vomiting Electrolyte disturbance Bilateral renal artery stenosis (CMS/HCC) Hypertensive chronic kidney disease with stage 1 through stage 4 chronic kidney disease, or unspecified chronic kidney disease Vitamin D deficiency [3] Past Surgical History: Procedure Laterality Date [...] Type Priority Associated Diagnoses Orde r Schedule Albumin-creatinine ratio, urine, random Lab Routine Bilateral renal artery stenosis (CMS/HCC) Resistant hypertension Hypertensive chronic kidney disease with stage 1 through stage 4 chronic kidney disease, or unspecified chronic kidney disease 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 disease Expected: 04/04/2025 (Approximate), Expires: 07/08/2026 Renal Function Panel, Plasma Lab Routine Bilateral renal artery stenosis (CMS/HCC) Resistant hypertension Hypertensive chronic kidney disease with stage 1 through stage 4 chronic kidney disease, or unspecified chronic kidney disease 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 disease Expected: 04/04/2025 (Approximate), Expires: 07/08/2026 CBC W/O Differential Lab Routine Bilateral renal artery stenosis (CMS/HCC) Resistant hypertension Hypertensive chronic kidney disease with stage 1 through stage 4 chronic kidney disease, or unspecified chronic kidney disease 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 disease Expected: 04/04/2025 (Approximate), Expires: 07/08/2026 Protein, Random, Urine with Creatinine Lab Routine Bilateral renal artery stenosis (CMS/HCC) Resistant hypertension Hypertensive chronic kidney disease with stage 1 through stage 4 chronic kidney disease, or unspecified chronic kidney disease 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 disease Expected: 04/04/2025 (Approximate), Expires: 07/08/2026 Urinalysis with reflex microscopic (Culture NOT Included) Lab Routine Bilateral renal artery stenosis (CMS/HCC) Resistant hypertension Hypertensive chronic kidney disease with stage 1 through stage 4 chronic kidney disease, or unspecified chronic kidney disease 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 disease Expected: 04/04/2025 (Approximate), Expires: 07/08/2026 Transferrin, Plasma Lab Routine Bilateral renal artery stenosis (CMS/HCC) Resistant hypertension Hypertensive chronic kidney disease with stage 1 through stage 4 chronic kidney disease, or unspecified chronic kidney disease 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 disease Expected: 04/04/2025 (Approximate), Expires: 07/08/2026 Ferritin, Serum Lab Routine Bilateral renal artery stenosis (CMS/HCC) Resistant hypertension Hypertensive chronic kidney disease with stage 1 through stage 4 chronic kidney disease, or unspecified chronic kidney disease 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 disease Expected: 04/04/2025 (Approximate), Expires: 07/08/2026 Iron & Total Iron Binding Capacity, Plasma (Includes Transferrin) Lab Routine Bilateral renal artery stenosis (CMS/HCC) Resistant hypertension Hypertensive chronic kidney disease with stage 1 through stage 4 chronic kidney disease, or unspecified chronic kidney disease 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 disease Vitamin D deficiency Chronic kidney disease-mineral and bone disorder (CKD-MBD) Other hyperlipidemia documented in this encounter Additional Health Concerns Active Problems Noted Date Diagnosed Date Autogenerated Problem 10/15/2024 Assessment Noted Time A fall risk assessment has been complete d for the patient 11/28/2024 2:02 PM EDT A Body Mass Index follow-up plan has been documented for the patient 01/04/2025 12:41 PM EDT documented as of this encounter Care Teams Licensed Physical Therapist Relationship Specialty Start Date End Date Evaristo Lovell MD [address] [place] [id number] PCP - General 10/13/24 documented as of this encounter
--- OUTSIDE RECORDS SUMMARY | 2025-01-15 09:30 | XMS_ITS ---
Author Organization [facility] Address [address] [facility] [address] [place] [id number] Care Team Providers Care Securities Consultant Name Role Phone Gabbi Lovell Primary Care Provider Allergies Allergen (clinical drug ingredient) Drug/Non Drug Allergy documented on EMR Reaction Allergy Type Onset Date Status Substance with sulfonamide structure and antibacterial mechanism of action (substance) Sulfa Antibiotics rash Drug Allergy Active REASON FOR VISIT 3 week f/u Medications Medication SIG (Take, Route, Frequency, Duration) Notes Start Date End Date Status Y-Pszw-Jkewbhh 155-852-130 MG 1 tablet Orally once daily for 90 days Active Atorvastatin Calcium 40 MG 1 tablet Orally Once a day for 90 days Active Synthroid 100 MCG 1 tablet in the morning on an empty stomach Orally Once a day for 90 days Active Benefiber - as directed Orally once daily 12/25/2024 Active MiraLax 17 GM/SCOOP 1 scoop mixed with 8 ounces of fluid Orally Once a day 12/25/2024 Active Januvia 25 MG 1 tablet Orally Once a day Active Ipratropium-Albutero l 0.5-2.5 (3) MG/3ML 3 ml Inhalation qid for 90 days Active OneTouch Ultra - as directed In Vitro Three times a day Active Folic Acid 400 MCG 1 tablet Orally Once a day for 90 days Active Wheel Chair as directed CVA with impaire d mobility 10/11/2024 Active Vitamin D3 25 MCG (1000 UT) 1 capsule Orally Once a day Active Allopurinol 100 MG 2 tablet Orally Once a day for 90 days Active Divalproex Sodium 500 MG 1 tablet Orally Twice a day for 90 days Active Vitamin B-12 5000 MCG [...] 01/15/2025 Encounters Encounter Location Date Provider Diagnosis [facility] [address] [facility] [address] [place], [place] [id number] 01/15/2025 R Douglas Lovell Community acquired pneumonia, unspecified laterality J18.9 ; Chronic kidney disease (CKD), stage 4 N18.4 ; Debility R53.81 and Essential hypertension I10 Assessments Encounter Date [...] health 01/15/2025 Essential hypertension (ICD-10 - I10) Plan Of Treatment Medication Medication Name Sig [...] Name:Gabbi Hernandez, 03/21/2025 01:30:00 PM, [address] [facility] [address] [facility], [address] , [place], [place], [id number], Progress Notes * Dalila JOHNSONDOB:1940 (84 yo F)Acc No.[id number]:01/15/2025 Extended Visit Patient: Dalila HAWK Provider: Gabbi Lovell M.D. :1940 A ge:84 Y S ex:Female Date:01/15/2025 Address:[address] [place], [place] [phone] Subjective: * Chief Complaints: * 1 . 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 Color is good..? Heart: R SR. Lungs: F ew crackles in the left base. No wheezes.? Extremities: 1 + pretibial edema. She is wearing compression stockings.. Assessment: * Assessment: 1. C ommunity acquired pneumonia, unspecified laterality - J18.9 (Primary) 2 .?Chronic kidney disease (CKD), stage 4 - N18.4 3 . D eunicelity - R53.81 ? 4 . E ssential hypertension - I10 Plan: * Treatment: 2. C hronic kidney disease (CKD), stage 4 Continue Farxiga Tablet, 10 MG, 1 tablet, Orally, Once a day. 3. D sol Notes: She is receiving rehab services through [...] food, Orally, Two times a day. * Follow Up: 2 Months * Billing Information: * Visit Code: 10168 Office Visit, Est Pt., Level 3. * Procedure Codes: * Electronic signature of Gabbi Lovell MD on 01/23/2025 at 11:00 AM EDT Sign off status: Pending * Provider: Gabbi Lovell M.D. Date: 01/15/2025 Generated for Kristy lima/Malachi/Jenny on: 01/23/2025 11:00 AM EDT History and Physical Notes * [...]
--- NOTE | 2025-01-23 11:00 | FL_ITS ---
FINAL REPORT CLINICAL HISTORY: aspiration risk pneumonia asp risk 7.53 fluoro time 478.95 dap FINDINGS: FLUOROSCOPY LESS THAN 1 HOUR HISTORY: Fluoroscopy guidance. FINDINGS: Fluoroscopic guidance was provided for barium swallow. A total of 7.53 minutes of fluoroscopy time were used. DAP: 478.95 mGy IMPRESSION: As above. Reviewed, Interpreted and Dictated by Kary Berry MD Transcribed by Kylah Mcfarland Authenticated and . [facility]
--- OUTSIDE RECORDS SUMMARY | 2025-01-23 11:00 | XMS_ITS | Clinical Summary ---
Author Organization [facility] Address [address] [place] [address] Care Team Providers Care Watch Case Polisher Name Role Phone Evaristo Lovell MD Primary Care Provider [phone] Allergies Active Allergy Reactions Criticality Noted Date Comments Mika Inhibitors Unknown - Patient st ates they do not know rxn details Low 05/28/2014 Sulfa Drugs Unknown - Patient st ates they do not know rxn details Low 10/15/2024 Sulfacetamide Unknown - Patient st ates they do not know rxn details Low 05/28/2014 Medications atorvastatin (Lipitor) 40 MG tablet Take 1 tablet (40 mg) by mouth in the morning. Active SITagliptin (Januvia) 50 MG tablet Take 0.5 tablets (25 mg) by mouth daily. Active Synthroid 88 MCG tablet Take 1 tablet (88 mcg) by mouth daily before breakfast. Active Cyanocobalamin (B-12) 5000 MCG capsule Take 5,000 mcg by mouth daily. Active divalproex (Depakote) [address] tablet Take 1 tablet by mouth in the morning and 1 tablet before bedtime. Do not crush, chew, or split. 60 tablet 11/03/19 25 Active ipratropium-alb uterol (Duo-Neb) 0.5-2.5 mg/3 mL nebulizer solution Take 3 mL by nebulization every 6 (six) hours. 180 mL 11 11/03/19 25 Active multivitamin (Theragran-M) tablet Take 1 tablet by mouth daily. 30 tablet 11/03/19 25 Active Additional Information Patient not taking.Reported on 01/04/2025 valsartan (Diovan) 160 MG tabletIndicatio ns:Bilateral renal artery stenosis (CMS/HCC),Resis tant hypertension,Hy pertensive chronic kidney disease with stage 1 through stage 4 chronic kidney disease, or unspecified chronic kidney disease Take 1 tablet by mouth daily. 90 tablet 11/29/19 25 Active bumetanide (Bumex) 2 MG tabletIndicatio ns:Bilateral renal artery stenosis (CMS/HCC),Resis tant hypertension,Hy pertensive chronic kidney disease with stage 1 through stage 4 chronic kidney disease, or unspecified chronic kidney disease Take 1 tablet by mouth daily. 90 tablet 11/29/19 25 Active dapagliflozin (Farxiga) 10 MG tabletIndicatio ns:Bilateral renal artery stenosis (CMS/HCC),Resis tant hypertension,Hy pertensive chronic kidney disease with stage 1 through stage 4 chronic kidney disease, or unspecified chronic kidney disease Take 1 tablet by mouth daily. 90 tablet 11/29/19 25 Active cholecalciferol (Vitamin D-3) 50 MCG (1999 UT) capsuleIndicati ons:Bilateral renal artery stenosis (CMS/HCC),Resis tant hypertension,Hy pertensive chronic kidney disease with stage 1 through stage 4 chronic kidney disease, or unspecified chronic kidney disease Take 1 capsule by mouth daily. 90 capsule 11/29/19 25 Active allopurinol (Zyloprim) 100 MG tabletIndicatio ns:Bilateral renal artery stenosis (CMS/HCC),Resis tant hypertension,Hy pertensive chronic kidney disease with stage 1 through stage 4 chronic kidney disease, or unspecified chronic kidney disease Take 1 tablet by mouth daily. 90 tablet 11/29/19 25 Active hydrALAZINE (Apresoline) 50 MG tabletIndicatio ns:Bilateral renal artery stenosis (CMS/HCC),Resis tant hypertension,Hy pertensive chronic kidney disease with stage 1 through stage 4 chronic kidney disease, or unspecified chronic kidney disease Take 1 tablet by mouth 2 times a day. 90 tablet 11/29/19 25 Active carvedilol (Coreg) 12.5 MG tablet Take 1 tablet by mouth 2 times a day. 120 tablet 11/29/19 25 Active cloNIDine (Catapres) 0.3 MG tabletIndicatio ns:Resistant hypertension,Hy pertensive chronic kidney disease with stage 1 through stage 4 chronic kidney disease, or unspecified chronic kidney disease Take 1 tablet by mouth every 8 hours. 90 tablet 11/29/19 25 Active NIFEdipine CC (Adalat CC) 60 MG 24 hr tabletIndicatio ns:Resistant hypertension,Hy pertensive chronic kidney disease with stage 1 through stage 4 chronic kidney disease, or unspecified chronic kidney disease Take 1 tablet by mouth 2 times a day. Do not crush, chew, or split. 90 tablet 3 11/29/19 25 Active guaiFENesin (Mucinex) 600 MG 12 hr tablet Take 2 tablets by mouth 2 times a day. Do not crush, chew, or split. Active ferrous sulfate 325 (65 Fe) MG EC tabletIndicatio ns: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 disease Take 1 tablet by mouth Q MWF. Do not crush, chew, or split. 30 tablet 1 01/05/20 25 Active ferrous sulfate 325 (65 Fe) MG EC tablet Take 1 tablet by mouth 3 times a day with meals. Do not crush, chew, or split. 025 Discontin ued(Reord er) Active Problems Problem Noted Date Diagnosed Date Hypertensive chronic kidney disease with stage 1 through stage 4 chronic kidney disease, or unspecified chronic kidney disease 11/28/2024 Vitamin D deficiency 11/28/2024 Bilateral renal artery stenosis 10/30/2024 Nausea and vomiting 10/24/2024 Electrolyte disturbance 10/24/2024 Cough 10/23/2024 Ileus 10/23/2024 Acute kidney injury superimposed on CKD 10/20/19 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 disease 025 Encephalopathy 10/19/2024 Hyperkalemia 10/18/2024 Constipation 10/18/2024 Expressive aphasia 10/18/2024 Type 2 diabetes mellitus, [facility] long-term current use of insulin 10/17/2024 Hypothyroidism 10/17/2024 Hyperlipidemia 10/17/2024 Obstructive sleep apnea 10/17/2024 Subdural hematoma 10/13/2024 Chronic kidney disease, stage III (moderate) Resistant hypertension 05/28/2014 Chronic kidney disease-mineral and bone disorder (CKD-MBD) 05/28/2014 Encounters Date Type Department Care Team Description 01/04/2025 9:20 AM EDT Office Visit [facility] [address] [place] [address] Vasquez Beal MD Bilateral renal artery stenosis (CMS/HCC) (Primary Dx); Resistant hypertension; Hypertensive chronic kidney disease with stage 1 through stage 4 chronic kidney disease, or unspecified chronic kidney disease; 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 disease; Vitamin D deficiency; Chronic kidney disease-mineral and bone disorder (CKD-MBD); Other hyperlipidemia 01/04/2025 Travel 11/28/2024 2:00 PM EDT Office Visit [facility]ph[facility], Bone [facility] [address], [address] [place] [address] Vasquez Beal MD Hypertensive chronic kidney disease with stage 1 through stage 4 chronic kidney disease, or unspecified chronic kidney disease (Primary Dx); Bilateral renal artery stenosis (CMS/HCC); Resistant hypertension; 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 disease; Chronic kidney disease-mineral and bone disorder (CKD-MBD); Vitamin D deficiency; Other hyperlipidemia 11/28/2024 Travel 11/22/2024 Telephone [facility] [address], [address] [place] [address] Eva Gonsales MD HCN - Patient Message (Schedule ) 10/30/2024 Travel 10/29/2024 Travel 10/24/2024 Travel 10/23/2024 Travel 10/23/2024 Telephone [facility] [address] [place] [address] Eva Gonsales MD 10/13/2024 4:45 PM EDT - 11/02/2024 1:17 PM EDT Hospital Encounter [facility] [address] [place] [address] Woody Machuca MD Wilcox, Jared T, MD Subdural hematoma (CMS/HCC) (Primary Dx); Bilateral renal artery stenosis (CMS/HCC); Resistant hypertension; Renal osteodystrophy; Stage 3 chronic kidney disease, unspecified whether stage 3a or 3b CKD (CMS/HCC); Type 2 diabetes mellitus with stage 3 chronic kidney disease, without long-term current use of insulin, unspecified whether stage 3a or 3b CKD (CMS/HCC); Subacute cough; Electrolyte disturbance; Encephalopathy, unspecified type; Seizure (CMS/[facility]) Discharge Disposition: [facility] Facility from Last 3 Months Immunizations Immunization Administration Dates Next Due Hep A, Adult 01/29/2019 Hep B, adult 04/09/2008,08/14/2007,07/14/2007 Influenza Vaccine, Quadrivalent, Adjuvanted 04/01,04/15/2021 Influenza, High-dose, Split Virus, Trivalent, Injectable, preservative free 04/10/2024 Influenza, Unspecified 04/15/2021 Influenza, high-dose, quadrivalent 04/08/2020, Influenza, injectable, quadr ivalent, preservative free 04/07/2016 Influenza, seasonal, injecta ble, preservative free 04/08/2020 Influenza, trivalent, adjuvanted 03/18/2017 Pneumococcal Conjugate PCV 13 03/09/2018 Pneumococcal Polysaccharide PPV23 01/15/2020, TD (adult), 2 Lf tetanus tox oid, preservative free, adsorbed 10/05/1996 Tdap 03/09/2018 Family History Medical History Relation Name Comments Kidney disease Other Diabetes Son 1 Kidney disease Son 2 Relation Name Status Comments Other Son 1 Son 2 Social History Tobacco Use Types Packs/Day Years [...] any time in the past [address] [facility], were you homeless or living in a assisted (including now)? No 10/17/2024 Utilities Answer Date Recorded In the past 12 months has th e electric, gas, oil, or water company threatened to shut off services in your home? No 10/17/2024 Comments No Sex and Gender Information Value Date Recorded Sex Assigned at Not on file Legal Sex Female 8:29 PM EDT Gender Identity Not on file Sexual Orientation Not on file Last Filed Vital Signs Vital Sign Reading Time Taken Comments Blood Pressure 132/58 01/04/2025 9:39 AM EDT Pulse 59 01/04/2025 9:39 AM EDT Temperature 36.5 C (97.7 F) 11/28/2024 2:03 PM EDT Respiratory Rate 22 01/04/2025 9:39 AM EDT Oxygen Saturation 90% 01/04/2025 9:39 AM EDT 2 liters Inhaled Oxygen Concentration - - Weight 74.8 kg (164 lb 12.8 oz) 01/04/2025 9:39 AM EDT Height 170.2 cm (5' 7 ) 01/04/2025 9:39 AM EDT Body Mass Index 25.81 01/04/2025 9:39 AM EDT Plan of Treatment Health Maintenance Due Date Last Done Comments [facility]-Bone Density Scan 1942 [facility]-Depression Screening 1942 [facility]-Medicare Annual Wellness (AWV) 1942 [facility]-/Child/Adol SDOH Screenings 1942 Diabetes: Dental Exam 1952 [facility]-Zoster Vaccines (1 of 2) 1992 [facility]-RSV Vaccine: 60+ Years or (1 - 1-dose 75+ series) 2017 [facility]-Diabetes: Hemoglobin A1C 02/20/2021 08/23/2020 HRA-UARMA-93 Vaccine ( season) 2024 04/10/2024, 10/25/2023, 05/04/2023, Additional history exists [facility]- SDOH Screenings 2025 [facility]-Adult SDOH Screenings 2025 10/17/2024 [facility]-DTaP,Tdap,and Td Vaccines (2 - Td or Tdap) 03/09/2028 03/09/2018, 10/05/1996 [facility]-Hepatitis A Vaccines Aged Out 01/29/2019 No longer eligible based on patient's age to complete this topic [facility]-Pneumococcal Vaccine: 50+ Years Completed 01/15/2020, 03/09/2018, 07/22/2004 [facility]-Influenza Vaccine Completed 04/10/2024 , 04/14/2023, 04/15/2021, Additional history exists [facility]-Obesity Intervention Completed 025, 11/28/2024, 10/13/2024 HPV Vaccines Aged Out No longer eligi ble based on patient's age to complete this topic [facility]-HIB Vaccines Aged Out No longer e ligible based on patient's age to complete this topic [facility]-IPV Vaccines Aged Out No longer e ligible based on patient's age to complete this topic [facility]-Rotavirus Vaccines Aged Out No lo nger eligible based on patient's age to complete this topic Goals Goal Patient Goal Type Associated Problems Recent Progress Patient-Stated? Author Autogenerat ed Goal Care Plan Autogenerated Problem No Jermaine [employer] Implanted Type Area Longshore Equipment Operator Device Identifier Shelf Expiration Date Model / Serial / Lot Plate, 2 Hole Low Profile - Sin Set - [id number] Implanted:Qty: 2 on 10/14/2024 by Fredy Espinoza MD at [facility] Implant Left: Cranial Synthes [id number] / IN SET / Cover, Neuro [place] Lp 17mm - Sin Set - [id number] Implanted:Qty: 2 on 10/14/2024 by Fredy Espinoza MD at [facility] Implant Left: Cranial Synthes [id number] 421.527 / IN SET / Description:Cranial plate Lead-08/07/2021 Implanted:08/07 by David Delgado MD (Quantity not on file) Lead Chest [employer] [id number] / [id number] / Lead-08/07/2021 Implanted:08/07 by David Delgado MD (Quantity not on file) Lead Chest [employer] [id number] / [id number] / Pacemaker- 022 Implanted:08/07 by David Delgado MD (Quantity not on file) Pacemaker Chest [employer] [id number] / [id number] / Icm-08/07/2021 Implanted:08/07 by David Delgado MD (Quantity not on file) Chest [employer] [id number] / [id number] / Graft Dura Repair 2x2 Synthecel - [id number] Implanted:Qty: 1 on 10/14/2024 by Fredy Espinoza MD at [facility] Brain Synthes [id number] 05/31/2026 SC.400.02 5.01S / / [id number] Cover, Neuro Ijeoma Shunt 17mm - Sin Set - [id number] Implanted:Qty: 1 on 10/14/2024 by Fredy Espinoza MD at [facility] Left: Cranial Synthes [id number] 421.554 / IN SET / Screw Ti Matrixneuro Selfdrill 4mm - [id number] Implanted:Qty: 12 on 10/14/2024 by Wilber Duke MD at [facility] Synthes [id number] 10/14/2025 04.503.10 4.01 / / Hip Stem Trufill N Bca Liquid - [id number] Implanted:Qty: 1 on 10/17/2024 by Karrie Shaw, DRE at [facility] J[employer]J [id number] 02/28/2026 [id number] / / [id number] Vip Vascular Closure Device 6 Fr - [id number] Implanted:Qty: 1 on 10/17/2024 by Karrie Shaw RN at [facility] [id number] 04/12/2025 [id number] / / [id number] Procedures Procedure Name Priority Date/Time Associated Diagnosis Comments POCT GLUCOSE METER UNSOLICITED RESULTS Routine 11/02/2024 7:48 AM EDT PHOSPHORUS, PLASMA Routine 11/01/2024 11 :59 PM EDT MAGNESIUM, PLASMA Routine 11/01/2024 11: 59 PM EDT BASIC METABOLIC PANEL, PLASMA Routine 11/01/2024 11:59 PM EDT POCT GLUCOSE METER UNSOLICITED RESULTS Routine 11/01/2024 9:03 PM EDT POCT GLUCOSE METER UNSOLICITED RESULTS Routine 11/01/2024 8:10 PM EDT POCT GLUCOSE METER UNSOLICITED RESULTS Routine 11/01/2024 4:06 PM EDT POCT GLUCOSE METER UNSOLICITED RESULTS Routine 11/01/2024 11:37 AM EDT PEP THERAPY Routine 11/01/2024 10:00 AM EDT POCT GLUCOSE METER UNSOLICITED RESULTS Routine 11/01/2024 8:19 AM EDT PEP THERAPY Routine 11/01/2024 6:00 AM EDT PHOSPHORUS, PLASMA Routine 11/01/2024 3: 40 AM EDT MAGNESIUM, PLASMA Routine 11/01/2024 3:4 0 AM EDT BASIC METABOLIC PANEL, PLASMA Routine 11/01/2024 3:40 AM EDT PEP THERAPY Routine 10/31/2024 10:00 PM EDT POCT GLUCOSE METER UNSOLICITED RESULTS Routine 10/31/2024 9:11 PM EDT PEP THERAPY Routine 10/31/2024 6:00 PM EDT POCT GLUCOSE METER UNSOLICITED RESULTS Routine 10/31/2024 3:19 PM EDT PEP THERAPY Routine 10/31/2024 2:00 PM EDT POCT GLUCOSE METER UNSOLICITED RESULTS Routine 10/31/2024 11:36 AM EDT PEP THERAPY Routine 10/31/2024 10:00 AM EDT POCT GLUCOSE METER UNSOLICITED RESULTS Routine 10/31/2024 7:24 AM EDT PEP THERAPY Routine 10/31/2024 6:00 AM EDT PEP THERAPY Routine 10/30/2024 10:00 PM EDT PHOSPHORUS, PLASMA Routine 10/30/2024 9 :23 PM EDT MAGNESIUM, PLASMA Routine 10/30/2024 9:2 3 PM EDT BASIC METABOLIC PANEL, PLASMA Routine 10/30/2024 9:23 PM EDT POCT GLUCOSE METER UNSOLICITED RESULTS Routine 10/30/2024 7:53 PM EDT PEP THERAPY Routine 10/30/2024 6:00 PM EDT POCT GLUCOSE METER UNSOLICITED RESULTS Routine 10/30/2024 3:27 PM EDT PEP THERAPY Routine 10/30/2024 2:00 PM EDT POCT GLUCOSE METER UNSOLICITED RESULTS Routine 10/30/2024 11:53 AM EDT PEP THERAPY Routine 10/30/2024 10:00 AM EDT VAS US RENAL ARTERY DUPLEX STAT 10/30/2024 9:54 AM EDT POCT GLUCOSE METER UNSOLICITED RESULTS Routine 10/30/2024 7:24 AM EDT EXTRA TUBE LAVENDER TOP Routine 10/30/2024 6:13 AM EDT EXTRA TUBES Routine 10/30/2024 6:13 AM EDT PHOSPHORUS, PLASMA Routine 10/30/2024 6: 04 AM EDT MAGNESIUM, PLASMA Routine 10/30/2024 6:0 4 AM EDT BASIC METABOLIC PANEL, PLASMA Routine 10/30/2024 6:04 AM EDT PEP THERAPY Routine 10/30/2024 6:00 AM EDT PEP THERAPY Routine 10/29/2024 10:00 PM EDT RESPIRATORY CULTURE AND GRAM STAIN Pending Discharge 10/29/2024 9:16 PM EDT POCT GLUCOSE METER UNSOLICITED RESULTS Routine 10/29/2024 7:28 PM EDT PEP THERAPY Routine 10/29/2024 6:00 PM EDT POCT GLUCOSE METER UNSOLICITED RESULTS Routine 10/29/2024 3:35 PM EDT PEP THERAPY Routine 10/29/2024 2:00 PM EDT PEP THERAPY Routine 10/29/2024 11:29 AM EDT PEP THERAPY Routine 10/29/2024 11:29 AM EDT PEP THERAPY Routine 10/29/2024 11:29 AM EDT PEP THERAPY Routine 10/29/2024 11:29 AM EDT PEP THERAPY Routine 10/29/2024 11:29 AM EDT POCT GLUCOSE METER UNSOLICITED RESULTS Routine 10/29/2024 11:26 AM EDT XR CHEST 1 VIEW Routine 10/29/2024 10:48 AM EDT POCT GLUCOSE METER UNSOLICITED RESULTS Routine 10/29/2024 7:24 AM EDT PHOSPHORUS, PLASMA STAT 10/29/2024 6: 25 AM EDT MAGNESIUM, PLASMA STAT 10/29/2024 6:2 5 AM EDT BASIC METABOLIC PANEL, PLASMA STAT 10/29/2024 6:25 AM EDT CBC W/O DIFFERENTIAL STAT 10/29/2024 6:25 AM EDT POCT GLUCOSE METER UNSOLICITED RESULTS Routine 10/28/2024 7:59 PM EDT PHOSPHORUS, PLASMA Add-On 10/28/2024 5: 28 PM EDT BASIC METABOLIC PANEL, PLASMA Timed 10/28/2024 5:28 PM EDT POCT GLUCOSE METER UNSOLICITED RESULTS Routine 10/28/2024 4:36 PM EDT POCT GLUCOSE METER UNSOLICITED RESULTS Routine 10/28/2024 12:50 PM EDT BASIC METABOLIC PANEL, PLASMA Timed 10/28/2024 12:22 PM EDT POCT GLUCOSE METER UNSOLICITED RESULTS Routine 10/28/2024 12:00 PM EDT POCT GLUCOSE METER UNSOLICITED RESULTS Routine 10/28/2024 7:53 AM EDT POCT GLUCOSE METER UNSOLICITED RESULTS Routine 10/27/2024 3:57 PM EDT POCT GLUCOSE METER UNSOLICITED RESULTS Routine 10/27/2024 12:29 PM EDT EXTRA TUBE GOLD TOP Routine 10/27/2024 1 1:10 AM EDT EXTRA TUBE LIGHT BLUE TOP Routine 10/27/2024 11:10 AM EDT EXTRA TUBES Routine 10/27/2024 11:10 AM EDT URINALYSIS MICROSCOPIC FOR UA REFLEX Routine 10/27/2024 10:53 AM EDT URINALYSIS WITH REFLEX MICROSCOPIC Routine 10/27/2024 10:53 AM EDT CBC W/O DIFFERENTIAL Routine 10/27/2024 10:51 AM EDT POCT GLUCOSE METER UNSOLICITED RESULTS Routine 10/26/2024 8:23 PM EDT POCT GLUCOSE METER UNSOLICITED RESULTS Routine 10/26/2024 4:59 PM EDT POCT GLUCOSE METER UNSOLICITED RESULTS Routine 10/26/2024 4:26 PM EDT POCT GLUCOSE METER UNSOLICITED RESULTS Routine 10/26/2024 11:33 AM EDT POCT GLUCOSE METER UNSOLICITED RESULTS Routine 10/26/2024 8:11 AM EDT PHOSPHORUS, PLASMA Routine 10/26/2024 3: 18 AM EDT MAGNESIUM, PLASMA Routine 10/26/2024 3:1 8 AM EDT BASIC METABOLIC PANEL, PLASMA Routine 10/26/2024 3:18 AM EDT POCT GLUCOSE METER UNSOLICITED RESULTS Routine 10/25/2024 8:00 PM EDT POCT GLUCOSE METER UNSOLICITED RESULTS Routine 10/25/2024 3:31 PM EDT POCT GLUCOSE METER UNSOLICITED RESULTS Routine 10/25/2024 11:30 AM EDT POCT GLUCOSE METER UNSOLICITED RESULTS Routine 10/25/2024 7:01 AM EDT POCT GLUCOSE METER UNSOLICITED RESULTS Routine 10/25/2024 6:02 AM EDT POCT GLUCOSE METER UNSOLICITED RESULTS Routine 10/25/2024 12:57 AM EDT POCT GLUCOSE METER UNSOLICITED RESULTS Routine 10/25/2024 12:15 AM EDT POCT GLUCOSE METER UNSOLICITED RESULTS Routine 10/24/2024 9:31 PM EDT POCT GLUCOSE METER UNSOLICITED RESULTS Routine 10/24/2024 8:50 PM EDT POCT GLUCOSE METER UNSOLICITED RESULTS Routine 10/24/2024 5:50 PM EDT POCT GLUCOSE METER UNSOLICITED RESULTS Routine 10/24/2024 3:48 PM EDT MR HEAD WO IV CONTRAST Routine 10/24/2024 1:57 PM EDT POCT GLUCOSE METER UNSOLICITED RESULTS Routine 10/24/2024 11:58 AM EDT IONIZED CALCIUM, WHOLE BLOOD STAT 10/24/2024 6:48 AM EDT PHOSPHORUS, PLASMA STAT 10/24/2024 6: 48 AM EDT MAGNESIUM, PLASMA STAT 10/24/2024 6:4 8 AM EDT BASIC METABOLIC PANEL, PLASMA STAT 10/24/2024 6:48 AM EDT CBC W/O DIFFERENTIAL STAT 10/24/2024 6:48 AM EDT POCT GLUCOSE METER UNSOLICITED RESULTS Routine 10/24/2024 6:16 AM EDT POCT GLUCOSE METER UNSOLICITED RESULTS Routine 10/24/2024 1:15 AM EDT POCT GLUCOSE METER UNSOLICITED RESULTS Routine 10/24/2024 12:25 AM EDT POCT GLUCOSE METER UNSOLICITED RESULTS Routine 10/23/2024 9:08 PM EDT XR ABDOMEN 1 VIEW STAT 10/23/2024 8:2 6 PM EDT POCT GLUCOSE METER UNSOLICITED RESULTS Routine 10/23/2024 5:23 PM EDT XR CHEST 1 VIEW Routine 10/23/2024 1:48 PM EDT XR ABDOMEN 1 VIEW Routine 10/23/2024 1:4 8 PM EDT POCT GLUCOSE METER UNSOLICITED RESULTS Routine 10/23/2024 11:15 AM EDT SARS-COV-2, FLU A, FLU B, AND RSV Routine 10/23/2024 11:05 AM EDT POCT GLUCOSE METER UNSOLICITED RESULTS Routine 10/23/2024 7:39 AM EDT PHOSPHORUS, PLASMA Routine 10/23/2024 4: 25 AM EDT MAGNESIUM, PLASMA Routine 10/23/2024 4:2 5 AM EDT BASIC METABOLIC PANEL, PLASMA Routine 10/23/2024 4:25 AM EDT CBC W/O DIFFERENTIAL Routine 10/23/2024 4:25 AM EDT HEMOGLOBIN A1C Routine 08/23/2020 4:16 PM EST from Last 3 Months or Most Recently Relevant to Health Maintenance Results * POCT glucose meter (11/02/2024 7:48 AM EDT) Only the most recent of49 resultswithin the time period is included. [facility] POCT Glucose 99 74 - 99 mg/dL 11/02/2024 7:59 AM EDT [facility] Comment:Accuracy of a glucos e result obtained from a capillary whole blood specimen relies upon adequate, non-compromised capillary blood flow. If the capillary glucose result is not consistent with the patient's clinical signs and symptoms, glucose testing should be repeated with either an arterial or venous sample on the glucometer or sent to the main labortory for testing. Comment 11/02/2024 7:59 AM EDT [facility] Rope Tier ID Piedad Sanchez 7:59 AM EDT [facility]ALTH[facility]ARE [facility] Device ID [id number] 11/02/2024 7:59 AM EDT [facility] Specimen Type POC Capillary 11/02/2024 7:59 AM EDT [facility] Blood Capillary blood specimen / Unknown 11/02/2024 7:48 AM EDT 11/02/2024 7:59 AM EDT us Wilber Duke MD LAB POINT OF CARE TE ST DOCKED DEVICE UNSOLICITED RESULTS Final Result Performing Organization Address City/[facility] Co de Phone Number [facility] [address] [place] [phone] * Phosphorus, Plasma (11/01/2024 11:59 PM EDT) Only the most recent of9 resultswithin the time period is included. Phosphorus, Plasma 3.1 2.5 - 4.5 mg/dL 11/02/2024 12:39 AM EDT [facility] Blood Venous blood specimen / Unknown Venipuncture / Unknown 11/01/2024 11:59 PM EDT 11/02/2024 12:12 AM EDT us Camila Man APRN LAB BLOOD ORDERABLES Final R esult Performing Organization Address City/[facility]/ZIP Co de Phone Number [facility] [address] [place] [phone] * (ABNORMAL) Magnesium, Plasma (11/01/2024 11:59 PM EDT) Only the most recent of8 resultswithin the time period is included. Magnesium, Plasma 1.8(L) 1.9 - 2.4 mg/dL 11/02/2024 12:39 AM EDT [facility] Blood Venous blood specimen / Unknown Venipuncture / Unknown 11/01/2024 11:59 PM EDT 11/02/2024 12:12 AM EDT us Camila Orlando Donovan BENCH ASSEMBLER OPERATOR LAB BLOOD ORDERABLES Final R esult [facility] [address] [place] [address] * (ABNORMAL) Basic Metabolic Panel, Plasma (11/01/2024 11:59 PM EDT) Only the most recent of10 resultswithin the time period is included. Glucose, Plasma 97 74 - 99 mg/dL 11/02/2024 12:39 AM EDT [facility] BUN, Plasma 29(H) 8 - 23 mg/dL 11/02/2024 12:39 AM EDT [facility] Creatinine, Plasma 1.69(H) 0.60 - 1.10 mg/dL 11/02/2024 12:39 AM EDT [facility] BUN/Creatinine Ratio 17 11/02/2024 12:39 AM EDT [facility] Sodium, Plasma 141 136 - 145 mmol/L 11/02/2024 12:39 AM EDT [facility] Potassium, Plasma 4.2 3.6 - 4.9 mmol/L 11/02/2024 12:39 AM EDT [facility] Chloride, Plasma 112(H) 97 - 107 mmol/L 11/02/2024 12:39 AM EDT [facility] CO2, Plasma 17(L) 22 - 29 mmol/L 11/02/2024 12:39 AM EDT [facility] Anion Gap 12 6 - 16 mmol/L 11/02/2024 12:39 AM EDT [facility] Total Calcium, Plasma 8.7(L) 8.9 - 10.2 mg/dL 11/02/2024 12:39 AM EDT [facility] eGFRcr 30.0 mL/min/1.7 3m*2 11/02/2024 12:39 AM EDT [facility] Comment:Reported eGFRcr in m L/min/1.73m2 is based the CKD-EPI 2020 equation that does not use a race coefficient. Blood Venous blood specimen / Unknown Venipuncture / Unknown 11/01/2024 11:59 PM EDT 11/02/2024 12:12 AM EDT us Camila Man APRN LAB BLOOD ORDERABLES Final R esult [facility] [address] [place] [address] * VAS US Renal Artery Duplex (10/30/2024 9:54 AM EDT) Anatomical Region Laterality Modality Vascular, Kidney Ultrasound Impressions 11/02/2024 12:27 PM EDT Right: Limited, abnormal study, renal artery stenosis identified but is not hemodynamically significant at the origin which is less than 60%. Unable to accurately measure the kidney. Left: Abnormal study, renal artery stenosis identified but is not hemodynamically significant at the origin which is less than 60%. Kidney size is within normal limits. COMMUNICATION: Preliminary findings discussed with Camila Man APRN via [employer] chat. RB. Preliminary report signed by Norma Constantino RVT on 10/30/2024 11:56 AM By electronically signing this report, I, the attending physician, attest that I have personally reviewed the images/data for the above examination(s) and I agree with the final edited report. Drafted by Norma Constantino RVT on 10/30/2024 11:13 AM Final report signed by Usman Pisano MD on 11/02/2024 12:27 PM Narrative 11/02/2024 12:27 PM EDT CLINICAL INDICATION: Malignant/ Resistant HTN TECHNIQUE: Non-invasive, real time duplex exam of the renal arterial circulation with Doppler ultrasonic waveform and spectral analysis was performed. COMPARISON: None. FINDINGS: Technically difficult and limited exam due to patient coughing and movement. Right: The kidney length measures approximately 8.45 cm, difficult to measure due to bowel gas. The peak renal artery velocities are 290 cm/s with [...] abnormal with a resistive index range of 0.88- 0.93. Venous spectral analysis demonstrates a spontaneous flow signal. Procedure Note Usman Pisano MD - 11/02/2024 CLINICAL INDICATION: Malignant/ Resistant HTN TECHNIQUE: Non-invasive, real time duplex exam of the renal arterial circulation withDoppler ultrasonic waveform and spectral analysis was performed. COMPARISON: None. FINDINGS: Technically difficult and limited exam due to patient coughingand movement. Right: The kidney length measures approximately 8.45 cm, difficult tomeasure due to bowel gas. The peak renal artery velocities are 290 cm/swith a Renal/Aorta ratio of 2.6. Parenchymal blood flow pattern isabnormal with a resistive index range of 0.60-0.76. Venous spectralanalysis demonstrates a spontaneous flow signal. Left: The kidney length measures 11.7 cm. The peak renal artery velocitiesare 282 cm/s with a Renal/Aorta ratio of 2.6. Parenchymal blood flowpattern is abnormal with a resistive index range of 0.88-0.93. Venousspectral analysis demonstrates a spontaneous flow signal. IMPRESSION: Right: Limited, abnormal study, renal artery stenosis identified but isnot hemodynamically significant at the origin which is less than 60%.Unable to accurately measure the kidney. Left: Abnormal study, renal artery stenosis identified but is nothemodynamically significant at the origin which is less than 60%. Kidneysize is within normal limits. COMMUNICATION: Preliminary findings discussed with Camila Man APRN via [employer] [email or web address]. Preliminary report signed by Norma Constantino RVT on 10/30/2024 11:56 AM By electronically signing this report, I, the attending physician, attestthat I have personally reviewed the images/data for the aboveexamination(s) and I agree with the final edited report. Drafted by Norma Constantino RVT on 10/30/2024 11:13 AM Final report signed by Usman Pisano MD on 11/02/2024 12:27 PM us Camila Man APRN CV VASCULAR PROCEDURES Final Result * Lavender Top (10/30/2024 6:13 AM EDT) Extra Hold for add-ons 10/30/2024 9:01 AM EDT [facility] Comment:Auto resulted. Blood Venous blood specimen / Unknown 10/30/2024 6:13 AM EDT 10/30/2024 6:13 AM EDT us Wilber Duke MD LAB BLOOD ORDERABLES Final Res ult [facility] [address] [place] [address] * (ABNORMAL) Respiratory Culture and Gram Stain (10/29/2024 9:16 PM EDT) Culture Heavy Growth 11/02/2024 7:50 AM EDT [facility] Culture Mixed upper respiratory jovan(A) 11/02/2024 7:50 AM EDT [facility] Comment:The organism value f or this result has been updated. These results have been appended to the previously preliminary verified report. Gram Stain Result Numerous Gram positive cocci in pairs and chains(A) 11/02/2024 7:50 AM EDT [facility] Gram Stain Result Few Budding yeast(A) 11/02/2024 7:50 AM EDT [facility] Gram Stain Result Numerous Gram positive rods(A) 11/02/2024 7:50 AM EDT [facility] Gram Stain Result Rare Gram positive cocci in clusters(A) 11/02/2024 7:50 AM EDT [facility] Gram Stain Result Fewer than 10 Epithelial cells/LPF(A) 11/02/2024 7:50 AM EDT [facility] Gram Stain Result Fewer than 25 WBC/LPF(A) 11/02/2024 7:50 AM EDT [facility] Sputum Coughed sputum specimen / Unknown Non-blood Collection / Unknown 10/29/2024 9:16 PM EDT 10/29/2024 9:36 PM EDT us Camila Man APRN LAB MICROBIOLOGY - GENERAL O RDERABLES Final Result Performing Organization Address City/[facility]/ZIP Co de Phone Number [facility] [address] [place] [address] * XR Chest 1 View (10/29/2024 10:48 AM EDT) Only the most recent of2 resultswithin the time period is included. Anatomical Region Laterality Modality Chest Digital Radiogra phy Impressions 10/29/2024 11:01 AM EDT Increased basilar atelectasis. Can't exclude airspace disease at the lung bases. CRITICAL RESULT: No. COMMUNICATION: Per this written report. Drafted by hCarles Bradley MD on 10/29/2024 11:00 AM Final report signed by Charles Bradley MD on 10/29/2024 11:01 AM Narrative 10/29/2024 11:01 AM EDT CLINICAL INDICATION: productive cough TECHNIQUE: XR CHEST 1 VIEW COMPARISON: October 23, 2024 FINDINGS: Very low lung volumes, with extensive basilar atelectasis, increased. Difficult to exclude airspace disease at the lung bases. Stable cardiomegaly. No pneumothorax. Procedure Note Charles Bradley MD - 10/29/2024 CLINICAL INDICATION: productive cough TECHNIQUE: XR CHEST 1 VIEW COMPARISON: October 23, 2024 FINDINGS: Very low lung volumes, with extensive basilar atelectasis, increased.Difficult to exclude airspace disease at the lung bases. Stablecardiomegaly. No pneumothorax. IMPRESSION: Increased basilar atelectasis. Can't exclude airspace disease at the lungbases. CRITICAL RESULT: No. COMMUNICATION: Per this written report. Drafted by Charles Bradley MD on 10/29/2024 11:00 AM Final report signed by Charles Bradley MD on 10/29/2024 11:01 AM Camila Man BENCH ASSEMBLER OPERATOR IMG XR PROCEDURES Final Resu lt * (ABNORMAL) CBC W/O Differential (10/29/2024 6:25 AM EDT) Only the most recent of4 resultswithin the time period is included. WBC Count 10.39(H) 3.70 - 10.30 10*3/uL LAB HEMATOLOGY METHOD 10/29/2024 6:38 AM EDT [facility] RBC Count 2.83(L) 3.90 - 5.20 10*6/uL LAB HEMATOLOGY METHOD 10/29/2024 6:38 AM EDT [facility] HGB 8.2(L) 11.2 - 15.7 g/dL LAB HEMATOLOGY METHOD 10/29/2024 6:38 AM EDT [facility] HCT 26.5(L) 34.0 - 45.0 % LAB HEMATOLOGY METHOD 10/29/2024 6:38 AM EDT [facility] Platelet Count 186 155 - 369 10*3/uL LAB HEMATOLOGY METHOD 10/29/2024 6:38 AM EDT [facility] MCV 94 79 - 98 fL LAB HEMATOLOGY METHOD 10/29/2024 6:38 AM EDT [facility] MCH 29.0 26.0 - 32.0 pg LAB HEMATOLOGY METHOD 10/29/2024 6:38 AM EDT [facility] MCHC 30.9 30.7 - 35.5 g/dL LAB HEMATOLOGY METHOD 10/29/2024 6:38 AM EDT [facility] RDW 19.4(H) 11.5 - 14.5 % LAB HEMATOLOGY METHOD 10/29/2024 6:38 AM EDT [facility] MPV 10.6 8.8 - 12.5 fL LAB HEMATOLOGY METHOD 10/29/2024 6:38 AM EDT [facility] nRBC 0.0 <=0.0 per 100 WBCs LAB HEMATOLOGY METHOD 10/29/2024 6:38 AM EDT [facility] Blood Venous blood specimen / Unknown Venipuncture / Unknown 10/29/2024 6:25 AM EDT 10/29/2024 6:31 AM EDT us Camila Man BENCH ASSEMBLER OPERATOR LAB BLOOD ORDERABLES Final R esult [facility] [address] [place] [address] * Gold Top (10/27/2024 11:10 AM EDT) Extra Hold for add-ons 10/27/2024 2:01 PM EDT [facility] Comment:Auto resulted. Blood Venous blood specimen / Unknown 10/27/2024 11:10 AM EDT 10/27/2024 11:10 AM EDT us Wilber Duke MD LAB BLOOD ORDERABLES Final Res ult Performing Organization Address City/[facility] Co de Phone Number [facility] [address] [place] [address] * Light Blue Top (10/27/2024 11:10 AM EDT) Extra Hold for add-ons 10/27/2024 2:01 PM EDT [facility] Comment:Auto resulted. Blood Venous blood specimen / Unknown 10/27/2024 11:10 AM EDT 10/27/2024 11:10 AM EDT us Wilber Duke MD LAB BLOOD ORDERABLES Final Res ult Performing Organization Address [facility] de Phone Number [facility] [address] [place] [address] * Urinalysis Microscopic Examination (10/27/2024 10:53 AM EDT) Urine Urine specimen obtained by clean catch procedure / Unknown Non-blood Collection / Unknown 10/27/2024 10:53 AM EDT 10/27/2024 11:13 AM EDT us Wilber Duke MD LAB URINE ORDERABLES Final Res ult Performing Organization Address [facility] de Phone Number [facility] [address] [place] [address] * (ABNORMAL) Urinalysis with reflex microscopic (Culture NOT Included) (10/27/2024 10:53 AM EDT) Color, Urine Yellow LAB URINALYSIS - AUTOMATED METHOD 10/27/2024 11:45 AM EDT [facility] Clarity, Urine Clear LAB URINALYSIS - AUTOMATED METHOD 10/27/2024 11:45 AM EDT [facility] Spec [place], Urine 1.008 1.005 - 1.030 LAB URINALYSIS - AUTOMATED METHOD 10/27/2024 11:45 AM EDT [facility] pH, Urine 6.5 5.0 - 8.0 LAB URINALYSIS - AUTOMATED METHOD 10/27/2024 11:45 AM EDT [facility] Protein, Urine >=300(A) Negative mg/dL LAB URINALYSIS - AUTOMATED METHOD 10/27/2024 11:45 AM EDT [facility] Glucose, Urine Negative Negative mg/dL LAB URINALYSIS - AUTOMATED METHOD 10/27/2024 11:45 AM EDT [facility] Ketones, Urine Negative Negative mg/dL LAB URINALYSIS - AUTOMATED METHOD 10/27/2024 11:45 AM EDT [facility] Blood, Urine Negative Negative LAB URINALYSIS - AUTOMATED METHOD 10/27/2024 11:45 AM EDT [facility] Bilirubin, Urine Negative Negative LAB URINALYSIS - AUTOMATED METHOD 10/27/2024 11:45 AM EDT [facility] Urobilinogen, Urine 0.2 0.2 to 1.0 mg/dL LAB URINALYSIS - AUTOMATED METHOD 10/27/2024 11:45 AM EDT [facility] Leukocytes, Urine Negative Negative LAB URINALYSIS - AUTOMATED METHOD 10/27/2024 11:45 AM EDT [facility] Nitrite, Urine Negative Negative LAB URINALYSIS - AUTOMATED METHOD 10/27/2024 11:45 AM EDT [facility] RBC, Urine <1 0 to 3 /HPF LAB URINALYSIS - AUTOMATED METHOD 10/27/2024 11:45 AM EDT [facility] WBC, Urine 0 - 5 0 to 5 /HPF LAB URINALYSIS - AUTOMATED METHOD 10/27/2024 11:45 AM EDT [facility] Squamous Epithelial Cells 0 - 2 0 to 5 /HPF LAB URINALYSIS - AUTOMATED METHOD 10/27/2024 11:45 AM EDT [facility] Hyaline Casts 0 - 2 0 to 5 /LPF LAB URINALYSIS - AUTOMATED METHOD 10/27/2024 11:45 AM EDT [facility] Bacteria, Urine Negative Negative LAB URINALYSIS - AUTOMATED METHOD 10/27/2024 11:45 AM EDT [facility] Urine Urine specimen obtained by clean catch procedure / Unknown Non-blood Collection / Unknown 10/27/2024 10:53 AM EDT 10/27/2024 11:13 AM EDT us Wilber Duke MD LAB URINE ORDERABLES Final Res ult [facility] [address] [place] [address] * MR Head wo IV Contrast (10/24/2024 1:57 PM EDT) Anatomical Region Laterality Modality Head Magnetic Resonan ce Impressions 10/24/2024 4:49 PM EDT 1. Stable to minimally increased, if any, left convexity subdural hemorrhage, with grossly unchanged mass effect upon the brain. No definite acute ischemic changes. Other chronic findings as above. CRITICAL RESULT: No. COMMUNICATION: Per this written report. Drafted by Jamey Campos MD on 10/24/2024 3:49 PM Final report signed by Jamey Campos MD on 10/24/2024 4:49 PM Narrative 10/24/2024 4:49 PM EDT CLINICAL INDICATION: Mental status change, unknown cause TECHNIQUE: Multiplanar multiecho sequences were performed through the brain utilizing T1 and T2 weighting, as well as either axial susceptibility weighted or gradient echo sequences, and axial diffusion weighted images. Imaging was performed without contrast administration. COMPARISON: Head CT from 6 10/18/2024 FINDINGS: Diagnostic Quality: Adequate. There is stable to slightly increased subdural hemorrhage along the left-sided convexity, status post craniectomy. It is measuring approximately 8 mm in thickest diameter, anteriorly, as compared with approximately 7 to 8 mm on prior. The amount of mass effect is grossly unchanged with minimal midline shift. There are mixed areas of hyperintense T1 signal, susceptibility artifact and restricted diffusion within the subdural hemorrhage, felt to be most likely secondary to blood products rather than a superimposed infectious process. There is moderate prominence of the cerebral sulci and lateral ventricles most consistent with brain volume loss. There is moderate patchy and other confluent areas of hyperintense T2 signal in the subcortical and periventricular white matter bilaterally. Brainstem demonstrate minimal hyperintense T2 signal, cerebellum appear unremarkable. Vascular Flow Voids: Normal. Paranasal Sinuses and Mastoid Air Cells: There is moderate opacification of the left maxillary sinus. There is mild mucosal thickening in the reminder paranasal sinuses. Orbits: No definite masses within the limitations of the study. Extracranial Findings: Postsurgical changes of left frontal craniotomy. 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 Craniocervical Junction and Skull Base: No tonsillar ectopia or mass is present. Procedure Note Jamey Benson MD - 10/24/2024 CLINICAL INDICATION: Mental status change, unknown cause TECHNIQUE: Multiplanar multiecho sequences were performed through the brain utilizingT1 and T2 weighting, as well as either axial susceptibility weighted orgradient echo sequences, and axial diffusion weighted images. Imaging wasperformed without contrast administration. COMPARISON: Head CT from 6 10/18/2024 FINDINGS: Diagnostic Quality: Adequate. There is stable to slightly increased subdural hemorrhage along theleft-sided convexity, status post craniectomy. It is measuringapproximately 8 mm in thickest diameter, anteriorly, as compared withapproximately 7 to 8 mm on prior. The amount of mass effect is grosslyunchanged with minimal midline shift. There are mixed areas ofhyperintense T1 signal, susceptibility artifact and restricted diffusionwithin the subdural hemorrhage, felt to be most likely secondary to bloodproducts rather than a superimposed infectious process. There is moderate prominence of the cerebral sulci and lateral ventriclesmost consistent with brain volume loss. There is moderate patchy and otherconfluent areas of hyperintense T2 signal in the subcortical andperiventricular white matter bilaterally. Brainstem demonstrate minimalhyperintense T2 signal, cerebellum appear unremarkable. Vascular Flow Voids: Normal. Paranasal Sinuses and Mastoid Air Cells: There is moderate opacificationof the left maxillary sinus. There is mild mucosal thickening in thereminder paranasal sinuses. Orbits: No definite masses within the limitations of the study. Extracranial Findings: Postsurgical changes of left frontal craniotomy.There is mild swelling in the left supra temporalis region, most likelyrelated to known middle meningeal artery embolization. Craniocervical Junction and Skull Base: No tonsillar ectopia or mass ispresent. IMPRESSION: 1. Stable to minimally increased, if any, left convexity subduralhemorrhage, with grossly unchanged mass effect upon the brain. No definiteacute ischemic changes. Other chronic findings as above. CRITICAL RESULT: No. COMMUNICATION: Per this written report. Drafted by Jamey Campos MD on 10/24/2024 3:49 PM Final report signed by Jamey Campos MD on 10/24/2024 4:49 PM us Wilber Duke MD IMG MRI PROCEDURES Final Resul t * Ionized calcium, whole blood (10/24/2024 6:48 AM EDT) Ionized Calcium, Whole Blood 5.0 4.6 - 5.1 mg/dL LAB HEMATOLOGY METHOD 10/24/2024 7:16 AM EDT [facility] Blood Venous blood specimen / Unknown Venipuncture / Unknown 10/24/2024 6:48 AM EDT 10/24/2024 7:12 AM EDT us Camila Orlando Donovan BENCH ASSEMBLER OPERATOR LAB BLOOD ORDERABLES Final R esult [facility] [address] [place] [address] * XR Abdomen 1 View (10/23/2024 8:26 PM EDT) Only the most recent of2 resultswithin the time period is included. Anatomical Region Laterality Modality Body Digital Radiogra phy Impressions 10/23/2024 8:27 PM EDT The tip of the gastric tube is within the proximal to mid stomach CRITICAL RESULT: No. COMMUNICATION: Per this written report. Drafted by Sharon Anaya MD on 10/23/2024 8:26 PM Final report signed by Sharon Anaya MD on 10/23/2024 8:27 PM Narrative 10/23/2024 8:27 PM EDT CLINICAL INDICATION: evaluate NG placement TECHNIQUE: Supine radiograph of the abdomen. COMPARISON: None. FINDINGS: Limited [id number] abdominal radiograph for the purpose of locating tube position. The tip of the nasogastric tube is within the proximal to mid stomach. Procedure Note Sharon Anaya MD - 10/23/2024 CLINICAL INDICATION: evaluate NG placement TECHNIQUE: Supine radiograph of the abdomen. COMPARISON: None. FINDINGS: Limited [id number] abdominal radiograph for the purpose of locatingtube position. The tip of the nasogastric tube is within the proximal to mid stomach. IMPRESSION: The tip of the gastric tube is within the proximal to mid stomach CRITICAL RESULT: No. COMMUNICATION: Per this written report. Drafted by Sharon Anaya MD on 10/23/2024 8:26 PM Final report signed by Sharon Anaya MD on 10/23/2024 8:27 PM Lucien DEMPSEY IMG XR PROCEDURES Final Result * SARS-CoV-2, Flu A, Flu B, and RSV (10/23/2024 11:05 AM EDT) SARS CoV-2/COVID-19 RNA PCR Result Not Detected Not Detected 10/23/2024 2:32 PM EDT [facility] Influenza A Virus PCR Result Not Detected Not Detected 10/23/2024 2:32 PM EDT [facility] Influenza B Virus PCR Result Not Detected Not Detected 10/23/2024 2:32 PM EDT [facility] Respiratory Syncytial Virus (RSV) PCR Result Not Detected Not Detected 10/23/2024 2:32 PM EDT [facility] Swab Nasopharyngeal structure / Unknown Non-blood Collection / Unknown 10/23/2024 11:05 AM EDT 10/23/2024 11:11 AM EDT Narrative [facility] - 10/23/2024 2:32 PM EDT This test is FDA approved for use with nasopharyngeal specimens in Viral Transport Media (VTM). This test is used for clinical purposes. It should not be regarded as investigational or for research. This laboratory is certified under the Clinical Laboratory improvement Amendments of 1988 (CLIA-88 as qualified to perform high complexity clinical laboratory testing. This test was performed on the BD [employer] Respiratory Viral Panel, a PCR-based method. Negative results should be considered presumptive and do not preclude current or future infection obtained through community transmission or other exposures. Negative results must be considered in the context of an individual's recent exposures, history, presence of clinical signs and symptoms consistent with COVID-19, Influenza A or B, and RSV. Camila Man BENCH ASSEMBLER OPERATOR LAB MICROBIOLOGY - GENERAL O RDERABLES Final Result [facility] [address] [place] [address] * Hemoglobin A1c (08/23/2020 4:16 PM EST) Hemoglobin A1c 5.8 4.7 - 6.0 % [facility] Comment: Glycohemoglobin Reference Range, 0 years and up: 4.7 to 6.0% . HA1C Interpretive Data: Diagnosis of Diabetes: Diabetic > or = 6.5% Pre-diabetic 5.7 to 6.4% Non-diabetic < or = 5.6% . Glycemic Targets for Type I and Type II Diabetics: Non- Adults <7.0% Adults <6.0% Children and Adolescents <7.5% . Source: [place] [employer]. Standards of medical care in diabetes, 2017. Diabetes Care.2017:40 (suppl 1):S1-S135. . HbA1c assay performed by an ion-exchange chromatography method that is certified traceable to the DCCT. 08/23/2020 4:16 PM EST 08/23/2020 4:33 PM EST us Historical Provider LAB BLOOD ORDERABLES Luanne l Result [facility] from Last 3 Months or Most Recently Relevant to Health Maintenance Additional Health Concerns Active Problems Noted Date Diagnosed Date Autogenerated Problem 10/15/[address] [place] [phone] [facility] MEDICARE Advance Directives * Full Code (Latest Code Status on File) Date Activated Date Inactivated Comments 10/13/2024 10:46 PM 11/02/2024 3:22 PM Care Teams Watch Case Polisher Relationship Specialty Start Date End Date Evaristo Lovell MD [address] [place] [address] PCP - General 10/13/24
--- OUTSIDE RECORDS SUMMARY | 2025-01-23 11:00 | XMS_ITS | Clinical Summary ---
Author Organization [facility] Address [address] [place] [address] Phone Care Team Providers Care Livestock Sales Representative Name Role Phone Pablito Mcknight MD Primary Care Provider [phone] Social History Tobacco Use Types Packs/Day Years Used Date Smoking Tobacco: Never Assessed Comments Unknown Sex and Gender Information Value Date Recorded Sex Assigned at Not on file Legal Sex Female 5:04 AM EDT Gender Identity Not on file Sexual Orientation Not on file Plan of Treatment Health Maintenance Due Date Last Done Comments Wellness Exam Medicare 1945 DTaP/TDaP/Td (1 - Tdap) 1961 Pneumococcal Vaccine 50+ (1 of 1 - PCV) 1992 Zoster (1 of 2) 1992 Bone Density Screening 2007 RSV or 60+ (1 - 1-d ose 75+ series) 2017 COVID-19 Vaccine (2023-2 5 season) 2024 Influenza Vaccine (Season Ended) 2025 Hepatitis B Vaccine Aged Out No longe r eligible based on patient's age to complete this topic Meningococcal B Vaccine Aged Out No l onger eligible based on patient's age to complete this topic Insurance [employer] MEDICARE PPO MR Care Teams Livestock Sales Representative Relationship Specialty Start Date End Date Pablito Mcknight MD [address] [place] [address] PCP - General Family Medicine 08/24/12
--- OUTSIDE RECORDS SUMMARY | 2025-01-23 11:00 | XMS_ITS | Encounter Summary ---
Author Organization Healthcare Address [address] [place] [address] Care Team Providers Care Nursing Care Partner Name Role Phone Evaristo Lovell MD Primary Care Provider [phone]- [phone] Encounter Details Date Type Department Care Team (Late st Contact Info) Description 10/23/2024 Telephone [place] [facility] [address], [address] [place] [address] Eva Gonsales MD [address] [place] [address] Social History Tobacco Use Types Packs/Day Years Used Date Smoking Tobacco: Former Humiliation, Afraid, Rape, and Kick questionnair e [...] any time in the past 12 m [facility], were you homeless or living in a residential (including now)? No 10/17/2024 Utilities Answer Date [...] on file documented as of this encounter Functional Status * Calculated C-SSRS Risk Score (Lifetime/Recent) Answer Date of Assessment Author No Risk Indicated 11/01/2024 8:00 PM EDT Wilber Morris RN * Question Answer Date of Assessment Author 1. Wish to be (Past 1 Month) No 025 8:00 PM EDT Wilber Nguyen, RN 2. Non-Specific Active Suici renee Thoughts (Past 1 Month) No 11/01/2024 8:00 PM EDT Esperanza Nguyen ed, RN 6. Suicidal Behavior (Lifetime) No 8:00 PM EDT Wilber Nguyen, RN documented as of this encounter Miscellaneous Notes * Telephone Encounter - DustintorinAnat - 10/23/2024 9:16 AM EDT Patient Phone Message Reason for Call: Spouse called to cancel 11/13 CT and Consult as patient is having emergency surgery for subdural hematoma with Dr. Duke. Best contact number and optimal time of day to reach caller: [phone] Ray Note: Please do not reply to this message. Follow-up communication and further actions as a result of this message need to be communicated with the patient directly, if the patient is not active onMyChart. If the patient is active on MyChart, they will receive notification of the communication/outcome via MyChart. documented in this encounter Plan of Treatment Not on file documented as of this encounter Goals Goal Patient Goal Type Associated Problems Recent Progress Patient-Stated? Author Autogenerat ed Goal Care Plan Autogenerated Problem No Jermaine Alvarado documented as of this encounter Visit Diagnoses Not on filedocumented in this encounter Additional Health Concerns Active Problems Noted Date Diagnosed Date Autogenerated Problem 10/15/2024 Infection Onset Date Last Indicated Resolved Time COVID-19 Rule-Out 10/23/2024 10/23/2024 10/23/2024 2:32 PM EDT Assessment Noted Time A Body Mass Index follow-up plan has been documented for the patient 11/02/2024 9:38 AM EDT documented as of this encounter Care Teams Nursing Care Partner Relationship Specialty Start Date End Date Evaristo Lovell MD [address] [place] [id number] PCP - General 10/13/24 documented as of this encounter
--- OUTSIDE RECORDS SUMMARY | 2025-01-23 11:01 | XMS_ITS | Encounter Summary ---
Author Organization [facility] [place] Address [address] [place] [address] Care Team Providers Care Senior Technical Analyst Name Role Phone Evaristo Lovell MD Primary Care Provider [phone]- [phone] Encounter Details Date Type Department Care Team (Latest Contact Info) Description 11/28/2024 Travel Social History Tobacco Use Types Packs/Day Years Used Date Smoking Tobacco: Former Passive Smoke Exposure: Past Smokeless Tobacco: Never Humiliation, Afraid, Rape, and Kick questionnair e [...] money to buy more. Never true 10/18/19 Within the past 12 months, t he [...] any time in the past 12 m [facility], were you homeless or living in a [...] on file documented as of this encounter Plan of Treatment Not on [...] documented as of this encounter Care Teams Senior Technical Analyst Relationship Specialty Start Date End Date Evaristo Lovell MD [address] [place] [id number] PCP - General 10/13/24 documented as of this encounter
--- OUTSIDE RECORDS SUMMARY | 2025-01-23 11:01 | XMS_ITS | Patient Health Record ---
[facility] Address [address] [facility] [address] ABIOLA [place] [id number] Care Team Providers [employer] Counsel[employer] Name Role Phone Gabbi Lovell Primary Care Provider [phone] Lee Dietz Unavailable [phone] Robby Figueroa Unavailable [phone] Michaela Licea Unavailable [phone] Allergies Allergen (clinical drug ingredient) Drug/Non Drug Allergy documented on EMR Reaction Allergy Type Onset Date Status Substance with sulfonamide structure and antibacterial mechanism of action (substance) Sulfa Antibiotics rash Drug Allergy Active Results Component Value Reference Range Notes Percent Saturation Reviewed date:11/27/2024 09:00:19 AM Interpretation: Performing Lab: Notes/Report: Test performed by [facility] [address] [place], [place] [address] , [facility], [place] [address] Joel Morillo MD, Electric Meter Tester CLIA: [id number] Percent Saturation 17 15-50 % Estimated Average Glucose Reviewed date:11/27/2024 09:00:19 AM Interpretation: Performing Lab: Notes/Report: Test performed by [facility] [address] [place], [place] [address] , [address], [place] [address] Joel Morillo MD, Electric Meter Tester CLIA: [id number] Estimated Average Glucose (eAG) 114 Estimated Average Glucose (eAG) is calculated using the equation eAG = (28.7 x HbA1c) - 46.7 based on the guidelines established by the ADA. If the patient has certain diseases including kidney disease, sickle cell anemia, thalassemia, or is taking medications such as dapsone, erythropoietin, or iron, eAG should not be evaluated. CBC Venipuncture (in house) Reviewed date:12/25/2024 02:38:50 [...] 22 Performing Lab: Notes/Report: Test performed by [facility] [address] [place] [address] , [address], [place] [address] Joel Morillo MD, Electric Meter Tester CLIA: [id number] Sodium 134 135-145 mmol/L Potassium 9.1 3.5-5.3 mmol/L ALERT VALUE Results were repeated and confirmed. No visual hemolysis present. Chloride 105 97-108 mmol/L CO2 25 22-32 mmol/L Glucose 123 65-99 mg/dL BUN 38 8-23 mg/dL Creatinine 2.14 0.50-1.00 mg/dL Calcium 9.3 8.6-10.4 mg/dL eGFR by Creatinine 22 >59 mL/min/1.73m2 P-Phosphorus Reviewed date:12/27/2024 08:22:17 AM Interpretation:Normal Performing Lab: Notes/Report: Test performed by [facility] [address] [place] [address] , [address], [place] [address] Joel Morillo MD, Electric Meter Tester CLIA: [id number] Phosphorus 3.6 2.5-4.5 mg/dL H-BMP Reviewed date:12/28/2024 03:23:52 PM Interpretation: Performing Lab: Notes/Report: NA 139 136-145 mmol/L K 4.8 3.5-5.1 mmoL/L CL 107 98-107 mmol/L CO2 27 22.0-30.0 mmol/L GAP 9.8 5-15 mEq/L BUN 41 7-17 mg/dl CREATT 2.40 0.52-1.04 mg/dl GFRAA 23 >60 ML/MIN EGFR 19 >60 ml/min GLU 119 74-100 mg/dl CA 9.7 8.4-10.2 mg/dl H-Sputum Culture with Gram S rakeln Reviewed date:12/14/2024 12:43:31 PM Interpretation: Performing Lab: Notes/Report: Cancel Comments Cancelled via OM: Order cancelled - Patient discharged Comment: Induce w/3ml NS neb tx if necessary H-BNP Reviewed date:11/15/2024 08:29:17 AM Interpretation:5290 Performing Lab: Notes/Report: BNPNTP 5290 0-450 pg/mL H-BMP Reviewed date:11/15/2024 08:29:17 AM Interpretation:cl 113, bun 30, Cr 2.2, gfr 21, gluc 140 Performing Lab: Notes/Report: NA 145 136-145 mmol/L K 3.5 3.5-5.1 mmoL/L CL 113 98-107 mmol/L CO2 23 22.0-30.0 mmol/L GAP 12.5 5-15 mEq/L BUN 30 7-17 mg/dl CREATT 2.20 0.52-1.04 mg/dl GFRAA 26 >60 ML/MIN EGFR 21 >60 ml/min GLU 140 74-100 mg/dl CA 8.6 8.4-10.2 mg/dl CXR Reviewed date:11/15/2024 08:28:07 AM Interpretation:mild CHF, small right effusion. f/u needed Performing Lab: Notes/Report: mild CHF, small right effusion. f/u needed BNP Reviewed date:11/22/2024 01:42:18 PM Interpretation: Performing Lab: Notes/Report: CBC Reviewed date:11/22/2024 01:42:03 PM Interpretation: Performing Lab: Notes/Report: BMP Reviewed date:11/22/2024 01:41:49 PM Interpretation: Performing Lab: Notes/Report: P-TSH Reviewed date:11/27/2024 09:00:19 AM Interpretation: Performing Lab: Notes/Report: Test performed by [facility] [address] [place] [address] , [address], [place] [address] Joel Morillo MD, Electric Meter Tester CLIA: [id number] TSH 16.60 0.43-5.25 mU/L P-Phosphorus Reviewed date:11/27/2024 09:00:19 AM Interpretation: Performing Lab: Notes/Report: Test performed by [facility] , [facility], [place] [address] oJel Morillo MD, Electric Meter Tester CLIA: [id number] Phosphorus 3.3 2.5-4.5 mg/dL P-Iron Reviewed date:11/27/2024 09:00:19 AM Interpretation: Performing Lab: Notes/Report: Test performed by [facility] , [facility] [place] [address] Joel Morillo MD, Electric Meter Tester CLIA: [id number] Iron 44 37-145 ug/dL P-Iron Binding Cap Reviewed date:11/27/2024 09:00:19 AM Interpretation: Performing Lab: Notes/Report: Test performed by [facility] , [facility], [place] [address] Joel Morillo MD, Electric Meter Tester CLIA: [id number] Iron Binding Cap 259 250-450 ug/dL P-Hemoglobin A1C Reviewed date:11/27/2024 09:00:19 AM Interpretation: Performing Lab: Notes/Report: Test performed by [facility] , [place] [address] Joel Morillo MD, Electric Meter Tester CLIA: [id number] Hemoglobin A1C 5.6 <5.7 % The following HbA1c ranges recommended by the [place] [employer] (ADA) may be used as an aid in the diagnosis of diabetes mellitus. HbA1c Suggested Diagnosis >=6.5% Diabetic 5.7% - 6.4% Pre-Diabetic <5.7% Non-Diabetic P-Iron with Transferrin Satu ration Reviewed date:11/27/2024 09:00:19 AM Interpretation: Performing Lab: Notes/Report: Test performed by [facility] , [place] [address] Joel Morillo MD, Electric Meter Tester CLIA: [id number] Iron 44 37-145 ug/dL Transferrin 200 200-360 mg/dL Transferrin Saturation Percentage 15 15-50 % P-Comprehensive Metabolic Pa josee (CMP) Reviewed date:11/27/2024 09:00:19 AM Interpretation: Performing Lab: Notes/Report: Test performed by [facility] [address] [place] [address] , [address], [place] [address] Joel Morillo MD, Electric Meter Tester CLIA: [id number] Sodium 145 135-145 mmol/L Potassium 4.0 3.5-5.3 mmol/L Chloride 111 97-108 mmol/L CO2 20 22-32 mmol/L Glucose 101 65-99 mg/dL BUN 28 8-23 mg/dL Creatinine 1.99 0.50-1.00 mg/dL Calcium 9.3 8.6-10.4 mg/dL eGFR by Creatinine 25 >59 mL/min/1.73m2 Protein 6.8 6.0-8.3 g/dL Albumin 3.4 3.5-5.3 g/dL Alkaline Phosphatase 69 35-121 IU/L ALT (SGPT) 5 <5-47 IU/L AST (SGOT) 21 <5-40 IU/L Bilirubin, Total <0.2 <0.2-1.2 mg/dL A/G Ratio 1.0 1.1-2.5 P-Vitamin B12 Reviewed date:11/27/2024 09:00:19 AM Interpretation: Performing Lab: Notes/Report: Test performed by [facility] [address] [place] [address] , [address], [place] [address] Joel Morillo MD, Electric Meter Tester CLIA: [id number] Vitamin B12 >2000 232-1245 pg/mL CBC Venipuncture (in house) Reviewed date:11/27/2024 09:00:19 AM Interpretation: Performing Lab: Notes/Report: wbc 9.1 3.5 - 10 lymph 28.1 15 - 50 mid 6.9 2 - 15 gran 65.0 35 - 80 rbc 3.42 3.5 - 5.5 hgb 9.9 11.5 - 16.5 hct 31.4 35 - 55 mcv 91.6 75 - 100 mch 28.9 25 - 35 mchc 31.5 31 - 38 platlet 237 100 - 400 P-Uric Acid Reviewed date:03/20/2024 12:02:33 PM Interpretation:Normal Performing Lab: Notes/Report: Test performed by [facility] , [address], [place] [address] Joel Morillo MD, Electric Meter Tester CLIA: [id number] Uric Acid 5.1 2.4-7.0 mg/dL P-TSH Reviewed date:03/20/2024 12:02:33 PM Interpretation:Normal Performing Lab: Notes/Report: Test performed by [facility] [employer] , [address], [place] [address] Joel Morillo MD, Electric Meter Tester CLIA: [id number] TSH 2.64 0.43-5.25 mU/L P-Magnesium Reviewed date:03/20/2024 12:02:33 PM Interpretation:2.5 Performing Lab: Notes/Report: Test performed by [facility] [employer] , [address], [place] [address] Joel Morillo MD, Electric Meter Tester CLIA: [id number] Magnesium 2.5 1.6-2.4 mg/dL P-Comprehensive Metabolic Pa josee (CMP) Reviewed date:03/20/2024 12:02:33 PM Interpretation:gluc 132, bun 79, creat 3.13, gfr 14 Performing Lab: Notes/Report: [facility] performed by [facility] [address] , [place] [address] Joel Morillo MD, Electric Meter Tester CLIA: [id number] Sodium 138 135-145 mmol/L Potassium 4.3 3.5-5.3 mmol/L Chloride 104 97-108 mmol/L CO2 22 22-32 mmol/L Glucose 132 65-99 mg/dL BUN 79 8-23 mg/dL Creatinine 3.13 0.50-1.00 mg/dL Calcium 9.9 8.6-10.4 mg/dL eGFR by Creatinine 14 >59 mL/min/1.73m2 Protein 7.3 6.0-8.3 g/dL Albumin 4.2 3.5-5.3 g/dL Alkaline Phosphatase 105 35-121 IU/L ALT (SGPT) 9 <5-47 IU/L AST (SGOT) 16 <5-40 IU/L Bilirubin, Total 0.2 <0.2-1.2 mg/dL A/G Ratio 1.4 1.1-2.5 Glycohemoglobin A1c (in hous e) Reviewed date:03/20/2024 12:02:33 PM Interpretation:6.2% Performing Lab: Notes/Report: 6.2% glycohemoglobin 6.2% 5 - 6.5 % H-CBC Reviewed date:12/11/2024 09:30:24 AM Interpretation: Performing Lab: Notes/Report: WBC 6.7 4.8-10.8 K/mm3 RBC 3.14 4.20-5.40 M/mm3 HGB 9.3 12.2-16.2 g/dL HCT 30.1 37.0-47.0 % MCV 95.9 81-99 fl MCH 29.6 27.0-31.2 pg MCHC 30.9 31.8-35.4 g/dL RDW-SD 67.5 RDW 19.0 11.5-17.5 % PLT 141 142-424 K/mm3 MPV 10.1 7.4-10.4 fl NE% 40.7 37.0-80.0 % LY% 37.1 10-50 % MO% 9.2 1.7-9.3 % EO% 11.6 0.1-12.0 % BA% 0.9 0.1-2.0 % NRBC% 0 IG% 0.5 NE# 2.7 1.8-7.8 K/mm3 LY# 2.5 0.7-4.5 K/mm3 MO# 0.6 0.1-1.0 K/mm3 EO# 0.8 0.0-0.4 Kmm3 BA# 0.1 0-0.2 K/mm3 NRBC# 0 IG# 0.03 H-CBC Reviewed date:11/15/2024 08:29:17 AM Interpretation:rbc 2.78, hgb 8, hct 25.5, mchc 31.4, rdw 18.6, mpv 10.5 Performing Lab: Notes/Report: WBC 9.3 4.8-10.8 K/mm3 RBC 2.78 4.20-5.40 M/mm3 HGB 8.0 12.2-16.2 g/dL HCT 25.5 37.0-47.0 % MCV 91.7 81-99 fl MCH 28.8 27.0-31.2 pg MCHC 31.4 31.8-35.4 g/dL RDW-SD 62.4 RDW 18.6 11.5-17.5 % PLT 216 142-424 K/mm3 MPV 10.5 7.4-10.4 fl NE% 66.4 37.0-80.0 % LY% 19.8 10-50 % MO% 8.1 1.7-9.3 % EO% 4.1 0.1-12.0 % BA% 0.3 0.1-2.0 % NRBC% 0 NE# 6.2 1.8-7.8 K/mm3 LY# 1.8 0.7-4.5 K/mm3 MO# 0.8 0.1-1.0 K/mm3 EO# 0.4 0.0-0.4 K/mm3 BA# 0.0 0-0.2 K/mm3 NRBC# 0 H-TSH Reviewed date:10/14/2024 02:11:30 PM Interpretation:see 10/03/24 Performing Lab: Notes/Report: see 10/03/24 H-Lipid Panel Reviewed date:10/14/2024 02:11:43 PM Interpretation:see 10/03/24 Performing Lab: Notes/Report: see 10/03/24 H-CMP Reviewed date:10/14/2024 02:12:02 PM Interpretation:see 10/03/24 Performing Lab: Notes/Report: see 10/03/24 H-Glycohemoglobin A1C Reviewed date:10/14/2024 02:12:15 PM Interpretation:see 10/03/24 Performing Lab: Notes/Report: see 10/03/24 H-URIC ACID Reviewed date:10/14/2024 02:12:34 PM Interpretation:see 10/03/24 Performing Lab: Notes/Report: see 10/03/24 H-Vitamin D 1,25 Reviewed date:10/14/2024 02:12:48 PM Interpretation:see 10/03/24 Performing Lab: Notes/Report: see 10/03/24 H-DIFF Reviewed date:12/11/2024 09:30:43 AM Interpretation: Performing Lab: Notes/Report: MDIFF MANUAL DIFFERENTIAL MANUAL DIFF TCC 100 NEUT%M 38 42-76 % LYMPH%M 50 10-50 % MONO%M 6 2-9 % EOS%M 6 0-3 % PLTE Normal HYPO 1+ ANISO 2+ H-CMP Reviewed date:12/11/2024 09:32:00 AM Interpretation: Performing Lab: Notes/Report: NA 143 136-145 mmol/L K 3.5 3.5-5.1 mmoL/L CL 115 98-107 mmol/L CO2 23 22.0-30.0 mmol/L GAP 8.5 5-15 mEq/L BUN 26 7-17 mg/dl CREATT 2.20 0.52-1.04 mg/dl CRCLE 24 50-200 mL/min GFRAA 26 >60 ML/MIN EGFR 21 >60 ml/min GLU 95 74-100 mg/dl CA 9.2 8.4-10.2 mg/dl BILIT 0.2 0.2-1.3 mg/dl AST 27 14-36 U/L ALT 11 12-78 U/L TP 6.6 6.3-8.2 g/dl ALB 3.2 3.5-5.0 g/dl GLOB 3.4 1.3-3.2 g/dL AGRATIO 0.9 1.1-1.8 ALP 73 38-126 U/L H-Lactic Acid Reviewed date:12/11/2024 09:31:08 AM Interpretation:o.7 Performing Lab: Notes/Report: Comment Repeat 2nd or 3rd lactic acid to reflex if initial or subseq level > 2 LACTIC 0.7 0.7-2.1 mmol/L H-Troponin I Reviewed date:12/11/2024 09:31:33 AM Interpretation: Performing Lab: Notes/Report: TROP 0.02 0.00-0.034 ng/ml <0.012-0.034 ng/mL NORMAL 0.035 - >0.120 ng/mL ELEVATED* *Serial testing recommended. A rise and fall with peak greater than 0.6 ng/mL may indicate acute myocardial infarction, but is not independently diagnostic. Clinical correlation is necessary. *ALERT* High levels of Biotin can falsely depress Troponin results. Many dietary supplements promoted for hair, skin, and nail benefits contain biotin levels up to 650 times the recommended daily intake of biotin. In addition to dietary supplements, Biotin is occasionally prescribed for medical conditions. H-Covid, Flu A, Flu B PCR Reviewed date:12/11/2024 09:29:52 AM Interpretation: Performing Lab: Notes/Report: Unknown Is this the 1st COVID test for the patient? Unknown Does the patient have COVID symptoms? 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 Unknown Is patient an [employer] employee? N Is patient currently hospitalized? Yes Is patient currently in ICU? No Date of Symptom onset Is patient a resident in a congregate care setting? Unknown COVPCR Not Detected NotDetected Effective 03/24/21, Positive covid results will no longer be called to the ordering physician. Infection control and the physician?s office will continue to report positive covid results to the local Health Department as required. This assay is for in vitro diagnostic use under FDA Emergency Use Authorization only. Negative results do not preclude infection with SARS CoV 2 virus and should not be the sole basis of a patient treatment/management or public health decision. Follow up testing should be performed according to the current CDC recommendations. FLUAPCR Not Detected NotDetected FLUBPCR Not Detected NotDetected H-CBC Reviewed date:12/14/2024 12:43:31 PM Interpretation: Performing Lab: Notes/Report: WBC 7.9 4.8-10.8 K/mm3 RBC 2.93 4.20-5.40 M/mm3 HGB 8.8 12.2-16.2 g/dL HCT 28.6 37.0-47.0 % MCV 97.6 81-99 fl MCH 30.0 27.0-31.2 pg MCHC 30.8 31.8-35.4 g/dL RDW-SD 66.6 RDW 18.6 11.5-17.5 % PLT 157 142-424 K/mm3 MPV 10.4 7.4-10.4 fl NE% 56.1 37.0-80.0 % LY% 32.2 10-50 % MO% 8.5 1.7-9.3 % EO% 2.2 0.1-12.0 % BA% 0.6 0.1-2.0 % NRBC% 0 IG% 0.4 NE# 4.4 1.8-7.8 K/mm3 LY# 2.5 0.7-4.5 K/mm3 MO# 0.7 0.1-1.0 K/mm3 EO# 0.2 0.0-0.4 Kmm3 BA# 0.1 0-0.2 K/mm3 NRBC# 0 IG# 0.03 H-BMP Reviewed date:12/14/2024 12:43:31 PM Interpretation: Performing Lab: Notes/Report: NA 141 136-145 mmol/L K 3.5 3.5-5.1 mmoL/L CL 113 98-107 mmol/L CO2 26 22.0-30.0 mmol/L GAP 5.5 5-15 mEq/L BUN 29 7-17 mg/dl CREATT 2.50 0.52-1.04 mg/dl CRCLE 20 50-200 mL/min GFRAA 22 >60 ML/MIN EGFR 18 >60 ml/min GLU 112 74-100 mg/dl CA 8.6 8.4-10.2 mg/dl CBC Fingerstick (in house) Reviewed date:12/10/2024 04:37:06 PM Interpretation: Performing Lab: Notes/Report: wbc 7.7 3.5 - 10 lym 33.3 15 - 50 mid 7.7 2 - 15 gran 59.0 35 - 80 rbc 3.06 3.5 - 5.5 hgb 9.2 11.5 - 16.5 hct 29.2 35 - 55 mcv 95.5 75 - 100 mch 30.2 25 - 35 mchc 31.6 31 - 38 plat 170 100 - 400 H-TSH Reviewed date:10/11/2024 08:28:26 AM Interpretation:5.9 Performing Lab: Notes/Report: TSH 5.90 0.465-4.68 uIU/mL H-Lipid Panel Reviewed date:10/11/2024 08:28:26 AM Interpretation:trigs 219, chol 122, dldl 33.1, vldl 44 Performing Lab: Notes/Report: Patient Fasting? Y TRIG 219 30-150 mg/dl CHOL 122 140-200 mg/dl DLDL 33.10 100-129 mg/dL VLDL 44 0-40 mg/dL HDL 41 40-60 mg/dl CHLHDL 3.0 1-3.5 H-CMP Reviewed date:10/11/2024 08:28:26 AM Interpretation:cl 113, co2- 17, bun 35, Cr 2.6, gfr 18, gluc 148 Performing Lab: Notes/Report: NA 140 136-145 mmol/L K 4.5 3.5-5.1 mmoL/L CL 113 98-107 mmol/L CO2 17 22.0-30.0 mmol/L GAP 14.5 5-15 mEq/L BUN 35 7-17 mg/dl CREATT 2.60 0.52-1.04 mg/dl GFRAA 21 >60 ML/MIN EGFR 18 >60 ml/min GLU 148 74-100 mg/dl CA 9.4 8.4-10.2 mg/dl BILIT 0.3 0.2-1.3 mg/dl AST 25 14-36 U/L ALT 17 12-78 U/L TP 6.3 6.3-8.2 g/dl ALB 3.7 3.5-5.0 g/dl GLOB 2.6 1.3-3.2 g/dL AGRATIO 1.4 1.1-1.8 ALP 108 38-126 U/L H-Glycohemoglobin A1C Reviewed date:10/11/2024 08:28:26 AM Interpretation:5.3 Performing Lab: Notes/Report: HGBA1C 5.3 4.0-6.0 % < 6% Non-Diabetic Level < 7% Controlled Diabetic Level > 8% Poorly Controlled Diabetic Level H-URIC ACID Reviewed date:10/11/2024 08:28:26 AM Interpretation:Normal Performing Lab: Notes/Report: URIC 4.9 2.5-6.2 mg/dl H-Vitamin D 1,25 Reviewed date:10/18/2024 08:09:57 AM Interpretation:lcVITD 19 Performing Lab: Notes/Report: [id number] 19 . pg/mL Reference Range: Adults: 21 - 65 [id number] <10 . pg/mL This test was developed and its performance characteristics determined by [facility]. It has not been cleared or approved by the Food and Drug Administration. [id number] 15 . pg/mL This test was developed and its performance characteristics determined by [facility]. It has not been cleared or approved by the Food and Drug Administration. Performed at: [facility] [address] [place] [id number] [employer] Product: Robby Valentin MD, Phone: [phone] Medications Medication SIG (Take, Route, Frequency, Duration) Notes Start Date End Date Status Valsartan 80 MG 3 tablet Orally Once a day Active cloNIDine HCl 0.3 MG 1 tablet Orally Two times a day Active Farxiga 10 MG 1 tablet Orally Once a day Active Januvia 25 MG 1 tablet Orally Once a day Active NIFEdipine ER 60 MG 1 tab(s) Orally bid Active Ipratropium-Albutero l 0.5-2.5 (3) MG/3ML 3 ml Inhalation qid for 90 days Active Carvedilol 12.5 MG 1 tablet with food Orally Twice a day Active OneTouch Ultra - as directed In Vitro Three times a day Active Furosemide 40 MG 1 1/2 tab Orally Once a day Active L-Uood-Vxcvsqw 155-852-130 MG 1 tablet Orally once daily for 90 days Active Allopurinol 100 MG 2 tablet Orally Once a day for 90 days Active Divalproex Sodium 500 MG 1 tablet Orally Twice a day for 90 days Active Folic Acid 400 MCG 1 tablet Orally Once a day for 90 days Active Wheel Chair as directed CVA with impaire d mobility 10/11/2024 Active Atorvastatin Calcium 40 MG 1 tablet Orally Once a day for 90 days Active Vitamin B-12 5000 MCG 1 tablet Orally Once a day Active Mucinex DM 30-600 MG 1 tablet as needed Orally every 12 hrs 11/15/2024 Active Vitamin D3 25 MCG (1000 UT) 1 capsule Orally Once a day Active Diabetic Diet - as directed Ensure supplemen t tid Active Thiamine HCl 50 MG 1 tablet Orally Once a day Active Multivitamin - 1 tablet Orally Once a day Active Acetaminophen 500 MG 2 tablet as needed Orally every 6 hrs prn Active Ferrous Sulfate 325 (65 Fe) MG 1 tablet Orally Three times a Week Active Bumex 0.5 MG 1 tablet Orally Once a day Not-Taking Mucinex 600 MG 1 tablet as needed Orally every 12 hrs Active Oxygen - per nasal cannula as directed 2 LPM prn Active Synthroid 100 MCG 1 tablet in the morning on an empty stomach Orally Once a day for 90 days Active Benefiber - as directed Orally once daily 12/25/2024 Active hydrALAZINE HCl 50 MG 1 tablet with food Orally Two times a day Active MiraLax 17 GM/SCOOP 1 scoop mixed with 8 ounces of fluid Orally Once a day 12/25/2024 Active Immunizations Vaccine Route Administration Date Status Comme nts COVID 19 Prabhakar Unknown 10/08/2020 Administered COVID 19 Pfizer Unknown 05/27/2021 Administered DT, 7 YEARS OR OLDER Unknown 10/05/1996 Administered Fluzone High Dose (65yr and older) IM Intramuscular 04/23/2019 Administered Fluzone High Dose (65yr and older) Unknown 04/08/2020 Administered Fluzone PF Quad (6-35 months) Unknown 04/07/2016 Administered Fluzone Quad-Medicare (6months&older) Unknown 04/15/2021 Administered Fluzone Quad-Medicare (6months&older) Unknown 04/14/2023 Administered Hepatitis A (adult) Unknown 01/29/2019 Administered Hepatitis B (20 and more) Unknown 07/14/2007 Administer ed Hepatitis B (20 and more) Unknown 08/14/2007 Administer ed Hepatitis B (20 and more) Unknown 04/09/2008 Administer ed PNEUMOVAX 23 VACCINE Unknown 07/22/2004 Administered PNEUMOVAX 23 VACCINE IM Intramuscular 01/15/2020 Administe red Prevnar (PCV13) IM Intramuscular 03/09/2018 Administered Tetanus Tdap-Adacel (over 7yrs) IM Intramuscular 03/09/2018 Administered xFlu shot- 6months-36 months of qxc-DASK-OFSX-trivalent Unknown 04/08/2020 Administered Social History Tobacco Use: Social History Observation Description Date Details (start date - stop date) Former Smoker NA - NA CURRENT TOBACCO USE: Question Answer Notes Are you a: former smoker smoked for 15 yr s, history of 5-6 cigarettes per day, quit Problems Problem Type SNOMED Code ICD Code Onset Dates Problem Status W/U Status Risk Notes Problem 17443151 Vitamin D deficiency (E55.9) Active confirmed Problem 53113934 Essential hypertension (I10) Active confirmed Problem Osteopenia (268710149) Osteopenia (M85.80) Active confirmed Problem History of cerebrovascular accident without residual deficits (958099310) History of CVA (cerebrovascular accident) (Z86.73) Active confirmed Problem Altered mental status (047841223) Altered mental status (R41.82) Active confirmed Problem 413738206 Diastolic CHF, chronic (I50.32) Active confirmed Problem Recurrent falls (828073635) Multiple falls (R29.6) Active confirmed Problem 143683362 OAB (overactive bladder) (N32.81) Active confirmed Problem Congestive heart failure (36433321) CHF (congestive heart failure) (I50.9) Active confirmed Problem 80779076 Type 2 diabetes mellitus with diabetic chronic kidney disease (E11.22) Active confirmed Problem 06888782 Urge incontinenc e (N39.41) Active confirmed Problem 625572101 Thyroid nodule (E04.1) Active confirmed Problem Intracranial hemorrhage (2808900) Intracranial hemorrhage (I62.9) Active confirmed Problem 450081460 Acquired hypothyroidism (E03.9) Active confirmed Problem Cardiac pacemaker in situ (709230790) Pacemaker (Z95.0) Active confirmed Problem 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) Aortic stenosis (Q25.3) Active confirmed Problem Body mass index 30.00 to 34.99 (830437295950002) BMI 31.0-31.9,adult (Z68.31) Active confirmed Problem Adult failure to thrive syndrome (518681425) Failure to thrive in adult (R62.7) Active confirmed Problem 41801250 Presbycusis of both ears (H91.13) Active confirmed Problem 577261781 Dyslipidemia (E78.5) Active confirmed Problem Chronic kidney disease stage 4 (401798912) Chronic kidney disease (CKD), stage IV (severe) (N18.4) Active confirmed Problem Chronic anemia (844330030) Chronic anemia (D64.9) Active confirmed Problem 45007889 Pica (F50.89) Active confirmed Problem 03380602 Heart failure with preserved left ventricular function (HFpEF) (I50.30) Active confirmed Vital Signs Heart Rate 59 /min 01/15/2025 Respiratory Rate 18 /min 11/13/2024 Blood pressure diastolic 68 mm Hg 01/15/2025 Height 66 in 01/15/2025 Blood pressure systolic 122 mm Hg 01/15/2025 Weight 161.4 lbs 01/15/2025 BMI 26.05 kg/m2 01/15/2025 Encounters Encounter Location Date Provider Diagnosis [facility] [address] [id number] 03/13/2024 Gabbi Lovell Essential hypertensi on I10 ; Type 2 diabetes mellitus with diabetic chronic kidney disease E11.22 ; Acquired hypothyroidism E03.9 ; Hyperuricemia E79.0 ; Pacemaker Z95.0 ; Aortic stenosis Q25.3 ; Dyslipidemia E78.5 and Chronic kidney disease (CKD), stage IV (severe) N18.4 [facility] [address] [facility] [address] [id number] 10/11/2024 Gabbi Lovell Type 2 diabetes mellitus with diabetic chronic kidney disease E11.22 ; History of CVA (cerebrovascular accident) Z86.73 ; Impaired mobility Z74.09 ; Muscle weakness M62.81 ; Altered mental status R41.82 ; Multiple falls R29.6 ; Weight loss R63.4 ; Failure to thrive in adult R62.7 ; Chronic kidney disease (CKD), stage IV (severe) N18.4 and Acquired hypothyroidism E03.[address] [place], [place] [id number] 11/06/2024 Michaela Licea Type 2 diabetes mellitus with diabetic chronic kidney disease E11.22 ; History of CVA (cerebrovascular accident) Z86.73 ; Impaired mobility Z74.09 ; Muscle weakness M62.81 ; Multiple falls R29.6 ; Chronic kidney disease (CKD), stage IV (severe) N18.4 ; Acquired hypothyroidism E03.9 ; Dyslipidemia E78.5 ; Hyperuricemia E79.0 ; Essential hypertension I10 ; Pacemaker Z95.0 ; Vitamin D deficiency E55.9 ; Intracranial hemorrhage I62.9 ; Presbycusis of both ears H91.13 ; B12 deficiency E53.8 ; Peripheral edema R60.9 ; Chronic anemia D64.9 ; Aortic stenosis Q25.3 ; Cough R05.9 ; Debility R53.81 and Postop check Z09 [address] [id number] 11/13/2024 Michaela Licea Type 2 diabetes mellitus with diabetic chronic kidney disease E11.22 ; History of CVA (cerebrovascular accident) Z86.73 ; Impaired mobility Z74.09 ; Muscle weakness M62.81 ; Multiple falls R29.6 ; Chronic kidney disease (CKD), stage IV (severe) N18.4 ; Acquired hypothyroidism E03.9 ; Dyslipidemia E78.5 ; Hyperuricemia E79.0 ; Essential hypertension I10 ; Pacemaker Z95.0 ; Vitamin D deficiency E55.9 ; Intracranial hemorrhage I62.9 ; Presbycusis of both ears H91.13 ; B12 deficiency E53.8 ; Peripheral edema R60.9 ; Chronic anemia D64.9 ; Aortic stenosis Q25.3 ; Cough R05.9 ; Debility R53.81 ; Postop check Z09 ; CHF (congestive heart failure) I50.9 ; Hypokalemia E87.6 and Bronchitis J40 [facility] [address] [place] [facility] [address] [place], [place] [id number] 11/22/2024 [facility] Essential hypertensi on I10 ; Subdural hematoma S06.5XAA ; Acute bronchitis J20.9 ; Type 2 diabetes mellitus with diabetic chronic kidney disease E11.22 ; Acquired hypothyroidism E03.9 ; Chronic kidney disease (CKD), stage IV (severe) N18.4 ; Chronic anemia D64.9 and BMI 27.0-27.9,adult Z68.27 [facility] 1210 [facility] [address] [place], [place] [id number] 12/10/2024 Lee Dietz Diastolic CHF, chron ic I50.32 ; Acute pneumonia J18.9 and Localized edema R60.0 [facility] [address] [place] [id number] 12/25/2024 Robby Bainbridge Community acquired pneumonia, unspecified laterality J18.9 ; Chronic kidney disease (CKD), stage 4 N18.4 ; Debility R53.81 ; Other constipation K59.09 and Essential hypertension I10 [facility] 1210 [facility] [address] [place], [place] [id number] 01/15/2025 [facility] Community acquired pneumonia, unspecified laterality J18.9 ; Chronic kidney disease (CKD), stage 4 N18.4 ; Debility R53.81 and Essential hypertension I10 [facility] [address] [place] [facility] [address] [place], [place] [id number] 03/14/2024 [facility] 1210 [facility] [address] [place], [place] [id number] 09/12/2024 [facility] Type 2 diabetes mellitus with diabetic chronic kidney disease E11.22 [facility] [address] [place], [place] [id number] 09/12/2024 R Douglas Liliya Essential hypertensi on I10 ; Type 2 diabetes mellitus with diabetic chronic kidney disease E11.22 ; Dyslipidemia E78.5 ; Acquired hypothyroidism E03.9 ; Hyperuricemia E79.0 and Vitamin D deficiency E55.9 [facility] [address] [place], [place] [id number] 10/02/2024 R Douglas Liliya [facility] [address] [place], [place] [id number] 10/11/2024 R Douglas Liliya Acquired hypothyroid ism E03.9 [facility] [address] [place], [place] [id number] 10/12/2024 R Douglas Liliya [facility] [address] [place], [place] [id number] 10/15/2024 R Douglas Liliya [facility] [address] [place] [id number] 11/01/2024 R Douglas Liliya [facility] [address] [place], [place] [id number] 11/06/2024 R Douglas Liliya [facility] [address] [place], [place] [id number] 11/08/2024 R Douglas Liliya [facility] [address] [place], [place] [id number] 11/08/2024 R Douglas Liliya [facility] [address] [place] [id number] 11/12/2024 R Douglas Liliya [facility] [address] [place], [place] [id number] 11/13/2024 R Douglas Liliya [facility] [address] [place], [place] [id number] 11/14/2024 R Douglas Liliya [facility] [address] [place], [place] [id number] 11/14/2024 Michaela Licea [facility] [address] [place], [place] [id number] 11/14/2024 R Douglas Liliya [facility] [address] [place], [place] [id number] 11/15/2024 Michaelahernandez Romanond [facility] [address] [place], [place] [id number] 11/19/2024 R Douglas Liliya Essential hypertensi on I10 ; Hyperuricemia E79.0 ; Intracranial hemorrhage I62.9 ; Peripheral edema R60.9 ; Hypokalemia E87.6 ; Type 2 diabetes mellitus with diabetic chronic kidney disease E11.22 and Chronic anemia D64.9 [facility] [address] [place], [place] [id number] 11/22/2024 R Douglas Liliya [facility] [address] [place] [id number] 11/26/2024 R Douglas Liliya Cough R05.9 ; Type 2 diabetes mellitus with diabetic chronic kidney disease E11.22 and Chronic kidney disease (CKD), stage IV (severe) N18.4 [facility] [address] [place], [place] [id number] 11/27/2024 R Douglas Liliya Acquired hypothyroid ism E03.9 [facility] [address] [place] [id number] 11/27/2024 R Douglas Liliya [facility] [address] [place] [id number] 12/05/2024 R Douglas Liliya [facility] [address] [place] [id number] 12/14/2024 R Douglas Liliya [facility] [address] [place] [id number] 12/19/2024 R Douglas Liliya [facility] [address] [place] [id number] 12/26/2024 R Douglas Liliya [facility] [address] [place] [id number] 12/27/2024 Robby Bainbridge [facility] [address] [place] [id number] 12/28/2024 Robby Bainbridge Hyperkalemia E87.5 [facility] [address] [place] [id number] 12/28/2024 R Douglas Liliya [facility] [address] [place], [place] [id number] 01/01/2025 Michaela Romanond [facility] [address] [place] [id number] 01/02/2025 R Douglas Liliya [facility] [address] [place], [place] [id number] 01/03/2025 R Douglas Liliya [facility] [address] [place], [place] [id number] 01/08/2025 R Douglas Liliya [facility] [address] [place] [id number] 01/09/2025 R Douglas Liliya [facility] [address] [place] [id number] 01/16/2025 R Douglas Liliya [facility] [address] [place], [place] [id number] 01/17/2025 R Douglas Liliya [facility] [address] [place], [place] [id number] 01/17/2025 R Douglas Liliya Assessments Encounter Date Diagnosis (ICD Code) Assessment Notes Treatment Notes Treatment Clinical Notes Section Notes 03/13/2024 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.22) 03/13/2024 Essential hypertension (ICD-10 - I10) 09/12/2024 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.22) 10/11/2024 Acquired hypothyroidism (ICD-10 - E03.9) 10/11/2024 History of CVA (cerebrovascular accident) (ICD-10 - Z86.73) Due to history of CVA and weakness, patient is unable to use a walker and must use wheelchair to perform ADL's in the home 10/11/2024 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.22) 11/06/2024 History of CVA (cerebrovascular accident) (ICD-10 - Z86.73) PT AND OT; HAS BEEN USING WALKER 11/06/2024 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.22) monitor BS 11/13/2024 History of CVA (cerebrovascular accident) (ICD-10 - Z86.73) PT AND OT; HAS BEEN USING WALKER 11/13/2024 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.22) monitor BS 11/19/2024 Essential hypertension (ICD-10 - I10) 11/22/2024 Essential hypertension (ICD-10 - I10) 11/26/2024 Cough (ICD-10 - R05.9) 11/27/2024 Acquired hypothyroidism (ICD-10 - E03.9) 12/10/2024 Diastolic CHF, chronic (ICD-10 - I50.32) admit [facility] 11/22/2024 Subdural hematoma (ICD-10 - S06.5XAA) She is provided contact numbers to schedule follow-up appointment with [facility] 12/10/2024 Acute pneumonia (ICD-10 - J18.9) 12/25/2024 Community acquired pneumonia, unspecified laterality (ICD-10 - J18.9) Clinically improved 12/25/2024 Chronic kidney disease (CKD), stage 4 (ICD-10 - N18.4) 12/28/2024 Hyperkalemia (ICD-10 - E87.5) 01/15/2025 Community acquired pneumonia, unspecified laterality (ICD-10 - J18.9) Clinically improvedKeep follow-up appoint with Dr. Crocker as scheduled this week 01/15/2025 Chronic kidney disease (CKD), stage 4 (ICD-10 - N18.4) 11/22/2024 Acute bronchitis (ICD-10 - J20.9) She has completed her course 12/25/2024 Debility (ICD-10 - R53.81) Patient needs to resume home health PT/OT 11/26/2024 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.22) 12/10/2024 Localized edema (ICD-10 - R60.0) 11/19/2024 Hyperuricemia (ICD-10 - E79.0) 11/13/2024 Impaired mobility (ICD-10 - Z74.09) PT AND OT; FALL PREVENTION 11/06/2024 Impaired mobility (ICD-10 - Z74.09) PT AND OT; FALL PREVENTION 10/11/2024 Impaired mobility (ICD-10 - Z74.09) 09/12/2024 Essential hypertension (ICD-10 - I10) 03/13/2024 Acquired hypothyroidism (ICD-10 - E03.9) 03/13/2024 Hyperuricemia (ICD-10 - E79.0) 09/12/2024 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.22) 11/06/2024 Muscle weakness (ICD-10 - M62.81) PT and OT 10/11/2024 Muscle weakness (ICD-10 - M62.81) 11/13/2024 Muscle weakness (ICD-10 - M62.81) PT and OT 11/19/2024 Intracranial hemorrhage (ICD-10 - I62.9) 11/22/2024 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.22) 11/26/2024 Chronic kidney disease (CKD), stage IV (severe) (ICD-10 - N18.4) 12/25/2024 Other constipation (ICD-10 - K59.09) 01/15/2025 Debility (ICD-10 - R53.81) She is receiving rehab services through home health 01/15/2025 Essential hypertension (ICD-10 - I10) 12/25/2024 Essential hypertension (ICD-10 - I10) 11/22/2024 Acquired hypothyroidism (ICD-10 - E03.9) 11/19/2024 Peripheral edema (ICD-10 - R60.9) 11/13/2024 Multiple falls (ICD-10 - R29.6) Fal prevention 11/06/2024 Multiple falls (ICD-10 - R29.6) Fal prevention 09/12/2024 Dyslipidemia (ICD-10 - E78.5) 10/11/2024 Altered mental status (ICD-10 - R41.82) Etiology likely multifactorial. Considering her history of CVA and multiple recent falls with head injury, will arrange MRI to rule out intracranial bleeding and/or CVA. 03/13/2024 Pacemaker (ICD-10 - Z95.0) 03/13/2024 Aortic stenosis (ICD-10 - Q25.3) 09/12/2024 Acquired hypothyroidism (ICD-10 - E03.9) 10/11/2024 Multiple falls (ICD-10 - R29.6) 11/13/2024 Chronic kidney disease (CKD), stage IV (severe) (ICD-10 - N18.4) continue to monitor 11/06/2024 Chronic kidney disease (CKD), stage IV (severe) (ICD-10 - N18.4) continue to monitor 11/19/2024 Hypokalemia (ICD-10 - E87.6) 11/22/2024 Chronic kidney disease (CKD), stage IV (severe) (ICD-10 - N18.4) She is provided contact numbers to schedule follow-up appointment with nephrology 11/22/2024 Chronic anemia (ICD-10 - D64.9) 11/19/2024 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.22) 11/06/2024 Acquired hypothyroidism (ICD-10 - E03.9) New Rx faxed from phone encounter earlier today. 11/13/2024 Acquired hypothyroidism (ICD-10 - E03.9) New Rx faxed from phone encounter earlier today. 09/12/2024 Hyperuricemia (ICD-10 - E79.0) 10/11/2024 Weight loss (ICD-10 - R63.4) 03/13/2024 Dyslipidemia (ICD-10 - E78.5) 03/13/2024 Chronic kidney disease (CKD), stage IV (severe) (ICD-10 - N18.4) Discussed need for nephrology consultation. She has been to several teaching artist in recent years and does not feel any will listen to her . Will await results of labs today and again recommend referral as she is approaching end-stage renal failure. 09/12/2024 Vitamin D deficiency (ICD-10 - E55.9) 10/11/2024 Failure to thrive in adult (ICD-10 - R62.7) 11/06/2024 Dyslipidemia (ICD-10 - E78.5) 11/13/2024 Dyslipidemia (ICD-10 - E78.5) 11/19/2024 Chronic anemia (ICD-10 - D64.9) 11/22/2024 BMI 27.0-27.9,adult (ICD-10 - Z68.27) 11/13/2024 Hyperuricemia (ICD-10 - E79.0) 10/11/2024 Chronic kidney disease (CKD), stage IV (severe) (ICD-10 - N18.4) 11/06/2024 Hyperuricemia (ICD-10 - E79.0) 11/06/2024 Essential hypertension (ICD-10 - I10) 10/11/2024 Acquired hypothyroidism (ICD-10 - E03.9) New Rx faxed from phone encounter earlier today. 11/13/2024 Essential hypertension (ICD-10 - I10) 11/06/2024 Pacemaker (ICD-10 - Z95.0) 11/13/2024 Pacemaker (ICD-10 - Z95.0) 11/06/2024 Vitamin D deficiency (ICD-10 - E55.9) 11/13/2024 Vitamin D deficiency (ICD-10 - E55.9) 11/13/2024 Intracranial hemorrhage (ICD-10 - I62.9) post op hemicraniotomy with blood evacuation of subdural hematoma 11/06/2024 Intracranial hemorrhage (ICD-10 - I62.9) post op hemicraniotomy with blood evacuation of subdural hematoma 11/06/2024 Presbycusis of both ears (ICD-10 - H91.13) 11/13/2024 Presbycusis of both ears (ICD-10 - H91.13) 11/13/2024 B12 deficiency (ICD-10 - E53.8) 11/06/2024 B12 deficiency (ICD-10 - E53.8) 11/06/2024 Peripheral edema (ICD-10 - R60.9) support stockings 11/13/2024 Peripheral edema (ICD-10 - R60.9) support stockings 11/13/2024 Chronic anemia (ICD-10 - D64.9) 11/06/2024 Chronic anemia (ICD-10 - D64.9) 11/06/2024 Aortic stenosis (ICD-10 - Q25.3) 11/13/2024 Aortic stenosis (ICD-10 - Q25.3) 11/06/2024 Cough (ICD-10 - R05.9) 11/13/2024 Cough (ICD-10 - R05.9) 11/13/2024 Debility (ICD-10 - R53.81) continue with PT,OT,ST 11/06/2024 Debility (ICD-10 - R53.81) 11/06/2024 Postop check (ICD-10 - Z09) 11/13/2024 Postop check (ICD-10 - Z09) 11/13/2024 CHF (congestive heart failure) (ICD-10 - I50.9) continue with Lasix 60 mg qd and monitor RF; did received previously x 2 doses 100mg 11/13/2024 Hypokalemia (ICD-10 - E87.6) 11/13/2024 Bronchitis (ICD-10 - J40) to continue with duoneb; strongly encouraged to use IS; mucinex DM added at pt request 11/06/2024 Other will need labs: CBC and CMP 11/13/2024 Other will repeat CBC and BMP and CXR this week 11/22/2024 Other Discharge summa ry with available lab/diagnostic imaging results obtained and reviewed. Discharge medication list reconciled. Appropriate counseling provided. Moderate Complexity 12/20/2024 Other Discharge summa ry with available lab/diagnostic imaging results obtained and reviewed. Discharge medication list reconciled. Appropriate counseling provided. Moderate Complexity 12/25/2024 Other Discharge summa ry with available lab/diagnostic imaging results obtained and reviewed. Discharge medication list reconciled. Appropriate counseling provided. Moderate Complexity Plan Of Treatment Pending Test Test Name Order Date MRI : Brain w/o contrast 10/11/2024 Next Appt Details Provider Name:Gabbi Hernandez, 03/21/2025 01:30:00 PM, [address], [place], [id number], Insurance Providers Payer Name Payer Address Payer Phone Subscriber Number Group Number Insured Name Patient Relationship to Insured Coverage Start Date Coverage End Date [employer] [address] [address] [place], [place] [id number] [phone] [id number] Dalila Johnson Self - patient is the insured Medical (General) History Medical History History ICD Code Hypothyroid Hypertension Dyslipidemia Type II Diabetes Chronic kidney disease - Stage 4 Broken Right Leg Broken left shoulder Sleep apnea on CPAP Gout Anemia Moderate TR/ Mild AR by echo - Dr. Gia page THyroid nodule Presbycusis - bilateral hearing aides Hx of intracranial hemorrage 08/2020 - / [facility] Santos SSS - s/p PPM - followed by Dr. Danny MARRERO HTN Surgical History Surgery Date(Month/Year) RT Leg-[facility] 2004 LT Shoulder- [facility] 2004 C-scope/ polyps - Dr. Dominguez 09/2010, 2016 Heart Cath & stent - Dr. Delgado 021 Pacemaker - Dr. Delgado 08/21/2021 LEFT MINICRANIOTOMY FOR EVACUATION OF CLAROS BDURAL HEMATOMA 10/14/2024 cerebral angiogram with middle meningeal artery embolization 10/17/2024 Hospitalization History Reason Date(Month/Year) HEALTHCARE: CKD STAGE III ; resistent HTN; hronic subdural hematoma with surgical evacuation; blood loss anemai with adm 1 Unit PRBC; electrolyte disturbance;bilaterl renal stenosis;CAIT on chronic KD; expressive aphasia; encephalopathy 10/13-11/02/2024 Low Blood Pressure - [facility] 06/21/2021 Stroke - [facility] 08/21/2020 CVA 08/2020
--- OUTSIDE RECORDS SUMMARY | 2025-01-23 11:01 | XMS_ITS | Encounter Summary ---
Author Organization [facility] Address [address] [place] [address] Care Team Providers Care Maintenance Worker Swimming Pool Name Role Phone Evaristo Lovell MD Primary Care Provider +1- [phone] Encounter Details Date Type Department Care Team (Latest Contact Info) Description 01/04/2025 Travel Social History Tobacco Use Types Packs/Day [...] any time in the past 12 m [facility], were you homeless or living in a care home (including now)? No 10/17/2024 Utilities Answer Date [...] documented as of this encounter Care Teams Maintenance Worker Swimming Pool Relationship Specialty Start Date End Date Evaristo Lovell MD [address] [place] [address] PCP - General 10/13/24 documented as of this encounter
--- OUTSIDE RECORDS SUMMARY | 2025-01-23 11:01 | XMS_ITS | Encounter Summary ---
Author Organization [facility] Address [address] [place] [address] Care Team Providers Care Unix Consultant Name Role Phone Evaristo Lovell MD Primary Care Provider +1- [phone] Reason for Visit * Reason Onset Date Comments HCN - Patient Message 11/22/2024 Schedule Encounter Details Date Type Department Care Team (Late st Contact Info) Description 11/22/2024 Telephone [place] [facility] [address] [place] [address] Eva Gonsales MD [address] [place] [address] HCN - Patient Message (Schedule ) Social History Tobacco Use Types Packs/Day Years [...] any time in the past 12 m onths, were you homeless or living in a detention (including now)? No 10/17/2024 Utilities Answer Date [...] on file documented as of this encounter Miscellaneous Notes * Telephone Encounter - Noemi Charles - 11/22/2024 2:14 PM EDT Patient Phone Message Reason for Call: Daughter is calling to schedule a f/u appt. Best contact number and optimal time of day to reach caller: [phone] anytime Note: Please do not reply to this message. Follow-up communication and further actions as a result of this message need to be communicated with the patient directly, if the patient is not active onMyChart. If the patient is active on MyChart, they will receive notification of the communication/outcome via [employer] documented in this encounter Plan of Treatment [...] Autogenerated Problem 10/15/2024 Assessment Noted Time A Body Mass Index follow-up plan has been documented for the patient 11/02/2024 9:38 AM EDT documented as of this encounter Care Teams Unix Consultant Relationship Specialty Start Date End Date Evaristo Lovell MD [address] [place] [address] PCP - General 10/13/24 documented as of this encounter
[2025-01-23] MEDS: BARIUM SULFATE(E-Z-AC);750ML BOTTLE 750 ML PO (11:23)
--- NOTE | 2025-01-23 15:21 | HMH.SLMBS2 ---
Speech & Language Evaluation Speech/Lang Modified Barium Swallow Start: 01/23/25 14:54 Freq: once Status: Complete Protocol: Document 01/23/25 14:54 MARC (Rec: 01/23/25 15:21 [id number]) LEAD SHAREPOINT DEVELOPER Evaluation Information LEAD SHAREPOINT DEVELOPER Evaluation Information Date of Evaluation: 01/23/25 Time of Evaluation: 10:50 Evaluation Type Initial Certification Reason for Referral aspiration pna per MD order Does Patient Qualify Yes for Service Qualify/Failure Based on clinical observations made throughout MBSS, pt Comment would benefit from skilled speech therapy services to address dysphagia throughout implementation of a dysphagia exercise program, utilization of compensatory strategies provided and adherence to recommended diet, and follow up MBSS in 3 months. [facility] Recommendations Recommendation PHYSICIAN CERTIFICATION: The specified therapy services are required, authorized, and reviewed every 30 days. Patient will be Seen 1 # Times/Week For # of Weeks 12 Plan Anticipate reaching 8 STG in # weeks Anticipate reaching 12 LTG in # weeks Diet Dietary Mechanical Soft,Ground Meats,Thin Liquids Recommendations SL Swallow Alt bite w/sip thru meal,High aspiration risk,Crush Guidelines meds as allowed*,Oral Care Education,Oral care pre/post meals Swallowing Crush Crush all meds Meds Treatment/Strategies Treatment Oral Motor Exercises,Base of Tongue Exercises, Recommendations Pharyngeal Resistive Exer,Compens. Strategy Educat. Strategy/Precaution Sitting Upright (90 deg),Turn Head Left,Tilt Head Left, Recommended Double Swallow,No Straw,Liquids from Spoon,Small Bites and Sips,Alternate Liquids/Solids Referral/Other Recommended GI Consult,ENT Consult Referrals LEAD SHAREPOINT DEVELOPER Patient History Section LEAD SHAREPOINT DEVELOPER Patient History Primary Medical Ms. Johnson is a 84-year-old female around 15 to 20 -pack History -year smoking last month greater than 40 years ago, diastolic heart failure, hypertension, CKD, diabetes mellitus, pace maker for sick sinus syndrome, sleep apnea, prior history of ICH, stroke with residual weakness initially seen in the hospital for worsening respiratory distress Does Patient have No Reflux or GERD? Does Patient Yes Experience Coughing or Choking Episodes? Does Patient Avoid No Certain Food Textures/ Consistencies? Does Patient Utilize No Compensatory Strategies During Meals? Compensatory states she is a slow eater and gets tired that she Strategies Comment quits Has Patient Yes Experienced Significant Weight Loss? Does Pt have Hx of Yes Recurrent Pneumonias or Respiratory Infections? Hx of Recurrent PNA in September Infection Comment Has Patient Noticed Yes Change in Vocal Quality? Vocal Quality soft spoken Comment Mod Barium Swallow Study Patient Orientation Patient Orientation Person,Situation Oral Expression Mild Impairment Ability Ability to Follow Good Directions Is Patient able to Yes Perform Volitional Throat Clear? Is Patient able to Yes Perform Volitional Cough? Is Patient able to Yes Manage Secretions Independently? Mod Barium Swallow Set Up Radiologist Kana Tran Patient Presentation Awake,Alert,Appropriate,Follows Commands : Bolus Consistencies Thin Liquids,[place]allo Thick Liquids,Pudding,Puree, Trialed: Mechanical Soft,Pill (Barium Tablet) MBSS Observations Consistency & Strategy Trial Mechanical Soft Penetration/ 4 Aspiration Scale PAS Amount Trace Pharyngeal Residual 10-49% Mechanical Soft Half Bolus Penetration/ 3 Aspiration Scale PAS Amount Trace Pharyngeal Residual 10-49% Puree Full Spoon Penetration/ 2 Aspiration Scale PAS Amount Trace Pharyngeal Residual 0-9% Puree Half Spoon Penetration/ 2 Aspiration Scale PAS Amount Trace Pharyngeal Residual 0-9% Pudding Full Spoon Penetration/ 3 Aspiration Scale PAS Amount Trace Pharyngeal Residual 10-49% Pudding Half Spoon Penetration/ 2 Aspiration Scale PAS Amount Trace Pharyngeal Residual 0-9% Caballo Spoon Full Penetration/ 4 Aspiration Scale PAS Amount Trace Pharyngeal Residual 10-49% Straw Sip Penetration/ 3 Aspiration Scale PAS Amount Trace Pharyngeal Residual 10-49% Thin Open Cup Sip Penetration/ 3 Aspiration Scale PAS Amount Trace Pharyngeal Residual 10-49% Thin Spoon Full Penetration/ 1 Aspiration Scale PAS Amount Trace,Neither Pharyngeal Residual 0-9% Mod Barium Swallow Impressions Oral Phase Summary & Impressions Oral Phase: Moderate Impairment Impression Oral Phase: Labial Mild Impairment Closure Oral Phase: Bolus Mild Impairment Formation Pooling L/ R Oral Phase: Bolus Moderate Impairment Formation Under Tongue Oral Phase: Bolus Moderate Impairment Formation Scattered Loss Oral Phase: Mild Impairment Mastication Rotary Chew Oral Phase: Mild Impairment Mastication Munching Oral Phase: Mild Impairment Mastication Lateralization Oral Phase: Lingual Moderate Impairment Movement Oral Phase: Residue Moderate Impairment Clearing Oral Phase: Summary Mild to moderate impairment with deficits observed in oral preparatory and oral transit phases of the swallow . Pt exhibits oral withholding and prolonged mastication of solids. Residuals observed throughout oral cavity and BOT with all consistencies. Pt unable to control bolus size when give open cup and/or straw sips. Large bolus even when given prompts/cues resulting in scattered loss and residual found under tongue. Tongue pumping observed throughout MBSS. Pharyngeal Phase Summary & Impressions Pharyngeal Phase: Severe Impairment Impression Pharyngeal Phase: A/ Severe Impairment P Lingual Propulsion Spills Pharyngeal Phase: Severe Impairment Swallow Response Delay Pharyngeal Phase: Severe Impairment Base of Tongue Pharyngeal Phase: Moderate Impairment Epiglottic Coverage Pharyngeal Phase: Moderate Impairment Laryngeal Elevation Pharyngeal Phase: Severe Impairment Vallecular Retention Clearing Pharyngeal Phase: Moderate Impairment Pharyngeal Wall Residue Clearing Pharyngeal Phase: Moderate Impairment Piriform Sinus Retention Pharyngeal Phase: Moderate to severe impairment of the pharyngeal phase Summary of the swallow. Delayed initiation of the swallow across all consistencies. A/P spills into the laryngeal vestibule observed throughout all consistencies with residual observed on BOT and velum, vallecular space, PPW, and pyriform sinuses. Pt was observed to have reduced hyolaryngeal excursion resulting in limited epiglottic coverage. Pt was required to complete head tilt/chin tuck to left in order to reduce chance of penetration or aspiration. Alberto aspiration was observed with large bolus size thin liquids, penetration observed with nectar thick liquids with spoon trial. Pt was found to have increased fatigue throughout study that directly impacted the efficiency of the swallow. Aspiration Aspiration? Yes Degree of Aspiration Medium : When Aspirated: During the swallow Consistencies thins, penetration of nectar thick and MS full bolus. Aspirated: Silent Aspiration? Yes LEAD SHAREPOINT DEVELOPER MBSS Goals MBS Half-Way Goals Patient will utilize Chin Tuck,Head Turn (Left),No Straws,Alternate Bites & compensatory Sips,Sitting Upright,Small Bites & Sips,Puree/Pudding/ strategies with PO Liquid Wash,Effortful Swallow intake in order to meet nutrition and hydration needs for daily meals without overt signs/symptoms of aspiration. The patient will Mechanical Soft,Ground Meats,Thin Liquids tolerate the least restrictive diet with a safe/ efficient swallow to maintain adequate nutrition and hydration. The patient will Yes demonstrate improved swallowing function via repeat clinical evaluation, videoendoscopy/ videofluoroscopy and /or patient self- rating scores. ?The patient and/or Yes family will participate in further education for swallowing goals . The patient will Supraglottic Swallow,Mleba Maneuver,Falsetto E,HAWK, complete a home CTAR (Isometric),CTAR (Isokinetic),[facility]'s education program of dysphagia exercises and/or complete structured swallowing therapy to improve swallow function through utilization of recommended therapy approaches [facility] Short Term Goals The patient will Supraglottic Swallow,Melba Maneuver,Falsetto E,HAWK, demonstrate __% CTAR (Isometric),CTAR (Isokinetic),OME's accuracy and require ____ cuing in structured swallowing therapy with the LEAD SHAREPOINT DEVELOPER using the following exercises/therapy approaches and therapy assisted devices. Accuracy Percentage 80 Demonstration Cueing Requirement Moderate Pt. will tolerate Yes least restrictive diet w/o any overt s /s of aspiration & penetration independently w/ use of required compensatory strategies in order to meet nutrition & hydration needs for daily meals. Dietary Mechanical Soft,Ground Meats,Thin Liquids Recommendations: MBS Short Term Goals Compensatory Double Swallow,Chin Tuck,Head Turn (Left),No Straws, Strategies: MBS Alternate Bites & Sips,Sitting Upright,Small Bites & Short Term Goals Sips,Puree/Pudding/Liquid Wash,Effortful Swallow Education Instructions Discussed results of MBSS, recommendation for safest provided diet while still remaining PO, need for skilled speech therapy services, reviewed aspiration risks/precautions and compensatory strategies, and referral to GI and ENT all of which patient and her expressed understanding. Patient/Caregiver Able to recall/restate Able to Recall Information Reinforcement needed No PHYSICIAN CERTIFICATION: I certify the specified therapy services for Dalila Johnson are required, authorized, and reviewed every 30 days.
== END 2025-01-23 23:59 | disposition home or self-care (01) ==
LOC: RAD 10:38
PROVIDERS: PCP Family Medicine; Visit Provider Internal Medicine Pulmonary Disease
DX: Z91.89 Other specified personal risk factors, not elsewhere classified (principal)
CPT/HCPCS: 74230; 92611

== ENCOUNTER 2025-03-12 09:40 | Outpatient (CLI) | payer MEDICARE, SELFPAY ==
--- OUTSIDE RECORDS SUMMARY | 2024-12-25 06:30 | XMS_ITS ---
Author Organization [facility] Address [address] [facility] [address] [place] [id number] Care Team Providers Care Perinatal Educator Name Role Phone Gabbi Lovell Primary Care Provider Robby Figueroa Unavailable [phone] Allergies Allergen (clinical drug ingredient) Drug/Non Drug Allergy documented on EMR Reaction Allergy Type Onset Date Status Substance with sulfonamide structure and antibacterial mechanism of action (substance) Sulfa Antibiotics rash Drug Allergy Active Results Component Value Reference Range Notes CBC Venipuncture (in house) Reviewed date:12/25/2024 02:38:50 PM Interpretation: Performing Lab: Notes/Report: wbc 8.2 3.5 - 10 lymph 25.1% 15 - 50 mid 6.6% 2 - 15 gran 68.3% 35 - 80 rbc 3.18 3.5 - 5.5 hgb 9.7 11.5 - 16.5 hct 29.8 35 - 55 mcv 93.7 75 - 100 mch 30.7 25 - 35 mchc 32.7 31 - 38 platlet 175 100 - 400 P-Basic Metabolic Panel (BMP ) Reviewed date:12/27/2024 08:22:17 AM Interpretation:Na 134, K 9.1, Glu 123, BUN 38, Creat 2.14, eGFR 22 Performing Lab: Notes/Report: Test performed by [facility], [facility] [address] [place] [address] , [address], [place] [address] Joel Morillo MD, Telephone Appointment Clerk CLIA: [id number] Sodium 134 135-145 mmol/L Potassium 9.1 3.5-5.3 mmol/L ALERT VALUE Results were repeated and confirmed. No visual hemolysis present. Chloride 105 97-108 mmol/L CO2 25 22-32 mmol/L Glucose 123 65-99 mg/dL BUN 38 8-23 mg/dL Creatinine 2.14 0.50-1.00 mg/dL Calcium 9.3 8.6-10.4 mg/dL eGFR by Creatinine 22 >59 mL/min/1.73m2 P-Phosphorus Reviewed date:12/27/2024 08:22:17 AM Interpretation:Normal Performing Lab: Notes/Report: Test performed by [facility] [address] , [address], [place] [address] Joel Morillo MD, Telephone Appointment Clerk CLIA: [id number] Phosphorus 3.6 2.5-4.5 mg/dL REASON FOR VISIT [facility] F/U Medications Medication SIG (Take, Route, Frequency, Duration) Notes Start Date End Date Status O-Ltyj-Klbzpqi 155-852-130 MG 1 tablet Orally once daily; Duration: 90 days Active Synthroid 100 MCG 1 tablet in the morning on an empty stomach Orally Once a day; Duration: 90 days Active MiraLax 17 GM/SCOOP 1 scoop mixed with 8 ounces of fluid Orally Once a day 12/25/2024 Active Benefiber - as directed Orally once daily 12/25/2024 Active OneTouch Ultra - as directed In Vitro Three times a day Active Wheel Chair as directed CVA with impaire d mobility 10/11/2024 Active Januvia 25 MG 1 tablet Orally Once a day Active Divalproex Sodium 500 MG 1 tablet Orally Twice a day; Duration: 90 days Active Ipratropium-Albuterol 0.5-2.5 (3) MG/3ML 3 ml Inhalation qid; Duration: 90 days Active Folic Acid 400 MCG 1 tablet Orally Once a day; Duration: 90 days Active hydrALAZINE HCl 50 MG 1 tablet with food Orally Two times a day Active Atorvastatin Calcium 40 MG 1 tablet Orally Once a day Active Mucinex DM 30-600 MG 1 tablet as needed Orally every 12 hrs 11/15/2024 Active Allopurinol 100 MG 2 tablet Orally Once a day; Duration: 90 days Active cloNIDine HCl 0.3 MG 1 tablet Orally Two times a day Active Vitamin D3 25 MCG (1000 UT) 1 capsule Orally Once a day Active Vitamin B-12 5000 MCG 1 tablet Orally Once a day Active Carvedilol 12.5 MG 1 tablet with food Orally Twice a day Active Furosemide 40 MG 1 1/2 tab Orally Once a day Active Valsartan 80 MG 3 tablet Orally Once a day Active Multivitamin - 1 tablet Orally Once a day Active Farxiga 10 MG 1 tablet Orally Once a day Active Acetaminophen 500 MG 2 tablet as needed Orally every 6 hrs prn Active Thiamine HCl 50 MG 1 tablet Orally Once a day Active NIFEdipine ER 60 MG 1 tab(s) Orally bid Active Diabetic Diet - as directed Ensure supplemen t tid Active Oxygen - per nasal cannula as directed 2 LPM prn Active Bumex 0.5 MG 1 tablet Orally Once a day Active Mucinex 600 MG 1 tablet as needed Orally every 12 hrs Active Social History Tobacco Use: Social History Observation Description Date Details (start date - stop date) Former Smoker NA - NA CURRENT TOBACCO USE: Question Answer Notes Are you a: former smoker smoked for 15 yr s, history of 5-6 cigarettes per day, quit Vital Signs Blood pressure systolic 122 mm Hg 12/26/19 25 Blood pressure diastolic 68 mm Hg 025 Heart Rate 62 /min 12/25/2024 Height 66 in 12/25/2024 Weight 000 lbs 12/25/2024 Encounters Encounter Location Date Provider Diagnosis [facility] [address] [facility] [address] [place] [id number] 12/25/2024 [place] Community acquired pneumonia, unspecified laterality J18.9 ; Chronic kidney disease (CKD), stage 4 N18.4 ; Debility R53.81 ; Other constipation K59.09 and Essential hypertension I10 Assessments Encounter Date Diagnosis (ICD Code) Assessment Notes Treatment Notes Treatment Clinical Notes Section Notes 12/25/2024 Community acquired pneumonia, unspecified laterality (ICD-10 - J18.9) Clinically improved 12/25/2024 Chronic kidney disease (CKD), stage 4 (ICD-10 - N18.4) 12/25/2024 Debility (ICD-10 - R53.81) Patient needs to resume home health PT/OT 12/25/2024 Other constipation (ICD-10 - K59.09) 12/25/2024 Essential hypertension (ICD-10 - I10) 12/25/2024 Other Discharge summary with available lab/diagnostic imaging results obtained and reviewed. Discharge medication list reconciled. Appropriate counseling provided. Moderate Complexity Plan Of Treatment Medication Medication Name Sig Start Date Stop Date Notes MiraLax 17 GM/SCOOP 1 scoop mixed with 8 ounces of fluid Orally Once a day 12/25/2024 Benefiber - as directed Orally once daily 12/25/2024 hydrALAZINE HCl 50 MG 1 tablet with food Orally Two times a day cloNIDine HCl 0.3 MG 1 tablet Orally Two times a day Carvedilol 12.5 MG 1 tablet with food O rally Twice a day Furosemide 40 MG 1 1/2 tab Orally Once a day Valsartan 80 MG 3 tablet Orally Once a day Farxiga 10 MG 1 tablet Orally Once a day NIFEdipine ER 60 MG 1 tab(s) Orally bid Treatment Notes Assessment Notes Community acquired pneumonia , unspecified laterality Clinically improved Debility Patient needs to res [facility] PT/OT Other Discharge summary wi th available lab/diagnostic imaging results obtained and reviewed. Discharge medication list reconciled. Appropriate counseling provided. Moderate Complexity Next Appt Details Follow Up: [address] Pierce, Reason: Provider Name:Gbabi Hernandez, 03/21/2025 01:30:00 PM, [address] [facility] [address] [facility], [address], [place], [place], [id number], Progress Notes * Dalila JOHNSONDOB:1940 (84 yo F)Acc No.[id number]:12/25/2024 Progress Notes Patient: Dalila HAWK Provider: Angi Figueroa M.D. :1940 A ge:84 Y S ex:Female Date:12/25/2024 Address:[address] [place] [address], [facility] Pcp:Gabbi Lovell Subjective: * Chief Complaints: * 1 . [facility] F/U. * HPI: H PI: 84 year old female presents with c/o Here for follow up on:?12/10- [facility] h ospitalization. Pt admitted for pneumonia. Pt states she is still coughing but is is feeling a little better . Pt states she feels like she should feel better than she does . Pt did see Dr. Crocker 12/20/2024 and was rx'd Albuterol for nebulizer. Pt's states that pt has not had bm in 6-7 days. Pt has tried milk of magnesia and it did help a little . Patient is here today for a Transition of Care Visit. Discharge from the following Facility: [facility] ,Discharge date: 12/13/2024 ,Date of phone contact following discharge: 12/14/2024. * ROS: D ERMATOLOGY: no R min. n o H shelley. G ASTROENTEROLOGY: no N ausea. n o V omiting. U ROLOGY: no D ifficulty urinating. n o B lood in urine. * Medical History: H ypothyroid, Hypertension, Dyslipidemia, Type II Diabetes , Chronic kidney disease - Stage 4, Broken Right Leg , Broken left shoulder , Sleep apnea on CPAP, Gout, Anemia, Moderate TR/ Mild AR by echo - Dr. Delgado, THyroid nodule, Presbycusis - bilateral hearing aides, Hx of intracranial hemorrage 08/2020 - / [place], SSS - s/p PPM - followed by Dr. Delgado, CVA, HTN. * Surgical History: R T Leg-Metal Pins and Demetrio 2004, LT Shoulder- Metal Pins and Demetrio 2004, C-scope/ polyps - Dr. Dominguez 09/2010, 2016, Heart Cath & stent - Dr. Delgado 07/03/2021, Pacemaker - Dr. Delgado 08/21/2021, LEFT MINICRANIOTOMY FOR EVACUATION OF SUBDURAL HEMATOMA 10/14/2024, cerebral angiogram with middle meningeal artery embolization 10/17/2024. * Hospitalization/Major Diagno stic Procedure: [facility] 08[facility], Stroke - [facility] ER 08/21/2020, Low Blood Pressure - [facility] ER 06/21/2021, HEALTHCARE: CKD STAGE III; resistent HTN; hronic subdural hematoma with surgical evacuation; blood loss anemai with adm 1 Unit PRBC; electrolyte disturbance;bilaterl renal stenosis;CAIT on chronic KD; expressive aphasia; encephalopathy 10/13-11/02/2024. * Family History: F ather: 44 yrs, Mining accident. M other: 76 yrs, Colon cancer. 2 brother(s) . 1 son(s) , 1 daughter(s) . . Pt has a family history of colon cancer. Pt has one brother that is due to testicular cancer in his late 50's. * Social History: C URRENT TOBACCO USE: No A re you a: f ormer smoker smoked for 15 yrs, history of 5-6 cigarettes per day, quit . C affeine: yes, frequency: coffee daily. Home smoke detector use: yes. Past smoking status: no, Smoking status: Does not smoke. Alcohol: No. * Medications: T aking Bumex 0.5 MG Tablet 1 tablet Orally Once a day , Taking Mucinex 600 MG Tablet Extended Release 12 Hour 1 tablet as needed Orally every 12 hrs , Taking Oxygen - - per nasal cannula as directed , Notes to Pharmacist: 2 LPM prn, Taking Diabetic Diet - - as directed , Notes to Pharmacist: Ensure supplement tid, Taking Thiamine HCl 50 MG Tablet 1 tablet Orally Once a day , Taking Multivitamin - Tablet 1 tablet Orally Once a day , Taking Acetaminophen 500 MG Tablet 2 tablet as needed Orally every 6 hrs prn , Taking Vitamin D3 25 MCG (1000 UT) Capsule 1 capsule Orally Once a day , Taking Vitamin B-12 5000 MCG Tablet Disintegrating 1 tablet Orally Once a day , Taking Atorvastatin Calcium 40 MG Tablet 1 tablet Orally Once a day , Taking Mucinex DM 30-600 MG Tablet Extended Release 12 Hour 1 tablet as needed Orally every 12 hrs , Taking Allopurinol 100 MG Tablet 2 tablet Orally Once a day , Taking Divalproex Sodium 500 MG Tablet Delayed Release 1 tablet Orally Twice a day , Taking Folic Acid 400 MCG Tablet 1 tablet Orally Once a day , Taking Wheel Chair as directed , Notes to Pharmacist: CVA with impaired mobility, Taking Farxiga 10 MG Tablet 1 tablet Orally Once a day , Taking NIFEdipine ER 60 MG Tablet Extended Release 24 Hour 1 tab(s) Orally bid , Taking Carvedilol 12.5 MG Tablet 1 tablet with food Orally Twice a day , Taking Furosemide 40 MG Tablet 1 1/2 tab Orally Once a day , Taking Januvia 25 MG Tablet 1 tablet Orally Once a day , Taking Valsartan 80 MG Tablet 3 tablet Orally Once a day , Taking cloNIDine HCl 0.3 MG Tablet 1 tablet Orally Two times a day , Taking hydrALAZINE HCl 50 MG Tablet 1 tablet with food Orally Two times a day , Taking Ipratropium-Albuterol 0.5-2.5 (3) MG/3ML Solution 3 ml Inhalation qid , Taking OneTouch Ultra - Strip as directed In Vitro Three times a day , Taking Y-Ibua-Uwnfuqw 155-852-130 MG Tablet 1 tablet Orally once daily , Taking Synthroid 100 MCG Tablet 1 tablet in the morning on an empty stomach Orally Once a day , Medication List reviewed and reconciled with the patient * Allergies: S ulfa Antibiotics: rash. Objective: * Vitals: W t: 000, Temp: 97.9, BP: 122/68, HR: 62, O2 Sat: 92% on 2L O2, Nurse: bonnie, Ht: 66. * Examination: G eneral Examination: General Appearance: N AD, sitting in a wheelchair, supplemental oxygen in use. H eart: R SR. L ungs: g ood air entry bilaterally, few coarse breath sounds. Assessment: * Assessment: 1. C ommunity acquired pneumonia, unspecified laterality - J18.9 (Primary) 2 .?Chronic kidney disease (CKD), stage 4 - N18.4 3 . D ebility - R53.81 ? 4 . O ther constipation - K59.09 5 . E ssential hypertension - I10? Plan: * Treatment: Value Reference Range P hosphorus 3.6 2.5-4.5 - mg/dL * Sarah Collins 12/27/2024 08: 22:02 AM > See phone encounter ?LAB: CBC Venipuncture (in house) (Collection Date & Time - 12/25/2024)* Value Reference Range w bc 8.2 3.5 - 10 * l ymph 25.1% 15 - 50 * m id 6.6% 2 - 15 * g ran 68.3% 35 - 80 * r bc 3.18 3.5 - 5.5 * h gb 9.7 11.5 - 16.5 * h ct 29.8 35 - 55 * m cv 93.7 75 - 100 * m ch 30.7 25 - 35 * m chc 32.7 31 - 38 * p latlet 175 100 - 400 * Aaliyah Flores 12/25/2024 11:38: 47 AM > Notes: Clinically improved??2.?Chronic kidney disease (CKD), stage 4? Continue Farxiga Tablet, 10 MG, 1 tablet, Orally, Once a day.?LAB: P-Basic Metabolic Panel (BMP) (Collection Date & Time - 12/25/2024 10:28 AM)?Na 134, K 9.1, Glu 123, BUN 38, Creat 2.14, eGFR 22* Value Reference Range B UN 38 H 8-23 - mg/dL * C alcium 9.3 8.6-10.4 - mg/dL * C hloride 105 97-108 - mmol/L * C O2 25 22-32 - mmol/L * C reatinine 2.14 H 0.50-1.00 - mg/dL * G lucose 123 H 65-99 - mg/dL * P otassium 9.1 HH 3.5-5.3 - mmol/L * S odium 134 L 135-145 - mmol/L * e GFR by Creatinine 22 L >59 - mL/min/1.73m2 * Sarah Collins 12/27/2024 08: 22:02 AM > See phone encounter 3.?Debility? Notes: Patient needs to resume home health PT/OT??4.?Other constipation? Start Benefiber Powder, -, as directed, Orally, once daily;?Start MiraLax Powder, 17 GM/SCOOP,1 scoop mixed with 8 ounces of fluid, Orally, Once a day.?? 5.?Essential hypertension? Continue NIFEdipine ER Tablet Extended Release 24 Hour, 60 MG, 1 tab(s), Orally, bid;?ContinueCarvedilol Tablet, 12.5 MG, 1 tablet with food, Orally, Twice a day;?Continue Furosemide Tablet, 40 MG, 1 1/2 tab, Orally, Once a day;?Continue Valsartan Tablet, 80 MG, 3 tablet, Orally, Once a day;?Continue cloNIDine HCl Tablet, 0.3 MG, 1 tablet, Orally, Two times a day;?Continue hydrALAZINE HCl Tablet, 50 MG, 1 tablet with food, Orally, Two times a day.??6.?Others? Notes: Discharge summary with available lab/diagnostic imaging results obtained and reviewed. Discharge medication list reconciled. Appropriate counseling provided. Moderate Complexity?? * Procedure Codes: 9 9495 TRANS CARE MGMT 14 DAY DISCH, G2211 Complex e/m visit add on, 1111F DSCHR MED/CURENT MED MERGE, 94721 CBC WITH AUTO DIFF, 15341 VENIPUNCT, ROUTINE*, G8950 PREHTN/HTN BP DOC INDCD F/U DOC, G8752 MOST RECENT SYSTOLIC BP < 140MM HG, G8754 MOST RECENT DIASTOLIC BP < 90MM HG * Follow Up: [address] Stan Tate Images: Billing Information: * Visit Code: 79894 Office Visit, Est Pt., Level 4. * Procedure Codes: 02720 TRANS CARE MGMT 14 DAY DISCH. G2211 Complex e/m visit add on. 1111F DSCHR MED/CURENT MED MERGE. 64759 CBC WITH AUTO DIFF. 24906 VENIPUNCT, ROUTINE*. G8950 PREHTN/HTN BP DOC INDCD F/U DOC. G8752 MOST RECENT SYSTOLIC BP < 140MM HG. G8754 MOST RECENT DIASTOLIC BP < 90MM HG. * Electronic signature of Citlaly Figueroa MD on 03/12/2025 at 09:43 AM EDT Sign off status: Pending * Provider: Angi Figueroa M.D. Date: 0 12/25/2024 Generated for Kristy lima/Malachi/eTransmitting on: 0 03/12/2025 09:43 AM EDT History and Physical Notes * HPI (History of Present Illness) Category Sub-Category Detail Notes Category Not es HPI Here for follow up on: 12/10-2024 [facility] hospitalization. Pt admitted for pneumonia. Pt states she is still coughing but is is feeling a little better . Pt states she feels like she should feel better than she does . Pt did see Dr. Crocker 12/20/2024 and was rx'd Albuterol for nebulizer. Pt's states that pt has not had bm in 6-7 days. Pt has tried milk of magnesia and it did help a little Patient is here today for a Transition o f Care Visit. Discharge from the following Facility: [facility] ,Discharge date: 12/13/2024 ,Date of phone contact following discharge: 12/14/2024 Examination Category Sub-Category Detail Notes Category Not es General Examination Heart: RSR Lungs: good air entry bilat erally, few coarse breath sounds General Appearance: NAD, sitting in a wh eelchair, supplemental oxygen in use
--- OUTSIDE RECORDS SUMMARY | 2025-01-15 09:30 | XMS_ITS ---
Author Organization [facility] Address [address] [facility] [address] [place] [id number] Care Team Providers Care Cop Breaker Name Role Phone Gabbi Lovell Primary Care Provider [phone] Allergies Allergen (clinical drug ingredient) Drug/Non Drug Allergy documented on EMR Reaction Allergy Type Onset Date Status Substance with sulfonamide structure and antibacterial mechanism of action (substance) Sulfa Antibiotics rash Drug Allergy Active REASON FOR VISIT 3 week f/u Medications Medication SIG (Take, Route, Frequency, Duration) Notes Start Date End Date Status V-Kntf-Wdzmoqm 155-852-130 MG 1 tablet Orally once daily; Duration: 90 days Active Atorvastatin Calcium 40 MG 1 tablet Orally Once a day; Duration: 90 days Active Synthroid 100 MCG 1 tablet in the morning on an empty stomach Orally Once a day; Duration: 90 days Active Benefiber - as directed Orally once daily 12/25/2024 Active MiraLax 17 GM/SCOOP 1 scoop mixed with 8 ounces of fluid Orally Once a day 12/25/2024 Active Januvia 25 MG 1 tablet Orally Once a day Active Ipratropium-Albutero l 0.5-2.5 (3) MG/3ML 3 ml Inhalation qid; Duration: 90 days Active OneTouch Ultra - as directed In Vitro Three times a day Active Folic Acid 400 MCG 1 tablet Orally Once a day; Duration: 90 days Active Wheel Chair as directed CVA with impaire d mobility 10/11/2024 Active Vitamin D3 25 MCG (1000 UT) 1 capsule Orally Once a day Active Allopurinol 100 MG 2 tablet Orally Once a day; Duration: 90 days Active Divalproex Sodium 500 MG 1 tablet Orally Twice a day; Duration: 90 days Active Vitamin B-12 5000 MCG 1 tablet Orally Once a day Active Mucinex DM 30-600 MG 1 tablet as needed Orally every 12 hrs 11/15/2024 Active Diabetic Diet - as directed Ensure supplemen t tid Active Thiamine HCl 50 MG 1 tablet Orally Once a day Active Multivitamin - 1 tablet Orally Once a day Active Acetaminophen 500 MG 2 tablet as needed Orally every 6 hrs prn Active Oxygen - per nasal cannula as directed 2 LPM prn Active cloNIDine HCl 0.3 MG 1 tablet Orally Two times a day Active Ferrous Sulfate 325 (65 Fe) MG 1 tablet Orally Three times a Week Active Bumex 0.5 MG 1 tablet Orally Once a day Not-Taking Mucinex 600 MG 1 tablet as needed Orally every 12 hrs Active hydrALAZINE HCl 50 MG 1 tablet with food Orally Two times a day Active Valsartan 80 MG 3 tablet Orally Once a day Active Farxiga 10 MG 1 tablet Orally Once a day Active NIFEdipine ER 60 MG 1 tab(s) Orally bid Active Carvedilol 12.5 MG 1 tablet with food Orally Twice a day Active Furosemide 40 MG 1 1/2 tab Orally Once a day Active Social History Tobacco Use: Social History Observation Description Date Details (start date - stop date) Former Smoker NA - NA CURRENT TOBACCO USE: Question Answer Notes Are you a: former smoker smoked for 15 yr s, history of 5-6 cigarettes per day, quit Vital Signs Blood pressure systolic 122 mm Hg 01/16/20 25 Blood pressure diastolic 68 mm Hg 025 Heart Rate 59 /min 01/15/2025 Height 66 in 01/15/2025 Weight 161.4 lbs 01/15/2025 BMI 26.05 kg/m2 01/15/2025 Encounters Encounter Location Date Provider Diagnosis [facility] [address] [facility] [address] [place], [place] [id number] 01/15/2025 Gabbi Lovell Community acquired pneumonia, unspecified laterality J18.9 ; Chronic kidney disease (CKD), stage 4 N18.4 ; Debility R53.81 ; Essential hypertension I10 and BMI 26.0-26.9,adult Z68.26 Assessments Encounter Date Diagnosis (ICD Code) Assessment Notes Treatment Notes Treatment Clinical Notes Section Notes 01/15/2025 Community acquired pneumonia, unspecified laterality (ICD-10 - J18.9) Clinically improvedKeep follow-up appoint with Dr. Crocker as scheduled this week 01/15/2025 Chronic kidney disease (CKD), stage 4 (ICD-10 - N18.4) 01/15/2025 Debility (ICD-10 - R53.81) She is receiving rehab services through home health 01/15/2025 Essential hypertension (ICD-10 - I10) 01/15/2025 BMI 26.0-26.9,adult (ICD-10 - Z68.26) Plan Of Treatment Medication Medication Name Sig Start Date Stop Date Notes cloNIDine HCl 0.3 MG 1 tablet Orally Two times a day hydrALAZINE HCl 50 MG 1 tablet with food Orally Two times a day Valsartan 80 MG 3 tablet Orally Once a day Farxiga 10 MG 1 tablet Orally Once a day NIFEdipine ER 60 MG 1 tab(s) Orally bid Carvedilol 12.5 MG 1 tablet with food O rally Twice a day Furosemide 40 MG 1 1/2 tab Orally Once a day Treatment Notes Assessment Notes Community acquired pneumonia , unspecified laterality Clinically improvedKeep follow-up appoin t with Dr. Crocker as scheduled this week Debility She is receiving annika ab services through home health Next Appt Details Follow Up: 2 Months, Reason: Provider Name:Gabbi Hernandez, 03/21/2025 01:30:00 PM, [address] [facility] [address], [address] , [place], [place], [phone], Progress Notes * Dalila JOHNSONDOB:1940 (84 yo F)Acc No.[id number]:01/15/2025 Extended Visit Patient: Dalila HAWK Provider: Gabbi Lovell M.D. :1940 A ge:84 Y S ex:Female Date:01/15/2025 Address:[address] [place] [address], [facility] Subjective: * Chief Complaints: * 1 . 3 week f/u. * HPI: E NT/respiratory: She returns for scheduled 3-week follow-up related to pneumonia and debilitation. From a respiratory standpoint she has been fairly stable. She is not requiring oxygen during the day and O2 sats are remaining in the low to mid 90s. She does wear her oxygen at night. She still complains of some intermittent coughing that is occasionally productive. She is using her nebulizer through the day. She just had her first visit from the physical therapist yesterday and is to begin an exercise regimen to improve her strength, mobility, endurance, and balance. L ower back: c/o Low Back Pain P t complains of lower back pain for about 4 days. Pt did have home PT yesterday and was given some home exercises . C onstitutional: She is accompanied by her and daughter today. Her daughter has recorded a 10 pound weight loss in the past month. Patient and her family does feel that her appetite is beginning to improve. G astroenterology: Bowels are now moving regularly with MiraLAX and stool softener. * ROS: D ERMATOLOGY: no R min. n o H shelley. G ASTROENTEROLOGY: no N ausea. n o V omiting. n o D iarrhea.? U ROLOGY: no D ifficulty urinating. 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 Alcohol: No. * Medications: T aking Ferrous Sulfate 325 (65 Fe) MG Tablet 1 tablet Orally Three times a Week , Taking Mucinex 600 MG Tablet Extended [...] to Pharmacist: CVA with impaired mobility, Taking Januvia 25 MG Tablet 1 tablet Orally Once a day , Taking Ipratropium-Albuterol 0.5-2.5 (3) MG/3ML Solution 3 ml Inhalation qid , Taking OneTouch Ultra - Strip as directed In Vitro Three times a day , Taking L-Gqaz-Rxqkqhr 155-852-130 MG Tablet 1 tablet Orally once daily , Taking Synthroid 100 MCG Tablet 1 tablet in the morning on an empty stomach Orally Once a day , Taking Benefiber - Powder as directed Orally once daily , Taking MiraLax 17 GM/SCOOP Powder 1 scoop mixed with 8 ounces of fluid Orally Once a day , Taking Farxiga 10 MG Tablet 1 tablet Orally Once a day , Taking NIFEdipine ER 60 MG Tablet Extended Release 24 Hour 1 tab(s) Orally bid , Taking Carvedilol 12.5 MG Tablet 1 tablet with food Orally Twice a day , Taking Furosemide 40 MG Tablet 1 1/2 tab Orally Once a day , Taking Valsartan 80 MG Tablet 3 tablet Orally Once a day , Taking cloNIDine HCl 0.3 MG Tablet 1 tablet Orally Two times a day , Taking hydrALAZINE HCl 50 MG Tablet 1 tablet with food Orally Two times a day , Taking Atorvastatin Calcium 40 MG Tablet 1 tablet Orally Once a day , Not-Taking Bumex 0.5 MG Tablet 1 tablet Orally Once a day , Medication List reviewed and reconciled with the patient * Allergies: S ulfa Antibiotics: rash. Objective: * Vitals: W t: 161.4, Temp: 000, BP: 122/68, HR: 59, O2 Sat: 93% on RA, Nurse: bonnie, Ht: 66, BMI:26.05. * Examination: G eneral Examination: General Appearance: S he comes in by wheelchair. She is alert and oriented. She is not wearing supplemental oxygen today. Color is good..?Heart: R SR. L ungs: F ew crackles in the left base. No wheezes. E xtremities: 1 + pretibial edema. She is wearing compression stockings.. Assessment: * Assessment: 1. C ommunity acquired pneumonia, unspecified laterality - J18.9 (Primary) 2 .?Chronic kidney disease (CKD), stage 4 - N18.4 3 . D ebility - R53.81 ? 4 . E ssential hypertension - I10 5 . B NC 26.0-26.9,adult - Z68.26 Plan: * Treatment: 2. C hronic kidney disease (CKD), stage 4 Continue Farxiga Tablet, 10 MG, 1 tablet, Orally, Once a day. 3. D ebility Notes: She is receiving rehab services through home health 4. E ssential hypertension Continue NIFEdipine ER Tablet Extended Release 24 Hour, 60 MG, 1 tab(s), Orally, bid; C ontinue Carvedilol Tablet, 12.5 MG, 1 tablet with food, Orally, Twice a day; C ontinue Furosemide Tablet, 40 MG, 1 1/2 tab, Orally, Once a day; C ontinue Valsartan Tablet, 80 MG, 3 tablet, Orally, Once a day; C ontinue cloNIDine HCl Tablet, 0.3 MG, 1 tablet, Orally, Two times a day; C ontinue hydrALAZINE HCl Tablet, 50 MG, 1 tablet with food, Orally, Two times a day. * Procedure Codes: G 2211 Complex e/m visit add on, 1036F TOBACCO NON-USER, G8420 BMI<30 AND >=22 CALC & DOCU, G8950 PREHTN/HTN BP DOC INDCD F/U DOC, G8752 MOST RECENT SYSTOLIC BP < 140MM HG, G8754 MOST RECENT DIASTOLIC BP < 90MM HG * Follow Up: 2 Months * Images: Billing Information: * Visit Code: 20568 Office Visit, Est Pt., Level 3. * Procedure Codes: G2211 Complex e/m visit add on. 1036F TOBACCO NON-USER. G8420 BMI<30 AND >=22 CALC & DOCU. G8950 PREHTN/HTN BP DOC INDCD F/U DOC. G8752 MOST RECENT SYSTOLIC BP < 140MM HG. G8754 MOST RECENT DIASTOLIC BP < 90MM HG. * Electronic signature of Gabbi Lovell MD on 03/12/2025 at 09:44 AM EDT Sign off status: Pending * Provider: Gabbi Lovell M.D. Date: 0 01/15/2025 Generated for Kristy lima/Malachi/Jenny on: 0 03/12/2025 09:44 AM EDT History and Physical Notes * HPI (History of Present Illness) Category Sub-Category Detail Notes Category Not es ENT/respiratory She returns for scheduled 3-week follow-up related to pneumonia and debilitation. From a respiratory standpoint she has been fairly stable. She is not requiring oxygen during the day and O2 sats are remaining in the low to mid 90s. She does wear her oxygen at night. She still complains of some intermittent coughing that is occasionally productive. She is using her nebulizer through the day. She just had her first visit from the physical therapist yesterday and is to begin an exercise regimen to improve her strength, mobility, endurance, and balance. Lower back Low Back Pain Pt complains of lower back pain for about 4 days. Pt did have home PT yesterday and was given some home exercises Constitutional She is accomp anied by her and daughter today. Her daughter has recorded a 10 pound weight loss in the past month. Patient and her family does feel that her appetite is beginning to improve Examination Category Sub-Category Detail Notes Category Not es General Examination Heart: RSR Lungs: Few crackles in the left base. No wheezes Extremities: 1+ pretibial edema. She is wearing compression stockings. General Appearance: She comes in by whee lchair. She is alert and oriented. She is not wearing supplemental oxygen today. Color is good.
--- OUTSIDE RECORDS SUMMARY | 2025-03-12 09:43 | XMS_ITS | Clinical Summary ---
Author Organization [facility] Address [address] [place] [address] Care Team Providers Care Planting Material Carrier Name Role Phone Suzanne Dietz MD Primary Care Provider [phone]- [phone] Social History Tobacco Use Types Packs/Day Years Used Date Smoking Tobacco: Never Assessed Abuse Screen Answer Date Recorded Unsafe at Home or Work/School Not on file Feels Threatened by Someone? Not on file 04/2023 Does Anyone Keep You from Co ntacting Others or Doint Things Outside the Home? Not on file 05/09/2023 Physical Sign of Abuse Present Not on file 1 Housing Stability Answer Date Recorded Current Living Arrangements Not on file 04/2023 Potentially Unsafe Housing Conditions Not on cornelio e 05/09/2023 Family and Community Support Answer Julien e Recorded Help with Day-to-Day Activities Not on file 05/09/2023 Lonely or Isolated Not on file 05/09/2023 Employment Answer Date Recorded Do you want help finding or keeping work or a mervin b? Not on file 05/09/2023 Disabilities Answer Date Recorded Concentrating, Remembering, or Making Decisions Difficulty Not on file 05/09/2023 Doing Errands Independently Difficulty Not on fi le 05/09/2023 Education Answer Date Recorded Help with school or training? Not on file Preferred Language Not on file 05/09/2023 Comments Unknown Sex and Gender Information Value Date Recorded Sex Assigned at Not on file Legal Sex Female 10:50 AM EDT Gender Identity Not on file Sexual Orientation Not on file Plan of Treatment Health Maintenance Due Date Last Done Comments DXA SCAN 1940 TDAP/TD VACCINES (1 - Tdap) 1961 COLOGUARD 1987 COLON CANCER SCREENING [address] COLONOGRAPHY 1987 FECAL OCCULT BLOOD TEST 1987 FIT Testing (1 year) 1987 Pneumococcal Vaccine 50+ (1 of 1 - PCV) 1992 ZOSTER VACCINE (1 of 2) 1992 ANNUAL PHYSICAL 02/28/2017 RSV Vaccine - Adults (1 - 1-dose 75+ series) 7 COVID-19 Vaccine ( - season) 2024 INFLUENZA VACCINE 05/01/2025 COLONOSCOPY 03/03/2027 03/03/2017 COLORECTAL CANCER SCREENING 03/03/2027 Procedures Procedure Name Priority Date/Time Associated Diagnosis Comments COLONOSCOPY Routine 03/03/2017 from Last 3 Months or Most Recently Relevant to Health Maintenance Results * Colonoscopy (03/03/2017) Rigoberto Dominugez MD SURGICAL HISTORY PROCEDURES Fi nal Result from Last 3 Months or Most Recently Relevant to Health [place] [address] [place] [address] [facility] MEDICARE REPLACE Care Teams Planting Material Carrier Relationship Specialty Start Date End Date Suzanne Dietz MD PCP - General Family Medicine 02/16/17
--- OUTSIDE RECORDS SUMMARY | 2025-03-12 09:44 | XMS_ITS | Clinical Summary ---
Author Organization [facility] Address [address] [place] [address] Care Team Providers Care Mh Teacher Name Role Phone Evaristo Lovell MD Primary Care Provider +1- [phone] Allergies Active Allergy Reactions Criticality Noted Date [...] not crush, chew, or split. 60 tablet 5 Active ipratropium-alb uterol (Duo-Neb) 0.5-2.5 mg/3 mL nebulizer solution Take 3 mL by nebulization every 6 (six) hours. 180 mL 11 5 Active multivitamin (Theragran-M) tablet Take 1 tablet by mouth daily. 30 tablet 5 Active Additional Information Patient not taking.Reported on 01/04/2025 valsartan (Diovan) 160 MG tabletIndicatio ns:Bilateral renal artery stenosis (CMS/HCC),Resis tant hypertension,Hy pertensive chronic kidney disease with stage 1 through stage 4 chronic kidney disease, or unspecified chronic kidney disease Take 1 tablet by mouth daily. 90 tablet 5 Active bumetanide (Bumex) 2 MG tabletIndicatio ns:Bilateral renal artery stenosis (CMS/HCC),Resis tant hypertension,Hy pertensive chronic kidney disease with stage 1 through stage 4 chronic kidney disease, or unspecified chronic kidney disease Take 1 tablet by mouth daily. 90 tablet 5 Active dapagliflozin (Farxiga) 10 MG tabletIndicatio ns:Bilateral renal artery stenosis (CMS/HCC),Resis tant hypertension,Hy pertensive chronic kidney disease with stage 1 through stage 4 chronic kidney disease, or unspecified chronic kidney disease Take 1 tablet by mouth daily. 90 tablet 5 Active cholecalciferol (Vitamin D-3) 50 MCG (1999 UT) capsuleIndicati ons:Bilateral renal artery stenosis (CMS/HCC),Resis tant hypertension,Hy pertensive chronic kidney disease with stage 1 through stage 4 chronic kidney disease, or unspecified chronic kidney disease Take 1 capsule by mouth daily. 90 capsule 5 Active allopurinol (Zyloprim) 100 MG tabletIndicatio ns:Bilateral renal artery stenosis (CMS/HCC),Resis tant hypertension,Hy pertensive chronic kidney disease with stage 1 through stage 4 chronic kidney disease, or unspecified chronic kidney disease Take 1 tablet by mouth daily. 90 tablet 5 Active hydrALAZINE (Apresoline) 50 MG tabletIndicatio ns:Bilateral renal artery stenosis (CMS/HCC),Resis tant hypertension,Hy pertensive chronic kidney disease with stage 1 through stage 4 chronic kidney disease, or unspecified chronic kidney disease Take 1 tablet by mouth 2 times a day. 90 tablet 5 Active carvedilol (Coreg) 12.5 MG tablet Take 1 tablet by mouth 2 times a day. 120 tablet 5 Active cloNIDine (Catapres) 0.3 MG tabletIndicatio ns:Resistant hypertension,Hy pertensive chronic kidney disease with stage 1 through stage 4 chronic kidney disease, or unspecified chronic kidney disease Take 1 tablet by mouth every 8 hours. 90 tablet 5 Active NIFEdipine CC (Adalat CC) 60 MG 24 hr tabletIndicatio ns:Resistant hypertension,Hy pertensive chronic kidney disease with stage 1 through stage 4 chronic kidney disease, or unspecified chronic kidney disease Take 1 tablet by mouth 2 times a day. Do not crush, chew, or split. 90 tablet 3 Active guaiFENesin (Mucinex) 600 MG 12 hr tablet Take 2 tablets by mouth 2 times a day. Do not crush, chew, or split. Active ferrous sulfate 325 (65 Fe) MG EC tabletIndicatio ns: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 disease Take 1 tablet by mouth Q MWF. Do not crush, chew, or split. 30 tablet 1 Active Active Problems Problem Noted Date Diagnosed Date [...] Expressive aphasia 10/18/2024 Type 2 diabetes mellitus, wi out long-term current use of insulin 10/17/2024 Hypothyroidism 10/17/2024 Hyperlipidemia 10/17/2024 Obstructive sleep apnea 10/17/2024 Subdural hematoma 10/13/2024 Chronic kidney disease, stage III (moderate) Resistant hypertension 05/28/2014 Chronic kidney disease-mineral and bone disorder (CKD-MBD) 05/28/2014 Encounters Date Type Department Care Team Description 02/20/2025 Telephone [facility] 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 No 10/17/2024 Utilities Answer Date [...] 01/04/2025 9:39 AM EDT Plan of Treatment Upcoming Encounters Date Type Department Care Team (Late st Contact Info) Description 03/15/2025 9:20 AM EDT Office Visit [facility] [address] [place] [address] Vasquez Beal MD [address] [place] [address] Health Maintenance Due Date Last Done Comments [facility]-Bone Density Scan 1940 [facility]-Depression Screening 1942 [facility]-Medicare Annual Wellness (AWV) 1942 [facility]-Infant/Child/Adol SDOH Screenings 1942 Diabetes: Dental Exam 1952 [facility]-Zoster Vaccines (1 of 2) 1992 [facility]-RSV Vaccine: 60+ Years or (1 - 1-dose 75+ series) 2017 [facility]-Diabetes: Hemoglobin A1C 02/20/2021 08/23/2020 [id number] Vaccine ( season) 2024 04/10/2024, 10/25/2023, 05/04/2023, Additional history exists [facility]-Influenza Vaccine (#1) 04/01/202504/10, 04/14/2023, 04/15/2021, Additional history exists [facility]- SDOH Screenings 2025 [facility]-Adult SDOH Screenings 2025 10/17/2024 [facility]-DTaP,Tdap,and Td Vaccines (2 - Td or Tdap) 03/09/2028 03/09/2018, 10/05/1996 [facility]-Hepatitis A Vaccines Aged Out 01/29/2019 No longer eligible based on patient's age to complete this topic [facility]-Pneumococcal Vaccine: 50+ Years Completed 01/15/2020, 03/09/2018, 07/22/2004 [facility]-Obesity Intervention Completed 025, 11/28/2024, 10/13/2024 HPV [...] Jermaine Alvarado Medical Devices Implanted Type Area Clinical Studies Specialist Device Identifier Shelf Expiration Date Model / Serial / Lot Plate, 2 Hole Low Profile - Sin Set - [id number] Implanted:Qty: 2 on 10/14/2024 by Fredy Espinoza at [facility] Implant Left: Cranial [employer] [id number] [id number] / IN SET / Cover, Neuro Ijeoma Lp 17mm - Sin Set - [id number] Implanted:Qty: 2 on 10/14/2024 by Fredy Espinoza at [facility] Implant Left: Cranial [employer] [id number] 421.527 / IN SET / Description:Cranial plate Lead-08/07/2021 Implanted:08/07 by David Delgado MD (Quantity not on file) Lead Chest [employer] [id number] / [id number] / Lead-08/07/2021 Implanted:08/07 by David Delgado MD (Quantity not on file) Lead [employer] [id number] / [id number] / Pacemaker- 022 Implanted:08/07 by David Delgado MD (Quantity not on file) Pacemaker [employer] [id number] / [id number] / Icm-08/07/2021 Implanted:08/07 by David Delgado MD (Quantity not on file) Chest [employer] M301 / [id number] / Graft Dura Repair 2x2 Synthecel - [id number] Implanted:Qty: 1 on 10/14/2024 by Fredy Espinoza at [facility] Brain [employer]ynthe[employer] [id number] 05/31/2026 SC.400.02 5.01S / / [id number] Cover, Neuro Ijeoma Shunt 17mm - Sin Set - [id number] Implanted:Qty: 1 on 10/14/2024 by Fredy Espinoza at [facility] Left: Cranial [employer] [id number] 421.554 / IN SET / Screw Ti Matrixneuro Selfdrill 4mm - [id number] Implanted:Qty: 12 on 10/14/2024 by Wilber Duke MD at [facility] Synthes [id number] 10/14/2025 04.503.10 4.01 / / Hip Stem Trufill N Bca Liquid - [id number] Implanted:Qty: 1 on 10/17/2024 by Karrie Shaw RN at [facility] [id number] 02/28/2026 [id number] / / [id number] Vip Vascular Closure Device 6 Fr - [id number] Implanted:Qty: 1 on 10/17/2024 by Karrie Shaw RN at [facility] [id number] 04/12/2025 [id number] / / [id number] Procedures Procedure Name Priority Date/Time Associated Diagnosis Comments HEMOGLOBIN A1C Routine 08/23/2020 4:16 PM EST from Last 3 Months or Most Recently Relevant to Health Maintenance Results * Hemoglobin A1c (08/23/2020 4:16 PM EST) [...] <6.0% Children and Adolescents <7.5% . Source: [employer]. Standards of medical care in [...] Date Diagnosed Date Autogenerated Problem 10/15/2024 Insurance [facility] MEDICARE Advance Directives * Full Code (Latest Code Status on File) Date Activated Date Inactivated Comments 10/13/2024 10:46 PM 11/02/2024 3:22 PM Care Teams Mh Teacher Relationship Specialty Start Date End Date Evaristo Lovell MD [address] [place] [address] PCP - General 10/13/24
--- OUTSIDE RECORDS SUMMARY | 2025-03-12 09:44 | XMS_ITS | Encounter Summary ---
Author Organization [facility] Address [address] [id number] Care Team Providers Care Client Director Name Role Phone Evaristo Lovell MD Primary Care Provider +1- [phone] Reason for Visit * Reason Onset Date Comments HCN - Patient Message 02/20/2025 Encounter Details Date Type Department Care Team ([facility] st Contact Info) Description 02/20/2025 Telephone [facility] Mineral Metabolism [address] [facility], [address] [place] [address] Vasquez Beal MD [address] [place] [address] HCN - Patient Message Social History Tobacco Use Types Packs/Day Years [...] any time in the past 12 m [facility], were you homeless or [...] encounter Miscellaneous Notes * Telephone Encounter - Emily Baker - 02/20/2025 4:34 PM EDT faxed * Telephone Encounter - Alpa Valdivia - 02/20/2025 3:28 PM EDT Clinical Concern/Question Reason for Call: [facility] calling. They received a verbal on 12/28 for labs to be done CBC, Renal, Ferratin, Iron, and TIBC. Needs the order faxed to them with diagnosis at [phone] Best contact number: [phone]-Mari Alvarado Optimal time of day to reach caller: ANYTIME Additional comments/information from caller: Note: Please do not reply to this message. Follow-up communication and further actions as a result of this message need to be communicated with the patient directly, if the patient is not active onMyChart. If the patient is active on MyChart, they will receive notification of the communication/outcome via MyChart. documented in this encounter Plan of Treatment Upcoming Encounters Date Type Department Care Team (Late st Contact Info) Description 03/15/2025 9:20 AM EDT Office Visit [facility] [address] [place] [phone] Vasquez Beal MD [address] [place] [phone] documented as of this encounter Goals Goal Patient Goal Type Associated Problems Recent Progress Patient-Stated? Author Autogenerat ed Goal Care Plan Autogenerated Problem No ChristianoJermaine James documented as of this encounter Visit Diagnoses [...] documented as of this encounter Care Teams Client Director Relationship Specialty Start Date End Date Evaristo Lovell MD [address] [place] [address] PCP - General 10/13/24 documented as of this encounter
--- OUTSIDE RECORDS SUMMARY | 2025-03-12 09:44 | XMS_ITS | Clinical Summary ---
Author Organization [facility] Address [address] [place] [address] Phone Care Team Providers Care Apple Press Operator Name Role Phone Pablito Mcknight MD Primary Care Provider [phone] Social History Tobacco Use Types Packs/Day Years [...] Vaccine (2023-2 5 season) 2024 Influenza Vaccine (#1) 2025 Hepatitis B Vaccine Aged Out No longe r eligible based on patient's age to complete this topic Meningococcal B Vaccine Aged Out No l onger eligible based on patient's age to complete this topic Insurance [employer] MEDICARE PPO MR Care Teams Apple Press Operator Relationship Specialty Start Date End Date Pablito Mcknight MD [address] [place] [address] PCP - General Family Medicine 08/24/12
--- OUTSIDE RECORDS SUMMARY | 2025-03-12 09:45 | XMS_ITS | Patient Health Record ---
Author Organization [facility] Address [address] [facility] [address] [place] [id number] Care Team Providers Care Retread Operator Name Role Phone Gabbi Lovell Primary Care Provider Lee Dietz Unavailable [phone] Jose A Figueroaian Unavailable [phone] Michaela Licea Unavailable [phone] Allergies Allergen (clinical drug ingredient) Drug/Non Drug [...] 22 Performing Lab: Notes/Report: Test performed by [employer] [facility] , [address], [place] [address] Joel Morillo MD, Hospital Security Officer CLIA: [id number] Sodium 134 135-145 mmol/L Potassium 9.1 3.5-5.3 mmol/L ALERT VALUE Results were repeated and confirmed. No visual hemolysis present. Chloride 105 97-108 mmol/L CO2 25 22-32 mmol/L Glucose 123 65-99 mg/dL BUN 38 8-23 mg/dL Creatinine 2.14 0.50-1.00 mg/dL Calcium 9.3 8.6-10.4 mg/dL eGFR by Creatinine 22 >59 mL/min/1.73m2 P-Phosphorus Reviewed date:12/27/2024 08:22:17 AM Interpretation:Normal Performing Lab: Notes/Report: Test performed by [facility] [address] [place] [address] , [address], [place] [address] Joel Morillo MD, Hospital Security Officer CLIA: [id number] Phosphorus 3.6 2.5-4.5 mg/dL H-TSH Reviewed date:10/14/2024 02:11:30 PM Interpretation:see 10/03/24 [...] Interpretation:see 10/03/24 Performing Lab: Notes/Report: see 10/03/24 H-BMP Reviewed date:12/28/2024 03:23:52 PM Interpretation: Performing Lab: Notes/Report: NA 139 136-145 mmol/L K 4.8 3.5-5.1 mmoL/L CL 107 98-107 mmol/L CO2 27 22.0-30.0 mmol/L GAP 9.8 5-15 mEq/L BUN 41 7-17 mg/dl CREATT 2.40 0.52-1.04 mg/dl GFRAA 23 >60 ML/MIN EGFR 19 >60 ml/min GLU 119 74-100 mg/dl CA 9.7 8.4-10.2 mg/dl CXR Reviewed date:11/15/2024 08:28:07 AM Interpretation:mild CHF, small right effusion. f/u needed Performing Lab: Notes/Report: mild CHF, small right effusion. f/u needed H-CBC Reviewed date:11/15/2024 08:29:17 AM Interpretation:rbc 2.78, [...] K/mm3 BA# 0.0 0-0.2 K/mm3 NRBC# 0 H-BMP Reviewed date:11/15/2024 08:29:17 AM Interpretation:cl 113, bun 30, Cr 2.2, gfr 21, gluc 140 Performing Lab: Notes/Report: NA 145 136-145 mmol/L K 3.5 3.5-5.1 mmoL/L CL 113 98-107 mmol/L CO2 23 22.0-30.0 mmol/L GAP 12.5 5-15 mEq/L BUN 30 7-17 mg/dl CREATT 2.20 0.52-1.04 mg/dl GFRAA 26 >60 ML/MIN EGFR 21 >60 ml/min GLU 140 74-100 mg/dl CA 8.6 8.4-10.2 mg/dl H-BNP Reviewed date:11/15/2024 08:29:17 AM Interpretation:5290 Performing Lab: Notes/Report: BNPNTP 5290 0-450 pg/mL H-CBC Reviewed date:12/11/2024 09:30:24 AM Interpretation: Performing [...] 0.1 0-0.2 K/mm3 NRBC# 0 IG# 0.03 H-DIFF Reviewed date:12/11/2024 09:30:43 AM Interpretation: Performing Lab: Notes/Report: JUN MANUAL DIFFERENTIAL MANUAL DIFF TCC 100 NEUT%M [...] employed in healthcare? Unknown Is patient an [facility] employee? N Is patient currently hospitalized? Yes [...] Not Detected NotDetected FLUBPCR Not Detected NotDetected Estimated Average Glucose Reviewed date:11/27/2024 09:00:19 AM Interpretation: Performing Lab: Notes/Report: Test performed by [employer] [place] , [address], [place] [address] Joel Morillo MD, Hospital Security Officer CLIA: [id number] Estimated Average Glucose (eAG) 114 Estimated Average Glucose (eAG) is calculated using the equation eAG = (28.7 x HbA1c) - 46.7 based on the guidelines established by the ADA. If the patient has certain diseases including kidney disease, sickle cell anemia, thalassemia, or is taking medications such as dapsone, erythropoietin, or iron, eAG should not be evaluated. P-TSH Reviewed date:11/27/2024 09:00:19 AM Interpretation: Performing Lab: Notes/Report: Test performed by [employer] [place], [place] [address] [address], [place] [address] Joel Morillo MD, Hospital Security Officer CLIA: [id number] TSH 16.60 0.43-5.25 mU/L Percent Saturation Reviewed date:11/27/2024 09:00:19 AM Interpretation: Performing Lab: Notes/Report: Test performed by [facility] [address] [place] [address] , [address], [place] [address] Joel Morillo MD, Hospital Security Officer CLIA: [id number] Percent Saturation 17 15-50 % P-Phosphorus Reviewed date:11/27/2024 09:00:19 AM Interpretation: Performing Lab: Notes/Report: Test performed by [facility] [address] , [address], [place] [address] Joel Morillo MD, Hospital Security Officer CLIA: [id number] Phosphorus 3.3 2.5-4.5 mg/dL P-Iron Reviewed date:11/27/2024 09:00:19 AM Interpretation: Performing Lab: Notes/Report: [facility] , [address], [place] [address] Joel Morillo MD, Hospital Security Officer CLIA: [id number] Iron 44 37-145 ug/dL P-Iron Binding Cap Reviewed date:11/27/2024 09:00:19 AM Interpretation: Performing Lab: Notes/Report: Test performed by [facility] [address] , [address], [place] [address] Joel Morillo MD, Hospital Security Officer CLIA: [id number] Iron Binding Cap 259 250-450 ug/dL P-Hemoglobin A1C Reviewed date:11/27/2024 09:00:19 AM Interpretation: Performing Lab: Notes/Report: Test performed by [facility] [address] , [address], [place] [address] Joel Morillo MD, Hospital Security Officer CLIA: [id number] Hemoglobin A1C 5.6 <5.7 % The following HbA1c ranges recommended by the [place] [employer] (ADA) may be used as an aid in the diagnosis of diabetes mellitus. HbA1c Suggested Diagnosis >=6.5% Diabetic 5.7% - 6.4% Pre-Diabetic <5.7% Non-Diabetic P-Iron with Transferrin Satu ration Reviewed date:11/27/2024 09:00:19 AM Interpretation: Performing Lab: Notes/Report: Test performed by [employer] , [address], [place] [address] Joel Morillo MD, Hospital Security Officer CLIA: [id number] Iron 44 37-145 ug/dL Transferrin 200 200-360 mg/dL Transferrin Saturation Percentage 15 15-50 % P-Comprehensive Metabolic Pa josee (CMP) Reviewed date:11/27/2024 09:00:19 AM Interpretation: Performing Lab: Notes/Report: Test performed by [facility] [address] [place] [address] , [address], [place] [address] Joel Morillo MD, Hospital Security Officer CLIA: [id number] Sodium 145 135-145 mmol/L Potassium 4.0 3.5-5.3 [...] Interpretation: Performing Lab: Notes/Report: Test performed by [facility] [address] [place] [address] , [address], [place] [address] Joel Morillo MD, Hospital Security Officer CLIA: [id number] Vitamin B12 >2000 232-1245 pg/mL CBC Venipuncture [...] Interpretation:Normal Performing Lab: Notes/Report: Test performed by [employer] , [address], [place] [address] Joel Morillo MD, Hospital Security Officer CLIA: [id number] Uric Acid 5.1 2.4-7.0 mg/dL P-TSH Reviewed date:03/20/2024 12:02:33 PM Interpretation:Normal Performing Lab: Notes/Report: [facility] , [address], [place] [address] Joel Morillo MD, Hospital Security Officer CLIA: [id number] TSH 2.64 0.43-5.25 mU/L P-Magnesium Reviewed date:03/20/2024 12:02:33 PM Interpretation:2.5 Performing Lab: Notes/Report: [facility] , [address], [place] [address] Joel Morillo MD, Hospital Security Officer CLIA: [id number] Magnesium 2.5 1.6-2.4 mg/dL P-Comprehensive Metabolic Pa josee (CMP) Reviewed date:03/20/2024 12:02:33 PM Interpretation:gluc 132, bun 79, creat 3.13, gfr 14 Performing Lab: Notes/Report: Test performed by [facility] [address] , [address], [place] [address] Joel Morillo MD, Hospital Security Officer CLIA: [id number] Sodium 138 135-145 mmol/L Potassium 4.3 3.5-5.3 [...] 6.2% glycohemoglobin 6.2% 5 - 6.5 % H-BMP Reviewed date:12/14/2024 12:43:31 PM Interpretation: Performing Lab: Notes/Report: NA 141 136-145 mmol/L K 3.5 3.5-5.1 mmoL/L CL 113 98-107 mmol/L CO2 26 22.0-30.0 mmol/L GAP 5.5 5-15 mEq/L BUN 29 7-17 mg/dl CREATT 2.50 0.52-1.04 mg/dl CRCLE 20 50-200 mL/min GFRAA 22 >60 ML/MIN EGFR 18 >60 ml/min GLU 112 74-100 mg/dl CA 8.6 8.4-10.2 mg/dl H-CBC Reviewed date:12/14/2024 12:43:31 PM Interpretation: Performing [...] 0.1 0-0.2 K/mm3 NRBC# 0 IG# 0.03 H-Sputum Culture with Gram Dee martines Reviewed date:12/14/2024 12:43:31 PM Interpretation: Performing Lab: Notes/Report: Cancel Comments Cancelled via OM: Order cancelled - Patient discharged Comment: Induce w/3ml NS neb tx if necessary H-Vitamin D 1,25 Reviewed date:10/18/2024 08:09:57 AM Interpretation:lcVITD 19 Performing Lab: Notes/Report: [id number] 19 . pg/mL Reference Range: Adults: 21 - 65 [id number] <10 . pg/mL This test was developed and its performance characteristics determined by [facility]. It has not been cleared or approved by the Food and Drug Administration. [id number] 15 . pg/mL This test was developed and its performance characteristics determined by [facility]. It has not been cleared or approved by the Food and Drug Administration. Performed at: [facility] [address] [place] [id number] Ad Operations Intern: Robby Valentin MD, Phone: [phone] H-URIC ACID Reviewed date:10/11/2024 08:28:26 AM Interpretation:Normal Performing Lab: Notes/Report: URIC 4.9 2.5-6.2 mg/dl H-CMP Reviewed date:10/11/2024 08:28:26 AM Interpretation:cl 113, [...] AGRATIO 1.4 1.1-1.8 ALP 108 38-126 U/L H-Lipid Panel Reviewed date:10/11/2024 08:28:26 AM Interpretation:trigs 219, chol 122, dldl 33.1, vldl 44 Performing Lab: Notes/Report: Patient Fasting? Y TRIG 219 30-150 mg/dl CHOL 122 140-200 mg/dl DLDL 33.10 100-129 mg/dL VLDL 44 0-40 mg/dL HDL 41 40-60 mg/dl CHLHDL 3.0 1-3.5 H-Glycohemoglobin A1C Reviewed date:10/11/2024 08:28:26 AM Interpretation:5.3 Performing Lab: Notes/Report: HGBA1C 5.3 4.0-6.0 % < 6% Non-Diabetic Level < 7% Controlled Diabetic Level > 8% Poorly Controlled Diabetic Level H-TSH Reviewed date:10/11/2024 08:28:26 AM Interpretation:5.9 Performing Lab: Notes/Report: TSH 5.90 0.465-4.68 uIU/mL BNP Reviewed date:11/22/2024 01:42:18 PM Interpretation: Performing Lab: Notes/Report: CBC Reviewed date:11/22/2024 01:42:03 PM Interpretation: Performing Lab: Notes/Report: BMP Reviewed date:11/22/2024 01:41:49 PM Interpretation: Performing Lab: Notes/Report: CBC Fingerstick (in house) Reviewed date:12/10/2024 04:37:06 [...] - 38 plat 170 100 - 400 Medications Medication SIG (Take, Route, Frequency, Duration) Notes Start Date End Date Status Synthroid 100 MCG 1 tablet in the morning on an empty stomach Orally Once a day; Duration: 90 days Active Valsartan 80 MG 3 tablet Orally Once a day Active Farxiga 10 MG 1 tablet Orally Once a day Active Januvia 25 MG 1 tablet Orally Once a day Active NIFEdipine ER 60 MG 1 tab(s) Orally bid Active Ipratropium-Albutero l 0.5-2.5 (3) MG/3ML 3 ml Inhalation qid; Duration: 90 days Active Carvedilol 12.5 MG 1 tablet with food Orally Twice a day Active Furosemide 40 MG 1 1/2 tab Orally Once a day Active E-Yjcz-Xdmopag 155-852-130 MG 1 tablet Orally once daily; Duration: 90 days Active Allopurinol 100 MG 2 tablet Orally Once a day; Duration: 90 days Active Folic Acid 400 MCG 1 tablet Orally Once a day; Duration: 90 days Active Wheel Chair as directed CVA with impaire d mobility 10/11/2024 Active Atorvastatin Calcium 40 MG 1 tablet Orally Once a day; Duration: 90 days Active Vitamin B-12 5000 MCG 1 tablet Orally Once a day Active Mucinex DM 30-600 MG 1 tablet as needed Orally every 12 hrs 11/15/2024 Active OneTouch Ultra - as directed In Vitro Three times a day Active Vitamin D3 25 [...] MG 1 tablet Orally Two times a day; Duration: 90 days Active Benefiber - as directed Orally once daily 12/25/2024 Active hydrALAZINE HCl 50 MG 1 tablet with food Orally Two times a day Active Divalproex Sodium 500 MG 1 tablet Orally Twice a day; Duration: 90 days Active MiraLax [...] 03/09/2018 Administered xFlu shot- 6months-36 months of tqo-BHSL-GLBG-trivalent Unknown 04/08/2020 Administered Social History Tobacco Use: Social History Observation Description Date Details (start date - stop date) Former Smoker NA - NA CURRENT TOBACCO USE: Question Answer Notes Are you a: former smoker smoked for 15 yr s, history of 5-6 cigarettes per day, quit Problems Problem Type SNOMED Code ICD Code Onset Dates Problem Status W/U Status Risk Notes Problem Vitamin D deficiency (22634969) Vitamin D deficiency (E55.9) Active confirmed Problem Essential hypertension (40492347) Essential hypertension (I10) Active confirmed Problem Osteopenia (334703020) Osteopenia (M85.80) Active confirmed Problem History of cerebrovascular accident without residual deficits (108252791) History of CVA (cerebrovascular accident) (Z86.73) Active confirmed Problem Altered mental status (839484160) Altered mental status (R41.82) Active confirmed Problem Chronic diastolic heart failure (976737471) Diastolic CHF, chronic (I50.32) Active confirmed Problem Recurrent falls (141867539) Multiple falls (R29.6) Active confirmed Problem Overactive urinary bladder (disorder) (705749706) OAB (overactive bladder) (N32.81) Active confirmed Problem Congestive heart failure (12405408) CHF (congestive heart failure) (I50.9) Active confirmed Problem Diabetic renal disease (463971932) Type 2 diabetes mellitus with diabetic chronic kidney disease (E11.22) Active confirmed Problem Urge incontinence of urine (99414800) Urge incontinence (N39.41) Active confirmed Problem Thyroid nodule (716715789) Thyroid nodule (E04.1) Active confirmed Problem Intracranial hemorrhage (6733372) Intracranial hemorrhage (I62.9) Active confirmed Problem Acquired hypothyroidism (686163148) Acquired hypothyroidism (E03.9) Active confirmed Problem Cardiac pacemaker in situ (777572800) Pacemaker (Z95.0) Active confirmed Problem Atresia and stenosis of aorta (328722578) Aortic stenosis (Q25.3) Active confirmed Problem Body mass index 30.00 to 34.99 (631229855168828) BMI 31.0-31.9,adult (Z68.31) Active confirmed Problem Adult failure to thrive syndrome (278075809) Failure to thrive in adult (R62.7) Active confirmed Problem Presbycusis (37985694) Presbycusis of both ears (H91.13) Active confirmed Problem Dyslipidemia (781051964) Dyslipidemia (E78.5) Active confirmed Problem Chronic kidney disease stage 4 (148173938) Chronic kidney disease (CKD), stage IV (severe) (N18.4) Active confirmed Problem Chronic anemia (363263645) Chronic anemia (D64.9) Active confirmed Problem Pica (47728029) Pica (F50.89) Active confirmed Problem Diastolic heart failure (720083428) Heart failure with preserved left ventricular function (HFpEF) (I50.30) Active confirmed Vital Signs Heart Rate 59 /min 01/15/2025 Respiratory Rate 18 /min 11/13/2024 Blood pressure diastolic 68 mm Hg 01/15/2025 Height 66 in 01/15/2025 Blood pressure systolic 122 mm Hg 01/15/2025 Weight 161.4 lbs 01/15/2025 BMI 26.05 kg/m2 01/15/2025 Encounters Encounter Location Date Provider Diagnosis [facility] [address] [place] [id number] 03/13/2024 Gabbi Griffinfleet Essential hypertensi on I10 ; Type 2 diabetes mellitus with diabetic chronic kidney disease E11.22 ; Acquired hypothyroidism E03.9 ; Hyperuricemia E79.0 ; Pacemaker Z95.0 ; Aortic stenosis Q25.3 ; Dyslipidemia E78.5 and Chronic kidney disease (CKD), stage IV (severe) N18.4 [facility] [address] [place] [facility] [address] [place] [id number] 10/11/2024 Gabbi Cole Liliya Type 2 diabetes mellitus with diabetic chronic kidney disease E11.22 ; History of CVA (cerebrovascular accident) Z86.73 ; Impaired mobility Z74.09 ; Muscle weakness M62.81 ; Altered mental status R41.82 ; Multiple falls R29.6 ; Weight loss R63.4 ; Failure to thrive in adult R62.7 ; Chronic kidney disease (CKD), stage IV (severe) N18.4 and Acquired hypothyroidism E03.[address] [place] [id number] 11/06/2024 Michaela Licea Type 2 diabetes mellitus [...] ; Debility R53.81 and Postop check Z09 [address] [place] [id number] 11/13/2024 Michaela Licea Type 2 diabetes mellitus [...] I50.9 ; Hypokalemia E87.6 and Bronchitis J40 [facility] [address] [facility] [address] [id number] 11/22/2024 Gabbi Lovell Essential hypertensi on I10 ; Subdural hematoma S06.5XAA ; Acute bronchitis J20.9 ; Type 2 diabetes mellitus with diabetic chronic kidney disease E11.22 ; Acquired hypothyroidism E03.9 ; Chronic kidney disease (CKD), stage IV (severe) N18.4 ; Chronic anemia D64.9 and BMI 27.0-27.9,adult Z68.27 [facility] [address] [facility] [address] [id number] 12/10/2024 Lee Dietz Diastolic CHF, chron ic I50.32 ; Acute pneumonia J18.9 and Localized edema R60.0 [facility] [address] [facility] [address] [id number] 12/25/2024 Robby Selah Community acquired pneumonia, unspecified laterality J18.9 ; Chronic kidney disease (CKD), stage 4 N18.4 ; Debility R53.81 ; Other constipation K59.09 and Essential hypertension I10 [facility] [address] [facility] [address] [id number] 01/15/2025 Gabbi Lovell Community acquired pneumonia, unspecified laterality J18.9 ; Chronic kidney disease (CKD), stage 4 N18.4 ; Debility R53.81 ; Essential hypertension I10 and BMI 26.0-26.9,adult Z68.26 [facility] [address] [place], [place] [id number] 03/14/2024 R Douglas Liliya [facility] [address] [place], [place] [id number] 09/12/2024 R Douglas Liliya Type 2 diabetes mellitus with diabetic chronic kidney disease E11.22 [facility] [address] [place] [id number] 09/12/2024 R Douglas Liliya Essential hypertensi on I10 ; Type 2 diabetes mellitus with diabetic chronic kidney disease E11.22 ; Dyslipidemia E78.5 ; Acquired hypothyroidism E03.9 ; Hyperuricemia E79.0 and Vitamin D deficiency E55.9 [facility] [address] [place] [id number] 10/02/2024 R Douglas Liliya [facility] [address] [place] [id number] 10/11/2024 R Douglas Liliya Acquired hypothyroid ism E03.9 [facility] [address] [place] [id number] 10/12/2024 R Douglas Liliya [facility] [address] [place] [id number] 10/15/2024 R Douglas Liliya [facility] [address] [place] [id number] 11/01/2024 R Douglas Liliya [facility] [address] [place] [id number] 11/06/2024 R Douglas Liliya [facility] [address] [place] [id number] 11/08/2024 R Douglas Liliya [facility] [address] [place] [id number] 11/08/2024 R Douglas Liliya [facility] [address] [place] [id number] 11/12/2024 R Douglas Liliya [facility] [address] [place] [id number] 11/13/2024 R Douglas Liliya [facility] [address] [place] [id number] 11/14/2024 R Douglas Liliya [facility] [address] [place] [id number] 11/14/2024 Michaela Licea [facility] [address] [place] [id number] 11/14/2024 R Douglas Liliya [facility] [address] [place] [id number] 11/15/2024 Michaela Licea [facility] [address] [place] [id number] 11/19/2024 R Douglas Liliya Essential hypertensi on I10 ; Hyperuricemia E79.0 ; Intracranial hemorrhage I62.9 ; Peripheral edema R60.9 ; Hypokalemia E87.6 ; Type 2 diabetes mellitus with diabetic chronic kidney disease E11.22 and Chronic anemia D64.9 [facility] [address] [place] [id number] 11/22/2024 R Douglas Liliya [facility] [address] [place] [id number] 11/26/2024 R Douglas Liliya Cough R05.9 ; Type 2 diabetes mellitus with diabetic chronic kidney disease E11.22 and Chronic kidney disease (CKD), stage IV (severe) N18.4 [facility] [address] [place] [id number] 11/27/2024 R Douglas Liliya Acquired hypothyroid ism E03.9 [facility] [address] [place] [id number] 11/27/2024 R Douglas Liliya [facility] [address] [place] [id number] 12/05/2024 R Douglas Liliya [facility] [address] [place] [id number] 12/14/2024 R Douglas Liliya [facility] [address] [place] [id number] 12/19/2024 R Douglas Liliya [facility] [address] [place] [id number] 12/26/2024 R Douglas Liliya [facility] [address] [place] [id number] 12/27/2024 Robby Selah [facility] [address] [place] [id number] 12/28/2024 Robby Selah Hyperkalemia E87.5 [facility] [address] [place] [id number] 12/28/2024 R Douglas Liliya [facility] [address] [place], [place] [id number] 01/01/2025 Michaelahernandez Romanond [facility] [address] [place] [id number] 01/02/2025 R Douglas Liliya [facility] [address] [place] [id number] 01/03/2025 R Douglas Liliya [facility] [address] [place] [id number] 01/08/2025 R Douglas Liliya [facility] [address] [place] [id number] 01/09/2025 R Douglas Liliya [facility] [address] [place] [id number] 01/16/2025 R Douglas Liliya [facility] [address] [place] [id number] 01/17/2025 R Douglas Liliya [facility] [address] [place] [id number] 01/17/2025 R Douglas Lovell [facility] [address] [facility] [address] [place] [id number] 02/13/2025 R Douglas Lovell Acquired hypothyroid ism E03.9 [facility] [address] [facility] [address] [place] [id number] 02/20/2025 R Douglas Lovell Essential hypertensi on I10 and Intracranial hemorrhage I62.9 Assessments Encounter Date Diagnosis (ICD Code) Assessment Notes Treatment Notes Treatment Clinical Notes Section Notes 03/13/2024 Essential hypertension (ICD-10 - I10) 03/13/2024 Type 2 diabetes mellitus with diabetic [...] Diastolic CHF, chronic (ICD-10 - I50.32) admit [facility] 12/10/2024 Acute pneumonia (ICD-10 - J18.9) 12/28/2024 Hyperkalemia (ICD-10 - E87.5) 01/15/2025 Community acquired pneumonia, unspecified laterality (ICD-10 - J18.9) Clinically improvedKeep follow-up appoint with Dr. Crocker as scheduled this week 01/15/2025 Chronic kidney disease (CKD), stage 4 (ICD-10 - N18.4) 02/20/2025 Essential hypertension (ICD-10 - I10) 11/22/2024 Subdural hematoma (ICD-10 - S06.5XAA) She is provided contact numbers to schedule follow-up appointment with neurology 02/13/2025 Acquired hypothyroidism (ICD-10 - E03.9) 12/25/2024 Community acquired pneumonia, unspecified laterality (ICD-10 - J18.9) Clinically improved 12/25/2024 Chronic kidney disease (CKD), stage 4 (ICD-10 - N18.4) 09/12/2024 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.22) 09/12/2024 Essential hypertension (ICD-10 - I10) 12/25/2024 Debility (ICD-10 - R53.81) Patient needs to resume home health PT/OT 11/26/2024 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.22) 02/20/2025 Intracranial hemorrhage (ICD-10 - I62.9) 01/15/2025 Debility (ICD-10 - R53.81) She is receiving rehab services through home health 12/10/2024 Localized edema (ICD-10 - R60.0) 11/22/2024 Acute bronchitis (ICD-10 - J20.9) She has completed her course 11/19/2024 Hyperuricemia (ICD-10 - E79.0) 11/13/2024 Impaired mobility (ICD-10 - Z74.09) PT AND OT; FALL PREVENTION 11/06/2024 Impaired mobility (ICD-10 - Z74.09) PT AND OT; FALL PREVENTION 10/11/2024 Impaired mobility (ICD-10 - Z74.09) 03/13/2024 Acquired hypothyroidism (ICD-10 - E03.9) 03/13/2024 Hyperuricemia (ICD-10 - E79.0) 10/11/2024 Muscle weakness (ICD-10 - M62.81) 11/06/2024 Muscle weakness (ICD-10 - M62.81) PT and OT 11/13/2024 Muscle weakness (ICD-10 - M62.81) PT and OT 11/19/2024 Intracranial hemorrhage (ICD-10 - I62.9) 11/22/2024 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.22) 01/15/2025 Essential hypertension (ICD-10 - I10) 11/26/2024 Chronic kidney disease (CKD), stage IV (severe) (ICD-10 - N18.4) 09/12/2024 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.22) 12/25/2024 Other constipation (ICD-10 - K59.09) 09/12/2024 Dyslipidemia (ICD-10 - E78.5) 12/25/2024 Essential hypertension (ICD-10 - I10) 01/15/2025 BMI 26.0-26.9,adult (ICD-10 - Z68.26) 11/22/2024 Acquired hypothyroidism (ICD-10 - E03.9) 11/19/2024 Peripheral edema (ICD-10 - R60.9) 11/13/2024 Multiple falls (ICD-10 - R29.6) Fal prevention 11/06/2024 Multiple falls (ICD-10 - R29.6) Fal prevention 03/13/2024 Pacemaker (ICD-10 - Z95.0) 10/11/2024 Altered mental status (ICD-10 - R41.82) Etiology likely multifactorial. Considering her history of CVA and multiple recent falls with head injury, will arrange MRI to rule out intracranial bleeding and/or CVA. 03/13/2024 Aortic stenosis (ICD-10 - Q25.3) 10/11/2024 Multiple falls (ICD-10 - R29.6) 11/06/2024 Chronic kidney disease (CKD), stage IV (severe) (ICD-10 - N18.4) continue to monitor 11/19/2024 Hypokalemia (ICD-10 - E87.6) 11/13/2024 Chronic kidney disease (CKD), stage IV (severe) (ICD-10 - N18.4) continue to monitor 11/22/2024 Chronic kidney disease (CKD), stage IV (severe) (ICD-10 - N18.4) She is provided contact numbers to schedule follow-up appointment with nephrology 09/12/2024 Acquired hypothyroidism (ICD-10 - E03.9) 09/12/2024 Hyperuricemia (ICD-10 - E79.0) 11/22/2024 Chronic anemia (ICD-10 - D64.9) 11/13/2024 Acquired hypothyroidism (ICD-10 - E03.9) New Rx faxed from phone encounter earlier today. 11/19/2024 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.22) 11/06/2024 Acquired hypothyroidism (ICD-10 - E03.9) New Rx faxed from phone encounter earlier today. 03/13/2024 Dyslipidemia (ICD-10 - E78.5) 10/11/2024 Weight loss (ICD-10 - R63.4) 03/13/2024 Chronic kidney disease (CKD), stage IV (severe) (ICD-10 - N18.4) Discussed need for nephrology consultation. 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 Will await results of labs today and again recommend referral as she is approaching end-stage renal failure. 10/11/2024 Failure to thrive in adult (ICD-10 - R62.7) 11/06/2024 Dyslipidemia (ICD-10 - E78.5) 11/19/2024 Chronic anemia (ICD-10 - D64.9) 11/13/2024 Dyslipidemia (ICD-10 - E78.5) 11/22/2024 BMI 27.0-27.9,adult (ICD-10 - Z68.27) 09/12/2024 Vitamin D deficiency (ICD-10 - E55.9) 11/13/2024 Hyperuricemia (ICD-10 - E79.0) 11/06/2024 Hyperuricemia (ICD-10 - E79.0) 10/11/2024 Chronic kidney disease (CKD), stage IV (severe) (ICD-10 - N18.4) 10/11/2024 Acquired hypothyroidism (ICD-10 - E03.9) New Rx faxed from phone encounter earlier today. 11/06/2024 Essential hypertension (ICD-10 - I10) 11/13/2024 Essential hypertension (ICD-10 - I10) 11/13/2024 Pacemaker (ICD-10 - Z95.0) 11/06/2024 Pacemaker (ICD-10 - Z95.0) 11/06/2024 Vitamin D [...] Q25.3) 11/13/2024 Aortic stenosis (ICD-10 - Q25.3) 11/13/2024 Cough (ICD-10 - R05.9) 11/06/2024 Cough (ICD-10 - R05.9) 11/13/2024 Debility (ICD-10 [...] contrast 10/11/2024 Next Appt Details Provider Name:Gabbi Reeves cole, 03/21/2025 01:30:00 PM, [address], [address], [place], [place], [id number], Insurance Providers Payer Name Payer Address Payer Phone Subscriber Number Group Number Insured Name Patient Relationship to Insured Coverage Start Date Coverage End Date [employer] [address] [address] [place], [place] [id number] Dalila Johnson Self - patient is the [...] - s/p PPM - followed by Dr. Delgado CVA HTN Surgical History Surgery Date(Month/Year) RT Leg-[facility] 2004 LT Shoulder- [facility] 2004 C-scope/ polyps - Dr. Dominguez 09/2010, 2016 Heart Cath & stent - Dr. Delgado 021 Pacemaker - Dr. 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
[2025-03-12 09:46] LABS: Microscopic, Urine URINE MICROSCOPIC (MICROSCOPIC)
[2025-03-12 10:13] LABS: Hematocrit 31.2 % (37.0-47.0); Hemoglobin 10.2 g/dL (12.2-16.2); Mean Corpuscular HGB Conc 32.7 g/dL (31.8-35.4); Mean Corpuscular Hemoglobin 31.6 pg (27.0-31.2); Mean Corpuscular Volume 96.6 fl (81-99); Nucleated Red Blood Cells % 0 %; Platelet Count 135 K/mm3 (142-424); Red Blood Count 3.23 M/mm3 (4.20-5.40); Red Cell Distribution Width-SD 61.3 fL; White Blood Count 7.6 K/mm3 (4.8-10.8)
[2025-03-12 10:23] LABS: Bilirubin,Urine Negative (Negative); Color,Urine YELLOW (Yellow); Glucose,Urine (UA) Negative (Negative); Ketones,Urine Negative (Negative); Leukocyte Esterase,Urine 1+ (Negative); PH,Urine 6.0 (5.0-8.5); Protein,Urine 3+ (Negative); Specific Gravity, Urine 1.025 (1.005-1.030); Urobilinogen,Urine 0.2 EU/dl (0.2)
[2025-03-12 10:34] LABS: RBC,Urine Occasional #/hpf (0-3); Squamous Epithelial Cell,Urine 20-50 #/hpf (0-5); WBC,Urine 50-100 #/hpf (0-3)
[2025-03-12 10:35] LABS: Albumin Level 3.5 g/dl (3.5-5.0); Bacteria,Urine 3+ /lpf; Chloride 108 mmol/L (98-107); Potassium 3.9 mmoL/L (3.5-5.1); Sodium 142 mmol/L (136-145)
[2025-03-12 10:38] LABS: Anion Gap 11.9 mEq/L (5-15); Blood Urea Nitrogen 55 mg/dl (7-17); Carbon Dioxide 26 mmol/L (22.0-30.0); Creatinine,Serum 2.20 mg/dl (0.52-1.04); Estimated Glomerular Filt Rate 21 ml/min (>60); GFR (African American) 26 ML/MIN (>60); Phosphorous 4.2 mg/dl (2.5-4.5)
[2025-03-12 10:39] LABS: Calcium 10.4 mg/dl (8.4-10.2); Glucose 99 mg/dl (74-100)
== END 2025-03-12 23:59 | disposition home or self-care (01) ==
LOC: LAB 09:41
PROVIDERS: PCP Family Medicine; Visit Provider Student in an Organized Health Care Education/Training Program
DX: I12.9 Hypertensive chronic kidney disease with stage 1 through stage 4 chronic kidney disease, or unspecified chronic kidney disease (principal); N18.4 Chronic kidney disease, stage 4 (severe); D63.1 Anemia in chronic kidney disease
CPT/HCPCS: 36415; 80069; 81001; 82570; 84156; 85027; 87086

== ENCOUNTER 2025-06-17 10:18 | Outpatient (CLI) | payer MEDICARE, SELFPAY ==
[2025-06-17 10:28] LABS: Microscopic, Urine URINE MICROSCOPIC (MICROSCOPIC)
[2025-06-17 10:55] LABS: Hematocrit 29.9 % (37.0-47.0); Hemoglobin 9.7 g/dL (12.2-16.2); Mean Corpuscular HGB Conc 32.4 g/dL (31.8-35.4); Mean Corpuscular Hemoglobin 32.7 pg (27.0-31.2); Mean Corpuscular Volume 100.7 fl (81-99); Nucleated Red Blood Cells % 0 %; Platelet Count 175 K/mm3 (142-424); Red Blood Count 2.97 M/mm3 (4.20-5.40); Red Cell Distribution Width-SD 53.9 fL; White Blood Count 9.0 K/mm3 (4.8-10.8)
[2025-06-17 11:20] LABS: Albumin Level 3.9 g/dl (3.5-5.0); Chloride 113 mmol/L (98-107); Potassium 4.2 mmoL/L (3.5-5.1); Sodium 142 mmol/L (136-145)
[2025-06-17 11:23] LABS: Anion Gap 10.2 mEq/L (5-15); Blood Urea Nitrogen 62 mg/dl (7-17); Carbon Dioxide 23 mmol/L (22.0-30.0); Creatinine,Serum 2.90 mg/dl (0.52-1.04); Estimated Glomerular Filt Rate 15 ml/min (>60); GFR (African American) 19 ML/MIN (>60)
[2025-06-17 11:24] LABS: Calcium 9.6 mg/dl (8.4-10.2); Glucose 102 mg/dl (74-100); Phosphorous 5.4 mg/dl (2.5-4.5)
[2025-06-17 11:54] LABS: Bilirubin,Urine Negative (Negative); Color,Urine YELLOW (Yellow); Glucose,Urine (UA) Negative (Negative); Ketones,Urine Negative (Negative); Leukocyte Esterase,Urine Negative (Negative); PH,Urine 5.5 (5.0-8.5); Protein,Urine 2+ (Negative); Specific Gravity, Urine 1.015 (1.005-1.030); Urobilinogen,Urine 0.2 EU/dl (0.2)
[2025-06-17 12:40] LABS: 25-OH Vitamin D, Total 53.4 ng/mL (30-100)
[2025-06-17 12:47] LABS: Bacteria,Urine Trace /lpf; Squamous Epithelial Cell,Urine Occasional #/hpf (0-5); WBC,Urine Occasional #/hpf (0-3)
== END 2025-06-17 23:59 | disposition home or self-care (01) ==
LOC: LAB 10:20
PROVIDERS: PCP Family Medicine; Visit Provider Student in an Organized Health Care Education/Training Program
DX: I1A.0 Resistant hypertension (principal); N18.4 Chronic kidney disease, stage 4 (severe); D63.1 Anemia in chronic kidney disease
CPT/HCPCS: 36415; 80069; 81001; 82043; 82306; 82570; 83970; 84156; 85027